=== PATIENT | female | born 1985 | race Caucasian/White ===

== ENCOUNTER → 2019-07-27 18:14 | Outpatient (BNVA) | payer SELFPAY | PROVIDERS: Family Provider Family Medicine; Visit Provider Nurse Practitioner | DX: R50.9 Fever, unspecified (principal) | CPT/HCPCS: 87400 ==

== ENCOUNTER → 2020-03-19 11:19 | Outpatient (BNVA) | payer OTHER, SELFPAY | PROVIDERS: Family Provider Family Medicine; Visit Provider Nurse Practitioner Family | DX: Z11.59 Encounter for screening for other viral diseases (principal) | CPT/HCPCS: 87635 ==

== ENCOUNTER 2021-03-12 16:02 | Emergency (ER) | payer OTHER, SELFPAY ==
[2021-03-12 17:24] VITALS: BP 147/86; PULSE 90; RESP 18; TEMP 36.7; O2SAT 98; BMI 43.0
--- NOTE | 2021-03-12 20:39 | W.ED.ABDPA2 ---
Documented by User: DONALD Travis 03/13/21 02:46 HPI - Abdominal Pain General: Chief Complaint: Abdominal Pain Stated Complaint: Diarrhea, ABD Pain, Ear Drainage Time Seen by Provider: 03/12/21 20:31 History of Present Illness: HPI narrative: Patient is a 35-year-old female comes to the ED with abdominal pain and diarrhea. Symptoms started approximately 2 days ago. She describes the pain as an aching constant pain that she rates an 8 out of 10. The pain is located in the periumbilical region. She is also had multiple episodes of diarrhea for the past couple days. Denies any nausea or vomiting. She is also complaining of having some bilateral ear pain and says her ears feel itchy as well. Denies any fever, chills, chest pain, shortness of breath, bladder symptoms. Associated Symptoms: Reports diarrhea; Denies chills, constipation, dysuria, fever(s), hematochezia, hematuria, nausea and vomiting Review of Systems Const: Denies: fever(s), chills or fatigue Eyes: Denies: change in vision or eye discomfort ENMT: Reports: ear or mastoid pain (Bilateral); Denies: throat pain, odynophagia, nasal discharge or nasal congestion Card: Denies: chest pain, palpitations, edema, swelling of feet/ankles, dyspnea on exertion or orthopnea Resp: Denies: dyspnea, productive cough or non-productive cough GI: Reports: abdominal pain and diarrhea; Denies: nausea, vomiting, constipation or hematochezia : Denies: flank pain, dysuria or hematuria Musc: Denies: neck pain, back pain or extremity swelling Skin/Breast: Denies: rash or new lesions Neuro: Denies: headache(s), numbness in extremities or weakness in extremities PFS ED PFSH: Social History Smoking and tobacco status: never smoked Physical Exam Const: COMMON NORMALS: no acute distress, patient oriented x3 and alert GENERAL APPEARANCE: cooperative and comfortable HENMT: COMMON NORMALS: normocephalic and EAC's normal HEAD & SCALP: normocephalic EXTERNAL AUDITORY CANAL: EAC's normal TYMPANIC MEMBRANE: TM abnormal TM laterality: left Details: erythematous MOUTH: Normal oral and palatal mucosa present THROAT: posterior oropharynx normal and uvula midline Eye: COMMON NORMALS: Equal, round and reactive pupils present PUPIL: Yes Equal, round and reactive pupils present Neck/C-Spine: COMMON NORMALS: supple GENERAL: Yes normal visual inspection Resp: COMMON NORMALS: normal respiratory effort, No retractions, No use of accessory muscles and clear to auscultation bilaterally AUSCULTATION: clear to auscultation bilaterally Cardio: COMMON NORMALS: regular rate, regular rhythm, S1 normal heart sound present, S2 normal heart sound present, No gallops present (Cardio), No clicks present (Cardio), No murmurs present (Cardio) and Peripheral pulses 2+ throughout RATE: regular rate RHYTHM: regular rhythm HEART SOUNDS: S1 normal heart sound present and S2 normal heart sound present PERIPHERAL PULSES: Peripheral pulses 2+ throughout GI: COMMON NORMALS: Normal to inspection, nondistended, normoactive bowel sounds present, Soft to palpation and no masses INSPECTION: Yes central obesity PALPATION: Yes Soft to palpation and Yes Tenderness to palpation present (GI) (Periumbilical tenderness) : COMMON NORMALS: Yes no CVA tenderness BLADDER/KIDNEY EXAM: Yes no CVA tenderness Back/Pelvis: COMMON NORMALS: no CVA tenderness Extremity: COMMON NORMALS: normal to inspection Neuro: COMMON NORMALS: patient oriented x3 SENSORIUM/ORIENTATION: Yes alert GAIT: Yes Normal gait present Skin: GENERAL SKIN EXAM: dry skin Course Vital Signs: Vital signs: Vital Signs Temperature 98.1 F 03/12/21 17:24 Pulse Rate 68 03/12/21 23:21 Respiratory Rate 17 03/12/21 23:21 Blood Pressure 130/84 03/12/21 23:21 Pulse Oximetry 100 03/12/21 23:21 MDM - Abdominal Pain MDM Narrative: Medical decision making narrative: Patient is a 35-year-old female comes to the ED with abdominal pain and diarrhea. Denies any fever, chills, nausea/vomiting. Patient appears nontoxic and in no acute distress or pain. She has periumbilical tenderness, but the rest of exam is benign. CBC, CMP, UA, lipase were all unremarkable. hCG negative. CT of abdomen pelvis showed no acute findings. Patient was given IV fluids, Zofran and morphine and her symptoms improved. Patient was diagnosed with colitis and discharged home with a prescription for Zofran, dicyclomine, Flagyl and Cipro. She was told to follow-up with her PCP in 7 to 10 days reevaluation. Return to ED precautions given. Patient understood and agree with plan. Lab Data: Attestation: I reviewed the patient's lab results. Labs: Lab Results 03/12/21 03/12/21 03/12/21 20:56 21:10 21:10 WBC 6.6 10^3/uL 10^3/ uL (4.0-10.0) RBC 4.23 10^6/uL 10^6 /uL (4.1-5.3) Hgb 11.6 g/dL g/dL (11.5-15.3) Hct 36.0 % L % (37.0-47.0) MCV 85.1 fl fl (81-99) MCH 27.4 pg L pg (28.0-34.0) MCHC 32.2 g/dL g/dL (30.0-36.0) RDW 13.2 % % (12.1-15.1) Plt Count 229 10^3/cmm 10^3 /cmm (130-400) MPV 10.4 fL fL (7.4-10.4) Neut % (Auto) 46.2 % % Lymph % (Auto) 43.3 % % Menard % (Auto) 7.5 % % Eos % (Auto) 2.6 % % Baso % (Auto) 0.2 % % Neut # (Auto) 3.04 10^3/uL 10^3 /uL (1.8-7.7) Lymph # (Auto) 2.8 10^3/uL 10^3/ uL (0.8-4.8) Menard # (Auto) 0.5 10^3/uL 10^3/ uL (0.2-0.9) Eos # (Auto) 0.2 10^3/uL 10^3/ uL (0.0-0.8) Baso # (Auto) 0.0 10^3/uL 10^3/ uL (0.0-0.1) Nucleated RBC % (a uto) 0 % % Nucleated RBCs # 0.0 /100WBC /100W BC Sodium 138 mmol/L mmol/L (136-145) Potassium 4.0 mmol/L mmol/L (3.5-5.1) Chloride 104 mmol/L mmol/L (98-107) Carbon Dioxide 25 mmol/L mmol/L (22-29) Anion Gap 13.0 (5-19) BUN 15 mg/dL mg/dL (6-20) Creatinine 0.6 mg/dL mg/dL (0.5-0.9) GFR Calculation 112.5 mL/min mL/m in (90-130) Glucose 102 mg/dL mg/dL (65-115) Calculated Osmolal ity 287 mOsm/kg mOsm/ kg (285-295) Calcium 9.1 mg/dL mg/dL (8.5-10.5) Total Bilirubin 0.2 mg/dL mg/dL (0.15-1.2) AST 15 U/L U/L (0-32) ALT 17 U/L U/L (0-33) Alkaline Phosphata se 102 IU/L IU/L (35-105) Total Protein 7.6 g/dL g/dL (6.6-8.7) Albumin 4.2 g/dL g/dL (3.5-5.2) Globulin 3.4 g/dL g/dL (1.3-4.6) Lipase 40 U/L U/L (13-60) HCG, Qual Urine Color Yellow (Yellow) Urine Appearance Clear (CLEAR) Urine pH 6 (5-7) Ur Specific Gravit y 1.020 (1.005-1.030) Urine Protein Neg (Negative) Urine Glucose (UA) Norm (Normal) Urine Ketones Negative (Negative) Urine Blood Neg (Negative) Urine Nitrate Negative (Negative) Urine Bilirubin Neg (Negative) Urine Urobilinogen Norm mg/dL mg/dL (Negative) Ur Leukocyte Bernarda ase Negative (Negative) 03/12/21 21:10 WBC RBC Hgb Hct MCV MCH MCHC RDW Plt Count MPV Neut % (Auto) Lymph % (Auto) Menard % (Auto) Eos % (Auto) Baso % (Auto) Neut # (Auto) Lymph # (Auto) Menard # (Auto) Eos # (Auto) Baso # (Auto) Nucleated RBC % (a uto) Nucleated RBCs # Sodium Potassium Chloride Carbon Dioxide Anion Gap BUN Creatinine GFR Calculation Glucose Calculated Osmolal ity Calcium Total Bilirubin AST ALT Alkaline Phosphata se Total Protein Albumin Globulin Lipase HCG, Qual Negative (Negative) Urine Color Urine Appearance Urine pH Ur Specific Gravit y Urine Protein Urine Glucose (UA) Urine Ketones Urine Blood Urine Nitrate Urine Bilirubin Urine Urobilinogen Ur Leukocyte Bernarda ase Imaging Data ^: CT Abd/Pel: Attestation: I personally reviewed and interpreted this imaging study as follows: [facility]iologist's impression: [facility] [address] [place] [address] CT Scan Report Signed Patient: Dank Regan Unit #: [id number] : [id number] Age/Sex: 35 / F ADM Date: 03/12/21 Loc: ER Room/Bed: Attending Dr: Ordering Provider/Ordering MD: Sandeep Leiva Date of Service: 03/12/21 Procedure(s): CT abdomen pelvis w con* [id number] Accession Number(s): [id number] Report Number: [id number] PROCEDURE INFORMATION: Exam: CT Abdomen And Pelvis With Contrast Exam date and time: 03/12/2021 8:39 PM Age: 35 years old Clinical indication: Abdominal pain; Prior surgery; Surgery type: Femur; Patient HX: Periumbilical pain with diarrhea. ; Additional info: Periumbilical abdominal pain and diarrhea TECHNIQUE: Imaging protocol: Computed tomography of the abdomen and pelvis with contrast. Radiation optimization: All CT scans at this facility use at least one of these dose optimization techniques: automated exposure control; mA and/or kV adjustment per patient size (includes targeted exams where dose is matched to clinical indication); or iterative reconstruction. Contrast material: OMNI 300; Contrast volume: 95 ml; Contrast route: INTRAVENOUS (IV); COMPARISON: CT abdomen pelvis w con* [id number] 01/01/2019 5:30 PM RADIATION DOSE METRICS: Total DLP (mGy-cm): 1751.33 FINDINGS: Lungs: The lung bases are clear. Liver: Unremarkable. Gallbladder and bile ducts: No definite gallbladder abnormality by CT. No biliary tree dilation. Pancreas: Unremarkable. Spleen: Unremarkable. Adrenal glands: Unremarkable. Kidneys and ureters: Unremarkable. Stomach and bowel: No significant bowel distention. There are no CT findings to strongly suggest diverticulitis or colitis. Negative CT does not entirely exclude colitis, so follow-up may be helpful, as clinically directed. Appendix: The appendix is visualized and appears normal. Intraperitoneal space: No free intraperitoneal air, or ascites. Vasculature: No evidence for abdominal aortic aneurysm. Lymph nodes: No retroperitoneal adenopathy. Urinary bladder: Unremarkable as visualized. Reproductive: The left ovary contains a 13 mm dominant follicle versus very small cyst. Significance unlikely due to small size. No cul-de-sac fluid. Bones/joints: Postsurgical changes again seen in the proximal right femur. Soft tissues: Very small umbilical hernia, containing only fat, not significantly changed. CT/CT abdomen pelvis w con* [id number] IMPRESSION: 1. Normal appendix. 2. No CT findings to strongly suggest diverticulitis or colitis. 3. No free air or bowel distention. 4. Other findings discussed above. Radiation Dose CTDIVOL = (mGy): DLP = 1751.33 (mGy-cm) Dictated By: Josh Bearden MD Signed By: Josh Bearden MD Signed Date/Time: 03/12/212229 DD/ 38 Discharge Plan Discharge Patient Disposition: Home Clinical Impression: Colitis Condition: Stable Prescriptions: New ondansetron HCl 4 mg tablet 4 mg PO Q8H PRN (Reason: nausea and vomiting) Qty: 12 RF: 0 dicyclomine 20 mg tablet 20 mg PO QID PRN (Reason: abdominal pain and cramping) Qty: 20 RF: 0 No Action metformin 500 mg tablet 500 mg PO BID RF: 0 hydrochlorothiazide 25 mg tablet 25 mg PO DAILY RF: 0 levothyroxine 125 mcg capsule 125 mcg PO DAILY RF: 0 ibuprofen 800 mg tablet 800 mg PO Q6H RF: 0 albuterol sulfate [ProAir HFA] 90 mcg/actuation HFA aerosol inhaler 2 puff INHALATION Q6H PRNRF: 0 Discharge Orders: Discharge ED (Routine); Ordered 03/12/21 Ordered By: Sandeep Leiva Discharge Diet: Regular Discharge Activity: Increase activity as tolerated Patient Instructions: Colitis (ED) Activity Restrictions/Additional Instructions: Follow-up with medical provider as directed in 7 to 10 days for reevaluation. Take medications as prescribed. Drink plenty of fluids and stay hydrated. Return to the ER or your medical provider if condition worsens. Please read and understand discharge instructions. Thank you for choosing [facility] for your healthcare needs today. Please realize this is an emergency room and that we are providing you with a medical screening exam and this may not be complete and all inclusive of all the testing and or work up that you may need to determine your ailment or severity of your illness. It is very important that you follow up as instructed or that you return to the Emergency Department should you have concerns or if your condition changes or worsens in any way. 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 Documented by User: Sharad Koroma MD 03/21/21 13:29 HPI - Abdominal Pain General: Chief Complaint: Abdominal Pain Stated Complaint: Diarrhea, ABD Pain, Ear Drainage Time Seen by Provider: 03/12/21 20:31 PFS ED PFSH: Social History Smoking and tobacco status: never smoked Course Vital Signs: Vital signs: Vital Signs Temperature 98.1 F 03/12/21 17:24 Pulse Rate 68 03/12/21 23:21 Respiratory Rate 17 03/12/21 23:21 Blood Pressure 130/84 03/12/21 23:21 Pulse Oximetry 100 03/12/21 23:21 MDM - Abdominal Pain Lab Data: Labs: Lab Results 03/12/21 03/12/21 03/12/21 20:56 21:10 21:10 WBC 6.6 10^3/uL 10^3/ uL (4.0-10.0) RBC 4.23 10^6/uL 10^6 /uL (4.1-5.3) Hgb 11.6 g/dL g/dL (11.5-15.3) Hct 36.0 % L % (37.0-47.0) MCV 85.1 fl fl (81-99) MCH 27.4 pg L pg (28.0-34.0) MCHC 32.2 g/dL g/dL (30.0-36.0) RDW 13.2 % % (12.1-15.1) Plt Count 229 10^3/cmm 10^3 /cmm (130-400) MPV 10.4 fL fL (7.4-10.4) Neut % (Auto) 46.2 % % Lymph % (Auto) 43.3 % % Menard % (Auto) 7.5 % % Eos % (Auto) 2.6 % % Baso % (Auto) 0.2 % % Neut # (Auto) 3.04 10^3/uL 10^3 /uL (1.8-7.7) Lymph # (Auto) 2.8 10^3/uL 10^3/ uL (0.8-4.8) Menard # (Auto) 0.5 10^3/uL 10^3/ uL (0.2-0.9) Eos # (Auto) 0.2 10^3/uL 10^3/ uL (0.0-0.8) Baso # (Auto) 0.0 10^3/uL 10^3/ uL (0.0-0.1) Nucleated RBC % (a uto) 0 % % Nucleated RBCs # 0.0 /100WBC /100W BC Sodium 138 mmol/L mmol/L (136-145) Potassium 4.0 mmol/L mmol/L (3.5-5.1) Chloride 104 mmol/L mmol/L (98-107) Carbon Dioxide 25 mmol/L mmol/L (22-29) Anion Gap 13.0 (5-19) BUN 15 mg/dL mg/dL (6-20) Creatinine 0.6 mg/dL mg/dL (0.5-0.9) GFR Calculation 112.5 mL/min mL/m in (90-130) Glucose 102 mg/dL mg/dL (65-115) Calculated Osmolal ity 287 mOsm/kg mOsm/ kg (285-295) Calcium 9.1 mg/dL mg/dL (8.5-10.5) Total Bilirubin 0.2 mg/dL mg/dL (0.15-1.2) AST 15 U/L U/L (0-32) ALT 17 U/L U/L (0-33) Alkaline Phosphata se 102 IU/L IU/L (35-105) Total Protein 7.6 g/dL g/dL (6.6-8.7) Albumin 4.2 g/dL g/dL (3.5-5.2) Globulin 3.4 g/dL g/dL (1.3-4.6) Lipase 40 U/L U/L (13-60) HCG, Qual Urine Color Yellow (Yellow) Urine Appearance Clear (CLEAR) Urine pH 6 (5-7) Ur Specific Gravit y 1.020 (1.005-1.030) Urine Protein Neg (Negative) Urine Glucose (UA) Norm (Normal) Urine Ketones Negative (Negative) Urine Blood Neg (Negative) Urine Nitrate Negative (Negative) Urine Bilirubin Neg (Negative) Urine Urobilinogen Norm mg/dL mg/dL (Negative) Ur Leukocyte Bernarda ase Negative (Negative) 03/12/21 21:10 WBC RBC Hgb Hct MCV MCH MCHC RDW Plt Count MPV Neut % (Auto) Lymph % (Auto) Menard % (Auto) Eos % (Auto) Baso % (Auto) Neut # (Auto) Lymph # (Auto) Menard # (Auto) Eos # (Auto) Baso # (Auto) Nucleated RBC % (a uto) Nucleated RBCs # Sodium Potassium Chloride Carbon Dioxide Anion Gap BUN Creatinine GFR Calculation Glucose Calculated Osmolal ity Calcium Total Bilirubin AST ALT Alkaline Phosphata se Total Protein Albumin Globulin Lipase HCG, Qual Negative (Negative) Urine Color Urine Appearance Urine pH Ur Specific Gravit y Urine Protein Urine Glucose (UA) Urine Ketones Urine Blood Urine Nitrate Urine Bilirubin Urine Urobilinogen Ur Leukocyte Bernarda ase Discharge Plan Discharge Patient Disposition: Home Clinical Impression: Colitis Condition: Stable Prescriptions: New ondansetron HCl 4 mg tablet 4 mg PO Q8H PRN (Reason: nausea and vomiting) Qty: 12 RF: 0 dicyclomine 20 mg tablet 20 mg PO QID PRN (Reason: abdominal pain and cramping) Qty: 20 RF: 0 No Action metformin 500 mg tablet 500 mg PO BID RF: 0 hydrochlorothiazide 25 mg tablet 25 mg PO DAILY RF: 0 levothyroxine 125 mcg capsule 125 mcg PO DAILY RF: 0 ibuprofen 800 mg tablet 800 mg PO Q6H RF: 0 albuterol sulfate [ProAir HFA] 90 mcg/actuation HFA aerosol inhaler 2 puff INHALATION Q6H PRNRF: 0 Discharge Orders: Discharge ED (Routine); Ordered 03/12/21 Ordered By: Sandeep Leiva Discharge Diet: Regular Discharge Activity: Increase activity as tolerated Patient Instructions: Colitis (ED) Activity Restrictions/Additional Instructions: Follow-up with medical provider as directed in 7 to 10 days for reevaluation. Take medications as prescribed. Drink plenty of fluids and stay hydrated. Return to the ER or your medical provider if condition worsens. Please read and understand discharge instructions. Thank you for choosing [facility] for your healthcare needs today. Please realize this is an emergency room and that we are providing you with a medical screening exam and this may not be complete and all inclusive of all the testing and or work up that you may need to determine your ailment or severity of your illness. It is very important that you follow up as instructed or that you return to the Emergency Department should you have concerns or if your condition changes or worsens in any way. 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
[2021-03-12 21:18] LABS: Basophils % 0.2 %; Eosinophils # 0.2 10^3/uL (0.0-0.8); Eosinophils % 2.6 %; Hemoglobin 11.6 g/dL (11.5-15.3); Lymphocytes # 2.8 10^3/uL (0.8-4.8); Lymphocytes % 43.3 %; Mean Corpuscular HGB Conc 32.2 g/dL (30.0-36.0); Mean Corpuscular Hemoglobin 27.4 pg (28.0-34.0); Mean Corpuscular Volume 85.1 fl (81-99); Mean Platelet Volume 10.4 fL (7.4-10.4); Monocytes # 0.5 10^3/uL (0.2-0.9); Monocytes % 7.5 %; Neutrophils # 3.04 10^3/uL (1.8-7.7); Neutrophils % 46.2 %; Nucleated Red Blood Cells % 0 %; Platelet Count 229 10^3/cmm (130-400); Red Blood Count 4.23 10^6/uL (4.1-5.3); Red Cell Distribution Width 13.2 % (12.1-15.1); White Blood Count 6.6 10^3/uL (4.0-10.0)
[2021-03-12 21:25] LABS: Add Urine Microscopic? NO; Charge for UA Resulting for Rev
[2021-03-12] MEDS: morphine 4 mg/mL SDV 1 mL IVP (21:29)
[2021-03-12 21:30] LABS: Bilirubin Urine Neg (Negative); Blood Urine Neg (Negative); Glucose Urine UA Norm (Normal); Ketones Urine Negative (Negative); Leukocyte Esterase Urine Negative (Negative); Nitrate Urine Negative (Negative); Protein Urine Neg (Negative); Urine Appearance Clear (CLEAR); Urine Color Yellow (Yellow); Urobilinogen Urine Norm (Negative); pH Urine 6 (5-7)
[2021-03-12] MEDS: sodium chloride 0.9% 1,000 ML 999 ML IV (21:31)
[2021-03-12] MEDS: ondansetron 2 mg/ML SDV 2 mL 4 MG IVP (21:31)
[2021-03-12 21:33] LABS: HCG, Serum Qual Negative (Negative)
[2021-03-12] MEDS: iohexol 300 mg/mL 100 mL Btl IV (21:37)
[2021-03-12 21:40] LABS: Alanine Aminotransferase 17 U/L (0-33); Albumin Level 4.2 g/dL (3.5-5.2); Alkaline Phosphatase 102 IU/L (35-105); Aspartate Amino Transferase 15 U/L (0-32); Blood Urea Nitrogen 15 mg/dL (6-20); Calcium 9.1 mg/dL (8.5-10.5); Carbon Dioxide 25 mmol/L (22-29); Chloride 104 mmol/L (98-107); Globulin 3.4 g/dL (1.3-4.6); Glomerular Filtration Rate 112.5 mL/min (90-130); Glucose 102 mg/dL (65-115); Lipase 40 U/L (13-60); Osmolality Calculated 287 mOsm/kg (285-295); Sodium 138 mmol/L (136-145); Total Bilirubin 0.2 mg/dL (0.15-1.2); Total Protein 7.6 g/dL (6.6-8.7)
[2021-03-12 22:28] VITALS: BP 119/60; PULSE 83; RESP 18; O2SAT 98
[2021-03-12] MEDS: metroNIDAZOLE 500 MG Tablet PO (23:13)
[2021-03-12] MEDS: ciprofloxacin 500 mg Tablet PO (23:13)
[2021-03-12 23:21] VITALS: BP 130/84; PULSE 68; RESP 17; O2SAT 100
== END 2021-03-12 23:23 | disposition home or self-care (01) ==
PROVIDERS: Physician Assistant; Emergency Provider Physician Assistant
DX: K52.9 Noninfective gastroenteritis and colitis, unspecified (principal); Z79.84 Long term (current) use of oral hypoglycemic drugs
CPT/HCPCS: 74177; 80053; 81003; 83690; 84703; 85025; 96361; 96374; 96375; 99283; J2270; J2405; J7030; Q9967

== ENCOUNTER 2021-07-28 13:42 | Emergency (ER) | payer SELFPAY ==
--- NOTE | 2021-07-28 13:51 | XR_ITS ---
WS: [id number] XR chest 1V portable [id number] REASON FOR EXAM: chest pain FINDINGS: Suboptimal inspiratory effort. Heart and mediastinum are within normal limits. No active pulmonary parenchymal or pleural disease. Bony thorax is intact without significant focal abnormality. XR/XR chest 1V portable [id number] IMPRESSION: No acute chest abnormality.
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
--- NOTE | 2021-07-28 13:51 | ECG_ITS ---
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 Measurements Intervals [place] Rate: 74 P: 28 [place]: 157 QRS: 34 QRSD: 89 T: 11 QT: 368 QTc: 409 Interpretive Statements SINUS RHYTHM No previous ECG available for comparison Electronically Signed On 07-28-2021 22:23:58 CDT by Michael Salmeron M.D. [id number]
[2021-07-28 13:52] VITALS: BMI 46.0
--- NOTE | 2021-07-28 14:03 | PC.NURSE ---
with Delphine Rea RN
[2021-07-28 14:25] LABS: Basophils % 0.3 %; Eosinophils # 0.1 10^3/uL (0.0-0.8); Eosinophils % 3.5 %; Hematocrit 35.8 % (37.0-47.0); Hemoglobin 11.3 g/dL (11.5-15.3); Lymphocytes # 1.6 10^3/uL (0.8-4.8); Mean Corpuscular HGB Conc 31.6 g/dL (30.0-36.0); Mean Corpuscular Hemoglobin 26.2 pg (28.0-34.0); Mean Corpuscular Volume 82.9 fl (81-99); Mean Platelet Volume 10.8 fL (7.4-10.4); Monocytes # 0.3 10^3/uL (0.2-0.9); Monocytes % 8.9 %; Neutrophils # 1.39 10^3/uL (1.8-7.7); Nucleated Red Blood Cells % 0 %; Platelet Count 228 10^3/cmm (130-400); Red Blood Count 4.32 10^6/uL (4.1-5.3); Red Cell Distribution Width 13.7 % (12.1-15.1); White Blood Count 3.5 10^3/uL (4.0-10.0)
[2021-07-28 14:44] LABS: Alanine Aminotransferase 13 U/L (0-33); Albumin Level 4.1 g/dL (3.5-5.2); Alkaline Phosphatase 96 IU/L (35-105); Anion Gap 15.6 (5-19); Aspartate Amino Transferase 13 U/L (0-32); Blood Urea Nitrogen 11 mg/dL (6-20); Calcium 8.2 mg/dL (8.5-10.5); Carbon Dioxide 21 mmol/L (22-29); Chloride 103 mmol/L (98-107); Globulin 2.8 g/dL (1.3-4.6); Glomerular Filtration Rate 94.2 mL/min (90-130); Glucose 170 mg/dL (65-115); HCG, Serum Qual Negative (Negative); Osmolality Calculated 285 mOsm/kg (285-295); Potassium 3.6 mmol/L (3.5-5.1); Sodium 136 mmol/L (136-145); Total Bilirubin 0.2 mg/dL (0.15-1.2); Total Protein 6.9 g/dL (6.6-8.7)
[2021-07-28 14:45] LABS: Troponin(5th) Baseline 6 ng/L (0-10)
--- NOTE | 2021-07-28 14:45 | PC.PHAR ---
pt states she use to take alot of rx medications-pt states not taken them for over a year pt states she cant afford her medications-pt states she is unsure of the names of the medications she was taking
[2021-07-28 15:05] VITALS: BP 143/65; PULSE 71; RESP 16; TEMP 36.9; O2SAT 98
== END 2021-07-28 15:56 | disposition home or self-care (01) ==
PROVIDERS: Emergency Provider Physician Assistant; PCP Family Medicine
DX: R07.89 Other chest pain (principal)
CPT/HCPCS: 71045; 80053; 84484; 84703; 85025; 93005; 99282

== ENCOUNTER 2021-07-29 18:19 | Emergency (ER) | payer SELFPAY ==
[2021-07-29 18:34] VITALS: PULSE 83; RESP 18; TEMP 36.9; O2SAT 98; BMI 46.9
--- NOTE | 2021-07-29 18:39 | ED_ITS ---
HPI - Chest Pain General: Chief Complaint: Chest Pain Stated Complaint: Chest Pains Time Seen by Provider: 07/29/21 18:39 History of Present Illness: Ms. Regan is a 35-year-old lady with past medical history of psychiatric illness who presents emergency department due to chest pain. She initially presented yesterday for similar concerns. She endorses that symptoms started at rest and she had pressure in her chest. There was mild radiation or tingling down the arm however ED evaluation at that point was negative for acute cause. She expresses frustration that her pain was not controlled discharge. She does report continued symptoms and called her PCPs office for follow-up today however they referred her back to the emergency department for worsening arm symptoms. She denies frequent similar episodes in the past. Denies other signs systemic illness. No other specific changes in health, exacerbating, relieving factors identified. Onset (ago): day(s) Timing of current episode: constant Prior episodes: No Onset: during rest Pain location: substernal and left chest Pain radiation: left arm Severity: severe Quality: crushing Review of Systems General: Reports: 10 or more systems reviewed and unremarkable except in HPI and below PFSH ED PFSH: Medical History No significant past medical history Social History Smoking and tobacco status: never smoked Physical Exam Const: COMMON NORMALS: alert GENERAL APPEARANCE: cooperative and well developed HENMT: COMMON NORMALS: normocephalic and atraumatic HEAD & SCALP: normocephalic and atraumatic Eye: COMMON NORMALS: conjunctivae normal CONJUNCTIVA: Yes conjunctivae normal SCLERA: sclerae normal Neck/C-Spine: COMMON NORMALS: supple GENERAL: Yes trachea midline Resp: COMMON NORMALS: normal respiratory effort and clear to auscultation bilaterally EFFORT & INSPECTION: Yes able to speak in complete sentences AUSCULTATION: clear to auscultation bilaterally Cardio: COMMON NORMALS: regular rate and regular rhythm RATE: regular rate RHYTHM: regular rhythm GI: COMMON NORMALS: Soft to palpation PALPATION: Yes Soft to palpation and No Tenderness to palpation present (GI) PERCUSSION: normal to percussion Extremity: GENERAL: Yes normal exam except as noted and No edema Neuro: COMMON NORMALS: moves all extremities SENSORIUM/ORIENTATION: Yes alert and No Orientation impaired Psych: COMMON NORMALS: mental status grossly normal and Normal thought process present THOUGHT PROCESS: Normal thought process present Course ED course: - Patient was seen and evaluated by me at bedside - Patient placed on cardiac monitors, IV access obtained - Initial evaluation notable for exam as above - Labs and xrays personally interpreted by me - Analgesia ordered. - Labs notable for no acute hematologic or metabolic abnormality to explain symptoms. Troponin negative with greater than 6 hours of symptoms. D-dimer negative. - Imaging notable for no lobar consolidation or pneumothorax on chest x-ray - The patient did have facial and tongue itching with fentanyl and therefore treatment for allergic action was ordered. No evidence of progression of symptoms or anaphylaxis. - Upon serial reexamination after treatment the patient was improved with resolution of pain - Based on patient history, evaluation, and testing as interpreted the most likely cause of the patient's condition is chest pain of unclear etiology. Patient is low risk by heart score - The results of ED evaluation were discussed with the patient including pr escriptions and/or symptomatic cares (if applicable) including appropriate and responsible use, followup plan, and return precautions. The patient verbalized understanding and felt safe for discharge. - Patient discharged in satisfactory condition. Note: Click bubbles or prepopulated deal in note writing are used for assistance with data collection and billing and are inherently more limited than narrative and other text portions of this note. Please use narrative for additional clinical history and defer to narrative/free test for any case of contradictory information. If information appears in only free text or click bubble it should be considered present or absent as reported. Please contact note business writer for clarifications of clinical information or contradictory information. MDM is a brief summary, contradictory or erroneous seeming information should be clarified and full note should be reviewed. Vital Signs: Vital signs: Vital Signs Temperature 97.5 F L 07/30/21 00:08 Pulse Rate 87 07/30/21 00:08 Respiratory Rate 17 07/30/21 00:08 Blood Pressure 145/78 07/30/21 00:08 Pulse Oximetry 97 07/30/21 00:08 MDM - Chest Pain Medical Decision Making 35-year-old lady presenting for chest pain. Negative ED evaluation for obvious cause. Improved with treatment however patient did have a mild allergic reaction to treatment. Satisfactory for outpatient treatment and management. Medical Records I reviewed the patient's medical records. Lab Data I reviewed the patient's lab results. : 07/29/21 20:12 07/29/21 20:12 Radiology Impressions Chest X-Ray 07/29/21 18:47 IMPRESSION: No acute findings. Laboratory Results WBC 5.8 10^3/uL (4.0-10.0) 07/29/21 20:12 RBC 4.47 10^6/uL (4.1-5.3) 07/29/21 20:12 Hgb 11.7 g/dL (11.5-15.3) 07/29/21 20:12 Hct 36.5 % (37.0-47.0) L 07/29/21 20:12 MCV 81.7 fl (81-99) 07/29/21 20:12 MCH 26.2 pg (28.0-34.0) L 07/29/21 20:12 MCHC 32.1 g/dL (30.0-36.0) 07/29/21 20:12 RDW 13.7 % (12.1-15.1) 07/29/21 20:12 Plt Count 231 10^3/cmm (130-400) 07/29/21 20:12 MPV 10.3 fL (7.4-10.4) 07/29/21 20:12 Neut % (Auto) 57.8 % 07/29/21 20:12 Lymph % (Auto) 32.9 % 07/29/21 20:12 [place] % (Auto) 6.7 % 07/29/21 20:12 Eos % (Auto) 2.2 % 07/29/21 20:12 Baso % (Auto) 0.2 % 07/29/21 20:12 Neut # (Auto) 3.37 10^3/uL (1.8-7.7) 07/29/21 20:12 Lymph # (Auto) 1.9 10^3/uL (0.8-4.8) 07/29/21 20:12 [place] # (Auto) 0.4 10^3/uL (0.2-0.9) 07/29/21 20:12 Eos # (Auto) 0.1 10^3/uL (0.0-0.8) 07/29/21 20:12 Baso # (Auto) 0.0 10^3/uL (0.0-0.1) 07/29/21 20:12 Nucleated RBC % (auto) 0 % 07/29/21 20:12 Nucleated RBCs # 0.0 /100WBC 07/29/21 20:12 D-Dimer 0.48 ug/mIFEU (0-0.59) 07/29/21 20:37 Sodium 134 mmol/L (136-145) L 07/29/21 20:12 Potassium 3.7 mmol/L (3.5-5.1) 07/29/21 20:12 Chloride 101 mmol/L (98-107) 07/29/21 20:12 Carbon Dioxide 23 mmol/L (22-29) 07/29/21 20:12 Anion Gap 13.7 (5-19) 07/29/21 20:12 BUN 9 mg/dL (6-20) 07/29/21 20:12 Creatinine 0.6 mg/dL (0.5-0.9) 07/29/21 20:12 GFR Calculation 112.5 mL/min (90-130) 07/29/21 20:12 Glucose 128 mg/dL (65-115) H 07/29/21 20:12 Calculated Osmolality 278 mOsm/kg (285-295) L 07/29/21 20:12 Calcium 9.3 mg/dL (8.5-10.5) 07/29/21 20:12 Total Bilirubin 0.2 mg/dL (0.15-1.2) 07/29/21 20:12 AST 14 U/L (0-32) 07/29/21 20:12 ALT 12 U/L (0-33) 07/29/21 20:12 Alkaline Phosphatase 102 IU/L (35-105) 07/29/21 20:12 Troponin T Baseline 6 ng/L (0-10) 07/29/21 20:12 Troponin T 120 Minute 6.00 ng/L (0-10) 07/29/21 21:59 Delta Troponin T 0 ABS# (0-10) 07/29/21 21:59 Total Protein 7.5 g/dL (6.6-8.7) 07/29/21 20:12 Albumin 4.2 g/dL (3.5-5.2) 07/29/21 20:12 Globulin 3.3 g/dL (1.3-4.6) 07/29/21 20:12 Lipase 31 U/L (13-60) 07/29/21 20:12 EKG Data EKG 1: I personally reviewed and interpreted this EKG as follows: EKG interpretation date: 07/29/21 EKG interpretation time: 17:52 Interpretation: Twelve-lead EKG shows a regular rhythm at a rate of 81. [place] interval 147, QRS duration 88, QTc 392. Normal axis. Interpretation: Sinus rhythm with nonspecific ST segment abnormalities. EKG 2: I personally reviewed and interpreted this EKG as follows: EKG interpretation date: 07/29/21 EKG interpretation time: 21:21 Interpretation: EKG shows a regular rhythm at a rate of 84. [place] interval 151, QRS duration 90, QTc 402. Normal axis. Interpretation: Sinus rhythm with nonspecific ST segment abnormalities. Discharge Plan Discharge Patient Disposition: Home Clinical Impression: Chest pain, Paresthesia of arm, Allergic reaction Condition: Stable Prescriptions: New prednisone 50 mg tablet 50 mg PO DAILY 5 Days Qty: 5 0RF Pepcid 40 mg tablet 40 mg PO BID 5 Days Qty: 10 0RF No Action albuterol sulfate [ProAir HFA] 90 mcg/actuation HFA aerosol inhaler 2 puff INHALATION Q6H PRN (Reason: Shortness Of Breath) 0RF Midol Complete 500-60-15 mg Tablet 2 tab PO DAILY PRN (Reason: Menstrual Cramps) 0RF acetaminophen [Tylenol Ex Str Rapid Release] 500 mg Tablet 1,000 mg PO Q6H PRN (Reason: Pain) 0RF Discharge Orders: Discharge ED (Routine); Ordered 07/29/21 Ordered By: Sami Stahl Referrals: Roel Marshall MD [Primary Care Provider] - Discharge Diet: Usual diet Discharge Activity: Resume usual activity Patient Instructions: Chest Pain (ED), Paresthesia (ED), General Allergic Reaction (ED), Opioid Safety Activity Restrictions/Additional Instructions: Thank you for visiting the emergency department. You were seen and evaluated for chest pain. The exact cause of your chest pain is unclear however does not appear to be related to damage to your heart or blood clot. No evidence of infection was identified on chest x-ray. You may use [id number] medications for the symptoms however please do not exceed the daily recommended dosage. For your allergic reaction to the fentanyl I will give you steroids and Pepcid, if you continue to have symptoms despite this I recommend Benadryl as needed and following the packaging instructions. Please follow-up with your primary care provider. Please return the emergency department for worsening symptoms or anything else that you are concerned about and feel needs emergency department evaluation. Stand Alone Forms: Work/School Release Coding Level of Care Code ED Construction Helper for Jeremiasg 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
--- NOTE | 2021-07-29 18:47 | XRR_ITS ---
PROCEDURE INFORMATION: Exam: XR Chest Exam date and time: 07/29/2021 6:47 PM Age: 35 years old Clinical indication: Angina; Left-sided; Patient HX: Cp since yesterday; PT was seen yesterday for this symptom; Lt arm pain; Additional info: Chest pain TECHNIQUE: Imaging protocol: XR of the chest. Views: 1 view. COMPARISON: CR XR chest 1V portable [id number] 07/28/2021 1:14 PM FINDINGS: Lungs: Unremarkable. No consolidation. Pleural spaces: Unremarkable. No pleural effusion. No pneumothorax. Heart/Mediastinum: Unremarkable. No cardiomegaly. Bones/joints: Unremarkable. XR/XR chest 1V portable [id number] IMPRESSION: No acute findings.
--- NOTE | 2021-07-29 18:47 | ECG_ITS ---
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 Measurements Intervals [place] Rate: 81 P: 41 [place]: 147 QRS: 32 QRSD: 88 T: 33 QT: 355 QTc: 414 Interpretive Statements SINUS RHYTHM WITH SINUS ARRHYTHMIA Compared to ECG 07/28/2021 13:56:39 No significant changes Electronically Signed On 07-29-2021 23:04:58 CDT by Michael Salmeron M.D. [email or web address] [email or web address] memorial hospitalDynamaxx [facility].[employer]/store/NU/[id number] f
[2021-07-29 18:51] VITALS: BP 142/68; PULSE 90; RESP 19; O2SAT 97
[2021-07-29] MEDS: lidocaine 2% viscous 15 ML, aluminum-mag hydrox-simethicon 30 ML, sucralfate oral liq 1 GM PO (19:53)
[2021-07-29 20:18] LABS: Basophils % 0.2 %; Eosinophils # 0.1 10^3/uL (0.0-0.8); Eosinophils % 2.2 %; Hematocrit 36.5 % (37.0-47.0); Hemoglobin 11.7 g/dL (11.5-15.3); Lymphocytes # 1.9 10^3/uL (0.8-4.8); Lymphocytes % 32.9 %; Mean Corpuscular HGB Conc 32.1 g/dL (30.0-36.0); Mean Corpuscular Hemoglobin 26.2 pg (28.0-34.0); Mean Corpuscular Volume 81.7 fl (81-99); Mean Platelet Volume 10.3 fL (7.4-10.4); Monocytes # 0.4 10^3/uL (0.2-0.9); Monocytes % 6.7 %; Neutrophils # 3.37 10^3/uL (1.8-7.7); Neutrophils % 57.8 %; Nucleated Red Blood Cells % 0 %; Platelet Count 231 10^3/cmm (130-400); Red Blood Count 4.47 10^6/uL (4.1-5.3); Red Cell Distribution Width 13.7 % (12.1-15.1); White Blood Count 5.8 10^3/uL (4.0-10.0)
[2021-07-29 20:32] VITALS: RESP 18
[2021-07-29] MEDS: fentaNYL 50 mcg/mL INJ 2mL IVP (20:32)
[2021-07-29 20:40] LABS: Troponin(5th) Baseline 6 ng/L (0-10)
[2021-07-29 20:41] LABS: Alanine Aminotransferase 12 U/L (0-33); Albumin Level 4.2 g/dL (3.5-5.2); Alkaline Phosphatase 102 IU/L (35-105); Anion Gap 13.7 (5-19); Aspartate Amino Transferase 14 U/L (0-32); Blood Urea Nitrogen 9 mg/dL (6-20); Calcium 9.3 mg/dL (8.5-10.5); Carbon Dioxide 23 mmol/L (22-29); Chloride 101 mmol/L (98-107); Globulin 3.3 g/dL (1.3-4.6); Glomerular Filtration Rate 112.5 mL/min (90-130); Glucose 128 mg/dL (65-115); Lipase 31 U/L (13-60); Osmolality Calculated 278 mOsm/kg (285-295); Potassium 3.7 mmol/L (3.5-5.1); Sodium 134 mmol/L (136-145); Total Bilirubin 0.2 mg/dL (0.15-1.2); Total Protein 7.5 g/dL (6.6-8.7)
--- NOTE | 2021-07-29 20:47 | ECG_ITS ---
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 Measurements Intervals [place] Rate: 84 P: 46 MD: 151 QRS: 27 QRSD: 90 T: 7 QT: 361 QTc: 428 Interpretive Statements SINUS RHYTHM Compared to ECG 07/29/2021 17:46:23 Sinus arrhythmia no longer present Electronically Signed On 07-29-2021 23:05:34 CDT by Michael Salmeron M.D. [email or web address] [facility] infantsRoutezillacleveland clinic foundationBizak/store/OM/[id number]
[2021-07-29 21:06] LABS: D Dimer 0.48 ug/mIFEU (0-0.59)
[2021-07-29] MEDS: diphenhydrAMINE 50 mg/mL SDV 1mL 25 MG IVP (21:06)
[2021-07-29] MEDS: famotidine 20 mg/2 mL INJ 40 MG IVP (21:06)
--- NOTE | 2021-07-29 21:06 | PC.NURSE ---
reported feeling tingling in mouth and tongue, medicated per mar and patient state feeling relief at this time. no oral edema noted. speech remains clear.
[2021-07-29 22:37] LABS: Troponin 5 2HR Delta 0 ABS# (0-10)
[2021-07-30 00:08] VITALS: BP 145/78; PULSE 87; RESP 17; TEMP 36.4; O2SAT 97
== END 2021-07-30 00:09 | disposition home or self-care (01) ==
PROVIDERS: Emergency Provider Emergency Medicine; PCP Family Medicine
DX: R07.9 Chest pain, unspecified (principal); R20.2 Paresthesia of skin; T78.40XA Allergy, unspecified, initial encounter
CPT/HCPCS: 36415; 71045; 80053; 83690; 84484; 85025; 85378; 93005; 96374; 96375; 99284; J1200; J2930; J3010; J3490

== ENCOUNTER 2021-11-28 13:05 | Emergency (ER) | payer OTHER, SELFPAY ==
[2021-11-28 13:11] VITALS: BP 131/93; PULSE 78; RESP 16; TEMP 36.7; O2SAT 97
--- NOTE | 2021-11-28 17:19 | W.ED.NAVMDI ---
HPI - Nausea/Vomiting/Diarrhea General: Chief complaint: Nausea/Vomiting/Diarrhea Stated complaint: Vomiting Time Seen by Provider: 11/28/21 17:06 History of Present Illness: Patient is a 36-year-old female comes to the ED with nausea and vomiting. Symptoms started last night. She states that she had an empty stomach when symptoms started last night. Denies any possible food poisoning or any symptoms developing right after eating. Since start of symptoms she has not been able to keep any food or fluids down. She is only able to keep down ice. Denies any recent sick contacts. denies any fevers, chills, abdominal pain, vaginal discharge, vaginal bleeding, bladder or bowel symptoms. Associated nausea: Yes Associated symtoms: Reports nausea; Denies change in vision, chest pain, dysuria, fatigue, headache(s) or palpitations Review of Systems Const: Denies: fever(s), chills or fatigue Eyes: Denies: change in vision or eye discomfort ENMT: Denies: throat pain, odynophagia, nasal discharge or nasal congestion Card: Denies: chest pain, palpitations, edema, swelling of feet/ankles, dyspnea on exertion or orthopnea Resp: Denies: dyspnea, productive cough or non-productive cough GI: Reports: nausea and vomiting; Denies: abdominal pain, diarrhea, constipation or hematochezia : Denies: flank pain, dysuria or hematuria Musc: Denies: neck pain, back pain or extremity swelling Skin/Breast: Denies: rash or new lesions Neuro: Denies: headache(s), numbness in extremities or weakness in extremities [facility] ED PFSH: Medical History No pertinent family history No significant past medical history Social History Smoking and tobacco status: never smoked Physical Exam Const: COMMON NORMALS: patient oriented x3 and alert GENERAL APPEARANCE: cooperative and comfortable HENMT: COMMON NORMALS: normocephalic HEAD & SCALP: normocephalic MOUTH: Normal oral and palatal mucosa present THROAT: posterior oropharynx normal and uvula midline Neck/C-Spine: COMMON NORMALS: supple GENERAL: Yes normal visual inspection Resp: COMMON NORMALS: normal respiratory effort, No retractions, No use of accessory muscles and clear to auscultation bilaterally AUSCULTATION: clear to auscultation bilaterally Cardio: COMMON NORMALS: regular rate, regular rhythm, S1 normal heart sound present, S2 normal heart sound present, No gallops present (Cardio), No clicks present (Cardio), No murmurs present (Cardio) and Peripheral pulses 2+ throughout RATE: regular rate RHYTHM: regular rhythm HEART SOUNDS: S1 normal heart sound present and S2 normal heart sound present PERIPHERAL PULSES: Peripheral pulses 2+ throughout GI: COMMON NORMALS: Normal to inspection, nondistended, normoactive bowel sounds present, Soft to palpation, non-tender and no masses PALPATION: Yes Soft to palpation : COMMON NORMALS: Yes no CVA tenderness BLADDER/KIDNEY EXAM: Yes no CVA tenderness Back/Pelvis: COMMON NORMALS: no CVA tenderness Extremity: COMMON NORMALS: normal to inspection Neuro: COMMON NORMALS: patient oriented x3 and moves all extremities SENSORIUM/ORIENTATION: Yes alert Skin: GENERAL SKIN EXAM: dry skin Course ED course: After patient received 1 L of IV fluids and nausea meds her symptoms improved. She was able to complete p.o. fluid challenge and drank juice and was able to keep it down. Vital Signs: Vital signs: Vital Signs Temperature 98.1 F 11/28/21 13:11 Pulse Rate 79 11/28/21 19:46 Respiratory Rate 16 11/28/21 19:46 Blood Pressure 152/95 11/28/21 19:46 Pulse Oximetry 98 11/28/21 19:46 MDM - Nausea/Vomiting/Diarrhea Medical Decision Making Patient is a 36-year-old female comes to the ED with nausea and vomiting. Symptoms started last night. She states that she had an empty stomach when symptoms started last night. Denies any possible food poisoning or any symptoms developing right after eating. Since start of symptoms she has not been able to keep any food or fluids down. Denies any fevers, abdominal pain. After patient received 1 L of IV fluids and nausea meds her symptoms improved. Vitals are stable patient is afebrile. Exam of patient is benign and she appears nontoxic and in no acute distress or pain. Hemoglobin 10.9 but the rest of CBC and CMP was unremarkable. UA was suggestive of a UTI. Patient given 1 L of IV fluids and nausea meds and symptoms improved. She was able to complete p.o. fluid challenge and drank juice and was able to keep it down. Patient was diagnosed with a UTI, anemia, nausea and vomiting and discharged home with a prescription for cefdinir and Reglan. Told to follow-up with PCP in the next week for reevaluation. Return ED precautions given. Patient understood and agreed with plan. Lab Data I reviewed the patient's lab results. : 11/28/21 17:44 11/28/21 17:44 Laboratory Results WBC 5.4 10^3/uL (4.0-10.0) 11/28/21 17:44 RBC 4.21 10^6/uL (4.1-5.3) 11/28/21 17:44 Hgb 10.9 g/dL (11.5-15.3) L 11/28/21 17:44 Hct 33.6 % (37.0-47.0) L 11/28/21 17:44 MCV 79.8 fl (81-99) L 11/28/21 17:44 MCH 25.9 pg (28.0-34.0) L 11/28/21 17:44 MCHC 32.4 g/dL (30.0-36.0) 11/28/21 17:44 RDW 13.8 % (12.1-15.1) 11/28/21 17:44 Plt Count 226 10^3/cmm (130-400) 11/28/21 17:44 MPV 10.6 fL (7.4-10.4) H 11/28/21 17:44 Neut % (Auto) 57.0 % 11/28/21 17:44 Lymph % (Auto) 34.4 % 11/28/21 17:44 [place] % (Auto) 6.7 % 11/28/21 17:44 Eos % (Auto) 1.3 % 11/28/21 17:44 Baso % (Auto) 0.2 % 11/28/21 17:44 Neut # (Auto) 3.09 10^3/uL (1.8-7.7) 11/28/21 17:44 Lymph # (Auto) 1.9 10^3/uL (0.8-4.8) 11/28/21 17:44 [place] # (Auto) 0.4 10^3/uL (0.2-0.9) 11/28/21 17:44 Eos # (Auto) 0.1 10^3/uL (0.0-0.8) 11/28/21 17:44 Baso # (Auto) 0.0 10^3/uL (0.0-0.1) 11/28/21 17:44 Nucleated RBC % (auto) 0 % 11/28/21 17:44 Nucleated RBCs # 0.0 /100WBC 11/28/21 17:44 Sodium 142 mmol/L (136-145) 11/28/21 17:44 Potassium 3.9 mmol/L (3.5-5.1) 11/28/21 17:44 Chloride 105 mmol/L (98-107) 11/28/21 17:44 Carbon Dioxide 27 mmol/L (22-29) 11/28/21 17:44 Anion Gap 13.9 (5-19) 11/28/21 17:44 BUN 10 mg/dL (6-20) 11/28/21 17:44 Creatinine 0.7 mg/dL (0.5-0.9) 11/28/21 17:44 GFR Calculation 93.6 mL/min (90-130) 11/28/21 17:44 Glucose 97 mg/dL (65-115) 11/28/21 17:44 Calculated Osmolality 293 mOsm/kg (285-295) 11/28/21 17:44 Calcium 9.0 mg/dL (8.5-10.5) 11/28/21 17:44 Total Bilirubin 0.4 mg/dL (0.15-1.2) 11/28/21 17:44 AST 15 U/L (0-32) 11/28/21 17:44 ALT 12 U/L (0-33) 11/28/21 17:44 Alkaline Phosphatase 103 IU/L (35-105) 11/28/21 17:44 Total Protein 7.1 g/dL (6.6-8.7) 11/28/21 17:44 Albumin 4.2 g/dL (3.5-5.2) 11/28/21 17:44 Globulin 2.9 g/dL (1.3-4.6) 11/28/21 17:44 Lipase 25 U/L (13-60) 11/28/21 17:44 HCG, Qual Negative (Negative) 11/28/21 17:00 Urine Color Yellow (Yellow) 11/28/21 17:00 Urine Appearance Hazy (CLEAR) A 11/28/21 17:00 Urine pH 6 (5-7) 11/28/21 17:00 Ur Specific Taylor 1.025 (1.005-1.030) 11/28/21 17:00 Urine Protein Trace (Negative) 11/28/21 17:00 Urine Glucose (UA) Norm (Normal) 11/28/21 17:00 Urine Ketones Negative (Negative) 11/28/21 17:00 Urine Blood 2+ (Negative) H 11/28/21 17:00 Urine Nitrate Negative (Negative) 11/28/21 17:00 Urine Bilirubin Neg (Negative) 11/28/21 17:00 Urine Urobilinogen Norm mg/dL (Negative) 11/28/21 17:00 Ur Leukocyte Esterase 2+ (Negative) H 11/28/21 17:00 Urine RBC 15-25 /hpf (0-2) H 11/28/21 17:00 Urine WBC 80-100 /hpf (0-5) H 11/28/21 17:00 Ur Squamous Epith Cells 0-4 /hpf (0-5) H 11/28/21 17:00 Amorphous Sediment Not Reportable 11/28/21 17:00 Urine Bacteria 3+ /hpf (NONE) H 11/28/21 17:00 Discharge Plan Discharge Patient Disposition: Home Clinical Impression: UTI (urinary tract infection) Qualifiers: Urinary tract infection type: acute cystitis Hematuria presence: with hematuria Qualified Code(s): N30.01 - Acute cystitis with hematuria Nausea & vomiting Qualifiers: Vomiting type: unspecified Qualified Code(s): R11.2 - Nausea with vomiting, unspecified Anemia Qualifiers: Anemia type: unspecified type Qualified Code(s): D64.9 - Anemia, unspecified Condition: Stable Prescriptions: New metoclopramide HCl 10 mg tablet 10 mg PO Q6H PRN (Reason: nausea and vomiting) Qty: 15 0RF cefdinir 300 mg capsule 300 mg PO BID 10 Days Qty: 20 0RF No Action albuterol sulfate [ProAir HFA] 90 mcg/actuation HFA aerosol inhaler 2 puff INHALATION Q6H PRN (Reason: Shortness Of Breath) 0RF Midol Complete 500-60-15 mg Tablet 2 tab PO DAILY PRN (Reason: Menstrual Cramps) 0RF acetaminophen [Tylenol Ex Str Rapid Release] 500 mg Tablet 1,000 mg PO Q6H PRN (Reason: Pain) 0RF Discharge Orders: Discharge ED (Routine); Ordered 11/28/21 Ordered By: Sandeep Leiva Referrals: Roel Marshall MD [Primary Care Provider] - Discharge Diet: Advance as tolerated and Clear Liquid Discharge Activity: Increase activity as tolerated Patient Instructions: Urinary Tract Infection in Women (DC), Acute Nausea and Vomiting (DC) Activity Restrictions/Additional Instructions: Follow-up with medical provider as directed 5-7 days for reevaluation. Have your PCP recheck your hemoglobin levels at next appointment. Take medications as prescribed. Drink plenty of fluids and stay hydrated. Return to the ER or your medical provider if condition worsens. Please read and understand discharge instructions. Thank you for choosing [facility] for your healthcare needs today. Please realize this is an emergency room and that we are providing you with a medical screening exam and this may not be complete and all inclusive of all the testing and or work up that you may need to determine your ailment or severity of your illness. It is very important that you follow up as instructed or that you return to the Emergency Department should you have concerns or if your condition changes or worsens in any way. Stand Alone Forms: Work/School Release Coding Level of Care Code ED Professor Of Sport Management for Doron Fwmeera Exam Comprehensive
[2021-11-28 17:41] LABS: HCG Qualitative Urine. Negative (Negative)
[2021-11-28] MEDS: sodium chloride 0.9% 1,000 ML 999 ML IV (17:41)
[2021-11-28] MEDS: ondansetron 2 mg/ML SDV 2 mL 4 MG IVP (17:41)
[2021-11-28 17:51] LABS: Add Urine Microscopic? YES; Bilirubin Urine Neg (Negative); Blood Urine 2+ (Negative); Glucose Urine UA Norm (Normal); Ketones Urine Negative (Negative); Leukocyte Esterase Urine 2+ (Negative); Nitrate Urine Negative (Negative); Protein Urine Trace (Negative); Specific Gravity, Urine 1.025 (1.005-1.030); Urine Appearance Hazy (CLEAR); Urine Color Yellow (Yellow); Urobilinogen Urine Norm (Negative); pH Urine 6 (5-7)
[2021-11-28 17:56] LABS: RBC Urine 15-25 /hpf (0-2); Squamous Epithelial Cell Urine 0-4 /hpf (0-5); WBC Urine 80-100 /hpf (0-5)
[2021-11-28 17:57] LABS: Add Urine Culture? Yes; Bacteria Urine 3+ /hpf
[2021-11-28 17:58] LABS: Basophils % 0.2 %; Eosinophils # 0.1 10^3/uL (0.0-0.8); Eosinophils % 1.3 %; Hematocrit 33.6 % (37.0-47.0); Hemoglobin 10.9 g/dL (11.5-15.3); Lymphocytes # 1.9 10^3/uL (0.8-4.8); Lymphocytes % 34.4 %; Mean Corpuscular HGB Conc 32.4 g/dL (30.0-36.0); Mean Corpuscular Hemoglobin 25.9 pg (28.0-34.0); Mean Corpuscular Volume 79.8 fl (81-99); Mean Platelet Volume 10.6 fL (7.4-10.4); Monocytes # 0.4 10^3/uL (0.2-0.9); Monocytes % 6.7 %; Neutrophils # 3.09 10^3/uL (1.8-7.7); Nucleated Red Blood Cells % 0 %; Platelet Count 226 10^3/cmm (130-400); Red Blood Count 4.21 10^6/uL (4.1-5.3); Red Cell Distribution Width 13.8 % (12.1-15.1); White Blood Count 5.4 10^3/uL (4.0-10.0)
--- NOTE | 2021-11-28 18:02 | PC.NURSE ---
PT PROVIDED WITH ICE PER PT REQUEST.
[2021-11-28 18:46] LABS: Alanine Aminotransferase 12 U/L (0-33); Albumin Level 4.2 g/dL (3.5-5.2); Alkaline Phosphatase 103 IU/L (35-105); Anion Gap 13.9 (5-19); Aspartate Amino Transferase 15 U/L (0-32); Blood Urea Nitrogen 10 mg/dL (6-20); Carbon Dioxide 27 mmol/L (22-29); Chloride 105 mmol/L (98-107); Globulin 2.9 g/dL (1.3-4.6); Glomerular Filtration Rate 93.6 mL/min (90-130); Glucose 97 mg/dL (65-115); Lipase 25 U/L (13-60); Osmolality Calculated 293 mOsm/kg (285-295); Potassium 3.9 mmol/L (3.5-5.1); Sodium 142 mmol/L (136-145); Total Bilirubin 0.4 mg/dL (0.15-1.2); Total Protein 7.1 g/dL (6.6-8.7)
[2021-11-28] MEDS: metoclopramide 5 mg/mL SDV 2 mL 10 MG IVP (18:51)
--- NOTE | 2021-11-28 19:00 | PC.NURSE ---
REPORT GIVEN TO [facility].
[2021-11-28 19:46] VITALS: BP 152/95; PULSE 79; RESP 16; O2SAT 98
== END 2021-11-28 19:47 | disposition home or self-care (01) ==
PROVIDERS: Emergency Medicine; Emergency Provider Physician Assistant; PCP Family Medicine
DX: N30.01 Acute cystitis with hematuria (principal); R11.2 Nausea with vomiting, unspecified; D64.9 Anemia, unspecified
CPT/HCPCS: 80053; 81001; 81025; 83690; 85025; 87077; 87086; 87186; 96374; 96375; 99285; J2405; J2765; J7030

== ENCOUNTER 2022-02-09 20:28 | Emergency (ER) | payer OTHER, SELFPAY ==
[2022-02-09 20:30] VITALS: BP 144/83; PULSE 97; RESP 16; TEMP 36.8; O2SAT 98; BMI 41.8
--- NOTE | 2022-02-09 20:30 | XRR_ITS ---
PROCEDURE INFORMATION: Exam: XR Chest Exam date and time: 02/09/2022 9:34 PM Age: 36 years old Clinical indication: Pain; Chest pressure; Additional info: Cp TECHNIQUE: Imaging protocol: Radiologic exam of the chest. Views: 1 view. COMPARISON: CR XR chest 1V portable [id number] 07/29/2021 5:51 PM FINDINGS: Lungs: Lungs are clear bilaterally. Pleural spaces: No pleural effusion. No pneumothorax. Heart/Mediastinum: Stable mild enlargement of the cardiac silhouette. Mediastinal contours are unremarkable. Bones/joints: Unremarkable for age. XR/XR chest 1V portable [id number] IMPRESSION: 1. No acute cardiopulmonary process. 2. Incidental/nonacute findings are listed in the report.
--- NOTE | 2022-02-09 20:57 | ECG_ITS ---
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 Measurements Intervals [place] Rate: 87 P: 31 DC: 158 QRS: 33 QRSD: 92 T: 12 QT: 355 QTc: 428 Interpretive Statements SINUS RHYTHM Compared to ECG 07/29/2021 21:15:40 No significant changes Electronically Signed On 02-10-2022 6:08:21 CDT by Gail Oshea M.D. [id number]
--- NOTE | 2022-02-09 21:40 | ED_ITS ---
HPI - General Adult General: Chief complaint: Chest Pain Stated complaint: Chest Pains Time Seen by Provider: 02/09/22 21:26 History of Present Illness: CC: Chest Pain HPI: This is a 36 yo patient w/ no PMH presenting to the ED complaining of acute sudden onset intermittent sharp chest pain x 2 weeks with radiation to the back. No associated with shortness of breath, chest pain or dyspnea on exertion. Patient reports the pain occasionally shoots towards the back between the shou lder blades in addition, patient has shortness of breath with some inspiration. Pain not associated with vomiting or PO intake. Denies any recent sympathomimetic drug use. Patient denies any cough. Denies palpitations, dysphagia, diaphoresis, radiation of pain to bilateral arms, jaw. Denies F/N/V/ D. Patient denies any recent immobility, surgery, unilateral leg swelling, or prior PE. Patient denies any orthopnea. Onset: 2 weeks ago Duration: ongoing for the last 14 days Location: home Severity: mild/moderate Associated symptoms: Reports chest pain; Deny dyspnea, nausea, rash, palpitations or vomiting Review of Systems Const: Denies: fever(s) or chills Eyes: Denies: change in vision ENMT: Denies: mouth pain Card: Reports: chest pain; Denies: palpitations Resp: Denies: dyspnea or non-productive cough GI: Denies: abdominal pain, nausea, vomiting or diarrhea : Denies: dysuria Musc: Denies: extremity pain Skin/Breast: Denies: rash or new lesions Neuro: Denies: weakness in extremities Psych: Reports: other (Normal mood) Shalom/Lymph: Denies: easy bruising [facility] ED PFSH: Medical History No pertinent family history No significant past medical history Social History (Updated 02/09/22 @ 21:50 by Sharad Koroma MD) Smoking and tobacco status: never smoked Alcohol intake: never Substance/Drug Use: never Physical Exam Const: COMMON NORMALS: alert HENMT: COMMON NORMALS: atraumatic HEAD & SCALP: atraumatic MOUTH: moist mucous membranes not abnormal Eye: COMMON NORMALS: EOMs intact bilaterally and conjunctivae normal CONJUNCTIVA: Yes conjunctivae normal Neck/C-Spine: COMMON NORMALS: full ROM and supple Resp: COMMON NORMALS: normal respiratory effort and clear to auscultation bilaterally AUSCULTATION: clear to auscultation bilaterally Cardio: COMMON NORMALS: regular rate RATE: regular rate OTHER: 2+ radial pulses b/l GI: COMMON NORMALS: Soft to palpation and non-tender PALPATION: Yes Soft to palpation OTHER: No focal TTP. NO guarding rebound, guarding, rigidity. No CVA tenderness to percussion. Neg Frazier/Neg McBurney's point tenderness, no suprabupic tenderness to palpation. Extremity: COMMON NORMALS: full ROM OTHER: +no vini sign Neuro: SENSORIUM/ORIENTATION: Yes alert MOTOR EXAM: No Abnormal motor strength present and Other motor observations present (no focal motor deficits) Psych: COMMON NORMALS: speech normal SPEECH: Yes normal speech MOOD & AFFECT: Yes euthymic mood Course Vital Signs: Vital signs: Vital Signs Temperature 98.2 F 02/09/22 20:30 Pulse Rate 88 02/09/22 21:53 Respiratory Rate 15 02/09/22 22:04 Blood Pressure 162/83 02/09/22 21:53 Pulse Oximetry 96 02/09/22 22:04 Oxygen Delivery Me thod 02/09/22 21:53 MDM - General Adult Medical Decision Making [36]yo patient w/ no PMH presenting to the ED with evaluation of new onset sharp chest pain with radiation to the back. HDS, pulse 2+ radially bilaterally, no signs of fluid overload, AAOx3, neuro exam intact. Given History and Exam today I have no suspicion for ACS, Pneumothorax, Pneumonia, Pulmonary Embolus, Tamponade, Aortic Dissection or other emergent problems as a cause for this presentation. Workup: ECG, CXR, CBC, BMP, Trop, dimeronin Interventions: morphine, IVF, tylenol, toradol Findings: ECG: No overt evidence of STEMI, hyperacute T waves, localizable STD or T wave inversions. No evidence of Brugada?s sign, delta wave, epsilon wave, significantly prolonged QTc, or malignant arrhythmia. No Q waves. Other Labs unremarkable for emergent problems. CXR: Without PTX, PNA, or widened mediastinum Last Stress Test: never Last Heart Catheterization: never HEART Score: 0 Dimer wnl [10:30pm] On reassessment, the patient is HDS, no complaints of persistent chest pain in the ED after evaluation. ECG is non-ischemic. Workup today is unremarkable. Doubt ACS/PE or other emergent causes of chest pain. Doubt ACS/PE or other emergent causes of chest pain. No suspicion for aortic dissection given no widened mediastinum, 2+ upper extremity pulses, or tearing pain. No suspicion for PE given no pleuritic chest pain, recent immobilization or surgery hemoptysis, or other VTE risk factors. EKG is non-ischemic. XR normal. Rx: Tylenol PRN pain, diclofenac topical and lidocaine patch PRN pain Disposition: Discharge. Strict return precautions discussed with the patient with full understanding. Advised patient to follow up promptly with a primary care provider in 24-48 hrs if the patient has persistent symptoms. Given return instructions for any crushing/tearing chest pain, focal weakness, syncope or any new or concerning issues. Lab Data : 02/09/22 21:47 02/09/22 21:47 Radiology Impressions Chest X-Ray 02/09/22 20:30 IMPRESSION: 1. No acute cardiopulmonary process. 2. Incidental/nonacute findings are listed in the report. Laboratory Results WBC 8.4 10^3/uL (4.0-10.0) 02/09/22 21:47 RBC 4.34 10^6/uL (4.1-5.3) 02/09/22 21:47 Hgb 11.3 g/dL (11.5-15.3) L 02/09/22 21:47 Hct 35.3 % (37.0-47.0) L 02/09/22 21:47 MCV 81.3 fl (81-99) 02/09/22 21:47 MCH 26.0 pg (28.0-34.0) L 02/09/22 21:47 MCHC 32.0 g/dL (30.0-36.0) 02/09/22 21:47 RDW 13.9 % (12.1-15.1) 02/09/22 21:47 Plt Count 234 10^3/cmm (130-400) 02/09/22 21:47 MPV 10.4 fL (7.4-10.4) 02/09/22 21:47 Neut % (Auto) 58.3 % 02/09/22 21:47 Lymph % (Auto) 32.7 % 02/09/22 21:47 [place] % (Auto) 6.8 % 02/09/22 21:47 Eos % (Auto) 1.9 % 02/09/22 21:47 Baso % (Auto) 0.1 % 02/09/22 21:47 Neut # (Auto) 4.91 10^3/uL (1.8-7.7) 02/09/22 21:47 Lymph # (Auto) 2.8 10^3/uL (0.8-4.8) 02/09/22 21:47 [place] # (Auto) 0.6 10^3/uL (0.2-0.9) 02/09/22 21:47 Eos # (Auto) 0.2 10^3/uL (0.0-0.8) 02/09/22 21:47 Baso # (Auto) 0.0 10^3/uL (0.0-0.1) 02/09/22 21:47 Nucleated RBC % (auto) 0 % 02/09/22 21:47 Nucleated RBCs # 0.0 /100WBC 02/09/22 21:47 D-Dimer 0.50 ug/mIFEU (0-0.59) 02/09/22 21:47 Sodium 137 mmol/L (136-145) 02/09/22 21:47 Potassium 4.1 mmol/L (3.5-5.1) 02/09/22 21:47 Chloride 101 mmol/L (98-107) 02/09/22 21:47 Carbon Dioxide 27 mmol/L (22-29) 02/09/22 21:47 Anion Gap 13.1 (5-19) 02/09/22 21:47 BUN 15 mg/dL (6-20) 02/09/22 21:47 Creatinine 0.8 mg/dL (0.5-0.9) 02/09/22 21:47 GFR Calculation 80.3 mL/min (90-130) L 02/09/22 21:47 Glucose 121 mg/dL (65-115) H 02/09/22 21:47 Calculated Osmolality 286 mOsm/kg (285-295) 02/09/22 21:47 Calcium 9.3 mg/dL (8.5-10.5) 02/09/22 21:47 Total Bilirubin 0.2 mg/dL (0.15-1.2) 02/09/22 21:47 AST 15 U/L (0-32) 02/09/22 21:47 ALT 16 U/L (0-33) 02/09/22 21:47 Alkaline Phosphatase 112 U/L (35-105) H 02/09/22 21:47 Troponin T Baseline 6 ng/L (0-10) 02/09/22 21:47 Total Protein 7.3 g/dL (6.6-8.7) 02/09/22 21:47 Albumin 4.1 g/dL (3.5-5.2) 02/09/22 21:47 Globulin 3.2 g/dL (1.3-4.6) 02/09/22 21:47 Lipase 37 U/L (13-60) 02/09/22 21:47 HCG, Qual Negative (Negative) 02/09/22 21:47 Imaging Data Other Imaging: Radiologist's impression: [place] [address] XRay Report Signed Patient: Dank Regan Unit #: [id number] : 1985 Age/Sex: 36 / F ADM Date: 02/09/22 Loc: ER Room/Bed: Attending Dr: Ordering Provider/Ordering MD: Austin Jimenez MD Date of Service: 02/09/22 Procedure(s): XR chest 1V portable [id number] Accession Number(s): [id number] Report Number: [id number] PROCEDURE INFORMATION: Exam: XR Chest Exam date and time: 02/09/2022 9:34 PM Age: 36 years old Clinical indication: Pain; Chest pressure; Additional info: Cp TECHNIQUE: Imaging protocol: Radiologic exam of the chest. Views: 1 view. COMPARISON: CR XR chest 1V portable [id number] 07/29/2021 5:51 PM FINDINGS: Lungs: Lungs are clear bilaterally. Pleural spaces: No pleural effusion. No pneumothorax. Heart/Mediastinum: Stable mild enlargement of the cardiac silhouette. Mediastinal contours are unremarkable. Bones/joints: Unremarkable for age. XR/XR chest 1V portable [id number] IMPRESSION: 1. No acute cardiopulmonary process. 2. Incidental/nonacute findings are listed in the report. ? Dictated By: Radha Farley MD Signed By: Radha Farley MD Signed Date/Time: 02/09/222153 DD/ 33 Discharge Plan Discharge Patient Disposition: Home Clinical Impression: Chest pain Condition: Stable Prescriptions: New acetaminophen 500 mg tablet 500 mg PO Q6H PRN (Reason: pain) 5 Days Qty: 20 0RF lidocaine 5 % adhesive patch,medicated 1 patch topical DAILY 10 Days Qty: 10 0RF Rx Instructions: leave on most painful area for up to 12 hrs Arthritis Pain (diclofenac) 1 % gel 2 g topical BID 5 Days Qty: 100 0RF Rx Instructions: apply to single elbow, wrist or hand; for hand includes palm/fingers/back of hand No Action albuterol sulfate [ProAir HFA] 90 mcg/actuation HFA aerosol inhaler 2 puff INHALATION Q6H PRN (Reason: Shortness Of Breath) Midol Complete 500-60-15 mg Tablet 2 tab PO DAILY PRN (Reason: Menstrual Cramps) acetaminophen [Tylenol Ex Str Rapid Release] 500 mg Tablet 1,000 mg PO Q6H PRN (Reason: Pain) metoclopramide HCl 10 mg tablet 10 mg PO Q6H PRN (Reason: nausea and vomiting) Qty: 15 0RF Discharge Orders: Discharge ED (Routine); Ordered 02/09/22 Ordered By: Sharad Koroma Referrals: Roel Marshall MD [Primary Care Provider] - Discharge Diet: Advance as tolerated Discharge Activity: Increase activity as tolerated Patient Instructions: Chest Pain (ED) Activity Restrictions/Additional Instructions: Come back to the emergency room if your chest pain worsens, have any fever or chills, worsening shortness of breath, worsening exertional lightheadedness, or any new or concerning complaints. Coding Level of Care Code ED Meteorology Faculty Member for Jeremiasg 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
[2022-02-09 21:52] LABS: Basophils % 0.1 %; Eosinophils # 0.2 10^3/uL (0.0-0.8); Eosinophils % 1.9 %; Hematocrit 35.3 % (37.0-47.0); Hemoglobin 11.3 g/dL (11.5-15.3); Lymphocytes # 2.8 10^3/uL (0.8-4.8); Lymphocytes % 32.7 %; Mean Corpuscular Volume 81.3 fl (81-99); Mean Platelet Volume 10.4 fL (7.4-10.4); Monocytes # 0.6 10^3/uL (0.2-0.9); Monocytes % 6.8 %; Neutrophils # 4.91 10^3/uL (1.8-7.7); Neutrophils % 58.3 %; Nucleated Red Blood Cells % 0 %; Platelet Count 234 10^3/cmm (130-400); Red Blood Count 4.34 10^6/uL (4.1-5.3); Red Cell Distribution Width 13.9 % (12.1-15.1); White Blood Count 8.4 10^3/uL (4.0-10.0)
[2022-02-09 21:53] VITALS: BP 162/83; PULSE 88; RESP 16; O2SAT 96
[2022-02-09 22:04] VITALS: RESP 15; O2SAT 96
[2022-02-09] MEDS: acetaminophen 500 mg Tablet PO (22:04)
[2022-02-09] MEDS: morphine 4 mg/mL SDV 1 mL IVP (22:04)
[2022-02-09] MEDS: sodium chloride 0.9% 1,000 ML 999 ML IV (22:04)
[2022-02-09 22:10] LABS: HCG Qualitative Urine. Negative (Negative)
[2022-02-09 22:13] LABS: Alanine Aminotransferase 16 U/L (0-33); Albumin Level 4.1 g/dL (3.5-5.2); Alkaline Phosphatase 112 U/L (35-105); Anion Gap 13.1 (5-19); Aspartate Amino Transferase 15 U/L (0-32); Blood Urea Nitrogen 15 mg/dL (6-20); Calcium 9.3 mg/dL (8.5-10.5); Carbon Dioxide 27 mmol/L (22-29); Chloride 101 mmol/L (98-107); Globulin 3.2 g/dL (1.3-4.6); Glomerular Filtration Rate 80.3 mL/min (90-130); Glucose 121 mg/dL (65-115); Lipase 37 U/L (13-60); Osmolality Calculated 286 mOsm/kg (285-295); Potassium 4.1 mmol/L (3.5-5.1); Sodium 137 mmol/L (136-145); Total Bilirubin 0.2 mg/dL (0.15-1.2); Total Protein 7.3 g/dL (6.6-8.7); Troponin(5th) Baseline 6 ng/L (0-10)
[2022-02-09] MEDS: ketorolac 30 mg/mL INJ IVP (22:28)
[2022-02-09] MEDS: diphenhydrAMINE 50 mg/mL SDV 1mL IVP (23:09)
[2022-02-09 23:28] VITALS: BP 130/86; PULSE 75; RESP 16; O2SAT 100
== END 2022-02-09 23:37 | disposition home or self-care (01) ==
PROVIDERS: Emergency Medicine; Emergency Provider Emergency Medicine; PCP Family Medicine
DX: R07.9 Chest pain, unspecified (principal)
CPT/HCPCS: 71045; 80053; 81025; 83690; 84484; 85025; 85378; 93005; 96361; 96374; 96375; 99285; J1200; J1885; J2270; J7030

== ENCOUNTER 2022-03-05 00:01 | Emergency (ER) | payer OTHER, SELFPAY ==
[2022-03-05 00:35] VITALS: BP 134/91; PULSE 88; RESP 18; TEMP 36.7; O2SAT 97; BMI 41.9
--- NOTE | 2022-03-05 01:42 | ED_ITS ---
HPI - Nausea/Vomiting/Diarrhea General: Chief complaint: Nausea/Vomiting/Diarrhea Stated complaint: fever, N/V/D Time Seen by Provider: 03/05/22 00:56 Source: patient Mode of arrival: ambulatory Limitations: no limitations History of Present Illness: 36-year-old female who states that she has been having vomiting diarrhea along with fever over the last 3 days she had a fever yesterday she states she feels much improved today. She states that her vomiting is improved slightly as well. She denies any sore throat denies any known sick contacts denies any worsening improving factors. Associated nausea: Yes Associated symtoms: Reports nausea; Denies chest pain, dysuria or headache(s) Review of Systems Const: Reports: fever(s); Denies: chills, body aches or change in appetite Eyes: Denies: blurry vision or eye discomfort ENMT: Denies: throat pain or dental pain Card: Denies: chest pain Resp: Denies: dyspnea GI: Reports: nausea, vomiting and diarrhea; Denies: abdominal pain : Denies: dysuria Musc: Denies: neck pain or back pain Skin/Breast: Denies: rash Neuro: Denies: headache(s) Psych: Denies: depression [place]/Lymph: Denies: easy bruising All/Imm: Denies: urticaria PFSH ED PFSH: Medical History No pertinent family history No significant past medical history Social History (Updated 02/09/22 @ 21:50 by Sharad Koroma MD) Smoking and tobacco status: never smoked Alcohol intake: never Physical Exam Const: COMMON NORMALS: no acute distress, patient oriented x3 and healthy appearing HENMT: COMMON NORMALS: normocephalic and atraumatic HEAD & SCALP: normocephalic and atraumatic Eye: COMMON NORMALS: Equal, round and reactive pupils present and EOMs intact bilaterally PUPIL: Yes Equal, round and reactive pupils present Neck/C-Spine: COMMON NORMALS: full ROM and supple Chest: COMMONS NORMALS: normal inspection of the chest and normal palpation of entire chest wall Resp: COMMON NORMALS: normal respiratory effort, No retractions, No use of accessory muscles and clear to auscultation bilaterally AUSCULTATION: clear to auscultation bilaterally Cardio: COMMON NORMALS: regular rate, regular rhythm and No murmurs present (Cardio) RATE: regular rate RHYTHM: regular rhythm GI: COMMON NORMALS: Normal to inspection, nondistended, normoactive bowel sounds present, Soft to palpation, non-tender and no masses PALPATION: Yes Soft to palpation Extremity: COMMON NORMALS: normal to inspection and full ROM Neuro: COMMON NORMALS: patient oriented x3, moves all extremities and no focal motor deficits Psych: COMMON NORMALS: mental status grossly normal, Normal thought process present and cooperative THOUGHT PROCESS: Normal thought process present Skin: COMMON NORMALS: no rashes or lesions noted and no wounds GENERAL SKIN EXAM: no rashes or lesions noted Course Vital Signs: Vital signs: Vital Signs Temperature 98.1 F 03/05/22 00:35 Pulse Rate 88 03/05/22 00:35 Respiratory Rate 18 03/05/22 00:35 Blood Pressure 134/91 03/05/22 00:35 Pulse Oximetry 97 03/05/22 00:35 Oxygen Delivery Me thod 03/05/22 00:35 MDM - Nausea/Vomiting/Diarrhea Medical Decision Making Patient presents here with vomiting diarrhea that is likely viral in origin she is well-appearing here blood work is normal she feels improved after fluids and Zofran we will prescribe her Zofran for home she is to follow-up with PCP and return if worsening. Lab Data : 03/05/22 01:45 03/05/22 01:45 Laboratory Results WBC 6.4 10^3/uL (4.0-10.0) 03/05/22 01:45 RBC 4.60 10^6/uL (4.1-5.3) 03/05/22 01:45 Hgb 12.4 g/dL (11.5-15.3) 03/05/22 01:45 Hct 38.2 % (37.0-47.0) 03/05/22 01:45 MCV 83.0 fl (81-99) 03/05/22 01:45 MCH 27.0 pg (28.0-34.0) L 03/05/22 01:45 MCHC 32.5 g/dL (30.0-36.0) 03/05/22 01:45 RDW 14.1 % (12.1-15.1) 03/05/22 01:45 Plt Count 279 10^3/cmm (130-400) 03/05/22 01:45 MPV 10.0 fL (7.4-10.4) 03/05/22 01:45 Neut % (Auto) 53.0 % 03/05/22 01:45 Lymph % (Auto) 37.3 % 03/05/22 01:45 [place] % (Auto) 7.6 % 03/05/22 01:45 Eos % (Auto) 1.7 % 03/05/22 01:45 Baso % (Auto) 0.2 % 03/05/22 01:45 Neut # (Auto) 3.42 10^3/uL (1.8-7.7) 03/05/22 01:45 Lymph # (Auto) 2.4 10^3/uL (0.8-4.8) 03/05/22 01:45 [place] # (Auto) 0.5 10^3/uL (0.2-0.9) 03/05/22 01:45 Eos # (Auto) 0.1 10^3/uL (0.0-0.8) 03/05/22 01:45 Baso # (Auto) 0.0 10^3/uL (0.0-0.1) 03/05/22 01:45 Nucleated RBC % (auto) 0 % 03/05/22 01:45 Nucleated RBCs # 0.0 /100WBC 03/05/22 01:45 Sodium 137 mmol/L (136-145) 03/05/22 01:45 Potassium 4.5 mmol/L (3.5-5.1) 03/05/22 01:45 Chloride 99 mmol/L (98-107) 03/05/22 01:45 Carbon Dioxide 27 mmol/L (22-29) 03/05/22 01:45 Anion Gap 15.5 (5-19) 03/05/22 01:45 BUN 11 mg/dL (6-20) 03/05/22 01:45 Creatinine 0.7 mg/dL (0.5-0.9) 03/05/22 01:45 GFR Calculation 93.6 mL/min (90-130) 03/05/22 01:45 Glucose 121 mg/dL (65-115) H 03/05/22 01:45 Calculated Osmolality 285 mOsm/kg (285-295) 03/05/22 01:45 Calcium 9.6 mg/dL (8.5-10.5) 03/05/22 01:45 Total Bilirubin 0.3 mg/dL (0.15-1.2) 03/05/22 01:45 AST 18 U/L (0-32) 03/05/22 01:45 ALT 19 U/L (0-33) 03/05/22 01:45 Alkaline Phosphatase 125 U/L (35-105) H 03/05/22 01:45 Total Protein 8.0 g/dL (6.6-8.7) 03/05/22 01:45 Albumin 4.4 g/dL (3.5-5.2) 03/05/22 01:45 Globulin 3.6 g/dL (1.3-4.6) 03/05/22 01:45 Lipase 32 U/L (13-60) 03/05/22 01:45 HCG, Qual Negative (Negative) 03/05/22 01:45 Urine Color Colorless (Yellow) 03/05/22 01:45 Urine Appearance Clear (CLEAR) 03/05/22 01:45 Urine pH 6 (5-7) 03/05/22 01:45 Ur Specific [place] 1.015 (1.005-1.030) 03/05/22 01:45 Urine Protein Neg (Negative) 03/05/22 01:45 Urine Glucose (UA) Norm (Normal) 03/05/22 01:45 Urine Ketones Negative (Negative) 03/05/22 01:45 Urine Blood Neg (Negative) 03/05/22 01:45 Urine Nitrate Negative (Negative) 03/05/22 01:45 Urine Bilirubin Neg (Negative) 03/05/22 01:45 Urine Urobilinogen Norm mg/dL (Negative) 03/05/22 01:45 Ur Leukocyte Esterase 1+ (Negative) H 03/05/22 01:45 Urine RBC None /hpf (0-2) 03/05/22 01:45 Urine WBC 0-4 /hpf (0-5) H 03/05/22 01:45 Ur Squamous Epith Cells 0-4 /hpf (0-5) H 03/05/22 01:45 Amorphous Sediment Not Reportable 03/05/22 01:45 Urine Bacteria Trace /hpf (NONE) 03/05/22 01:45 Influenza Type A Ag negative (Negative) 03/05/22 01:45 Influenza Type B Ag negative (Negative) 03/05/22 01:45 SARS-CoV-2 Ag (Rapid) negative (Negative) 03/05/22 01:45 Discharge Plan Discharge Patient Disposition: Home Clinical Impression: Vomiting, Diarrhea Condition: Stable Prescriptions: New ondansetron 4 mg tablet,disintegrating 4 mg PO Q6H PRN (Reason: nausea and vomiting) Qty: 14 0RF No Action albuterol sulfate [ProAir HFA] 90 mcg/actuation HFA aerosol inhaler 2 puff INHALATION Q6H PRN (Reason: Shortness Of Breath) Midol Complete 500-60-15 mg Tablet 2 tab PO DAILY PRN (Reason: Menstrual Cramps) acetaminophen [Tylenol Ex Str Rapid Release] 500 mg Tablet 1,000 mg PO Q6H PRN (Reason: Pain) metoclopramide HCl 10 mg tablet 10 mg PO Q6H PRN (Reason: nausea and vomiting) Qty: 15 0RF Discharge Orders: Discharge ED (Routine); Ordered 03/05/22 Ordered By: Austin Jimenez Referrals: Roel Marshall MD [Primary Care Provider] - 1-3 days Discharge Diet: Advance as tolerated Discharge Activity: Resume usual activity Patient Instructions: Acute Nausea and Vomiting (ED) Stand Alone Forms: Work/School Release 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
[2022-03-05] MEDS: sodium chloride 0.9% 1,000 ML 999 ML IV (01:47)
[2022-03-05] MEDS: ondansetron 2 mg/ML SDV 2 mL 4 MG IVP (01:47)
[2022-03-05 02:00] LABS: Basophils % 0.2 %; Eosinophils # 0.1 10^3/uL (0.0-0.8); Eosinophils % 1.7 %; Hematocrit 38.2 % (37.0-47.0); Hemoglobin 12.4 g/dL (11.5-15.3); Lymphocytes # 2.4 10^3/uL (0.8-4.8); Lymphocytes % 37.3 %; Mean Corpuscular HGB Conc 32.5 g/dL (30.0-36.0); Monocytes # 0.5 10^3/uL (0.2-0.9); Monocytes % 7.6 %; Neutrophils # 3.42 10^3/uL (1.8-7.7); Nucleated Red Blood Cells % 0 %; Platelet Count 279 10^3/cmm (130-400); Red Cell Distribution Width 14.1 % (12.1-15.1); White Blood Count 6.4 10^3/uL (4.0-10.0)
[2022-03-05 02:17] LABS: Alanine Aminotransferase 19 U/L (0-33); Albumin Level 4.4 g/dL (3.5-5.2); Alkaline Phosphatase 125 U/L (35-105); Anion Gap 15.5 (5-19); Aspartate Amino Transferase 18 U/L (0-32); Blood Urea Nitrogen 11 mg/dL (6-20); Calcium 9.6 mg/dL (8.5-10.5); Carbon Dioxide 27 mmol/L (22-29); Chloride 99 mmol/L (98-107); Globulin 3.6 g/dL (1.3-4.6); Glomerular Filtration Rate 93.6 mL/min (90-130); Glucose 121 mg/dL (65-115); Influenza A by IFA negative (Negative); Influenza B by IFA negative (Negative); Lipase 32 U/L (13-60); Osmolality Calculated 285 mOsm/kg (285-295); Potassium 4.5 mmol/L (3.5-5.1); SARS Covid-2 Antigen negative (Negative); Sodium 137 mmol/L (136-145); Total Bilirubin 0.3 mg/dL (0.15-1.2)
[2022-03-05 02:18] LABS: HCG, Serum Qual Negative (Negative)
[2022-03-05 02:21] LABS: Add Urine Microscopic? YES; Bilirubin Urine Neg (Negative); Blood Urine Neg (Negative); Glucose Urine UA Norm (Normal); Ketones Urine Negative (Negative); Leukocyte Esterase Urine 1+ (Negative); Nitrate Urine Negative (Negative); Protein Urine Neg (Negative); Specific Gravity, Urine 1.015 (1.005-1.030); Urine Appearance Clear (CLEAR); Urine Color Colorless (Yellow); Urobilinogen Urine Norm (Negative); pH Urine 6 (5-7)
[2022-03-05 02:22] LABS: Add Urine Culture? No; Bacteria Urine TRACE /hpf; Squamous Epithelial Cell Urine 0-4 /hpf (0-5); WBC Urine 0-4 /hpf (0-5)
[2022-03-05 02:47] VITALS: BP 130/92; PULSE 80; RESP 16; O2SAT 97
== END 2022-03-05 02:42 | disposition home or self-care (01) ==
PROVIDERS: Emergency Provider Emergency Medicine; PCP Family Medicine
DX: A08.4 Viral intestinal infection, unspecified (principal)
CPT/HCPCS: 80053; 81001; 83690; 84703; 85025; 87426; 87804; 96361; 96374; 99284; J2405; J7030

== ENCOUNTER 2022-03-26 16:33 | Emergency (ER) | payer OTHER, SELFPAY ==
[2022-03-26 16:37] VITALS: BP 132/83; PULSE 71; RESP 16; TEMP 36.4; O2SAT 100; BMI 43.0
[2022-03-26 18:10] LABS: Basophils % 0.2 %; Eosinophils # 0.2 10^3/uL (0.0-0.8); Eosinophils % 3.1 %; Hematocrit 37.7 % (37.0-47.0); Hemoglobin 11.8 g/dL (11.5-15.3); Lymphocytes % 31.4 %; Mean Corpuscular HGB Conc 31.3 g/dL (30.0-36.0); Mean Corpuscular Hemoglobin 26.4 pg (28.0-34.0); Mean Corpuscular Volume 84.3 fl (81-99); Mean Platelet Volume 10.3 fL (7.4-10.4); Monocytes # 0.4 10^3/uL (0.2-0.9); Monocytes % 6.6 %; Neutrophils # 3.63 10^3/uL (1.8-7.7); Neutrophils % 58.4 %; Nucleated Red Blood Cells % 0 %; Platelet Count 260 10^3/cmm (130-400); Red Blood Count 4.47 10^6/uL (4.1-5.3); White Blood Count 6.2 10^3/uL (4.0-10.0)
[2022-03-26 18:46] LABS: Alanine Aminotransferase 14 U/L (0-33); Alkaline Phosphatase 120 U/L (35-105); Anion Gap 14.2 (5-19); Aspartate Amino Transferase 13 U/L (0-32); Blood Urea Nitrogen 10 mg/dL (6-20); Calcium 9.2 mg/dL (8.5-10.5); Carbon Dioxide 26 mmol/L (22-29); Chloride 100 mmol/L (98-107); Creatinine Clr Calc Pharmacy 151.5099; Globulin 3.6 g/dL (1.3-4.6); Glomerular Filtration Rate 111.9 mL/min (90-130); Glucose 114 mg/dL (65-115); Osmolality Calculated 282 mOsm/kg (285-295); Potassium 4.2 mmol/L (3.5-5.1); Sodium 136 mmol/L (136-145); Thyroid Stimulating Hormone 2.27 uIU/mL (0.27-4.20); Total Bilirubin 0.3 mg/dL (0.15-1.2); Total Protein 7.6 g/dL (6.6-8.7)
[2022-03-26 18:48] LABS: Alcohol Level < 10 mg/dL (0-10)
[2022-03-26 19:55] LABS: HCG Qualitative Urine. Negative (Negative)
[2022-03-26 20:25] LABS: Add Urine Microscopic? NO; Charge for UA Resulting for Rev
[2022-03-26 20:28] LABS: Bilirubin Urine Neg (Negative); Blood Urine Neg (Negative); Glucose Urine UA Norm (Normal); Ketones Urine Negative (Negative); Leukocyte Esterase Urine Negative (Negative); Nitrate Urine Negative (Negative); Protein Urine Neg (Negative); Specific Gravity, Urine 1.015 (1.005-1.030); Urine Appearance Clear (CLEAR); Urine Color Yellow (Yellow); Urobilinogen Urine Norm (Negative); pH Urine 7 (5-7)
[2022-03-26 20:37] LABS: Amphetamines Screen Urine Negative (Negative); Barbiturates Screen Urine Negative (Negative); Benzodiazepines Screen Urine Negative (Negative); Cocaine Screen Urine Negative (Negative); Opiate Screen Urine Negative (Negative); PCP Screen Urine Negative (Negative); THC Screen Urine Negative (Negative)
--- NOTE | 2022-03-26 21:37 | CTR_ITS ---
PROCEDURE INFORMATION: Exam: CT Head Without Contrast Exam date and time: 03/26/2022 9:41 PM Age: 36 years old Clinical indication: Dizziness and visual disturbance; Additional info: Left vision change, dizziness TECHNIQUE: Imaging protocol: Computed tomography of the head without contrast. Radiation optimization: All CT scans at this facility use at least one of these dose optimization techniques: automated exposure control; mA and/or kV adjustment per patient size (includes targeted exams where dose is matched to clinical indication); or iterative reconstruction. COMPARISON: CT head wo con* [id number] 09/23/2016 9:23 PM RADIATION DOSE METRICS: Total DLP (mGy-cm): 1037.4 FINDINGS: Brain: Normal. No hemorrhage. Unremarkable white matter. No mass effect. Cerebral ventricles: No ventriculomegaly. Paranasal sinuses: Visualized sinuses are unremarkable. No fluid levels. Mastoid air cells: Visualized mastoid air cells are well aerated. Bones/joints: Unremarkable. No acute fracture. Soft tissues: Unremarkable. CT/CT head wo con* [id number] IMPRESSION: No acute intracranial abnormality.
[2022-03-26 22:18] VITALS: BP 144/87; PULSE 83; RESP 16; O2SAT 97
[2022-03-26] MEDS: SUMAtriptan 6 mg/0.5 mL SDV SUBCUT (22:22)
--- NOTE | 2022-03-27 02:14 | W.ED.DIZZY ---
HPI - Dizziness General: Chief Complaint: Dizziness Stated Complaint: vision problems Time Seen by Provider: 03/26/22 21:14 Source: patient History of Present Illness: HPI Narrative: 36-year-old female complaining of dizziness and vision problems. She notes that she sees a prism in her left eye. She has had the symptoms before, but they typically go away in 30 minutes she says. This episode has lasted several hours, in fact she had symptoms yesterday. She denies significant headache. She notes that she has been dizzy, vertiginous type dizziness, today as well. She is mildly nauseated. No fever. No vision changes to her right eye. No weakness or language problems. She can still see out of her left eye despite the visual disturbance. MD elicited complaint: dizziness and other Pertinent past history: other Onset (ago): hour(s) Timing: gradual onset Severity: moderate Description: sense of movement, room spinning and other Context: other History of similar symptoms: Yes Exacerbating factors: other Relieving factors: remaining still Associated symptoms: Reports nausea; Denies change in hearing, chest pain, chills, ear discharge, ear pressure, fevers/chills, headache(s), nasal congestion, short of breath, tinnitus, vomiting or weakness Associated neuro symptoms: Reports visual changes; Deny confusion, difficulty speaking, dysphagia, diplopia, extremity weakness, facial numbness, facial weakness, gait changes or numbness in extremities Review of Systems Const: Denies: chills Eyes: Reports: change in vision ENMT: Denies: ear discharge, change in hearing, tinnitus or nasal congestion Card: Denies: chest pain Resp: Denies: dyspnea GI: Reports: nausea; Denies: vomiting or dysphagia Musc: Denies: neck pain Neuro: Denies: headache(s), numbness in extremities or confusion PFSH ED PFSH: Medical History No pertinent family history No significant past medical history Social History Smoking and tobacco status: never smoked Alcohol intake: never Physical Exam Const: COMMON NORMALS: no acute distress GENERAL APPEARANCE: cooperative and comfortable; not ill appearing and not frail appearing HENMT: COMMON NORMALS: normocephalic, atraumatic and Normal external nose present HEAD & SCALP: normocephalic and atraumatic FACE & SINUS: normal facial exam and face symmetric NOSE: Normal external nose present Eye: COMMON NORMALS: Equal, round and reactive pupils present, EOMs intact bilaterally, conjunctivae normal and no papilledema GENERAL EYE: normal light reflex ALIGNMENT: Yes alignment normal PERIORBITAL: periorbital findings normal EYELID: eyelids normal CONJUNCTIVA: Yes conjunctivae normal PUPIL: Yes Equal, round and reactive pupils present and Yes Pupil accommodation reflex normal DIRECT OPHTHALMOSCOPY: Yes normal light reflex, Yes no papilledema, Yes anterior chamber normal, No retinal abnormality and No vascular abnormality Neck/C-Spine: GENERAL: Yes trachea midline Chest: CHEST: Yes Symmetrical chest wall rise Resp: COMMON NORMALS: normal respiratory effort, No retractions, No use of accessory muscles and clear to auscultation bilaterally AUSCULTATION: clear to auscultation bilaterally Cardio: COMMON NORMALS: regular rate and regular rhythm RATE: regular rate RHYTHM: regular rhythm GI: COMMON NORMALS: Normal to inspection, nondistended, normoactive bowel sounds present Extremity: COMMON NORMALS: no pedal edema Neuro: MURALI COMA SCALE: document GCS findings Murali coma scale eye opening: Spontaneous [place] coma scale verbal response: Orientated Murali coma scale motor response: Obey commands Murali coma scale total score: 15 SENSORY EXAM: Yes extremities (intact) Psych: COMMON NORMALS: speech normal SPEECH: Yes normal speech Skin: COMMON NORMALS: no rashes or lesions noted GENERAL SKIN EXAM: no rashes or lesions noted Course Vital Signs: Vital signs: Vital Signs Temperature 97.5 F L 03/26/22 16:37 Pulse Rate 83 03/26/22 22:18 Respiratory Rate 16 03/26/22 22:18 Blood Pressure 144/87 03/26/22 22:18 Pulse Oximetry 97 03/26/22 22:18 Oxygen Delivery Me thod 03/26/22 22:18 MDM - Dizziness Medical Decision Making In the differential diagnosis would be heartening signs of retinal tear, vascular issue, or ocular migraine. She does have a history of migraine headaches. She is given an injection of sumatriptan to see if this will help over the next several hours. On exam, her retina does not appear abnormal by funduscopic exam. Her vision changes painless. She will be allowed home. She will be placed on lifting and pushing restrictions, and will be off work. Ophthalmology follow-up Tuesday or Tuesday. To return if worsening. Lab Data : 03/26/22 17:37 03/26/22 17:[address] 03/26/22 21:37 IMPRESSION: No acute intracranial abnormality. Laboratory Results WBC 6.2 10^3/uL (4.0-10.0) 03/26/22 17:37 RBC 4.47 10^6/uL (4.1-5.3) 03/26/22 17:37 Hgb 11.8 g/dL (11.5-15.3) 03/26/22 17:37 Hct 37.7 % (37.0-47.0) 03/26/22 17:37 MCV 84.3 fl (81-99) 03/26/22 17:37 MCH 26.4 pg (28.0-34.0) L 03/26/22 17:37 MCHC 31.3 g/dL (30.0-36.0) 03/26/22 17:37 RDW 14.0 % (12.1-15.1) 03/26/22 17:37 Plt Count 260 10^3/cmm (130-400) 03/26/22 17:37 MPV 10.3 fL (7.4-10.4) 03/26/22 17:37 Neut % (Auto) 58.4 % 03/26/22 17:37 Lymph % (Auto) 31.4 % 03/26/22 17:37 [place] % (Auto) 6.6 % 03/26/22 17:37 Eos % (Auto) 3.1 % 03/26/22 17:37 Baso % (Auto) 0.2 % 03/26/22 17:37 Neut # (Auto) 3.63 10^3/uL (1.8-7.7) 03/26/22 17:37 Lymph # (Auto) 2.0 10^3/uL (0.8-4.8) 03/26/22 17:37 [place] # (Auto) 0.4 10^3/uL (0.2-0.9) 03/26/22 17:37 Eos # (Auto) 0.2 10^3/uL (0.0-0.8) 03/26/22 17:37 Baso # (Auto) 0.0 10^3/uL (0.0-0.1) 03/26/22 17:37 Nucleated RBC % (auto) 0 % 03/26/22 17:37 Nucleated RBCs # 0.0 /100WBC 03/26/22 17:37 Sodium 136 mmol/L (136-145) 03/26/22 17:37 Potassium 4.2 mmol/L (3.5-5.1) 03/26/22 17:37 Chloride 100 mmol/L (98-107) 03/26/22 17:37 Carbon Dioxide 26 mmol/L (22-29) 03/26/22 17:37 Anion Gap 14.2 (5-19) 03/26/22 17:37 BUN 10 mg/dL (6-20) 03/26/22 17:37 Creatinine 0.6 mg/dL (0.5-0.9) 03/26/22 17:37 GFR Calculation 111.9 mL/min (90-130) 03/26/22 17:37 Glucose 114 mg/dL (65-115) 03/26/22 17:37 Calculated Osmolality 282 mOsm/kg (285-295) L 03/26/22 17:37 Calcium 9.2 mg/dL (8.5-10.5) 03/26/22 17:37 Total Bilirubin 0.3 mg/dL (0.15-1.2) 03/26/22 17:37 AST 13 U/L (0-32) 03/26/22 17:37 ALT 14 U/L (0-33) 03/26/22 17:37 Alkaline Phosphatase 120 U/L (35-105) H 03/26/22 17:37 Total Protein 7.6 g/dL (6.6-8.7) 03/26/22 17:37 Albumin 4.0 g/dL (3.5-5.2) 03/26/22 17:37 Globulin 3.6 g/dL (1.3-4.6) 03/26/22 17:37 TSH 2.27 uIU/mL (0.27-4.20) 03/26/22 17:37 HCG, Qual Negative (Negative) 03/26/22 19:47 Urine Color Yellow (Yellow) 03/26/22 19:47 Urine Appearance Clear (CLEAR) 03/26/22 19:47 Urine pH 7 (5-7) 03/26/22 19:47 Ur Specific [place] 1.015 (1.005-1.030) 03/26/22 19:47 Urine Protein Neg (Negative) 03/26/22 19:47 Urine Glucose (UA) Norm (Normal) 03/26/22 19:47 Urine Ketones Negative (Negative) 03/26/22 19:47 Urine Blood Neg (Negative) 03/26/22 19:47 Urine Nitrate Negative (Negative) 03/26/22 19:47 Urine Bilirubin Neg (Negative) 03/26/22 19:47 Urine Urobilinogen Norm mg/dL (Negative) 03/26/22 19:47 Ur Leukocyte Esterase Negative (Negative) 03/26/22 19:47 Urine Opiates Screen Negative ng/mL (Negative) 03/26/22 19:47 Ur Barbiturates Screen Negative ng/mL (Negative) 03/26/22 19:47 Ur Phencyclidine Scrn Negative ng/mL (Negative) 03/26/22 19:47 Ur Amphetamines Screen Negative ng/mL (Negative) 03/26/22 19:47 U Benzodiazepines Scrn Negative ng/mL (Negative) 03/26/22 19:47 Urine Cocaine Screen Negative ng/mL (Negative) 03/26/22 19:47 U Marijuana (THC) Screen Negative ng/mL (Negative) 03/26/22 19:47 Ethyl Alcohol < 10 mg/dL (0-10) 03/26/22 17:37 Discharge Plan Discharge Patient Disposition: Home Clinical Impression: Floaters in visual field Condition: Stable Prescriptions: No Action albuterol sulfate [ProAir HFA] 90 mcg/actuation HFA aerosol inhaler 2 puff INHALATION Q6H PRN (Reason: Shortness Of Breath) Midol Complete 500-60-15 mg Tablet 2 tab PO DAILY PRN (Reason: Menstrual Cramps) acetaminophen [Tylenol Ex Str Rapid Release] 500 mg Tablet 1,000 mg PO Q6H PRN (Reason: Pain) metoclopramide HCl 10 mg tablet 10 mg PO Q6H PRN (Reason: nausea and vomiting) Qty: 15 0RF ondansetron 4 mg tablet,disintegrating 4 mg PO Q6H PRN (Reason: nausea and vomiting) Qty: 14 0RF Discharge Orders: Discharge ED (Routine); Ordered 03/26/22 Ordered By: Francisco Rendon Referrals: Roel Marshall MD [Primary Care Provider] - Patient Instructions: Vision Problems Activity Restrictions/Additional Instructions: Do not lift anything greater than 10 pounds. Avoid rubbing the eye or any trauma. Call the ophthalmology clinic Tuesday. They will likely want to see you on Tuesday or Tuesday and follow-up for repeat examination. Return for pain to the eye, worsening headache, worsening vision despite the above, any other concerning symptoms. 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
== END 2022-03-26 22:32 | disposition home or self-care (01) ==
PROVIDERS: Emergency Medicine; Emergency Provider Emergency Medicine; PCP Family Medicine
DX: H43.392 Other vitreous opacities, left eye (principal)
CPT/HCPCS: 36415; 70450; 80053; 80306; 80307; 81003; 81025; 84443; 85025; 96372; 99285; J3030

== ENCOUNTER 2022-04-04 20:56 | Emergency (ER) | payer OTHER, SELFPAY ==
[2022-04-04 21:16] VITALS: BP 141/74; PULSE 106; RESP 16; TEMP 37.6; O2SAT 99; BMI 41.8
--- NOTE | 2022-04-04 21:29 | XRR_ITS ---
PROCEDURE INFORMATION: Exam: XR Chest Exam date and time: 04/04/2022 10:37 PM Age: 36 years old Clinical indication: Cough and fever; Additional info: Fever and cough TECHNIQUE: Imaging protocol: Radiologic exam of the chest. Views: 1 view. COMPARISON: CR XR chest 1V portable [id number] 02/09/2022 9:34 PM FINDINGS: Lungs: No consolidation. Pleural spaces: No pleural effusion. No pneumothorax. Heart/Mediastinum: No cardiomegaly. Bones/joints: Unremarkable. XR/XR chest 1V portable [id number] IMPRESSION: 1. No acute abnormality demonstrated. 2. There is no interval change from the prior examination.
--- NOTE | 2022-04-04 21:46 | W.ED.FEVER ---
HPI - Fever General: Chief Complaint: Fever Stated Complaint: coughing Time Seen by Provider: 04/04/22 21:24 History of Present Illness: Patient is a 36-year-old female comes to the ED with upper respiratory symptoms. Symptoms started yesterday. She states that all her family has been sick with same symptoms the week prior. She endorses having a headache, body aches, sore throat, nasal congestion and drainage, fevers and cough. Denies any nausea or vomiting. She is able to tolerate p.o. fluids well. Associated symptoms: Reports headache(s) and nasal congestion; Deny abdominal pain, flank pain, chills, chest pain, diarrhea, dysuria, nausea or vomiting Review of Systems Const: Reports: fever(s) and body aches; Denies: chills or fatigue Eyes: Denies: change in vision or eye discomfort ENMT: Reports: throat pain, nasal discharge and nasal congestion; Denies: odynophagia Card: Denies: chest pain, palpitations, edema, swelling of feet/ankles, dyspnea on exertion or orthopnea Resp: Reports: non-productive cough; Denies: dyspnea or productive cough GI: Denies: abdominal pain, nausea, vomiting, diarrhea, constipation or hematochezia : Denies: flank pain, dysuria or hematuria Musc: Denies: neck pain, back pain or extremity swelling Skin/Breast: Denies: rash or new lesions Neuro: Reports: headache(s); Denies: numbness in extremities or weakness in extremities PFS ED PFSH: Medical History No pertinent family history No significant past medical history Social History Smoking and tobacco status: never smoked Alcohol intake: never Female Reproductive History: Date of last menstrual period: 04/04/22 Physical Exam Const: COMMON NORMALS: no acute distress, patient oriented x3 and alert GENERAL APPEARANCE: cooperative and comfortable HENMT: COMMON NORMALS: normocephalic HEAD & SCALP: normocephalic MOUTH: Normal oral and palatal mucosa present THROAT: posterior oropharynx normal and uvula midline Neck/C-Spine: COMMON NORMALS: supple GENERAL: Yes normal visual inspection Resp: COMMON NORMALS: normal respiratory effort, No retractions, No use of accessory muscles and clear to auscultation bilaterally EFFORT & INSPECTION: Yes Actively coughing dry AUSCULTATION: clear to auscultation bilaterally Cardio: COMMON NORMALS: regular rate, regular rhythm, S1 normal heart sound present, S2 normal heart sound present, No gallops present (Cardio), No clicks present (Cardio), No murmurs present (Cardio) and Peripheral pulses 2+ throughout RATE: regular rate RHYTHM: regular rhythm HEART SOUNDS: S1 normal heart sound present and S2 normal heart sound present PERIPHERAL PULSES: Peripheral pulses 2+ throughout GI: COMMON NORMALS: Normal to inspection, nondistended, normoactive bowel sounds present, Soft to palpation, non-tender and no masses PALPATION: Yes Soft to palpation : COMMON NORMALS: Yes no CVA tenderness BLADDER/KIDNEY EXAM: Yes no CVA tenderness Back/Pelvis: COMMON NORMALS: no CVA tenderness Extremity: COMMON NORMALS: normal to inspection Neuro: COMMON NORMALS: patient oriented x3 SENSORIUM/ORIENTATION: Yes alert GAIT: Yes Normal gait present Skin: GENERAL SKIN EXAM: dry skin Course Vital Signs: Vital signs: Vital Signs Temperature 99.7 F H 04/04/22 21:16 Pulse Rate 106 H 04/04/22 21:16 Respiratory Rate 16 04/04/22 21:16 Blood Pressure 141/74 04/04/22 21:16 Pulse Oximetry 99 04/04/22 21:16 Oxygen Delivery Me thod 04/04/22 21:16 MDM - Fever Medical Decision Making Patient is a 36-year-old female comes to the ED with upper respiratory symptoms. Symptoms started yesterday. She states that all her family has been sick with same symptoms the week prior. She endorses having a headache, body aches, sore throat, nasal congestion and drainage, fevers and cough. Denies any nausea or vomiting. She is able to tolerate p.o. fluids well. Vitals are stable. Exam of patient is benign. Chest x-ray shows no acute findings. Influenza and COVID test were negative. Strep is negative. Patient was diagnosed with upper respiratory viral infection and discharged home. Told to follow-up with PCP within the next week for reevaluation. Return ED precautions given. Patient understood and agreed with plan. Lab Data I reviewed the patient's lab results. Radiology Impressions Chest X-Ray 04/04/22 21:29 IMPRESSION: 1. No acute abnormality demonstrated. 2. There is no interval change from the prior examination. Laboratory Results Influenza Type A Ag negative (Negative) 04/04/22 21:47 Influenza Type B Ag negative (Negative) 04/04/22 21:47 SARS-CoV-2 Ag (Rapid) negative (Negative) 04/04/22 21:47 Group A Strep Rapid Negative (Negative) 04/04/22 21:47 Discharge Plan Discharge Patient Disposition: Home Clinical Impression: Viral URI Condition: Stable Prescriptions: New Medrol (Sorin) 4 mg tablets,dose pack See Rx Instructions .ROUTE .COMPLEX Qty: 21 0RF Rx Instructions: orally per package directions No Action albuterol sulfate [ProAir HFA] 90 mcg/actuation HFA aerosol inhaler 2 puff INHALATION Q6H PRN (Reason: Shortness Of Breath) Midol Complete 500-60-15 mg Tablet 2 tab PO DAILY PRN (Reason: Menstrual Cramps) acetaminophen [Tylenol Ex Str Rapid Release] 500 mg Tablet 1,000 mg PO Q6H PRN (Reason: Pain) metoclopramide HCl 10 mg tablet 10 mg PO Q6H PRN (Reason: nausea and vomiting) Qty: 15 0RF ondansetron 4 mg tablet,disintegrating 4 mg PO Q6H PRN (Reason: nausea and vomiting) Qty: 14 0RF Discharge Orders: Discharge ED (Routine); Ordered 04/04/22 Ordered By: Sandeep Leiva Referrals: Roel Marshall MD [Primary Care Provider] - Discharge Diet: Regular Discharge Activity: Increase activity as tolerated Patient Instructions: Upper Respiratory Infection (DC) Activity Restrictions/Additional Instructions: Follow-up with medical provider as directed. Take medications as prescribed. Return to the ER or your medical provider if condition worsens. Please read and understand discharge instructions. Thank you for choosing [facility] for your healthcare needs today. Please realize this is an emergency room and that we are providing you with a medical screening exam and this may not be complete and all inclusive of all the testing and or work up that you may need to determine your ailment or severity of your illness. It is very important that you follow up as instructed or that you return to the Emergency Department should you have concerns or if your condition changes or worsens in any way. 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
[2022-04-04] MEDS: acetaminophen 500 mg Tablet 1000 MG PO (21:50)
[2022-04-04 22:25] LABS: Rapid Strep A Test Negative (Negative)
[2022-04-04 22:26] LABS: SARS Covid-2 Antigen negative (Negative)
[2022-04-04 22:27] LABS: Influenza A by IFA negative (Negative); Influenza B by IFA negative (Negative)
== END 2022-04-04 23:03 | disposition home or self-care (01) ==
PROVIDERS: Emergency Provider Physician Assistant; PCP Family Medicine
DX: J06.9 Acute upper respiratory infection, unspecified (principal); Z20.822 Contact with and (suspected) exposure to COVID-19
CPT/HCPCS: 71045; 87081; 87426; 87804; 87880; 99284

== ENCOUNTER 2022-04-06 02:19 | Emergency (ER) | payer OTHER, MEDICAID, SELFPAY ==
--- NOTE | 2022-04-06 02:21 | XRR_ITS ---
PROCEDURE INFORMATION: Exam: XR Chest Exam date and time: 04/06/2022 3:30 AM Age: 36 years old Clinical indication: Cough and fever; Patient HX: Cough with fever TECHNIQUE: Imaging protocol: Radiologic exam of the chest. Views: 1 view. COMPARISON: CR (CHEST, ) 04/04/2022 10:37 PM FINDINGS: Lungs: Unremarkable. No consolidation. Pleural spaces: Unremarkable. No pleural effusion. No pneumothorax. Heart/Mediastinum: Unremarkable. No cardiomegaly. Bones/joints: Unremarkable. XR/XR chest 1V portable [id number] IMPRESSION: No acute findings.
[2022-04-06 02:22] VITALS: BP 125/72; PULSE 122; RESP 18; TEMP 39.3; O2SAT 96; BMI 43.2
--- NOTE | 2022-04-06 02:29 | W.ED.FEVER ---
HPI - Fever General: Chief Complaint: Fever Stated Complaint: fever,cough Time Seen by Provider: 04/06/22 02:21 Source: patient Mode of arrival: ambulatory Limitations: no limitations History of Present Illness: 36-year-old female states she had cough congestion and body aches over the last 3 days. She was seen here on Tuesday diagnosed with upper respiratory infection states today she has had worsening cough and has been febrile she does have a fever 102 denies any vomiting denies any diarrhea denies any worsening improving factors. Associated symptoms: Reports chills; Deny abdominal pain, chest pain, diarrhea, dysuria, headache(s), nausea or vomiting Review of Systems Const: Reports: fever(s), chills and body aches Eyes: Denies: blurry vision or eye discomfort ENMT: Denies: throat pain or dental pain Card: Denies: chest pain Resp: Reports: non-productive cough GI: Denies: abdominal pain, nausea, vomiting or diarrhea : Denies: dysuria Musc: Denies: neck pain or back pain Skin/Breast: Denies: rash Neuro: Denies: headache(s) Psych: Denies: depression [place]/Lymph: Denies: easy bruising All/Imm: Denies: urticaria PFSH ED PFSH: Medical History No pertinent family history No significant past medical history Social History Smoking and tobacco status: never smoked Alcohol intake: never Female Reproductive History: Date of last menstrual period: 04/04/22 Physical Exam Const: COMMON NORMALS: no acute distress, patient oriented x3 and healthy appearing HENMT: COMMON NORMALS: normocephalic and atraumatic HEAD & SCALP: normocephalic and atraumatic Eye: COMMON NORMALS: Equal, round and reactive pupils present and EOMs intact bilaterally PUPIL: Yes Equal, round and reactive pupils present Neck/C-Spine: COMMON NORMALS: full ROM and supple Chest: COMMONS NORMALS: normal inspection of the chest and normal palpation of entire chest wall Resp: COMMON NORMALS: normal respiratory effort, No retractions, No use of accessory muscles and clear to auscultation bilaterally AUSCULTATION: clear to auscultation bilaterally Cardio: COMMON NORMALS: regular rhythm and No murmurs present (Cardio) RATE: tachycardic RHYTHM: regular rhythm GI: COMMON NORMALS: Normal to inspection, nondistended, normoactive bowel sounds present, Soft to palpation, non-tender and no masses PALPATION: Yes Soft to palpation Extremity: COMMON NORMALS: normal to inspection and full ROM Neuro: COMMON NORMALS: patient oriented x3, moves all extremities and no focal motor deficits Psych: COMMON NORMALS: mental status grossly normal, Normal thought process present and cooperative THOUGHT PROCESS: Normal thought process present Skin: COMMON NORMALS: no rashes or lesions noted and no wounds GENERAL SKIN EXAM: no rashes or lesions noted Course Vital Signs: Vital signs: Vital Signs Temperature 101.0 F H 04/06/22 03:38 Pulse Rate 114 H 04/06/22 03:38 Respiratory Rate 19 H 04/06/22 03:38 Blood Pressure 121/69 04/06/22 03:38 Pulse Oximetry 93 04/06/22 03:38 Oxygen Delivery Me thod 04/06/22 03:38 MDM - Fever Medical Decision Making Patient presents with cough fever likely viral upper respiratory infection x-ray shows no signs pneumonia blood work normal she is stable for discharge she is to follow-up with her PCP and return if worsening. Lab Data 04/06/22 02:39 04/06/22 02:39 Radiology Impressions Chest X-Ray 04/06/22 02:21 IMPRESSION: No acute findings. Laboratory Results WBC 4.7 10^3/uL (4.0-10.0) 04/06/22 02:39 RBC 4.01 10^6/uL (4.1-5.3) L 04/06/22 02:39 Hgb 10.6 g/dL (11.5-15.3) L 04/06/22 02:39 Hct 33.5 % (37.0-47.0) L 04/06/22 02:39 MCV 83.5 fl (81-99) 04/06/22 02:39 MCH 26.4 pg (28.0-34.0) L 04/06/22 02:39 MCHC 31.6 g/dL (30.0-36.0) 04/06/22 02:39 RDW 13.6 % (12.1-15.1) 04/06/22 02:39 Plt Count 214 10^3/cmm (130-400) 04/06/22 02:39 MPV 10.0 fL (7.4-10.4) 04/06/22 02:39 Neut % (Auto) 60.4 % 04/06/22 02:39 Lymph % (Auto) 25.6 % 04/06/22 02:39 [place] % (Auto) 12.9 % 04/06/22 02:39 Eos % (Auto) 0.0 % 04/06/22 02:39 Baso % (Auto) 0.2 % 04/06/22 02:39 Neut # (Auto) 2.81 10^3/uL (1.8-7.7) 04/06/22 02:39 Lymph # (Auto) 1.2 10^3/uL (0.8-4.8) 04/06/22 02:39 [place] # (Auto) 0.6 10^3/uL (0.2-0.9) 04/06/22 02:39 Eos # (Auto) 0.0 10^3/uL (0.0-0.8) 04/06/22 02:39 Baso # (Auto) 0.0 10^3/uL (0.0-0.1) 04/06/22 02:39 Nucleated RBC % (auto) 0 % 04/06/22 02:39 Nucleated RBCs # 0.0 /100WBC 04/06/22 02:39 Sodium 135 mmol/L (136-145) L 04/06/22 02:39 Potassium 3.4 mmol/L (3.5-5.1) L 04/06/22 02:39 Chloride 100 mmol/L (98-107) 04/06/22 02:39 Carbon Dioxide 25 mmol/L (22-29) 04/06/22 02:39 Anion Gap 13.4 (5-19) 04/06/22 02:39 BUN 13 mg/dL (6-20) 04/06/22 02:39 Creatinine 0.9 mg/dL (0.5-0.9) 04/06/22 02:39 GFR Calculation 70.1 mL/min (90-130) L 04/06/22 02:39 Glucose 132 mg/dL (65-115) H 04/06/22 02:39 Calculated Osmolality 282 mOsm/kg (285-295) L 04/06/22 02:39 Calcium 8.8 mg/dL (8.5-10.5) 04/06/22 02:39 Total Bilirubin 0.2 mg/dL (0.15-1.2) 04/06/22 02:39 AST 15 U/L (0-32) 04/06/22 02:39 ALT 14 U/L (0-33) 04/06/22 02:39 Alkaline Phosphatase 106 U/L (35-105) H 04/06/22 02:39 Total Protein 7.1 g/dL (6.6-8.7) 04/06/22 02:39 Albumin 3.9 g/dL (3.5-5.2) 04/06/22 02:39 Globulin 3.2 g/dL (1.3-4.6) 04/06/22 02:39 Influenza Type A Ag negative (Negative) 04/06/22 02:39 Influenza Type B Ag negative (Negative) 04/06/22 02:39 SARS-CoV-2 Ag (Rapid) negative (Negative) 04/06/22 02:39 Discharge Plan Discharge Patient Disposition: Home Clinical Impression: Viral URI Condition: Stable Prescriptions: No Action albuterol sulfate [ProAir HFA] 90 mcg/actuation HFA aerosol inhaler 2 puff INHALATION Q6H PRN (Reason: Shortness Of Breath) Midol Complete 500-60-15 mg Tablet 2 tab PO DAILY PRN (Reason: Menstrual Cramps) acetaminophen [Tylenol Ex Str Rapid Release] 500 mg Tablet 1,000 mg PO Q6H PRN (Reason: Pain) metoclopramide HCl 10 mg tablet 10 mg PO Q6H PRN (Reason: nausea and vomiting) Qty: 15 0RF ondansetron 4 mg tablet,disintegrating 4 mg PO Q6H PRN (Reason: nausea and vomiting) Qty: 14 0RF Medrol (Sorin) 4 mg tablets,dose pack See Rx Instructions .ROUTE .COMPLEX Qty: 21 0RF Rx Instructions: orally per package directions Discharge Orders: Discharge ED (Routine); Ordered 04/06/22 Ordered By: Austin Jimenez Referrals: Roel Marshall MD [Primary Care Provider] - 1-3 days Discharge Diet: Advance as tolerated Discharge Activity: Resume usual activity Patient Instructions: Upper Respiratory Infection (ED) Stand Alone Forms: Work/School Release Coding Level of Care Code ED 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
[2022-04-06] MEDS: acetaminophen 500 mg Tablet 1000 MG PO (02:40)
[2022-04-06] MEDS: sodium chloride 0.9% 1,000 ML 999 ML IV (02:40)
[2022-04-06 02:50] LABS: Basophils % 0.2 %; Hematocrit 33.5 % (37.0-47.0); Hemoglobin 10.6 g/dL (11.5-15.3); Lymphocytes # 1.2 10^3/uL (0.8-4.8); Lymphocytes % 25.6 %; Mean Corpuscular HGB Conc 31.6 g/dL (30.0-36.0); Mean Corpuscular Hemoglobin 26.4 pg (28.0-34.0); Mean Corpuscular Volume 83.5 fl (81-99); Monocytes # 0.6 10^3/uL (0.2-0.9); Monocytes % 12.9 %; Neutrophils # 2.81 10^3/uL (1.8-7.7); Neutrophils % 60.4 %; Nucleated Red Blood Cells % 0 %; Platelet Count 214 10^3/cmm (130-400); Red Blood Count 4.01 10^6/uL (4.1-5.3); Red Cell Distribution Width 13.6 % (12.1-15.1); White Blood Count 4.7 10^3/uL (4.0-10.0)
[2022-04-06 03:07] LABS: Influenza A by IFA negative (Negative); Influenza B by IFA negative (Negative); SARS Covid-2 Antigen negative (Negative)
[2022-04-06 03:18] LABS: Alanine Aminotransferase 14 U/L (0-33); Albumin Level 3.9 g/dL (3.5-5.2); Alkaline Phosphatase 106 U/L (35-105); Anion Gap 13.4 (5-19); Aspartate Amino Transferase 15 U/L (0-32); Blood Urea Nitrogen 13 mg/dL (6-20); Calcium 8.8 mg/dL (8.5-10.5); Carbon Dioxide 25 mmol/L (22-29); Chloride 100 mmol/L (98-107); Globulin 3.2 g/dL (1.3-4.6); Glomerular Filtration Rate 70.1 mL/min (90-130); Glucose 132 mg/dL (65-115); Osmolality Calculated 282 mOsm/kg (285-295); Potassium 3.4 mmol/L (3.5-5.1); Sodium 135 mmol/L (136-145); Total Bilirubin 0.2 mg/dL (0.15-1.2); Total Protein 7.1 g/dL (6.6-8.7)
[2022-04-06 03:38] VITALS: BP 121/69; PULSE 114; RESP 19; TEMP 38.3; O2SAT 93
[2022-04-06] MEDS: ibuprofen 600 mg Tablet PO (04:00)
== END 2022-04-06 04:17 | disposition home or self-care (01) ==
PROVIDERS: Emergency Provider Emergency Medicine; PCP Family Medicine
DX: J06.9 Acute upper respiratory infection, unspecified (principal); Z20.822 Contact with and (suspected) exposure to COVID-19
CPT/HCPCS: 71045; 80053; 85025; 87426; 87804; 96360; 96361; 99284; J7030

== ENCOUNTER 2022-04-21 18:56 | Emergency (ER) | payer OTHER, SELFPAY ==
[2022-04-21 19:30] VITALS: BMI 41.8
[2022-04-21 19:33] VITALS: BP 122/77; PULSE 101; RESP 16; TEMP 36.9; O2SAT 97
--- NOTE | 2022-04-21 19:41 | ED_ITS ---
HPI - General Adult General: Chief complaint: General Medical Stated complaint: migraine? Time Seen by Provider: 04/21/22 19:41 History of Present Illness: 36-year-old female comes in today for complaints of cough, sinus congestion, and ear pain, and along with headache. Patient appe ars in mild pain. Patient appears nontoxic. Patient reports no history of migraine. Associated symptoms: Reports headache(s) and nausea Review of Systems Const: Denies: fever(s) Resp: Reports: non-productive cough GI: Reports: nausea Neuro: Reports: headache(s) PFSH ED PFSH: Medical History No pertinent family history No significant past medical history Social History Smoking and tobacco status: never smoked Alcohol intake: never Female Reproductive History: Date of last menstrual period: 03/24/22 Physical Exam Const: COMMON NORMALS: alert HENMT: COMMON NORMALS: normocephalic HEAD & SCALP: normocephalic NOSE: Nasal discharge present THROAT: posterior oropharynx abnormal erythema Neck/C-Spine: COMMON NORMALS: no lymphadenopathy and no meningeal signs Resp: COMMON NORMALS: normal respiratory effort and clear to auscultation bilaterally AUSCULTATION: clear to auscultation bilaterally Cardio: COMMON NORMALS: regular rate and regular rhythm RATE: regular rate RHYTHM: regular rhythm GI: COMMON NORMALS: Soft to palpation PALPATION: Yes Soft to palpation Extremity: COMMON NORMALS: normal to inspection Neuro: SENSORIUM/ORIENTATION: Yes alert MENINGEAL SIGNS: Yes no meningeal signs Skin: COMMON NORMALS: turgor normal GENERAL SKIN EXAM: turgor normal Course Vital Signs: Vital signs: Vital Signs Temperature 98.4 F 04/21/22 19:42 Pulse Rate 101 H 04/21/22 19:42 Respiratory Rate 16 04/21/22 19:42 Blood Pressure 122/77 04/21/22 19:42 Pulse Oximetry 97 04/21/22 19:42 Oxygen Delivery Me thod 04/21/22 19:42 [facility] - General Adult Medical Decision Making 36-year-old female comes in today with complaints of headache and upper respiratory symptoms. On exam abdomen soft nontender. Lungs clear to auscultation. Posterior pharynx slightly erythematous. Bilateral TMs are normal. No focal neural deficits are noted. Vital signs are normal. Differential diagnosis includes upper respiratory infection, migraine headache, sinusitis. No signs of severe illness is noted. Patient was treated for headache and viral upper respiratory infection. Patient reported understanding of care plan need for follow-up or return to the ER. Discharge Plan Discharge Patient Disposition: Home Clinical Impression: Viral URI Headache Qualifiers: Headache type: unspecified Headache chronicity pattern: unspecified pattern Intractability: not intractable Qualified Code(s): R51.9 - Headache, unspecified Condition: Stable Prescriptions: Continued ondansetron 4 mg tablet,disintegrating 4 mg PO Q6H PRN (Reason: nausea and vomiting) Qty: 14 0RF No Action albuterol sulfate [ProAir HFA] 90 mcg/actuation HFA aerosol inhaler 2 puff INHALATION Q6H PRN (Reason: Shortness Of Breath) Midol Complete 500-60-15 mg Tablet 2 tab PO DAILY PRN (Reason: Menstrual Cramps) acetaminophen [Tylenol Ex Str Rapid Release] 500 mg Tablet 1,000 mg PO Q6H PRN (Reason: Pain) metoclopramide HCl 10 mg tablet 10 mg PO Q6H PRN (Reason: nausea and vomiting) Qty: 15 0RF Medrol (Sorin) 4 mg tablets,dose pack See Rx Instructions .ROUTE .COMPLEX Qty: 21 0RF Rx Instructions: orally per package directions Discharge Orders: Discharge ED (Routine); Ordered 04/21/22 Ordered By: Justin Diaz Referrals: Roel Marshall MD [Primary Care Provider] - Discharge Diet: Usual diet Discharge Activity: Increase activity as tolerated Patient Instructions: General Headache (ED) Activity Restrictions/Additional Instructions: Home and rest. Drink plenty of fluids. Use acetaminophen and ibuprofen as needed for pain and fever. Use ondansetron as needed for nausea. Follow-up with primary care in 2 to 3 days for recheck. Return to ED for worsening symptoms such as inability to hold fluids down, fever greater than 100.4, increasing shortness of breath. Coding Level of Care Code ED Substance Abuse Prevention Coordinator for Doron Soto
[2022-04-21 19:42] VITALS: BP 122/77; PULSE 101; RESP 16; TEMP 36.9; O2SAT 97
[2022-04-21] MEDS: metoclopramide 5 mg/mL SDV 2 mL 10 MG IM (20:01)
[2022-04-21] MEDS: dexamethasone 10 mg/mL INJ IM (20:01)
[2022-04-21] MEDS: ketorolac 30 mg/mL INJ IM (20:01)
[2022-04-21 20:12] VITALS: PULSE 95; RESP 16; O2SAT 99
== END 2022-04-21 20:13 | disposition home or self-care (01) ==
PROVIDERS: Emergency Provider Nurse Practitioner Family; PCP Family Medicine
DX: R51.9 Headache, unspecified (principal); J06.9 Acute upper respiratory infection, unspecified
CPT/HCPCS: 96372; 99284; J1100; J1885; J2765

== ENCOUNTER 2022-05-17 18:12 | Emergency (ER) | payer OTHER, SELFPAY ==
[2022-05-17 18:39] VITALS: BP 143/87; PULSE 114; RESP 16; TEMP 38.5; O2SAT 96
--- NOTE | 2022-05-17 18:48 | XRR_ITS ---
PROCEDURE INFORMATION: Exam: XR Chest Exam date and time: 05/17/2022 7:19 PM Age: 36 years old Clinical indication: Cough; Additional info: Cough and fever TECHNIQUE: Imaging protocol: Radiologic exam of the chest. Views: 1 view. COMPARISON: CR (CHEST, ) 04/06/2022 3:30 AM FINDINGS: Lungs: No consolidation. Pleural spaces: No pleural effusion. No pneumothorax. Heart/Mediastinum: No cardiomegaly. Bones/joints: Unremarkable. XR/XR chest 1V portable [id number] IMPRESSION: 1. No acute abnormality demonstrated. 2. There is no interval change from the prior examination.
[2022-05-17 19:43] VITALS: BP 128/84; PULSE 102; RESP 18; TEMP 37.9; O2SAT 96
--- NOTE | 2022-05-17 19:53 | ED_ITS ---
HPI - Fever General: Chief Complaint: Fever Stated Complaint: Fever\Congestions\Snotty Nose Time Seen by Provider: 05/17/22 18:37 History of Present Illness: Patient is a 36-year-old female who comes to the ED with fever. Patient says her symptoms started today. She is having a sore throat, fevers, dry cough, nasal congestion and drainage. Denies any nausea/vomiting. 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 Associated symptoms: Reports nasal congestion; Deny abdominal pain, flank pain, chills, chest pain, diarrhea, dysuria, headache(s), nausea or vomiting Review of Systems Const: Denies: fever(s), chills or fatigue Eyes: Denies: change in vision or eye discomfort ENMT: Reports: throat pain, nasal discharge and nasal congestion; Denies: odynophagia Card: Denies: chest pain, palpitations, edema, swelling of feet/ankles, dyspnea on exertion or orthopnea Resp: Reports: non-productive cough; Denies: dyspnea or productive cough GI: Denies: abdominal pain, nausea, vomiting, diarrhea, constipation or hematochezia : Denies: flank pain, dysuria or hematuria Musc: Denies: neck pain, back pain or extremity swelling Skin/Breast: Denies: rash or new lesions Neuro: Denies: headache(s), numbness in extremities or weakness in extremities PFS ED PFSH: Medical History No pertinent family history No significant past medical history Social History Smoking and tobacco status: never smoked Alcohol intake: never Female Reproductive History: Date of last menstrual period: 03/24/22 Physical Exam Const: COMMON NORMALS: no acute distress, patient oriented x3 and alert GENERAL APPEARANCE: cooperative and comfortable HENMT: COMMON NORMALS: normocephalic HEAD & SCALP: normocephalic MOUTH: Normal oral and palatal mucosa present THROAT: posterior oropharynx normal and uvula midline Neck/C-Spine: COMMON NORMALS: supple GENERAL: Yes normal visual inspection Resp: COMMON NORMALS: normal respiratory effort, No retractions, No use of accessory muscles and clear to auscultation bilaterally AUSCULTATION: clear to auscultation bilaterally Cardio: COMMON NORMALS: regular rate, regular rhythm, S1 normal heart sound present, S2 normal heart sound present, No gallops present (Cardio), No clicks present (Cardio), No murmurs present (Cardio) and Peripheral pulses 2+ throughout RATE: regular rate RHYTHM: regular rhythm HEART SOUNDS: S1 normal heart sound present and S2 normal heart sound present PERIPHERAL PULSES: Peripheral pulses 2+ throughout GI: COMMON NORMALS: Normal to inspection, nondistended, normoactive bowel sounds present, Soft to palpation, non-tender and no masses PALPATION: Yes Soft to palpation : COMMON NORMALS: Yes no CVA tenderness BLADDER/KIDNEY EXAM: Yes no CVA tenderness Back/Pelvis: COMMON NORMALS: no CVA tenderness Extremity: COMMON NORMALS: normal to inspection Neuro: COMMON NORMALS: patient oriented x3 SENSORIUM/ORIENTATION: Yes alert GAIT: Yes Normal gait present Skin: GENERAL SKIN EXAM: dry skin Course Vital Signs: Vital signs: Vital Signs Temperature 99.2 F 05/17/22 20:59 Pulse Rate 97 05/17/22 20:59 Respiratory Rate 18 05/17/22 20:59 Blood Pressure 136/98 05/17/22 20:59 Pulse Oximetry 96 05/17/22 20:59 Oxygen Delivery Me thod 05/17/22 19:43 MDM - Fever Medical Decision Making Patient is a 36-year-old female who comes to the ED with fever. Patient says her symptoms started today. She is having a sore throat, fevers, dry cough, nasal congestion and drainage. Denies any nausea/vomiting. 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 Patient has fever of 101.3 here in the ED but rest of vitals are stable. Exam is benign. Chest x-r ay showed no acute findings. Influenza and strep were negative. COVID test was positive. Patient was diagnosed with COVID-19 and was stable for discharge home. She was sent home with a prescription for Medrol Dosepak. Told to follow-up with PCP in the next week for reevaluation. Patient understood and agreed with plan. Lab Data I reviewed the patient's lab results. Radiology Impressions Chest X-Ray 05/17/22 18:48 IMPRESSION: 1. No acute abnormality demonstrated. 2. There is no interval change from the prior examination. Laboratory Results Influenza Type A Ag Negative (Negative) 05/17/22 19:43 Influenza Type B Ag Negative (Negative) 05/17/22 19:43 SARS-CoV-2 Ag (Rapid) Positive (Negative) H 05/17/22 19:43 Group A Strep Rapid Negative (Negative) 05/17/22 20:00 Discharge Plan Discharge Patient Disposition: Home Clinical Impression: COVID-19 Condition: Stable Prescriptions: New Medrol (Sorin) 4 mg tablets,dose pack See Rx Instructions .ROUTE .COMPLEX Qty: 21 0RF Rx Instructions: orally per package directions No Action albuterol sulfate [ProAir HFA] 90 mcg/actuation HFA aerosol inhaler 2 puff INHALATION Q6H PRN (Reason: Shortness Of Breath) Midol Complete 500-60-15 mg Tablet 2 tab PO DAILY PRN (Reason: Menstrual Cramps) acetaminophen [Tylenol Ex Str Rapid Release] 500 mg Tablet 1,000 mg PO Q6H PRN (Reason: Pain) metoclopramide HCl 10 mg tablet 10 mg PO Q6H PRN (Reason: nausea and vomiting) Qty: 15 0RF ondansetron 4 mg tablet,disintegrating 4 mg PO Q6H PRN (Reason: nausea and vomiting) Qty: 14 0RF Medrol (Sorin) 4 mg tablets,dose pack See Rx Instructions .ROUTE .COMPLEX Qty: 21 0RF Rx Instructions: orally per package directions Discharge Orders: Discharge ED (Routine); Ordered 05/17/22 Ordered By: Sandeep Leiva Referrals: Roel Marshall MD [Primary Care Provider] - Discharge Diet: Regular Discharge Activity: Increase activity as tolerated Patient Instructions: COVID-19 (Coronavirus Disease 2019) (ED) Activity Restrictions/Additional Instructions: Follow-up with medical provider as directed. Take medications as prescribed. Return to the ER or your medical provider if condition worsens. Please read and understand discharge instructions. Thank you for choosing [facility] for your healthcare needs today. Please realize this is an emergency room and that we are providing you with a medical screening exam and this may not be complete and all inclusive of all the testing and or work up that you may need to determine your ailment or severity of your illness. It is very important that you follow up as instructed or that you return to the Emergency Department should you have concerns or if your condition changes or worsens in any way. 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
[2022-05-17] MEDS: acetaminophen 500 mg Tablet 1000 MG PO (20:02)
[2022-05-17 20:17] LABS: Influenza A by IFA Negative (Negative); Influenza B by IFA Negative (Negative); SARS Covid-2 Antigen Positive (Negative)
[2022-05-17 20:18] LABS: Rapid Strep A Test Negative (Negative)
[2022-05-17 20:59] VITALS: BP 136/98; PULSE 97; RESP 18; TEMP 37.3; O2SAT 96
== END 2022-05-17 21:00 | disposition home or self-care (01) ==
PROVIDERS: Emergency Medicine; Emergency Provider Physician Assistant; PCP Family Medicine
DX: U07.1 COVID-19 (principal)
CPT/HCPCS: 71045; 87081; 87426; 87804; 87880; 99283

== ENCOUNTER → 2022-07-05 18:26 | Outpatient (BNVA) | payer OTHER, SELFPAY | PROVIDERS: PCP Family Medicine; Visit Provider Registered Nurse Neonatal Intensive Care | DX: R11.10 Vomiting, unspecified (principal); K29.70 Gastritis, unspecified, without bleeding | CPT/HCPCS: 81025 ==

== ENCOUNTER 2022-07-26 15:59 | Emergency (ER) | payer OTHER, SELFPAY ==
[2022-07-26 16:13] VITALS: BP 132/85; PULSE 88; RESP 19; TEMP 36.5; O2SAT 96; BMI 42.5
[2022-07-26 16:26] VITALS: BP 132/85; PULSE 87; RESP 12; O2SAT 97
[2022-07-26 16:30] VITALS: BP 132/85; PULSE 87; RESP 17; O2SAT 97
--- NOTE | 2022-07-26 16:32 | ECG_ITS ---
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 Measurements Intervals [place] Rate: 83 P: 37 CO: 153 QRS: 37 QRSD: 89 T: 28 QT: 363 QTc: 428 Interpretive Statements SINUS RHYTHM Compared to ECG 02/09/2022 20:57:47 No significant changes Electronically Signed On 07-27-2022 0:18:30 CDT by Jose Campa M.D. [id number] f
[2022-07-26 16:35] VITALS: BP 137/96; PULSE 86; RESP 21; O2SAT 96
[2022-07-26 16:40] VITALS: BP 137/96; PULSE 84; RESP 21; O2SAT 96
[2022-07-26 16:43] LABS: Eosinophils # 0.2 10^3/uL (0.0-0.8); Eosinophils % 2.9 %; Hemoglobin 11.9 g/dL (11.5-15.3); Lymphocytes # 1.7 10^3/uL (0.8-4.8); Lymphocytes % 29.7 %; Mean Corpuscular HGB Conc 31.3 g/dL (30.0-36.0); Mean Corpuscular Hemoglobin 25.8 pg (28.0-34.0); Mean Corpuscular Volume 82.3 fl (81-99); Mean Platelet Volume 10.5 fL (7.4-10.4); Monocytes # 0.4 10^3/uL (0.2-0.9); Monocytes % 6.5 %; Neutrophils # 3.37 10^3/uL (1.8-7.7); Neutrophils % 60.7 %; Nucleated Red Blood Cells % 0 %; Platelet Count 241 10^3/cmm (130-400); Red Blood Count 4.62 10^6/uL (4.1-5.3); Red Cell Distribution Width 13.2 % (12.1-15.1); White Blood Count 5.6 10^3/uL (4.0-10.0)
[2022-07-26 16:45] VITALS: BP 137/96; PULSE 84; RESP 18; O2SAT 97
[2022-07-26] MEDS: lidocaine 2% viscous 15 ML, aluminum-mag hydrox-simethicon 30 ML, sucralfate oral liq 1 GM PO (16:45)
[2022-07-26 17:07] LABS: Troponin(5th) Baseline 6 ng/L (0-10)
--- NOTE | 2022-07-26 17:08 | W.ED.CHESTPA ---
HPI - Chest Pain General: Chief Complaint: Chest Pain Stated Complaint: CHEST PAIN Time Seen by Provider: 07/26/22 16:31 Source: patient Mode of arrival: ambulatory History of Present Illness: 36-year-old female presents to the emergency room with complaints of chest pain that began when she bent over to tie her shoes. Radiates into her left arm and is reproducible with palpation across her upper chest and reproducible with movement. It is painful when she takes a deep breath she denies any fever sweats or chills. No known cardiac history. She had gestational diabetes and her physician kept her on metformin. No previous cardiac testing. MD complaint: chest pain Onset (ago): hour(s) Timing of current episode: episodic Pain location: left chest Pain radiation: left arm Severity: moderate Quality: sharp Relieving factors: rest Exacerbating factors: palpation and movement Associated symptoms: Deny abdominal pain, diaphoresis, dyspnea, fever(s), leg edema, nausea, palpitations, sense of impending doom, syncope or vomiting Review of Systems Const: Denies: fever(s), chills, fatigue, malaise or diaphoresis ENMT: Denies: throat pain, ear or mastoid pain, nasal discharge or nasal congestion Card: Reports: chest pain; Denies: palpitations, irregular heart rhythm, edema or syncope Resp: Denies: dyspnea GI: Denies: abdominal pain, nausea or vomiting : Denies: flank pain, difficulty voiding, dysuria, urinary frequency or urinary urgency Skin/Breast: Denies: rash or pruritus PFS ED PFSH: Medical History No pertinent family history No significant past medical history Social History Smoking and tobacco status: never smoked Alcohol intake: never Physical Exam Const: COMMON NORMALS: no acute distress GENERAL APPEARANCE: cooperative and comfortable ORIENTATION/CONSCIOUSNESS: Yes awake, Yes oriented to person, Yes oriented to place and Yes oriented to time HENMT: COMMON NORMALS: normocephalic, atraumatic and hearing grossly normal bilaterally HEAD & SCALP: normocephalic and atraumatic Chest: OTHER: Reproducible sharp chest pain with palpation on the left upper chest wall movement with deep inspiration Resp: COMMON NORMALS: normal respiratory effort, No retractions, No use of accessory muscles and clear to auscultation bilaterally AUSCULTATION: clear to auscultation bilaterally Cardio: COMMON NORMALS: regular rate, regular rhythm and No murmurs present (Cardio) RATE: regular rate RHYTHM: regular rhythm GI: COMMON NORMALS: Soft to palpation and No hepatosplenomegaly present AUSCULTATION: Yes normoactive bowel sounds PALPATION: Yes Soft to palpation, No Tenderness to palpation present (GI), No Guarding due to palpation present (GI) and Yes No hepatosplenomegaly present Extremity: COMMON NORMALS: normal to inspection, capillary refill normal, no clubbing, cyanosis or edema, no calf tenderness and no pedal edema Neuro: SENSORIUM/ORIENTATION: Yes oriented to person, Yes oriented to place and Yes oriented to time Skin: COMMON NORMALS: no rashes or lesions noted GENERAL SKIN EXAM: no rashes or lesions noted Course Vital Signs: Vital signs: Vital Signs Temperature 97.7 F 07/26/22 16:13 Pulse Rate 84 07/26/22 16:45 Respiratory Rate 18 07/26/22 16:45 Blood Pressure 137/96 07/26/22 16:45 Pulse Oximetry 97 07/26/22 16:45 Oxygen Delivery Me thod 07/26/22 16:40 MDM - Chest Pain Medical Decision Making EKG and labs reviewed. No acute changes on EKG. Cardiac enzymes normal pain very reproducible with palpation across left upper chest and with deep inspiration and motion. Discussed with patient discharged home. Return if has further problems use anti-inflammatories as needed. Medical Records I reviewed the patient's medical records. Lab Data I reviewed the patient's lab results. 07/26/22 16:35 07/26/22 16:35 Laboratory Results WBC 5.6 10^3/uL (4.0-10.0) 07/26/22 16:35 RBC 4.62 10^6/uL (4.1-5.3) 07/26/22 16:35 Hgb 11.9 g/dL (11.5-15.3) 07/26/22 16:35 Hct 38.0 % (37.0-47.0) 07/26/22 16:35 MCV 82.3 fl (81-99) 07/26/22 16:35 MCH 25.8 pg (28.0-34.0) L 07/26/22 16:35 MCHC 31.3 g/dL (30.0-36.0) 07/26/22 16:35 RDW 13.2 % (12.1-15.1) 07/26/22 16:35 Plt Count 241 10^3/cmm (130-400) 07/26/22 16:35 MPV 10.5 fL (7.4-10.4) H 07/26/22 16:35 Neut % (Auto) 60.7 % 07/26/22 16:35 Lymph % (Auto) 29.7 % 07/26/22 16:35 Gem % (Auto) 6.5 % 07/26/22 16:35 Eos % (Auto) 2.9 % 07/26/22 16:35 Baso % (Auto) 0.0 % 07/26/22 16:35 Neut # (Auto) 3.37 10^3/uL (1.8-7.7) 07/26/22 16:35 Lymph # (Auto) 1.7 10^3/uL (0.8-4.8) 07/26/22 16:35 Gem # (Auto) 0.4 10^3/uL (0.2-0.9) 07/26/22 16:35 Eos # (Auto) 0.2 10^3/uL (0.0-0.8) 07/26/22 16:35 Baso # (Auto) 0.0 10^3/uL (0.0-0.1) 07/26/22 16:35 Nucleated RBC % (auto) 0 % 07/26/22 16:35 Nucleated RBCs # 0.0 /100WBC 07/26/22 16:35 Sodium 143 mmol/L (136-145) 07/26/22 16:35 Potassium 4.3 mmol/L (3.5-5.1) 07/26/22 16:35 Chloride 107 mmol/L (98-107) 07/26/22 16:35 Carbon Dioxide 25 mmol/L (22-29) 07/26/22 16:35 Anion Gap 15.3 (5-19) 07/26/22 16:35 BUN 16 mg/dL (6-20) 07/26/22 16:35 Creatinine 0.6 mg/dL (0.5-0.9) 07/26/22 16:35 GFR Calculation 111.9 mL/min (90-130) 07/26/22 16:35 Glucose 123 mg/dL (65-115) H 07/26/22 16:35 Calculated Osmolality 299 mOsm/kg (285-295) H 07/26/22 16:35 Calcium 9.4 mg/dL (8.5-10.5) 07/26/22 16:35 Total Bilirubin 0.2 mg/dL (0.15-1.2) 07/26/22 16:35 AST 14 U/L (0-32) 07/26/22 16:35 ALT 15 U/L (0-33) 07/26/22 16:35 Alkaline Phosphatase 114 U/L (35-105) H 07/26/22 16:35 Troponin T Baseline 6 ng/L (0-10) 07/26/22 16:35 Total Protein 7.6 g/dL (6.6-8.7) 07/26/22 16:35 Albumin 4.4 g/dL (3.5-5.2) 07/26/22 16:35 Globulin 3.2 g/dL (1.3-4.6) 07/26/22 16:35 Discharge Plan Discharge Patient Disposition: Home Clinical Impression: Chest wall pain Condition: Stable Prescriptions: New diclofenac sodium 75 mg tablet,delayed release (DR/EC) 75 mg PO Q12H PRN (Reason: pain) Qty: 20 0RF Held Midol Complete 500-60-15 mg Tablet 2 tab PO DAILY PRN (Reason: Menstrual Cramps) Hold Instructions: Resume on 08/05/22. No Action albuterol sulfate [ProAir HFA] 90 mcg/actuation HFA aerosol inhaler 2 puff INHALATION Q6H PRN (Reason: Shortness Of Breath) acetaminophen [Tylenol Ex Str Rapid Release] 500 mg Tablet 1,000 mg PO Q6H PRN (Reason: Pain) metoclopramide HCl 10 mg tablet 10 mg PO Q6H PRN (Reason: nausea and vomiting) Qty: 15 0RF ondansetron 4 mg tablet,disintegrating 4 mg PO Q6H PRN (Reason: nausea and vomiting) Qty: 14 0RF Discharge Orders: Discharge ED (Routine); Ordered 07/26/22 Ordered By: James Wilks Referrals: Roel Marshall MD [Primary Care Provider] - Discharge Diet: Usual diet Discharge Activity: Resume usual activity Patient Instructions: Opioid Safety, Pain Management Activity Restrictions/Additional Instructions: You are seen today for sudden onset of chest discomfort. Your EKG and coronary enzymes were negative your chest pain was reproducible with palpation and movement. This usually represents a musculoskeletal chest pain follow-up with primary care doctor as needed. You can use the diclofenac as needed for discomfort. 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
[2022-07-26 17:09] LABS: Alanine Aminotransferase 15 U/L (0-33); Albumin Level 4.4 g/dL (3.5-5.2); Alkaline Phosphatase 114 U/L (35-105); Anion Gap 15.3 (5-19); Aspartate Amino Transferase 14 U/L (0-32); Blood Urea Nitrogen 16 mg/dL (6-20); Calcium 9.4 mg/dL (8.5-10.5); Carbon Dioxide 25 mmol/L (22-29); Chloride 107 mmol/L (98-107); Creatinine Clr Calc Pharmacy 150.4903; Globulin 3.2 g/dL (1.3-4.6); Glomerular Filtration Rate 111.9 mL/min (90-130); Glucose 123 mg/dL (65-115); Osmolality Calculated 299 mOsm/kg (285-295); Potassium 4.3 mmol/L (3.5-5.1); Sodium 143 mmol/L (136-145); Total Bilirubin 0.2 mg/dL (0.15-1.2); Total Protein 7.6 g/dL (6.6-8.7)
== END 2022-07-26 18:16 | disposition home or self-care (01) ==
PROVIDERS: Emergency Provider Family Medicine; PCP Family Medicine
DX: R07.89 Other chest pain (principal)
CPT/HCPCS: 80053; 84484; 85025; 93005; 99285

== ENCOUNTER 2022-07-28 11:50 | Emergency (ER) | payer OTHER, SELFPAY ==
[2022-07-28 11:56] VITALS: BP 121/68; PULSE 77; RESP 18; TEMP 37.1; O2SAT 98; BMI 42.5
--- NOTE | 2022-07-28 11:59 | XR_ITS ---
WS: [id number] XR chest 1V portable [id number] REASON FOR EXAM: chest pain FINDINGS: Chest is unchanged compared to 05/17/2022. Thoracic aorta and mediastinum are within normal limits. Normal heart size. Calcified granulomatous disease in both hemithoraces. No acute pulmonary parenchymal or pleural abnormality. Bony thorax is intact without significant abnormality. XR/XR chest 1V portable [id number] IMPRESSION: No acute chest abnormality.
--- NOTE | 2022-07-28 12:05 | ECG_ITS ---
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
--- NOTE | 2022-07-28 12:06 | ED_ITS ---
HPI - Chest Pain General: Chief Complaint: Chest Pain Stated Complaint: chest pain Time Seen by Provider: 07/28/22 11:57 Source: patient Mode of arrival: EMS Limitations: no limitations History of Present Illness: Patient is a 36-year-old female presents to the ED today again for evaluation of chest pain. Patient was seen at our facility 2 days ago and on that visit had reproducible anterior chest wall pain. She states she was discharged home with a prescription for diclofenac. She states she tried to take this medication but broke out in a rash so discontinued it. Patient states she now feels like she is short of breath. She had an appointment with her primary care provider today but states they told her to come back to the ED instead because of the shortness of breath. Patient denies dizziness, lightheadedness, palpitations. No radicular pain. She has no known cardiac disease. No risk factors for PE. Denies URI-like symptoms. No fevers. MD complaint: chest pain Onset (ago): day(s) Timing of current episode: constant Onset: during rest Pain location: substernal and parasternal Severity: moderate Quality: aching and dull Relieving factors: nothing Exacerbating factors: inspiration, palpation and movement Associated symptoms: Reports dyspnea; Deny abdominal pain, fever(s), nausea, palpitations, syncope or vomiting Treatment prior to arrival: none Risk Factors: Thoracic aortic dissection risk factors: none Related Data: On Oral Contraceptives: No Review of Systems Const: Denies: fever(s), chills, body aches, fatigue or malaise ENMT: Denies: throat pain, odynophagia, nasal discharge, nasal congestion, post nasal drip or sinus pain Card: Reports: chest pain; Denies: palpitations, irregular heart rhythm, edema, swelling of feet/ankles, lightheadedness, syncope, pre-syncope, orthopnea, leg pain with exertion or acrocyanosis Resp: Reports: dyspnea; Denies: productive cough, wheezing, hemoptysis or chest congestion GI: Denies: abdominal pain, nausea, vomiting or diarrhea : Denies: flank pain Musc: Denies: neck pain, back pain, extremity pain, extremity swelling, joint pain or joint swelling Neuro: Denies: headache(s), weakness in extremities or dizziness PFS ED PFSH: Medical History No pertinent family history No significant past medical history Social History Smoking and tobacco status: never smoked Alcohol intake: never Physical Exam Const: COMMON NORMALS: no acute distress, patient oriented x3, no limitations and alert GENERAL APPEARANCE: cooperative NUTRITIONAL APPEARANCE: obese ORIENTATION/CONSCIOUSNESS: Yes awake, Yes oriented to person, Yes oriented to place and Yes oriented to time Neck/C-Spine: COMMON NORMALS: full ROM, no lymphadenopathy, no meningeal signs, no JVD and No carotid bruits GENERAL: Yes normal visual inspection, No anterior neck swelling and No submandibular swelling Chest: COMMONS NORMALS: normal inspection of the chest OTHER: pt grimaces with palpation of her anterior chest but then states this does not cause discomfort and that it actually improves the pain Resp: COMMON NORMALS: normal respiratory effort and clear to auscultation bilaterally AUSCULTATION: clear to auscultation bilaterally Cardio: COMMON NORMALS: no JVD, regular rate and regular rhythm RATE: regular rate RHYTHM: regular rhythm GI: COMMON NORMALS: Normal to inspection, nondistended, normoactive bowel sounds present, Soft to palpation, non-tender and no masses PALPATION: Yes Soft to palpation : COMMON NORMALS: Yes no CVA tenderness BLADDER/KIDNEY EXAM: Yes no CVA tenderness Back/Pelvis: COMMON NORMALS: no CVA tenderness, thoracic and lumbar spine normal to inspection, no thoracic nor lumbar tenderness and thoraco-lumbar ROM normal Extremity: COMMON NORMALS: normal to inspection, full ROM, capillary refill normal, no joint enlargement, no clubbing, cyanosis or edema, no calf tenderness and no pedal edema GENERAL: Yes normal exam except as noted Neuro: MURALI COMA SCALE: document GCS findings [place] coma scale eye opening: Spontaneous Murali coma scale verbal response: Orientated [place] coma scale motor response: Obey commands Murali coma scale total score: 15 COMMON NORMALS: patient oriented x3, moves all extremities, no focal motor deficits and no sensory deficits noted SENSORIUM/ORIENTATION: Yes alert, Yes oriented to person, Yes oriented to place and Yes oriented to time MENINGEAL SIGNS: Yes no meningeal signs Skin: COMMON NORMALS: no rashes or lesions noted GENERAL SKIN EXAM: no rashes or lesions noted Course Vital Signs: Vital signs: Vital Signs Temperature 98.7 F 03/15/23 11:56 Pulse Rate 77 07/28/22 11:56 Respiratory Rate 18 07/28/22 11:56 Blood Pressure 121/68 07/28/22 11:56 Pulse Oximetry 98 07/28/22 11:56 Oxygen Delivery Me thod 07/28/22 11:56 MDM - Chest Pain Medical Decision Making Patient appears in no acute distress. Her vital signs are perfect. Blood work including troponin is unremarkable. EKG showing no ischemic changes. Her CXR is normal. Wells score is 0 for a PE. HEART score is 1 for risk factors. She will be allowed discharge with instructions for follow up wt PCP. Lab Data 07/28/22 12:23 07/28/22 12:23 Radiology Impressions Chest X-Ray 07/28/22 11:59 IMPRESSION: No acute chest abnormality. Laboratory Results WBC 4.7 10^3/uL (4.0-10.0) 07/28/22 12: RBC 4.42 10^6/uL (4.1-5.3) 07/28/22 12: Hgb 11.4 g/dL (11.5-15.3) L 07/28/22 12: Hct 36.7 % (37.0-47.0) L 07/28/22 12: MCV 83.0 fl (81-99) 07/28/22 12: MCH 25.8 pg (28.0-34.0) L 07/28/22 12: MCHC 31.1 g/dL (30.0-36.0) 07/28/22 12: RDW 13.2 % (12.1-15.1) 07/28/22 12: Plt Count 212 10^3/cmm (130-400) 07/28/22 12: MPV 10.6 fL (7.4-10.4) H 07/28/22 12: Neut % (Auto) 53.5 % 07/28/22 12: Lymph % (Auto) 36.2 % 07/28/22 12: [place] % (Auto) 6.3 % 07/28/22 12: Eos % (Auto) 3.6 % 07/28/22 12: Baso % (Auto) 0.2 % 07/28/22 12: Neut # (Auto) 2.53 10^3/uL (1.8-7.7) 07/28/22: Lymph # (Auto) 1.7 10^3/uL (0.8-4.8) 07/28/22 12: [place] # (Auto) 0.3 10^3/uL (0.2-0.9) 07/28/22: Eos # (Auto) 0.2 10^3/uL (0.0-0.8) 07/28/22 12: Baso # (Auto) 0.0 10^3/uL (0.0-0.1) 07/28/22: Nucleated RBC % (auto) 0 % 07/28/22: Nucleated RBCs # 0.0 /100WBC 07/28/22 12: Sodium 140 mmol/L (136-145) 07/28/22 12: Potassium 4.0 mmol/L (3.5-5.1) 07/28/22: Chloride 103 mmol/L (98-107) 07/28/22 12: Carbon Dioxide 24 mmol/L (22-29) 07/28/22 12: Anion Gap 17.0 (5-19) 07/28/22 12: BUN 12 mg/dL (6-20) 07/28/22 12: Creatinine 0.7 mg/dL (0.5-0.9) 07/28/22 12: GFR Calculation 93.6 mL/min (90-130) 07/28/22: Glucose 113 mg/dL (65-115) 07/28/22 12: Calculated Osmolality 291 mOsm/kg (285-295) 07/28/22: Calcium 9.0 mg/dL (8.5-10.5) 07/28/22: Total Bilirubin 0.4 mg/dL (0.15-1.2) 07/28/22 12: AST 16 U/L (0-32) 07/28/22: ALT 16 U/L (0-33) 07/28/22 12: Alkaline Phosphatase 96 U/L (35-105) 07/28/22 12: Troponin T Gen 5 ng/L 6 ng/L (0-10) 07/28/22 12:23 Total Protein 7.1 g/dL (6.6-8.7) 07/28/22 12:23 Albumin 4.0 g/dL (3.5-5.2) 07/28/22 12:23 Globulin 3.1 g/dL (1.3-4.6) 07/28/22 12:23 Discharge Plan Discharge Patient Disposition: Home Clinical Impression: Chest wall pain Condition: Stable Prescriptions: No Action albuterol sulfate [ProAir HFA] 90 mcg/actuation HFA aerosol inhaler 2 puff INHALATION Q6H PRN (Reason: Shortness Of Breath) Midol Complete 500-60-15 mg Tablet 2 tab PO DAILY PRN (Reason: Menstrual Cramps) Hold Instructions: Resume on 08/05/22. acetaminophen [Tylenol Ex Str Rapid Release] 500 mg Tablet 1,000 mg PO Q6H PRN (Reason: Pain) ondansetron 4 mg tablet,disintegrating 4 mg PO Q6H PRN (Reason: nausea and vomiting) Qty: 14 0RF ibuprofen 800 mg tablet 800 mg PO TID PRN (Reason: Pain) lithium carbonate 300 mg capsule 300 mg PO TID levothyroxine 50 mcg tablet 50 mcg PO QAM lisinopril 10 mg tablet 10 mg PO QAM omeprazole 20 mg capsule,delayed release(DR/EC) 20 mg PO BID hydrochlorothiazide 25 mg tablet 25 mg PO QAM metformin 500 mg Tablet Extended Release 24 Hr 500 mg PO BID Discharge Orders: Discharge ED (Routine); Ordered 07/28/22 Ordered By: Jada Tejada Referrals: Roel Marshall MD [Primary Care Provider] - Patient Instructions: Chest Pain - Chest Wall Stand Alone Forms: Work/School Release Coding Level 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
[2022-07-28 12:40] LABS: Basophils % 0.2 %; Eosinophils # 0.2 10^3/uL (0.0-0.8); Eosinophils % 3.6 %; Hematocrit 36.7 % (37.0-47.0); Hemoglobin 11.4 g/dL (11.5-15.3); Lymphocytes # 1.7 10^3/uL (0.8-4.8); Lymphocytes % 36.2 %; Mean Corpuscular HGB Conc 31.1 g/dL (30.0-36.0); Mean Corpuscular Hemoglobin 25.8 pg (28.0-34.0); Mean Platelet Volume 10.6 fL (7.4-10.4); Monocytes # 0.3 10^3/uL (0.2-0.9); Monocytes % 6.3 %; Neutrophils # 2.53 10^3/uL (1.8-7.7); Neutrophils % 53.5 %; Nucleated Red Blood Cells % 0 %; Platelet Count 212 10^3/cmm (130-400); Red Blood Count 4.42 10^6/uL (4.1-5.3); Red Cell Distribution Width 13.2 % (12.1-15.1); White Blood Count 4.7 10^3/uL (4.0-10.0)
[2022-07-28 12:59] LABS: Troponin T (5th) Once 6 ng/L (0-10)
[2022-07-28 13:01] LABS: Alanine Aminotransferase 16 U/L (0-33); Alkaline Phosphatase 96 U/L (35-105); Aspartate Amino Transferase 16 U/L (0-32); Blood Urea Nitrogen 12 mg/dL (6-20); Carbon Dioxide 24 mmol/L (22-29); Chloride 103 mmol/L (98-107); Globulin 3.1 g/dL (1.3-4.6); Glomerular Filtration Rate 93.6 mL/min (90-130); Glucose 113 mg/dL (65-115); Osmolality Calculated 291 mOsm/kg (285-295); Sodium 140 mmol/L (136-145); Total Bilirubin 0.4 mg/dL (0.15-1.2); Total Protein 7.1 g/dL (6.6-8.7)
[2022-07-28 13:23] VITALS: BP 137/88; PULSE 76; O2SAT 98
== END 2022-07-28 13:24 | disposition home or self-care (01) ==
PROVIDERS: Emergency Provider Physician Assistant; PCP Family Medicine
DX: R07.89 Other chest pain (principal); Z79.84 Long term (current) use of oral hypoglycemic drugs
CPT/HCPCS: 36415; 71045; 80053; 84484; 85025; 93005; 99285

== ENCOUNTER → 2022-08-15 14:04 | Outpatient (BNVA) | payer OTHER, SELFPAY | PROVIDERS: PCP Family Medicine; Visit Provider Registered Nurse Neonatal Intensive Care | DX: R39.9 Unspecified symptoms and signs involving the genitourinary system (principal); R11.0 Nausea; B34.9 Viral infection, unspecified | CPT/HCPCS: 81000; 81025 ==

== ENCOUNTER 2022-12-22 21:20 | Emergency (ER) | payer OTHER, SELFPAY ==
[2022-12-22 21:25] VITALS: BP 144/77; PULSE 74; RESP 16; TEMP 36.8; O2SAT 97; BMI 41.8
[2022-12-22 22:14] LABS: Basophils % 0.2 %; Eosinophils # 0.2 10^3/uL (0.0-0.8); Eosinophils % 2.9 %; Hematocrit 31.5 % (37.0-47.0); Hemoglobin 10.1 g/dL (11.5-15.3); Lymphocytes # 1.9 10^3/uL (0.8-4.8); Lymphocytes % 36.5 %; Mean Corpuscular HGB Conc 32.1 g/dL (30.0-36.0); Mean Corpuscular Hemoglobin 27.2 pg (28.0-34.0); Mean Corpuscular Volume 84.9 fl (81-99); Mean Platelet Volume 11.2 fL (7.4-10.4); Monocytes # 0.3 10^3/uL (0.2-0.9); Monocytes % 6.1 %; Neutrophils # 2.75 10^3/uL (1.8-7.7); Neutrophils % 54.1 %; Nucleated Red Blood Cells % 0 %; Platelet Count 229 10^3/cmm (130-400); Red Blood Count 3.71 10^6/uL (4.1-5.3); Red Cell Distribution Width 14.1 % (12.1-15.1); White Blood Count 5.1 10^3/uL (4.0-10.0)
--- NOTE | 2022-12-22 22:23 | USR_ITS ---
PROCEDURE INFORMATION: Exam: US Pelvis Complete, Transabdominal and US Pelvis, Transvaginal Exam date and time: 12/22/2022 11:19 PM Age: 37 years old Clinical indication: Menstruation abnormalities; Excessive menstruation; With regular cycle; Patient HX: Semi-quant = 1.0; Additional info: Vaginal bleeding LABS AND CLINICAL REPORTS: Serum Choriogonadotropin (HCG): 1 mIU/mL Last menstrual period start date: 12/08/2022 TECHNIQUE: Imaging protocol: Real-time complete transabdominal and transvaginal pelvic ultrasound with image documentation. Transvaginal imaging was used for better evaluation of the endometrium, adnexa, and/or cervix. COMPARISON: US pelvic complete* [id number] 03/22/2017 8:23 AM FINDINGS: Uterus: Uterus measures 8.7 cm x 7.3 cm x 5.0 cm. There are at least 3 heterogenous soft tissue densities within the uterus including an anterior submucosal density that measures 2.3 cm x 2.1 cm x 3.0 cm, as well as two intramural soft tissue densities that measure 2.6 cm x 1.9 cm x 1.7 cm and 3.6 cm x 2.1 cm x 2.7 cm. The endometrial thickness measures 6 mm. Right ovary/adnexa: Right ovary measures 6.4 cm x 6.9 cm x 5.5 cm and demonstrates internal color Doppler flow. The right ovary is diffusely hypoechoic with 2 thin internal septations. Left ovary/adnexa: The left ovary measures 1.3 cm x 2.2 cm x 2.2 cm and demonstrates internal color Doppler flow, the left ovary is however is incompletely and suboptimally evaluated on this exam. Intraperitoneal space: No intraperitoneal fluid. Urinary bladder: Dedicated images of the urinary bladder were not obtained. US/US pelvic complete* [id number] IMPRESSION: 1. There are at least 3 heterogenous soft tissue densities within the uterus as described above, findings are most compatible with leiomyomas. 2. The right ovary is enlarged and diffusely hypoechoic with 2 thin internal septations. Findings are somewhat nonspecific but likely represent benign complex cyst. Correlate and follow-up as clinically indicated.
--- NOTE | 2022-12-22 22:25 | ED_ITS ---
HPI - Female Genitourinary General: Chief complaint: Urogenital-Female Stated complaint: vaginal bleeding, dizziness Time Seen by Provider: 12/22/22 21:42 Source: patient Mode of arrival: ambulatory Limitations: no limitations History of Present Illness: 37-year-old female states she has had vaginal bleeding over the last 15 days. States it has been heavy and she has been passing clots. States she saw her PCP on Tuesday who did prescribe her a control pill to help with the bleeding states the pharmacy is not going to have them until tomorrow. States she had some lightheadedness wants to make sure she is not anemic she has no severe pain denies any vomiting or diarrhea Associated symptoms: Deny abdominal pain, headache(s) or nausea Review of Systems Const: Reports: fatigue; Denies: fever(s) or chills ENMT: Denies: throat pain or dental pain Card: Denies: chest pain Resp: Denies: dyspnea GI: Denies: abdominal pain, nausea, vomiting or diarrhea : Reports: vaginal bleeding; Denies: dysuria Musc: Denies: neck pain or back pain Skin/Breast: Denies: rash Neuro: Denies: headache(s) PFSH ED PFSH: Medical History No pertinent family history No significant past medical history Social History Smoking and tobacco status: never smoked Alcohol intake: never Substance/Drug Use: never Physical Exam Const: COMMON NORMALS: no acute distress, patient oriented x3 and healthy appearing HENMT: COMMON NORMALS: normocephalic and atraumatic HEAD & SCALP: normocephalic and atraumatic Neck/C-Spine: COMMON NORMALS: full ROM and supple Chest: COMMONS NORMALS: normal inspection of the chest Resp: COMMON NORMALS: normal respiratory effort Cardio: COMMON NORMALS: regular rate, regular rhythm and No murmurs present (Cardio) RATE: regular rate RHYTHM: regular rhythm GI: COMMON NORMALS: Normal to inspection, nondistended, normoactive bowel sounds present, Soft to palpation, non-tender and no masses PALPATION: Yes Soft to palpation Extremity: COMMON NORMALS: normal to inspection and full ROM Neuro: COMMON NORMALS: patient oriented x3, moves all extremities and no focal motor deficits Psych: COMMON NORMALS: mental status grossly normal, Normal thought process present and cooperative THOUGHT PROCESS: Normal thought process present Skin: COMMON NORMALS: no rashes or lesions noted and no wounds GENERAL SKIN EXAM: no rashes or lesions noted Course Vital Signs: Vital signs: Vital Signs Temperature 98.2 F 12/22/22 21:25 Pulse Rate 74 12/22/22 21:25 Respiratory Rate 16 12/22/22 21:25 Blood Pressure 144/77 12/22/22 21:25 Pulse Oximetry 97 12/22/22 21:25 MDM - Female Medical Decision Making Patient presents here with vaginal bleeding ultrasound did show uterine fibroids her hemoglobin here is normal we will get her follow-up with [employer] she is return if worsening she understands agrees to plan. Medical Records I reviewed the patient's medical records. Lab Data I reviewed the patient's lab results. 12/22/22 21:55 12/22/22 23:00 Radiology Impressions Pelvis Ultrasound 12/22/22 22:23 IMPRESSION: 1. There are at least 3 heterogenous soft tissue densities within the uterus as described above, findings are most compatible with leiomyomas. 2. The right ovary is enlarged and diffusely hypoechoic with 2 thin internal septations. Findings are somewhat nonspecific but likely represent benign complex cyst. Correlate and follow-up as clinically indicated. Laboratory Results WBC 5.1 10^3/uL (4.0-10.0) 12/22/22 21:55 RBC 3.71 10^6/uL (4.1-5.3) L 12/22/22 21:55 Hgb 10.1 g/dL (11.5-15.3) L 12/22/22 21:55 Hct 31.5 % (37.0-47.0) L 12/22/22 21:55 MCV 84.9 fl (81-99) 12/22/22 21:55 MCH 27.2 pg (28.0-34.0) L 12/22/22 21:55 MCHC 32.1 g/dL (30.0-36.0) 12/22/22 21:55 RDW 14.1 % (12.1-15.1) 12/22/22 21:55 Plt Count 229 10^3/cmm (130-400) 12/22/22 21:55 MPV 11.2 fL (7.4-10.4) H 12/22/22 21:55 Neut % (Auto) 54.1 % 12/22/22 21:55 Lymph % (Auto) 36.5 % 12/22/22 21:55 [place] % (Auto) 6.1 % 12/22/22 21:55 Eos % (Auto) 2.9 % 12/22/22 21:55 Baso % (Auto) 0.2 % 12/22/22 21:55 Neut # (Auto) 2.75 10^3/uL (1.8-7.7) 12/22/22 21:55 Lymph # (Auto) 1.9 10^3/uL (0.8-4.8) 12/22/22 21:55 [place] # (Auto) 0.3 10^3/uL (0.2-0.9) 12/22/22 21:55 Eos # (Auto) 0.2 10^3/uL (0.0-0.8) 12/22/22 21:55 Baso # (Auto) 0.0 10^3/uL (0.0-0.1) 12/22/22 21:55 Nucleated RBC % (auto) 0 % 12/22/22 21:55 Nucleated RBCs # 0.0 /100WBC 12/22/22 21:55 Sodium 141 mmol/L (136-145) 12/22/22 23:00 Potassium 4.0 mmol/L (3.5-5.1) 12/22/22 23:00 Chloride 106 mmol/L (98-107) 12/22/22 23:00 Carbon Dioxide 26 mmol/L (22-29) 12/22/22 23:00 Anion Gap 13.0 (5-19) 12/22/22 23:00 BUN 11 mg/dL (6-20) 12/22/22 23:00 Creatinine 0.8 mg/dL (0.5-0.9) 12/22/22 23:00 GFR Calculation 79.9 mL/min (90-130) L 12/22/22 23:00 Glucose 145 mg/dL (65-115) H 12/22/22 23:00 Calculated Osmolality 294 mOsm/kg (285-295) 12/22/22 23:00 Calcium 8.7 mg/dL (8.5-10.5) 12/22/22 23:00 Total Bilirubin 0.2 mg/dL (0.15-1.2) 12/22/22 23:00 AST 14 U/L (0-32) 12/22/22 23:00 ALT 14 U/L (0-33) 12/22/22 23:00 Alkaline Phosphatase 111 U/L (35-105) H 12/22/22 23:00 Total Protein 6.6 g/dL (6.6-8.7) 12/22/22 23:00 Albumin 3.8 g/dL (3.5-5.2) 12/22/22 23:00 Globulin 2.8 g/dL (1.3-4.6) 12/22/22 23:00 Ser , Semi-Qnt 1.00 mIU/mL 12/22/22 23:00 Urine Color Light yellow (Yellow) 12/22/22 22:54 Urine Appearance Hazy (CLEAR) A 12/22/22 22:54 Urine pH 7 (5-7) 12/22/22 22:54 Ur Specific [place] 1.015 (1.005-1.030) 12/22/22 22:54 Urine Protein Neg (Negative) 12/22/22 22:54 Urine Glucose (UA) Norm (Normal) 12/22/22 22:54 Urine Ketones Negative (Negative) 12/22/22 22:54 Urine Blood 3+ (Negative) H 12/22/22 22:54 Urine Nitrate Negative (Negative) 12/22/22 22:54 Urine Bilirubin Neg (Negative) 12/22/22 22:54 Urine Urobilinogen Neg mg/dL (Negative) 12/22/22 22:54 Ur Leukocyte Esterase Negative (Negative) 12/22/22 22:54 Urine RBC 40-50 /hpf (0-2) H 12/22/22 22:54 Urine WBC None /hpf (0-5) 12/22/22 22:54 Ur Squamous Epith Cells 0-4 /hpf (0-5) H 12/22/22 22:54 Amorphous Sediment Not Reportable 12/22/22 22:54 Urine Bacteria 1+ /hpf (NONE) H 12/22/22 22:54 Discharge Plan Discharge Patient Disposition: Home Clinical Impression: Abnormal vaginal bleeding, Leiomyoma of uterus Condition: Stable Prescriptions: No Action albuterol sulfate [ProAir HFA] 90 mcg/actuation HFA aerosol inhaler 2 puff INHALATION Q6H PRN (Reason: Shortness Of Breath) Midol Complete 500-60-15 mg Tablet 2 tab PO DAILY PRN (Reason: Menstrual Cramps) Hold Instructions: Resume on 08/05/22. acetaminophen [Tylenol Ex Str Rapid Release] 500 mg Tablet 1,000 mg PO Q6H PRN (Reason: Pain) ondansetron 4 mg tablet,disintegrating 4 mg PO Q6H PRN (Reason: nausea and vomiting) Qty: 14 0RF ibuprofen 800 mg tablet 800 mg PO TID PRN (Reason: Pain) lithium carbonate 300 mg capsule 300 mg PO TID levothyroxine 50 mcg tablet 50 mcg PO QAM lisinopril 10 mg tablet 10 mg PO QAM omeprazole 20 mg capsule,delayed release(DR/EC) 20 mg PO BID hydrochlorothiazide 25 mg tablet 25 mg PO QAM metformin 500 mg Tablet Extended Release 24 Hr 500 mg PO BID Discharge Orders: Discharge ED (Routine); Ordered 12/23/22 Ordered By: Austin Jimenez Referrals: Hernesto Calvin MD [Physician] - 1-3 days Roel Marshall MD [Primary Care Provider] - Discharge Diet: Advance as tolerated Discharge Activity: Resume usual activity Patient Instructions: Abnormal (Dysfunctional) Uterine Bleeding (ED), Uterine Fibroids (ED) Coding Level of Care Code ED Pouncing Lathe Operator for Doron Soto
[2022-12-22] MEDS: sodium chloride 0.9% 1,000 ML 999 ML IV (22:50)
[2022-12-22 22:57] LABS: Slide Review Slide Review Perform
[2022-12-22 23:20] LABS: Add Urine Culture? Yes; Add Urine Microscopic? YES; Bacteria Urine 1+ /hpf; Bilirubin Urine Neg (Negative); Blood Urine 3+ (Negative); Glucose Urine UA Norm (Normal); Ketones Urine Negative (Negative); Leukocyte Esterase Urine Negative (Negative); Nitrate Urine Negative (Negative); Protein Urine Neg (Negative); RBC Urine 40-50 /hpf (0-2); Specific Gravity, Urine 1.015 (1.005-1.030); Squamous Epithelial Cell Urine 0-4 /hpf (0-5); Urine Appearance Hazy (CLEAR); Urine Color Light yellow (Yellow); Urobilinogen Urine Neg (Negative); pH Urine 7 (5-7)
[2022-12-22 23:50] LABS: Alanine Aminotransferase 14 U/L (0-33); Albumin Level 3.8 g/dL (3.5-5.2); Alkaline Phosphatase 111 U/L (35-105); Aspartate Amino Transferase 14 U/L (0-32); Blood Urea Nitrogen 11 mg/dL (6-20); Calcium 8.7 mg/dL (8.5-10.5); Carbon Dioxide 26 mmol/L (22-29); Chloride 106 mmol/L (98-107); Globulin 2.8 g/dL (1.3-4.6); Glomerular Filtration Rate 79.9 mL/min (90-130); Glucose 145 mg/dL (65-115); Osmolality Calculated 294 mOsm/kg (285-295); Sodium 141 mmol/L (136-145); Total Bilirubin 0.2 mg/dL (0.15-1.2); Total Protein 6.6 g/dL (6.6-8.7)
[2022-12-23 01:36] VITALS: BP 154/85; PULSE 62; RESP 18; O2SAT 98
--- NOTE | 2022-12-23 07:54 | DCPLANNER ---
Addendum entered by Margoth Morales 01/10/23 15:45: Patient did attend appointment scheduled with [facility] Addendum entered by Margoth Morales 12/30/22 10:53: Patient has a follow up appointment scheduled for Tuesday, January 05, 2023 at 11:00 with Beatrice at [facility] Addendum entered by Margoth Morales 12/29/22 13:31: manager branch received the following message from the [facility] care clinic regarding follow up appointment: Attempted to call patient to schedule, had to leave a voicemail//JS Original Note: manager branch had message to schedule a follow up appointment for patient with [facility]. manager branch sent patients information to the front office staff at [facility]. Patients information will be printed and reviewed. Clinic will call patient with appointment information.
== END 2022-12-23 01:38 | disposition home or self-care (01) ==
PROVIDERS: Emergency Provider Emergency Medicine; PCP Family Medicine
DX: N93.9 Abnormal uterine and vaginal bleeding, unspecified (principal); D25.9 Leiomyoma of uterus, unspecified
CPT/HCPCS: 36415; 76856; 80053; 81001; 84702; 85025; 87086; 99284; J7030

== ENCOUNTER 2023-01-17 06:30 | Emergency (ER) | payer OTHER, SELFPAY ==
[2023-01-17 06:31] VITALS: BP 166/101; PULSE 70; RESP 16; TEMP 36.7; O2SAT 97; BMI 42.5
--- NOTE | 2023-01-17 06:43 | ED_ITS ---
HPI - Dizziness General: Chief Complaint: Dizziness Stated Complaint: Dizzy Time Seen by Provider: 01/17/23 06:32 Source: patient Mode of arrival: ambulatory History of Present Illness: HPI Narrative: 37-year-old female presents to the emergency room dizziness. She states yesterday she fell out of bed and hit her head no loss consciousness she has not had any vomiting she is dizzy to work this morning. Ultimately she left side the road and called the ambulance. She did not take any of her regular antihypertensives this morning. No chest pain no abdominal no headache. MD elicited complaint: dizziness Onset (ago): minute(s) Severity: mild Description: sense of movement and lightheadedness Exacerbating factors: nothing Relieving factors: nothing Associated symptoms: Denies abnormal vaginal bleeding, change in hearing, chest pain, chills, cough, diaphoresis, ear discharge, ear pressure, fevers/chills, headache(s), malaise, nausea, nasal congestion, palpitations, rash, short of breath, syncope, tinnitus, vomiting or weakness Associated neuro symptoms: Deny confusion, difficulty speaking, dysphagia, diplopia, extremity weakness, facial numbness, facial weakness, gait changes, numbness in extremities or visual changes Review of Systems Const: Denies: fever(s), chills, malaise or diaphoresis ENMT: Denies: ear discharge, change in hearing, tinnitus or nasal congestion Card: Denies: chest pain, palpitations or syncope Resp: Denies: dyspnea, productive cough or non-productive cough GI: Denies: abdominal pain, nausea, vomiting or dysphagia : Denies: flank pain, difficulty voiding, dysuria, urinary frequency or urinary urgency Skin/Breast: Denies: rash or pruritus Neuro: Denies: headache(s), numbness in extremities or confusion PFSH ED PFSH: Medical History No pertinent family history No significant past medical history Family History Family/Other Breast cancer Maternal and Paternal aunts Father Diabetes Denies family history of Cervical cancer Colon cancer Ovarian cancer Hypertension Uterine cancer Stroke Social History Smoking and tobacco status: never smoked Alcohol intake: never Substance/Drug Use: never Physical Exam Const: COMMON NORMALS: patient oriented x3 GENERAL APPEARANCE: cooperative and comfortable ORIENTATION/CONSCIOUSNESS: Yes awake, Yes oriented to person, Yes oriented to place and Yes oriented to time HENMT: COMMON NORMALS: normocephalic, atraumatic, hearing grossly normal bilaterally, external ears normal, EAC's normal, TM's normal bilaterally, Normal nasal mucous membranes and turbinates present, moist oral mucous membranes and oropharynx normal HEAD & SCALP: normocephalic and atraumatic NOSE: Normal nasal mucous membranes and turbinates present EXTERNAL EAR: Yes external ears normal EXTERNAL AUDITORY CANAL: EAC's normal TYMPANIC MEMBRANE: TM's normal bilaterally Eye: COMMON NORMALS: Equal, round and reactive pupils present, EOMs intact bilaterally, conjunctivae normal and no scleral icterus GENERAL EYE: normal light reflex CONJUNCTIVA: Yes conjunctivae normal PUPIL: Yes Equal, round and reactive pupils present and Yes Pupil accommodation reflex normal EOM: No Nystagmus present DIRECT OPHTHALMOSCOPY: Yes normal light reflex Neck/C-Spine: COMMON NORMALS: full ROM, no lymphadenopathy, supple and no JVD Lymph: LYMPHATIC: no lymphadenopathy noted and no lymphedema noted Resp: COMMON NORMALS: normal respiratory effort, No retractions, No use of accessory muscles and clear to auscultation bilaterally AUSCULTATION: clear to auscultation bilaterally Cardio: COMMON NORMALS: no JVD, regular rate, regular rhythm and No murmurs present (Cardio) RATE: regular rate RHYTHM: regular rhythm GI: COMMON NORMALS: Soft to palpation and No hepatosplenomegaly present AUSCULTATION: Yes normoactive bowel sounds PALPATION: Yes Soft to palpation, No Tenderness to palpation present (GI), No Guarding due to palpation present (GI) and Yes No hepatosplenomegaly present Extremity: COMMON NORMALS: normal to inspection, capillary refill normal, no clubbing, cyanosis or edema, no calf tenderness and no pedal edema Neuro: COMMON NORMALS: patient oriented x3, CN's II-XII intact bilaterally, no focal motor deficits, no sensory deficits noted and gait normal SENSORIUM/ORIENTATION: Yes oriented to person, Yes oriented to place and Yes oriented to time Skin: COMMON NORMALS: no rashes or lesions noted GENERAL SKIN EXAM: no rashes or lesions noted Course Vital Signs: Vital signs: Vital Signs Temperature 98.1 F 01/17/23 06:31 Pulse Rate 66 01/17/23 07:36 Respiratory Rate 16 01/17/23 07:36 Blood Pressure 132/79 01/17/23 07:41 Pulse Oximetry 96 01/17/23 07:36 Oxygen Delivery Me thod Room Air 01/17/23 07:36 MDM - Dizziness Medical Decision Making No focal neurologic deficits are noted no external head trauma lacerations or hematoma. Patient has mild dizziness improved after receiving her blood pressure medications and meclizine. Is any worsening or change symptoms return. Can use meclizine as needed Medical Records I reviewed the patient's medical records. Lab Data I reviewed the patient's lab results. 01/17/23 06:49 01/17/23 06:49 Laboratory Results WBC 3.53 10^3/uL (3.29-11.43) 01/17/23 06:49 RBC 4.04 10^6/uL (3.85-5.65) 01/17/23 06:49 Hgb 10.30 g/dL (11.27-16.99) L 01/17/23 06:49 Hct 33.5 % (36-47) L 01/17/23 06:49 MCV 82.9 fl (85-98) L 01/17/23 06:49 MCH 25.5 pg (27-33) L 01/17/23 06:49 MCHC 30.7 g/dL (30-55) 01/17/23 06:49 RDW 13.2 % (12.1-15.1) 01/17/23 06:49 Plt Count 203 10^3/cmm (157-399) 01/17/23 06:49 MPV 10.4 fL (7.4-10.4) 01/17/23 06:49 Neut % (Auto) 45.6 % 01/17/23 06:49 Lymph % (Auto) 40.5 % 01/17/23 06:49 [place] % (Auto) 10.5 % 01/17/23 06:49 Eos % (Auto) 2.8 % 01/17/23 06:49 Baso % (Auto) 0.3 % 01/17/23 06:49 Neut # (Auto) 1.61 10^3/uL (1.8-7.7) L 01/17/23 06:49 Lymph # (Auto) 1.4 10^3/uL (0.8-4.8) 01/17/23 06:49 [place] # (Auto) 0.4 10^3/uL (0.2-0.9) 01/17/23 06:49 Eos # (Auto) 0.1 10^3/uL (0.0-0.8) 01/17/23 06:49 Baso # (Auto) 0.0 10^3/uL (0.0-0.1) 01/17/23 06:49 Nucleated RBC % (auto) 0 % 01/17/23 06:49 Nucleated RBCs # 0.0 /100WBC 01/17/23 06:49 Sodium 137 mmol/L (136-145) 01/17/23 06:49 Potassium 4.2 mmol/L (3.5-5.1) 01/17/23 06:49 Chloride 102 mmol/L (98-107) 01/17/23 06:49 Carbon Dioxide 25 mmol/L (22-29) 01/17/23 06:49 Anion Gap 14.2 (5-19) 01/17/23 06:49 BUN 10 mg/dL (6-20) 01/17/23 06:49 Creatinine 0.7 mg/dL (0.5-0.9) 01/17/23 06:49 GFR Calculation 93.2 mL/min (90-130) 01/17/23 06:49 Glucose 149 mg/dL (65-115) H 01/17/23 06:49 Calculated Osmolality 286 mOsm/kg (285-295) 01/17/23 06:49 Calcium 8.8 mg/dL (8.5-10.5) 01/17/23 06:49 Total Bilirubin 0.2 mg/dL (0.15-1.2) 01/17/23 06:49 AST 12 U/L (0-32) 01/17/23 06:49 ALT 9 U/L (0-33) 01/17/23 06:49 Alkaline Phosphatase 104 U/L (35-105) 01/17/23 06:49 Total Protein 7.2 g/dL (6.6-8.7) 01/17/23 06:49 Albumin 3.8 g/dL (3.5-5.2) 01/17/23 06:49 Globulin 3.4 g/dL (1.3-4.6) 01/17/23 06:49 Discharge Plan Discharge Patient Disposition: Home Clinical Impression: HTN (hypertension), Dizziness Condition: Stable Prescriptions: New meclizine 25 mg tablet 25 mg PO QID PRN (Reason: dizziness) Qty: 14 0RF No Action albuterol sulfate [ProAir HFA] 90 mcg/actuation HFA aerosol inhaler 2 puff INHALATION Q6H PRN (Reason: Shortness Of Breath) dexamethasone 4 mg tablet 4 mg PO DAILY doxycycline hyclate 100 mg capsule 100 mg PO DAILY hydrochlorothiazide 25 mg tablet 25 mg PO DAILY prednisone 10 mg tablets,dose pack 10 mg PO DAILY ethynodiol diac-eth estradiol [[place] 1-50 (28)] 1-50 mg-mcg tablet 1 tab PO DAILY amoxicillin 875 mg tablet 875 mg PO BID Midol Complete 500-60-15 mg Tablet 2 tab PO DAILY PRN (Reason: Menstrual Cramps) Hold Instructions: Resume on 08/05/22. acetaminophen [Tylenol Ex Str Rapid Release] 500 mg Tablet 1,000 mg PO Q6H PRN (Reason: Pain) ondansetron 4 mg tablet,disintegrating 4 mg PO Q6H PRN (Reason: nausea and vomiting) Qty: 14 0RF ibuprofen 800 mg tablet 800 mg PO TID PRN (Reason: Pain) lithium carbonate 300 mg capsule 300 mg PO TID levothyroxine 50 mcg tablet 50 mcg PO QAM lisinopril 10 mg tablet 10 mg PO QAM omeprazole 20 mg capsule,delayed release(DR/EC) 20 mg PO BID hydrochlorothiazide 25 mg tablet 25 mg PO QAM metformin 500 mg Tablet Extended Release 24 Hr 500 mg PO BID Discharge Orders: Discharge ED (Routine); Ordered 01/17/23 Ordered By: James Wilks Referrals: Roel Marshall MD [Primary Care Provider] - Discharge Diet: Usual diet Discharge Activity: Increase activity as tolerated Patient Instructions: Opioid Safety, Pain Management Coding Level of Care Code ED Front Desk Team Member for Doron Soto
[2023-01-17] MEDS: hydroCHLOROthiazide 25 mg Tablet PO (06:54)
[2023-01-17] MEDS: lisinopril 10 mg Tablet PO (06:54)
[2023-01-17] MEDS: meclizine 25 mg tablet PO (06:54)
[2023-01-17 07:06] LABS: Basophils % 0.3 %; Eosinophils # 0.1 10^3/uL (0.0-0.8); Eosinophils % 2.8 %; Hematocrit 33.5 % (36-47); Lymphocytes # 1.4 10^3/uL (0.8-4.8); Lymphocytes % 40.5 %; Mean Corpuscular HGB Conc 30.7 g/dL (30-55); Mean Corpuscular Hemoglobin 25.5 pg (27-33); Mean Corpuscular Volume 82.9 fl (85-98); Mean Platelet Volume 10.4 fL (7.4-10.4); Monocytes # 0.4 10^3/uL (0.2-0.9); Monocytes % 10.5 %; Neutrophils # 1.61 10^3/uL (1.8-7.7); Neutrophils % 45.6 %; Nucleated Red Blood Cells % 0 %; Platelet Count 203 10^3/cmm (157-399); Red Blood Count 4.04 10^6/uL (3.85-5.65); Red Cell Distribution Width 13.2 % (12.1-15.1); White Blood Count 3.53 10^3/uL (3.29-11.43)
[2023-01-17 07:22] LABS: Alanine Aminotransferase 9 U/L (0-33); Albumin Level 3.8 g/dL (3.5-5.2); Alkaline Phosphatase 104 U/L (35-105); Anion Gap 14.2 (5-19); Aspartate Amino Transferase 12 U/L (0-32); Blood Urea Nitrogen 10 mg/dL (6-20); Calcium 8.8 mg/dL (8.5-10.5); Carbon Dioxide 25 mmol/L (22-29); Chloride 102 mmol/L (98-107); Globulin 3.4 g/dL (1.3-4.6); Glomerular Filtration Rate 93.2 mL/min (90-130); Glucose 149 mg/dL (65-115); Osmolality Calculated 286 mOsm/kg (285-295); Potassium 4.2 mmol/L (3.5-5.1); Sodium 137 mmol/L (136-145); Total Bilirubin 0.2 mg/dL (0.15-1.2); Total Protein 7.2 g/dL (6.6-8.7)
--- NOTE | 2023-01-17 07:35 | ECG_ITS ---
[facility] Test Date: 2023-01-17 Pat Name: Dank Regan Department: Room: Gender: Female Corporate Travel Coordinator: : 1985 Requested By: James Rodríguez Order Number: [id number] Jimmy MD: Michael Salmeron M.D. Measurements Intervals [place] Rate: 66 P: -1 VT: 145 QRS: 32 QRSD: 104 T: 13 QT: 400 QTc: 421 Interpretive Statements SINUS RHYTHM Compared to ECG 07/28/2022 12:05:48 Sinus arrhythmia no longer present Electronically Signed On 01-17-2023 22:30:31 CDT by Michael Salmeron M.D. [id number]
[2023-01-17 07:36] VITALS: BP 166/101; PULSE 66; RESP 16; O2SAT 96
[2023-01-17 07:41] VITALS: BP 132/79; BP 146/97; BP 149/95
[2023-01-17 08:58] VITALS: BP 146/97; PULSE 76; RESP 16; O2SAT 97
== END 2023-01-17 09:01 | disposition home or self-care (01) ==
PROVIDERS: Emergency Provider Family Medicine; PCP Family Medicine
DX: R42 Dizziness and giddiness (principal); I10 Essential (primary) hypertension; Z79.84 Long term (current) use of oral hypoglycemic drugs
CPT/HCPCS: 36415; 80053; 85025; 93005; 99284; J8597

== ENCOUNTER → 2023-04-11 08:29 | Outpatient (BNVA) | payer OTHER, SELFPAY | PROVIDERS: PCP Family Medicine; Referring Provider Obstetrics & Gynecology; Visit Provider Nurse Practitioner Women's Health | DX: N93.9 Abnormal uterine and vaginal bleeding, unspecified (principal); N83.201 Unspecified ovarian cyst, right side | CPT/HCPCS: 76830 ==

== ENCOUNTER → 2023-04-19 14:22 | Outpatient (BNVA) | payer OTHER, SELFPAY | PROVIDERS: PCP Family Medicine; Visit Provider Obstetrics & Gynecology | DX: Z12.4 Encounter for screening for malignant neoplasm of cervix (principal) | CPT/HCPCS: 87624 ==

== ENCOUNTER 2023-05-05 08:27 | Day surgery (SDC) | payer OTHER, SELFPAY ==
[2023-05-05] VITALS (12 sets, daily range): BP systolic 131–159; BP diastolic 66–107; PULSE 77–121; RESP 16–21; TEMP 36.1–36.7; O2SAT 94–98; BMI 42.5
--- NOTE | 2023-05-05 02:52 | W.PM.OPSFHP ---
Same Day Surgery H&P Indication for Procedure/HPI DATE OF PROCEDURE: May 05, 2023 CHIEF COMPLAINT/INDICATIONFOR SURGICAL PROCEDURE: Abnormal uterine bleeding, menorrhagia PREOP DIAGNOSIS: Abnormal uterine bleeding, menorrhagia PLANNED PROCEDURE: Operation Date: 05/05/23 10:20 Proposed Procedures p Hysteroscopy w/ Endometrial Sampling possible polypectomy 17487,N93.9(Not Applicable) - Hernesto Calvin MD 37 y.o. SA13 h/o x two on OCs periods usually heavy, lasting 7-14 days, x 10 years now scheduled for hysteroscopy, endometrial sampling, possible endometrial polypectomy PMHx: hypertension Asthma Thyroid PTSD Bipolar PSHx: lumpectomy Right femur Carpal tunnel T&A Meds: inhaler HCTZ [place] All: ASA Diclofenac Ethinyl estradiol Hydromorphone Latex Methylphenidate norgestimate Medications/Allergies* Home Medications Medication Instructions Recorded Confirmed Type albuterol sulfate 90 mcg/actuation 2 puff inhalation Q6H PRN 07/27/19 05/04/23 History aerosol inhaler (ProAir HFA) Shortness Of Breath acetaminophen 500 mg tablet 1,000 mg PO Q6H PRN Pain 07/28/21 05/04/23 History [id number] 2 tab PO DAILY PRN Menstrual Cramps 07/28/21 05/04/23 History 500 mg-60 mg-15 mg tablet (Midol Complete) ibuprofen 800 mg tablet 800 mg PO TID PRN Pain 07/28/22 05/04/23 History levothyroxine 50 mcg tablet 50 mcg PO QAM 07/28/22 05/04/23 History lisinopril 10 mg tablet 10 mg PO QAM 07/28/22 05/04/23 History lithium carbonate 300 mg capsule 300 mg PO TID 07/28/22 05/04/23 History metformin 500 mg tablet,extended 500 mg PO BID 07/28/22 05/04/23 History release 24 hr omeprazole 20 mg capsule,delayed 20 mg PO BID 07/28/22 05/04/23 History release ethynodiol diacetate-ethinyl 1 tab PO DAILY 01/05/23 05/04/23 History estradiol 1 mg-50 mcg tablet (K[place]) hydrochlorothiazide 25 mg tablet 25 mg PO DAILY 01/05/23 05/04/23 History Allergies/Adverse Reactions Allergy/AdvReac Type Severity Reaction Status Date / Time aspirin Allergy [id number] Verified 04/19/23 15:42 diclofenac Allergy ALGY-Hives Verified 04/19/23 15:42 ethinyl estradiol Allergy ALGY-Anaphy Verified 04/19/23 15:42 [From Mononessa (28)] laxis hydromorphone [From Dilaudid] Allergy unknown Verified 04/19/23 15:42 latex Allergy ALGY-Rash Verified 04/19/23 15:42 methylphenidate Allergy Unknown Verified 04/19/23 15:42 [From Ritalin] norgestimate Allergy ALGY-Anaphy Verified 04/19/23 15:42 [From Mononessa (28)] laxis Pertinent History/Comorbid Conditions* Medical History (Updated 04/14/23 @ 10:05 by Tiffanie Barron NP) No pertinent family history No significant past medical history Family History (Updated 01/05/23 @ 11:18 by Sarah Devi CMA) Diabetes Father Breast cancer Family/Other Maternal and Paternal aunts Denies family history of Cervical cancer Colon cancer Ovarian cancer Hypertension Uterine cancer Stroke Social History Smoking and tobacco/nicotine status: never used tobacco/nicotine Alcohol intake: never Substance/Drug Use: never Pertinent Exam Findings alert, oriented x 3, clear to auscultation bilaterally and regular rate & rhythm Pertinent Data Pelvic sono 04-11-23 uterus 9.4 x 6.6 x 6.9 cm 3.5 cm fundal fibroid Normal ovaries Pap 04-19-23 NILM; negative HPV Recommendations Surgery/Procedure today Coding Level of Care Code Acute Code for Chg Fwd Time Spent (min) 20
[2023-05-05 09:00] LABS: OR HCG Qualitative Urine Negative (Negative)
[2023-05-05 09:25] LABS: Glucose Point of Care 133 mg/dL (70-110)
[2023-05-05] MEDS: sodium chloride 0.9% 1,000 ML 30 ML IV (09:32)
--- NOTE | 2023-05-05 09:51 | W.PM.OPSUD ---
Surgery/Procedure H&P Update DATE OF PROCEDURE: May 05, 2023 DATE H&P PERFORMED: 04/19/23 H&P UPDATE INFORMATION: I have reviewed H&P completed within last 30 days, I have examined patient prior to procedure and No changes to prior documentation PREOP DIAGNOSIS: Abnormal uterine bleeding, menorrhagia PLANNED PROCEDURE: Operation Date: 05/05/23 10:20 Proposed Procedures p Hysteroscopy w/ Endometrial Sampling possible polypectomy 83649,N93.9(Not Applicable) - Hernesto Calvin MD
--- NOTE | 2023-05-05 10:45 | PM.OP ---
Operative Report Date of procedure: May 05, 2023 Pre-op diagnosis: abnormal uterine bleeding Post-op diagnosis: same Post-op findings: Stenotic cervix Tortuous cervical canal Difficult and incomplete hysteroscopy normal endometrial cavity No polyps / fibroids Minimal endometrial tissue Procedure done: hysteroscopy Curettage of uterus Implants: none Specimens removed/disposition: endometrial curettings Surgeon: Hernesto Calvin MD Anesthesia: General Estimated blood loss (mL): 5 Complications: none Condition: stable Disposition: PACU Brief History: 37 y.o. with history of menorrhagia Procedure: BRIEF OP NOTE Procedures: hysteroscopy Curettage of uterus Surgeon: Dr. Calvin Anesthesia: General EBL: 5 cc Complications: none Findings: Stenotic cervix Tortuous cervical canal Difficult and incomplete hysteroscopy limited view of endometrial cavity No polyps / fibroids Minimal endometrial tissue OP NOTE Informed consent signed. Patient was taken to the operating room. Anesthesia was induced. Patient was placed in dorsolithotomy position, prepped and draped for hysteroscopy. A bivalve speculum was placed in the vagina. The anterior lip of the cervix was grasped with a sharp-toothed tenaculum. The cervix was noted to be stenotic, serially dilated with Hegar dilators. The cervical canal was noted to be tortuous. It was difficult and incomplete hysteroscopy. Limited exam of the endometrial cavity showed there were no polyps or fibroids. There was a minimal amount of endometrial tissue. The hysteroscope was then removed. Endometrial curettage was done with a sharp curette. Endometrial tissue was sent to pathology. The sharp-toothed tenaculum was removed. There was no bleeding from the endometrial cavity or cervix. The patient was then placed supine and awakened and taken to the PACU. Postop condition: stable EBL: 5 Sponge and instruments counts were normal x 2 Complications: none
--- NOTE | 2023-05-05 10:52 | P.ANESASSM_ITS ---
Pre-Anesthetic Assessment Height/Weight: Height 1.6 m Weight 109 kg Temp Pulse Resp BP Pulse Ox O2 Del Method 97.9 F 82 16 142/107 98 Room Air 05/05/23 08:52 05/05/23 08:52 05/05/23 08:52 05/05/23 08:52 05/05/23 08:52 05/05/23 09:04 Preop Diagnosis: Abnormal uterine bleeding, menorrhagia Operation Date: 05/05/23 10:20 Proposed Procedures p Hysteroscopy w/ Endometrial Sampling possible polypectomy 67084,N93.9(Not Applicable) - Hernesto Calvin MD Familial anesthetic complications: none Was Beta Jesus taken within 24 hours: N/A Was Clonidine taken within 24 hours: N/A Last intake: Intake Last Liquid Date 05/04/23 Last Liquid Time 22:00 Last Solid Date 05/04/23 Last Solid Time 21:00 Social No alcohol and No tobacco Exam alert, oriented x 3, clear to auscultation bilaterally and regular rate & rhythm Airway Submandibular: within normal limits Cervical ROM: within normal limits Mallampati: Class II Dentition: chipped Pulmonary Chronic Obstructive Pulmonary Disease CV/HEM Hypertension GI Gastroesophageal Reflux Disease Metabolic Diabetes Mellitus, Hyperlipidemia, Morbid Obesity and Thyroid Disease Anesthetic Plan ASA status: 2 Anesthesia: General Medications/Allergies Home Medications Medication Instructions Recorded Confirmed Last Taken Type albuterol sulfate 90 mcg/actuation 2 puff inhalation Q6H PRN 07/27/19 05/04/23 05/03/23 History aerosol inhaler (ProAir HFA) Shortness Of Breath acetaminophen 500 mg tablet 1,000 mg PO Q6H PRN Pain 07/28/21 05/04/23 04/28/23 History yxtdcfrsekwbk-ootlhtns-xabgnwziku 2 tab PO DAILY PRN Menstrual Cramps 07/28/21 05/04/23 Unknown History 500 mg-60 mg-15 mg tablet (Midol Complete) ondansetron 4 mg disintegrating 4 mg PO Q6H PRN nausea and 04/21/22 05/04/23 Unknown Rx tablet vomiting #14 tabs ibuprofen 800 mg tablet 800 mg PO TID PRN Pain 07/28/22 05/04/23 07/27/22 History levothyroxine 50 mcg tablet 50 mcg PO QAM 07/28/22 05/04/23 05/04/23 History lisinopril 10 mg tablet 10 mg PO QAM 07/28/22 05/04/23 05/04/23 History lithium carbonate 300 mg capsule 300 mg PO TID 07/28/22 05/04/23 05/05/23 History metformin 500 mg tablet,extended 500 mg PO BID 07/28/22 05/04/23 05/04/23 08:00 History release 24 hr omeprazole 20 mg capsule,delayed 20 mg PO BID 07/28/22 05/04/23 04/27/23 History release ethynodiol diacetate-ethinyl 1 tab PO DAILY 01/05/23 05/04/23 05/04/23 History estradiol 1 mg-50 mcg tablet (Kelnor) hydrochlorothiazide 25 mg tablet 25 mg PO DAILY 01/05/23 05/04/23 05/05/23 History meclizine 25 mg tablet 25 mg PO QID PRN dizziness #14 tabs 01/17/23 05/04/23 U nknown Rx Allergies Allergy/AdvReac Type Severity Reaction Status Date / Time aspirin Allergy [id number] Verified 04/19/23 15:42 diclofenac Allergy ALGY-Hives Verified 04/19/23 15:42 ethinyl estradiol Allergy ALGY-Anaphy Verified 04/19/23 15:42 [From Mononessa (28)] laxis hydromorphone [From Dilaudid] Allergy unknown Verified 04/19/23 15:42 latex Allergy ALGY-Rash Verified 04/19/23 15:42 methylphenidate Allergy Unknown Verified 04/19/23 15:42 [From Ritalin] norgestimate Allergy ALGY-Anaphy Verified 04/19/23 15:42 [From Mononessa (28)] laxis Current Medications Generic Name Dose Route Start Last Admin Trade Name Freq PRN Reason Stop Dose Admin Sodium Chloride 1,000 mls @ 30 mls/hr 05/05/23 08:45 05/05/23 09:32 Sodium Chloride 0.9% IV 05/06/23 08:44 30 mls/hr .Q24H LINDA Administration PFSH Anesthesia Medical History No pertinent family history No significant past medical history Family History Family/Other Breast cancer Maternal and Paternal aunts Father Diabetes Denies family history of Cervical cancer Colon cancer Ovarian cancer Hypertension Uterine cancer Stroke Social History Smoking and tobacco/nicotine status: never used tobacco/nicotine Alcohol intake: never Substance/Drug Use: never Data Anesthesia Cardiac Studies: No Data to Display
[2023-05-05] MEDS: ondansetron 2 mg/ML SDV 2 mL 4 MG IVP ×2 (11:21→11:32)
[2023-05-05] MEDS: scopolamine 1.5 Patch 1 PATCH TRANSDERMA (11:56)
[2023-05-05] MEDS: ketorolac 30 mg/mL INJ IVP (12:18)
--- NOTE | 2023-05-05 12:25 | SUR.PHASEII ---
MEDICATED FOR CRAMPING PAIN AND NAUSEA.
--- NOTE | 2023-05-05 14:40 | ANE.PACU2 ---
Inpatient post-anesthesia follow up: Airway intact: Yes Vital signs: Temperature 97.9 F Pulse Rate 80 Respiratory Rate 16 Blood Pressure 131/66 Pulse Oximetry 97 Oxygen Delivery Me thod Room Air Oxygen Flow Rate Fraction of Inspir ed Oxygen Hydration adequate: Yes Nausea and vomiting: Yes Pain level: 3 Mental status: Baseline
== END 2023-05-05 13:05 | disposition home or self-care (01) ==
PROVIDERS: Anesthesiology; PCP Family Medicine; Visit Provider Obstetrics & Gynecology
PROC: 0UJD8ZZ Inspection of Uterus and Cervix, Via Natural or Artificial Opening Endoscopic (ICD-10-PCS; CPT 58555; principal; 2023-05-05 10:10)
DX: N93.9 Abnormal uterine and vaginal bleeding, unspecified (principal); N88.2 Stricture and stenosis of cervix uteri; Z79.84 Long term (current) use of oral hypoglycemic drugs; I10 Essential (primary) hypertension; J44.9 Chronic obstructive pulmonary disease, unspecified; E11.9 Type 2 diabetes mellitus without complications; E78.5 Hyperlipidemia, unspecified; E66.01 Morbid (severe) obesity due to excess calories; Z68.41 Body mass index [BMI] 40.0-44.9, adult
CPT/HCPCS: 58558; 36416; 81025; 82962; 84703; 88305; J0330; J1100; J1885; J2405; J2704; J3010; J3490; J7030

== ENCOUNTER 2023-06-12 16:59 | Emergency (ER) | payer OTHER, SELFPAY ==
[2023-06-12 17:25] VITALS: BP 146/86; PULSE 82; RESP 18; TEMP 36.7; O2SAT 97; BMI 43.9
--- NOTE | 2023-06-12 17:31 | W.ED.EAR ---
HPI - Ear Problem General: Chief complaint: Ear Stated complaint: Fever / Ear pain / Throat pain Time Seen by Provider: 06/12/23 17:31 History of Present Illness: 37-year-old female comes in today with respiratory infection starting last evening. On exam patient appears nontoxic. Patient reports sore throat, ear pain, and cough. Review of Systems General: Reports: 10 or more systems reviewed and unremarkable except in HPI and below PFSH ED PFSH: Medical History No pertinent family history No significant past medical history Family History Family/Other Breast cancer Maternal and Paternal aunts Father Diabetes Denies family history of Cervical cancer Colon cancer Ovarian cancer Hypertension Uterine cancer Stroke Social History Smoking and tobacco/nicotine status: never used tobacco/nicotine Alcohol intake: never Substance/Drug Use: never Physical Exam Const: COMMON NORMALS: alert HENMT: COMMON NORMALS: normocephalic and TM's normal bilaterally HEAD & SCALP: normocephalic NOSE: Nasal discharge present TYMPANIC MEMBRANE: TM's normal bilaterally Resp: COMMON NORMALS: normal respiratory effort and clear to auscultation bilaterally AUSCULTATION: clear to auscultation bilaterally Cardio: COMMON NORMALS: regular rate and regular rhythm RATE: regular rate RHYTHM: regular rhythm Extremity: COMMON NORMALS: full ROM Neuro: SENSORIUM/ORIENTATION: Yes alert Skin: COMMON NORMALS: turgor normal GENERAL SKIN EXAM: turgor normal Course Vital Signs: Vital signs: Vital Signs Temperature 98.0 F 06/12/23 17:25 Pulse Rate 82 06/12/23 17:25 Respiratory Rate 18 06/12/23 17:25 Blood Pressure 146/86 06/12/23 17:25 Pulse Oximetry 97 06/12/23 17:25 Oxygen Delivery Me thod Room Air 06/12/23 17:25 MDM - Ear Medical Decision Making 37-year-old female comes in today with complaints of sore throat, cough, ear pain starting last night. On exam patient appears nontoxic. Bilateral TMs are clear. Respirations are even lungs are clear to auscultation. Vital signs are normal. Differential diagnosis includes viral syndrome, otitis media, strep pharyngitis, COVID, influenza. COVID flu and strep test were all negative. Reviewed exam with patient with recommendations for treatment and follow-up. Patient was given a dose of dexamethasone for symptoms. Patient was recommended use acetaminophen and ibuprofen otherwise for discomfort. Recommend follow-up as needed or return to the ER for worsening symptoms. Lab Data Laboratory Results Influenza Type A Ag negative (Negative) 06/12/23 17:45 Influenza Type B Ag negative (Negative) 06/12/23 17:45 SARS-CoV-2 Ag (Rapid) negative (Negative) 06/12/23 17:45 Group A Strep Rapid Negative (Negative) 06/12/23 17:45 No radiology studies performed this visit Discharge Plan Discharge Patient Disposition: Home Clinical Impression: URI (upper respiratory infection) Qualifiers: URI type: unspecified URI Qualified Code(s): J06.9 - Acute upper respiratory infection, unspecified Condition: Stable Prescriptions: No Action albuterol sulfate [ProAir HFA] 90 mcg/actuation HFA aerosol inhaler 2 puff INHALATION Q6H PRN (Reason: Shortness Of Breath) hydrochlorothiazide 25 mg tablet 25 mg PO DAILY ethynodiol diac-eth estradiol [Kelnor 1-50 (28)] 1-50 mg-mcg tablet 1 tab PO DAILY Midol Complete 500-60-15 mg Tablet 2 tab PO DAILY PRN (Reason: Menstrual Cramps) Hold Instructions: Resume on 08/05/22. acetaminophen 500 mg Tablet 1,000 mg PO Q6H PRN (Reason: Pain) ondansetron 4 mg tablet,disintegrating 4 mg PO Q6H PRN (Reason: nausea and vomiting) Qty: 14 0RF meclizine 25 mg tablet 25 mg PO QID PRN (Reason: dizziness) Qty: 14 0RF ibuprofen 800 mg tablet 800 mg PO TID PRN (Reason: Pain) lithium carbonate 300 mg capsule 300 mg PO TID levothyroxine 50 mcg tablet 50 mcg PO QAM lisinopril 10 mg tablet 10 mg PO QAM omeprazole 20 mg capsule,delayed release(DR/EC) 20 mg PO BID metformin 500 mg Tablet Extended Release 24 Hr 500 mg PO BID Discharge Orders: Discharge ED (Routine); Ordered 06/12/23 Ordered By: Justin Diaz Referrals: Roel Marshall MD [Primary Care Provider] - Discharge Diet: Usual diet Discharge Activity: Increase activity as tolerated Patient Instructions: Upper Respiratory Infection (ED) Activity Restrictions/Additional Instructions: Drink plenty of fluids. Use acetaminophen and/or ibuprofen as needed for pain and discomfort. Follow-up with primary care for further instructions. Return to ED for new concerns. Coding Level of Care Code ED English As A Second Language Teacher for Doron Soto
[2023-06-12 18:07] LABS: Rapid Strep A Test Negative (Negative)
[2023-06-12 18:13] LABS: SARS Covid-2 Antigen negative (Negative)
[2023-06-12 18:14] LABS: Influenza A by IFA negative (Negative); Influenza B by IFA negative (Negative)
[2023-06-12] MEDS: dexamethasone 10 mg/mL INJ 8 MG PO (19:09)
[2023-06-12 19:11] VITALS: RESP 16; O2SAT 97
== END 2023-06-12 19:12 | disposition home or self-care (01) ==
PROVIDERS: Emergency Provider Nurse Practitioner Family; PCP Family Medicine
DX: J06.9 Acute upper respiratory infection, unspecified (principal); Z79.84 Long term (current) use of oral hypoglycemic drugs; Z11.52 Encounter for screening for COVID-19
CPT/HCPCS: 87081; 87426; 87804; 87880; 99283; J1100

== ENCOUNTER 2023-06-23 12:21 | Observation (INO) | payer OTHER, SELFPAY ==
[2023-06-23] VITALS (20 sets, daily range): BP systolic 113–166; BP diastolic 61–108; PULSE 67–92; RESP 15–16; TEMP 36.4–37.2; O2SAT 91–99
--- NOTE | 2023-06-23 00:14 | W.PM.OPSFHP ---
Same Day Surgery H&P Indication for Procedure/HPI DATE OF PROCEDURE: June 23, 2023 CHIEF COMPLAINT/INDICATIONFOR SURGICAL PROCEDURE: heavy menstrual bleeding PREOP DIAGNOSIS: heavy menstrual bleeding PLANNED PROCEDURE: Operation Date: 06/23/23 08:30 Proposed Procedures p Total abdominal hysterectomy, possible bilateral salpingectomy 69044 N93.9(Not Applicable) - Hernesto Calvin MD s POss Salpingectomy(Not Applicable) - Hernesto Calvin MD 37 y.o. SA13 periods usually heavy, lasting 7-14 days, x 10 years s/p hysteroscopy, endometrial sampling May 05, 2023 pathology : benign ecto- and endocervix no endometrium seen patient wants hysterectomy as definitive treatment of heavy periods Medications/Allergies* Home Medications Medication Instructions Recorded Confirmed Type albuterol sulfate 90 mcg/actuation 2 puff inhalation Q6H PRN 07/27/19 06/21/23 History aerosol inhaler (ProAir HFA) Shortness Of Breath acetaminophen 500 mg tablet 1,000 mg PO Q6H PRN Pain 07/28/21 06/21/23 History dbujyhothmopl-rnzxmxwk-rgoxcnphbq 2 tab PO DAILY PRN Menstrual Cramps 07/28/21 06/21/23 History 500 mg-60 mg-15 mg tablet (Midol Complete) ibuprofen 800 mg tablet 800 mg PO TID PRN Pain 07/28/22 06/21/23 History levothyroxine 50 mcg tablet 50 mcg PO QAM 07/28/22 06/21/23 History lisinopril 10 mg tablet 10 mg PO QAM 07/28/22 06/21/23 History lithium carbonate 300 mg capsule 300 mg PO TID 07/28/22 06/21/23 History metformin 500 mg tablet,extended 500 mg PO BID 07/28/22 06/21/23 History release 24 hr omeprazole 20 mg capsule,delayed 20 mg PO BID 07/28/22 06/21/23 History release ethynodiol diacetate-ethinyl 1 tab PO DAILY 01/05/23 06/21/23 History estradiol 1 mg-50 mcg tablet (Kelnor) hydrochlorothiazide 25 mg tablet 25 mg PO DAILY 01/05/23 06/21/23 History Allergies/Adverse Reactions Allergy/AdvReac Type Severity Reaction Status Date / Time aspirin Allergy [id number] Verified 06/21/23 15:56 diclofenac Allergy ALGY-Hives Verified 06/21/23 15:56 ethinyl estradiol Allergy ALGY-Anaphy Verified 06/21/23 15:56 [From Mononessa (28)] laxis hydromorphone [From Dilaudid] Allergy unknown Verified 06/21/23 15:56 latex Allergy ALGY-Rash Verified 06/21/23 15:56 methylphenidate Allergy Unknown Verified 06/21/23 15:56 [From Ritalin] norgestimate Allergy ALGY-Anaphy Verified 06/21/23 15:56 [From Mononessa (28)] laxis Pertinent History/Comorbid Conditions* Medical History (Updated 06/20/23 @ 00:00 by LAUREN Galvez) No pertinent family history No significant past medical history Family History (Updated 01/05/23 @ 11:18 by Sarah Devi [facility]) Diabetes Father Breast cancer Family/Other Maternal and Paternal aunts Denies family history of Cervical cancer Colon cancer Ovarian cancer Hypertension Uterine cancer Stroke Social History Smoking and tobacco/nicotine status: never used tobacco/nicotine Alcohol intake: never Substance/Drug Use: never Pertinent Exam Findings alert, oriented x 3, clear to auscultation bilaterally and regular rate & rhythm Recommendations Surgery/Procedure today Coding Level of Care Code Acute Code for Chg Fwd Time Spent (min) 20
--- NOTE | 2023-06-23 07:20 | ANES.PREANE2 ---
Pre-Anesthetic Assessment Height/Weight: Height 1.6 m Preop Diagnosis: heavy menstrual bleeding Operation Date: 06/23/23 08:30 Proposed Procedures p Total abdominal hysterectomy, possible bilateral salpingectomy 12737 N93.9(Not Applicable) - Hernesto Calvin MD s POss Salpingectomy(Not Applicable) - Hernesto Calvin MD Social No alcohol and No tobacco Exam alert, oriented x 3, clear to auscultation bilaterally and regular rate & rhythm Airway Submandibular: within normal limits Cervical ROM: within normal limits Mallampati: Class I Dentition: full Pulmonary Sleep Apnea GI None reported Metabolic Morbid Obesity and Thyroid Disease Anesthetic Plan ASA status: 3 Anesthesia: General Medications/Allergies Home Medications Medication Instructions Recorded Confirmed Last Taken Type albuterol sulfate 90 mcg/actuation 2 puff inhalation Q6H PRN 07/27/19 06/23/23 06/22/23 History aerosol inhaler (ProAir HFA) Shortness Of Breath acetaminophen 500 mg tablet 1,000 mg PO Q6H PRN Pain 07/28/21 06/23/23 06/22/23 History qraenouybvtaz-qsqtbbau-jixylpsbij 2 tab PO DAILY PRN Menstrual Cramps 07/28/21 06/23/23 Unknown History 500 mg-60 mg-15 mg tablet (Midol Complete) ondansetron 4 mg disintegrating 4 mg PO Q6H PRN nausea and 04/21/22 06/23/23 Unknown Rx tablet vomiting #14 tabs ibuprofen 800 mg tablet 800 mg PO TID PRN Pain 07/28/22 06/23/23 06/22/23 History levothyroxine 50 mcg tablet 50 mcg PO QAM 07/28/22 06/23/23 06/23/23 History lisinopril 10 mg tablet 10 mg PO QAM 07/28/22 06/23/23 06/22/23 History lithium carbonate 300 mg capsule 300 mg PO TID 07/28/22 06/23/23 06/22/23 History metformin 500 mg tablet,extended 500 mg PO BID 07/28/22 06/23/23 06/22/23 History release 24 hr omeprazole 20 mg capsule,delayed 20 mg PO BID 07/28/22 06/23/23 06/22/23 History release ethynodiol diacetate-ethinyl 1 tab PO DAILY 01/05/23 06/23/2306/22/24 History estradiol 1 mg-50 mcg tablet (Kelnor) hydrochlorothiazide 25 mg tablet 25 mg PO DAILY 01/05/23 06/23/23 06/22/23 History meclizine 25 mg tablet 25 mg PO QID PRN dizziness #14 tabs 01/17/23 06/23/23 Unknown Rx Allergies Allergy/AdvReac Type Severity Reaction Status Date / Time aspirin Allergy ohwy7an Verified 06/21/23 15:56 diclofenac Allergy ALGY-Hives Verified 06/21/23 15:56 ethinyl estradiol Allergy ALGY-Anaphy Verified 06/21/23 15:56 [From Mononessa (28)] laxis hydromorphone [From Dilaudid] Allergy unknown Verified 06/21/23 15:56 latex Allergy ALGY-Rash Verified 06/21/23 15:56 methylphenidate Allergy Unknown Verified 06/21/23 15:56 [From Ritalin] norgestimate Allergy ALGY-Anaphy Verified 06/21/23 15:56 [From Mononessa (28)] laxis [facility] Anesthesia Medical History No pertinent family history No significant past medical history Family History Family/Other Breast cancer Maternal and Paternal aunts Father Diabetes Denies family history of Cervical cancer Colon cancer Ovarian cancer Hypertension Uterine cancer Stroke Social History Smoking and tobacco/nicotine status: never used tobacco/nicotine Alcohol intake: never Substance/Drug Use: never Female Reproductive History Date of last menstrual period: 06/21/23 Data Anesthesia Cardiac Studies: No Data to Display
[2023-06-23] MEDS: sodium chloride 0.9% 1,000 ML 30 ML IV (07:43)
[2023-06-23 07:48] LABS: Glucose Point of Care 133 mg/dL (70-110)
[2023-06-23 07:53] LABS: Basophils % 0.2 %; Eosinophils # 0.1 10^3/uL (0.0-0.8); Eosinophils % 2.4 %; Hematocrit 34.9 % (36-47); Lymphocytes # 1.7 10^3/uL (0.8-4.8); Lymphocytes % 33.6 %; Mean Corpuscular HGB Conc 32.4 g/dL (30-55); Mean Corpuscular Hemoglobin 26.6 pg (27-33); Mean Corpuscular Volume 82.1 fl (85-98); Mean Platelet Volume 10.4 fL (7.4-10.4); Monocytes # 0.4 10^3/uL (0.2-0.9); Monocytes % 7.5 %; Neutrophils # 2.86 10^3/uL (1.8-7.7); Neutrophils % 56.1 %; Nucleated Red Blood Cells % 0 %; Platelet Count 242 10^3/cmm (157-399); Red Blood Count 4.25 10^6/uL (3.85-5.65); Red Cell Distribution Width 13.4 % (12.1-15.1); White Blood Count 5.09 10^3/uL (3.29-11.43)
--- NOTE | 2023-06-23 08:11 | W.PM.OPSUD ---
Surgery/Procedure H&P Update DATE OF PROCEDURE: June 23, 2023 DATE H&P PERFORMED: 06/23/23 H&P UPDATE INFORMATION: I have reviewed H&P completed within last 30 days, I have examined patient prior to procedure and No changes to prior documentation PREOP DIAGNOSIS: heavy menstrual bleeding PLANNED PROCEDURE: Operation Date: 06/23/23 08:30 Proposed Procedures p Total abdominal hysterectomy, possible bilateral salpingectomy 48816 N93.9(Not Applicable) - Hernesto Calvin MD s POss Salpingectomy(Not Applicable) - Hernesto Calvin MD
[2023-06-23 08:20] LABS: OR HCG Qualitative Urine Negative (Negative)
[2023-06-23] MEDS: ceFAZolin 3,000 MG in sodium chloride 0.9% (100 ml) 100 ML 200 MG IV (08:21)
[2023-06-23 08:25] LABS: Blood Urea Nitrogen 13 mg/dL (6-20); Calcium 8.7 mg/dL (8.5-10.5); Carbon Dioxide 23 mmol/L (22-29); Chloride 103 mmol/L (98-107); Glomerular Filtration Rate 93.2 mL/min (90-130); Glucose 143 mg/dL (65-115); Osmolality Calculated 291 mOsm/kg (285-295); Sodium 139 mmol/L (136-145)
[2023-06-23 08:36] LABS: Anion Gap 17.4 (5-19); Potassium 4.4 mmol/L (3.5-5.1)
--- NOTE | 2023-06-23 08:53 | SUR.OPER ---
called S.O. and notified him of surgical start.
[2023-06-23] MEDS: fentaNYL 50 mcg/mL INJ 2mL IVP (12:30)
[2023-06-23] MEDS: HYDROcodone-acetaminophen 5-325 mg Tablet PO ×2 (13:37→19:42)
[2023-06-23] MEDS: morphine 4 mg/mL SDV 1 mL IVP ×3 (13:37→22:11)
--- NOTE | 2023-06-23 14:10 | P.OP_ITS ---
Operative Report Date of procedure: June 23, 2023 Pre-op diagnosis: Heavy menstrual bleeding, menorrhagia Post-op diagnosis: same Procedure done: Total abdominal hysterectomy bilateral salpingectomy Implants: none Specimens removed/disposition: uterus fallopian tubes Surgeon: Hernesto Calvin MD Anesthesia: General Estimated blood loss (mL): 400 Complications: none Findings: uterus mildly enlarged with fibroids Normal fallopian tubes Normal ovaries Normal and intact bladder Brief History: 37 y.o. with h/o very heavy menstrual bleeding Procedure: Informed consent obtained. The patient was taken to the operating room and placed supine on the table. General endotracheal anesthesia was induced. The abdomen was prepped and draped in the usual sterile fashion. A grajeda catheter was placed which drained clear urine. A pfannenstiel incision was made over an old scar and carried down through skin and subcutaneous tissue and fascia. The fascia was sharply incised. The rectus muscles were and the abdomen was entered bluntly in the midline. The pelvic contents were visualized and examined. The bowels were packed out of the way. The Ligasure device was used throughout for vessel sealing and cutting. The hysterectomy was begun by dividing and ligating the round ligaments bilaterally. The infundibulopelvic ligaments were divided and skeletonized bilaterally. The ovaries were preserved by dividing the uterus from the uteroovarian ligaments. The vesicouterine peritoneal fold was incised in a transverse curvilinear fashion and sharply dissected downward mobilizing the bladder off the lower uterine segment. The uterine vessels were skeletonized and bilaterally divided and ligated. The procedure was carried down on both sides of the uterus until the cardinal uterosacral ligament was reached. The cervix was then incised. The vaginal cuff was identified and the mucosa was from the cervix. In this fashion, the uterus was removed leaving the vaginal cuff. The vaginal c uff was identified and the mucosa was sewn with O-Vicryl. The fallopian tubes were removed using the Ligasure device to clamp and cut across the mesosalpinx. No bleeding was seen. The pelvis was inspected and irrigated. There was no bleeding. The abdominal packs were removed as was the retractor. The fascia was then closed with a continuous stitch of O-Vicryl. The subcutaneous tissue was irrigated and inspected for hemostasis. The skin was then reapproximated using Insorb absorbable subcuticular skin doyle. The patient was then placed supine, extubated, and taken to the recovery room. Postoperative condition: stable EBL: 400 cc Complications: none Sponge, needle, instruments counts were correct x two.
[2023-06-23] MEDS: dextrose 5%-lactated ringers 1,000 ML 125 ML IV (14:27)
[2023-06-23] MEDS: simethicone 80 mg Chew PO (14:27)
--- NOTE | 2023-06-23 14:33 | ANE.PACU2 ---
Inpatient post-anesthesia follow up: Vital signs: Temperature 98.1 F Pulse Rate 74 Respiratory Rate 16 Blood Pressure 116/61 Pulse Oximetry 91 Oxygen Delivery Me thod Room Air Oxygen Flow Rate 6 Fraction of Inspir ed Oxygen Hydration adequate: Yes Nausea and vomiting: No Pain level: 1 Mental status: Baseline Additional Comments: no apparent anesthetic complications noted.
[2023-06-23] MEDS: ketorolac 30 mg/mL INJ IVP (17:53)
[2023-06-23] MEDS: docusate sodium 100 mg Capsule PO (17:53)
[2023-06-23 18:01] LABS: Glucose Point of Care 214 mg/dL (70-110)
[2023-06-23] MEDS: insulin lispro 100 unit/1 mL SUBCUT (19:39)
[2023-06-24] MEDS: ketorolac 30 mg/mL INJ IVP ×2 (00:13→06:35)
[2023-06-24 05:00] VITALS: BP 117/77; PULSE 68; RESP 16; TEMP 37.5; O2SAT 97
[2023-06-24 05:38] LABS: Hematocrit 31.7 % (36-47); Mean Corpuscular HGB Conc 32.2 g/dL (30-55); Mean Corpuscular Hemoglobin 27.1 pg (27-33); Mean Corpuscular Volume 84.3 fl (85-98); Mean Platelet Volume 10.4 fL (7.4-10.4); Platelet Count 234 10^3/cmm (157-399); Red Blood Count 3.76 10^6/uL (3.85-5.65); Red Cell Distribution Width 13.7 % (12.1-15.1); White Blood Count 9.23 10^3/uL (3.29-11.43)
[2023-06-24 07:58] LABS: Glucose Point of Care 166 mg/dL (70-110)
--- NOTE | 2023-06-24 07:59 | P.PN_ITS ---
[employer] INS[employer] Subjective 2 Subjective: Interval history: c/o moderate incisional pain, relieved with pain medications no bleeding tolerating PO Vitals/I&O/Wt Last Vital Signs Temp 99.5 F 06/24/23 05:00 Pulse 68 06/24/23 05:00 Resp 16 06/24/23 05:00 BP 117/77 06/24/23 05:00 Pulse Ox 97 06/24/23 05:00 O2 Del Method Room Air 06/24/23 05:00 O2 Flow Rate 6 06/23/23 12:31 06/23/23 06/24/23 06/24/23 22:59 06:59 14:59 Output Total 850 / 1750 400 / 2150 Balance -850 / -50 -400 / -450 Weight last 48 hrs Weight 243 lb Physical Exam 2 Narrative: Comfortable Awake, alert Lungs: clear Cor: RRR Abd: soft, nondistended Mild tenderness No rebound incision clean and dry Ext: nontender Urinary Catheter Management: Humphries: Cath Placed During This Visit: yes, but has since been removed by the nurse Reason for Continuing Indwelling Catheter: Decision to DC Catheter Urinary Catheter Date of Insertion: 06/23/23 Urinary Catheter Time of Insertion: 08:51 Date Urinary Catheter Removed: 06/24/23 Time Urinary Catheter Discontinued: 05:32 Data 06/24/23 05:26 06/23/23 07:42 A&P Assessment and plan (1) S/P hysterectomy: POD #1 total abdominal hysterectomy, bilateral salpingectomy Will discharge patient to home Instructions / precautions given Call / return immediately if fever, chills, nausea, vomiting, worsening pain, vaginal bleeding, chest pain, shortness of breath, leg pain or swelling Return to see me in one week Attestations 2 Medical Necessity Statement*: patient s/p hysterectomy, plan discharge home today Coding Level of Care Code Acute Code for Chg Fwd Diagnoses S/P hysterectomy Z90.710 Time Spent (min) 20
--- NOTE | 2023-06-24 08:01 | PM.OBGYDC ---
Discharge Providers DIRECTOR REGULATORY AFFAIRS Date of Admission: 06/23/23 12:21 Date of Discharge: 06/24/23 Attending Provider at Admission: Hernesto Calvin MD Attending Provider at Discharge: Hernesto Calvin MD Consults: none Primary DIRECTOR REGULATORY AFFAIRS: Herensto Calvin MD Primary Care Provider: Roel Marshall MD Diagnoses at Discharge Discharge Diagnosis (1) S/P hysterectomy: Details from hospital stay: patient underwent total abdominal hysterectomy, bilateral salpingectomy did well postop was discharged home on postoperative day #1 Status: Acute Reason for Visit Reason for Visit: N93.9 Brief History: 37 y.o. with chronic heavy menstrual bleeding scheduled for hysterectomy Hospital Course Hospital Course patient underwent total abdominal hysterectomy, bilateral salpingectomy did well postop was discharged home on postoperative day #1 Physical Exam Narrative: Comfortable Awake, alert afebrile, VS normal Lungs: clear Cor: RRR Abd: soft, nondistended Mild tenderness No rebound incision clean and dry Ext: nontender Urinary Catheter Management: Humphries: Cath Placed During This Visit: yes, but has since been removed by the nurse Reason for Continuing Indwelling Catheter: Decision to DC Catheter Urinary Catheter Date of Insertion: 06/23/23 Urinary Catheter Time of Insertion: 08:51 Date Urinary Catheter Removed: 06/24/23 Time Urinary Catheter Discontinued: 05:32 History History History 10 Term 2 0 Miscarriages/Ectopic 8 Living Children 2 Discharge Data Studies Completed and Pending Pending at discharge Category Date Time Status Pathology: Surgical [PTH] Routine Pth 06/23/23 12:12 Received Laboratory Results WBC 9.23 10^3/uL (3.29-11.43) 06/24/23 05:26 RBC 3.76 10^6/uL (3.85-5.65) L 06/24/23 05:26 Hgb 10.20 g/dL (11.27-16.99) L 06/24/23 05:26 Hct 31.7 % (36-47) L 06/24/23 05:26 MCV 84.3 fl (85-98) L 06/24/23 05:26 MCH 27.1 pg (27-33) 06/24/23 05:26 MCHC 32.2 g/dL (30-55) 06/24/23 05:26 RDW 13.7 % (12.1-15.1) 06/24/23 05:26 Plt Count 234 10^3/cmm (157-399) 06/24/23 05:26 MPV 10.4 fL (7.4-10.4) 06/24/23 05:26 Neut % (Auto) 56.1 % 06/23/23 07:42 Lymph % (Auto) 33.6 % 06/23/23 07:42 [place] % (Auto) 7.5 % 06/23/23 07:42 Eos % (Auto) 2.4 % 06/23/23 07:42 Baso % (Auto) 0.2 % 06/23/23 07:42 Neut # (Auto) 2.86 10^3/uL (1.8-7.7) 06/23/23 07:42 Lymph # (Auto) 1.7 10^3/uL (0.8-4.8) 06/23/23 07:42 [place] # (Auto) 0.4 10^3/uL (0.2-0.9) 06/23/23 07:42 Eos # (Auto) 0.1 10^3/uL (0.0-0.8) 06/23/23 07:42 Baso # (Auto) 0.0 10^3/uL (0.0-0.1) 06/23/23 07:42 Nucleated RBC % (auto) 0 % 06/23/23 07:42 Nucleated RBCs # 0.0 /100WBC 06/23/23 07:42 Sodium 139 mmol/L (136-145) 06/23/23 07:42 Potassium 4.4 mmol/L (3.5-5.1) 06/23/23 07:42 Chloride 103 mmol/L (98-107) 06/23/23 07:42 Carbon Dioxide 23 mmol/L (22-29) 06/23/23 07:42 Anion Gap 17.4 (5-19) 06/23/23 07:42 BUN 13 mg/dL (6-20) 06/23/23 07:42 Creatinine 0.7 mg/dL (0.5-0.9) 06/23/23 07:42 GFR Calculation 93.2 mL/min (90-130) 06/23/23 07:42 Glucose 143 mg/dL (65-115) H 06/23/23 07:42 POC Glucose 166 mg/dL (70-110) H 06/24/23 07:54 Calculated Osmolality 291 mOsm/kg (285-295) 06/23/23 07:42 Calcium 8.7 mg/dL (8.5-10.5) 06/23/23 07:42 Urine HCG, Qual Negative (Negative) 06/23/23 07:06 Blood Type A Negative 06/23/23 07:42 Rho(D) Type Negative 06/23/23 07:42 Antibody Screen Negative 06/23/23 07:42 Procedures Performed total abdominal hysterectomy and bilateral salpingectomy Vitals Last Vital Signs Temp 99.5 F 06/24/23 05:00 Pulse 68 06/24/23 05:00 Resp 16 06/24/23 05:00 BP 117/77 06/24/23 05:00 Pulse Ox 97 06/24/23 05:00 O2 Del Method Room Air 06/24/23 05:00 O2 Flow Rate 6 06/23/23 12:31 Results Labs OB ([facility]): Blood Type A Negative 06/23/23 Antibody Screen Negative 06/23/23 Hct 31.7 % (36-47) L 06/24/23 Hgb 10.20 g/dL (11.27-16.99) L 06/24/23 Rho(D) Type Negative 06/23/23 Plt Count 234 10^3/cmm (157-399) 06/24/23 TSH 2.27 uIU/mL (0.27-4.20) 03/26/22 Ser , Semi-Qnt 1.00 mIU/mL 12/22/22 HCG, Qual Negative (Negative) 08/15/22 Urine Opiates Screen Negative ng/mL (Negative) 03/26/22 Ur Barbiturates Screen Negative ng/mL (Negative) 03/26/22 Ur Phencyclidine Scrn Negative ng/mL (Negative) 03/26/22 Ur Amphetamines Screen Negative ng/mL (Negative) 03/26/22 U Benzodiazepines Scrn Negative ng/mL (Negative) 03/26/22 Urine Cocaine Screen Negative ng/mL (Negative) 03/26/22 U Marijuana (THC) Screen Negative ng/mL (Negative) 03/26/22 Micro Urine Specimen 12/22/22 Pap Smear Interpret See note 04/19/23 Discharge Plan Discharge Patient Disposition: Home Condition: Stable Prescriptions: New Percocet 10-325 mg tablet 1 tab PO Q8H PRN (Reason: pain) Qty: 30 0RF Continued albuterol sulfate [ProAir HFA] 90 mcg/actuation HFA aerosol inhaler 2 puff INHALATION Q6H PRN (Reason: Shortness Of Breath) hydrochlorothiazide 25 mg tablet 25 mg PO DAILY ethynodiol diac-eth estradiol [Kelnor 1-50 (28)] 1-50 mg-mcg tablet 1 tab PO DAILY Midol Complete 500-60-15 mg Tablet 2 tab PO DAILY PRN (Reason: Menstrual Cramps) Hold Instructions: Resume on 08/05/22. acetaminophen 500 mg Tablet 1,000 mg PO Q6H PRN (Reason: Pain) ondansetron 4 mg tablet,disintegrating 4 mg PO Q6H PRN (Reason: nausea and vomiting) Qty: 14 0RF meclizine 25 mg tablet 25 mg PO QID PRN (Reason: dizziness) Qty: 14 0RF ibuprofen 800 mg tablet 800 mg PO TID PRN (Reason: Pain) lithium carbonate 300 mg capsule 300 mg PO TID levothyroxine 50 mcg tablet 50 mcg PO QAM lisinopril 10 mg tablet 10 mg PO QAM omeprazole 20 mg capsule,delayed release(DR/EC) 20 mg PO BID metformin 500 mg Tablet Extended Release 24 Hr 500 mg PO BID Discharge Orders: Discharge Order (Routine); Ordered 06/24/23 Ordered By: Hernesto Calvin Referrals: Hernesto Calvin MD [Physician] - 06/29/23 12:45 pm (* Your post op appointment is on 06/29/2023 at 12:45) Discharge Diet: Usual diet Discharge Activity: Increase activity as tolerated Patient Instructions: Salpingectomy (DC), Hysterectomy (DC), OB Discharge Report, OB Food/Drug Interaction Guide, Opioid Safety Discharge Attestations DIRECTOR REGULATORY AFFAIRS Time Spent in Discharge Care*: less than 30 min Coding Level of Care Code Acute Code for Chg Fwd Diagnoses S/P hysterectomy Z90.710 Time Spent (min) 20
[2023-06-24] MEDS: HYDROcodone-acetaminophen 5-325 mg Tablet PO (08:36)
[2023-06-24] MEDS: insulin lispro 100 unit/1 mL SUBCUT (08:36)
[2023-06-24] MEDS: docusate sodium 100 mg Capsule PO (08:36)
[2023-06-24] MEDS: ibuprofen 800 mg tablet PO (12:44)
[2023-06-24 14:41] VITALS: BP 124/86; PULSE 78; RESP 16; TEMP 36.7; O2SAT 98
== END 2023-06-24 13:40 | disposition home or self-care (01) ==
LOC: OBGYN 12:22
PROVIDERS: Anesthesiology; Admitting Provider Obstetrics & Gynecology; PCP Family Medicine; Visit Provider Obstetrics & Gynecology
PROC: 0UT90ZZ Resection of Uterus, Open Approach (ICD-10-PCS; CPT 58150; principal; 2023-06-23 08:30)
PROC: (CPT 58700; 2023-06-23 08:30)
DX: N92.0 Excessive and frequent menstruation with regular cycle (principal); G47.30 Sleep apnea, unspecified; E66.01 Morbid (severe) obesity due to excess calories; Z68.41 Body mass index [BMI] 40.0-44.9, adult; Z79.84 Long term (current) use of oral hypoglycemic drugs
CPT/HCPCS: 58150; 36415; 36416; 51702; 80048; 81025; 82962; 84703; 85025; 85027; 86850; 86900; 88307; 96372; G0378; J0131; J0330; J0690; J1100; J1815; J1885; J2250; J2270; J2405; J2704; J2710; J3010; J3490; J7030; J7121

== ENCOUNTER 2023-06-27 18:50 | Inpatient (IN) | payer OTHER, SELFPAY ==
[2023-06-27] VITALS (11 sets, daily range): BP systolic 125–170; BP diastolic 84–111; PULSE 84–97; RESP 16–18; TEMP 36.7; O2SAT 94–97; BMI 43.0; BMI 42.5
--- NOTE | 2023-06-27 19:01 | ED_ITS ---
HPI - General Adult 2 General: Chief complaint: General Medical Stated complaint: blood stool, vomit nausea dizzy hystrec 4days ago Time Seen by Provider: 06/27/23 18:57 History of Present Illness: 37-year-old female presents emergency de partment stating that she had a hysterectomy by Dr. Calvin 4 days ago and today she started having some nausea and 2 episodes of vomiting. She states she feels dizzy when standing up and this is intermittent. She states she also noticed some blood in her stool earlier today. She states she does have a minor amount of lower abdominal pain where her surgery was completed she does have a well approximated lower abdominal surgical scar that does not appear to be infected with no active drainage or bleeding. Associated symptoms: Reports nausea and vomiting Review of Systems 2 General: Reports: 10 or more systems reviewed and unremarkable except in HPI and below GI: Reports: nausea, vomiting and hematochezia Neuro: Reports: dizziness PFS ED 2 PFSH: Medical History (Updated 06/29/23 @ 06:03 by Jeff Schneider MD) Collar bone fracture Femur fracture, right No pertinent family history No significant past medical history Surgical History (Updated 06/28/23 @ 01:03 by Hernesto Calvin MD) S/P hysterectomy History of breast lump removal Hx of tonsillectomy Family History Family/Other Breast cancer Maternal and Paternal aunts Father Diabetes Denies family history of Cervical cancer Colon cancer Ovarian cancer Hypertension Uterine cancer Stroke Social History Smoking and tobacco/nicotine status: never used tobacco/nicotine Alcohol intake: never Substance/Drug Use: never Physical Exam 2 Const: COMMON NORMALS: no acute distress, patient oriented x3 and alert HENMT: COMMON NORMALS: normocephalic, atraumatic and external ears normal H EAD & SCALP: normocephalic and atraumatic EXTERNAL EAR: Yes external ears normal Eye: COMMON NORMALS: Equal, round and reactive pupils present and EOMs intact bilaterally PUPIL: Yes Equal, round and reactive pupils present Neck/C-Spine: COMMON NORMALS: full ROM and supple Resp: COMMON NORMALS: normal respiratory effort, No use of accessory muscles and clear to auscultation bilaterally AUSCULTATION: clear to auscultation bilaterally Cardio: COMMON NORMALS: regular rate, regular rhythm, S1 normal heart sound present and S2 normal heart sound present RATE: regular rate RHYTHM: r egular rhythm HEART SOUNDS: S1 normal heart sound present and S2 normal heart sound present GI: COMMON NORMALS: Soft to palpation AUSCULTATION: Yes normoactive bowel sounds PALPATION: Yes Soft to palpation and Yes Tenderness to palpation present (GI) (Postoperative surgical scar noted edges are well-approximated no obvious dr) Details: LLQ and RLQ Extremity: COMMON NORMALS: normal to inspection, full ROM and capillary refill normal Neuro: COMMON NORMALS: patient oriented x3 SENSORIUM/ORIENTATION: Yes alert Psych: COMMON NORMALS: mental status grossly normal, Normal thought process present and cooperative THOUGHT PROCESS: Normal thought process present Skin: NARRATIVE SKIN EXAM: Lower abdominal area with postoperative surgical scar well-approximated no obvious signs of infection or drainage. Course 2 Vital Signs: Vital signs: Vital Signs Temperature 98.4 F 06/29/23 04:00 Pulse Rate 85 06/29/23 04:00 Respiratory Rate 18 06/29/23 04:00 Blood Pressure 132/76 06/29/23 04:00 Pulse Oximetry 93 06/29/23 04:00 Oxygen Delivery Me thod Room Air 06/28/23 20:00 [facility] - General Adult Medical Decision Making Physical exam completed and documented, I will obtain a CBC, CMP, PT, PTT, INR and provide IV access obtain a urinalysis. Differential Diagnosis Colitis, enteritis, postoperative complication, peritonitis, Medical Records I reviewed the patient's medical records. Lab Data I reviewed the patient's lab results. 06/29/23 05:23 06/28/23 05:29 Radiology Impressions Abdomen/Pelvis CT 06/27/23 20:16 IMPRESSION: 1. Nonspecific changes involving the mesenteric fat planes just deep to the abdominal wall within the upper pelvis raising concern for developing peritonitis for which clinical correlation and follow-up recommended. 2. Subtle colonic wall thickening involving short segment of large bowel at the rectosigmoid junction that may be secondary to mild segmental colitis. Laboratory Results WBC 4.80 10^3/uL (3.29-11.43) 06/27/23 19:18 RBC 3.81 10^6/uL (3.85-5.65) L 06/27/23 19:18 Hgb 10.20 g/dL (11.27-16.99) L 06/27/23 19:18 Hct 31.1 % (36-47) L 06/27/23 19:18 MCV 81.6 fl (85-98) L 06/27/23 19:18 MCH 26.8 pg (27-33) L 06/27/23 19:18 MCHC 32.8 g/dL (30-55) 06/27/23 19:18 RDW 13.2 % (12.1-15.1) 06/27/23 19:18 Plt Count 227 10^3/cmm (157-399) 06/27/23 19:18 MPV 10.2 fL (7.4-10.4) 06/27/23 19:18 Neut % (Auto) 55.5 % 06/27/23 19:18 Lymph % (Auto) 35.2 % 06/27/23 19:18 [place] % (Auto) 6.0 % 06/27/23 19:18 Eos % (Auto) 2.9 % 06/27/23 19:18 Baso % (Auto) 0.2 % 06/27/23 19:18 Neut # (Auto) 2.66 10^3/uL (1.8-7.7) 06/27/23 19:18 Lymph # (Auto) 1.7 10^3/uL (0.8-4.8) 06/27/23 19:18 [place] # (Auto) 0.3 10^3/uL (0.2-0.9) 06/27/23 19:18 Eos # (Auto) 0.1 10^3/uL (0.0-0.8) 06/27/23 19:18 Baso # (Auto) 0.0 10^3/uL (0.0-0.1) 06/27/23 19:18 Nucleated RBC % (auto) 0 % 06/27/23 19:18 Nucleated RBCs # 0.0 /100WBC 06/27/23 19:18 PT 12.70 SECONDS (12.1-14.9) 06/27/23 19:18 INR 0.92 (0.8-1.2) 06/27/23 19:18 APTT 23.2 SECONDS (23.9-36.7) L 06/27/23 19:18 Sodium 137 mmol/L (136-145) 06/27/23 19:18 Potassium 3.5 mmol/L (3.5-5.1) 06/27/23 19:18 Chloride 98 mmol/L (98-107) 06/27/23 19:18 Carbon Dioxide 30 mmol/L (22-29) H 06/27/23 19:18 Anion Gap 12.5 (5-19) 06/27/23 19:18 BUN 10 mg/dL (6-20) 06/27/23 19:18 Creatinine 0.6 mg/dL (0.5-0.9) 06/27/23 19:18 GFR Calculation 111.3 mL/min (90-130) 06/27/23 19:18 Glucose 132 mg/dL (65-115) H 06/27/23 19:18 Calculated Osmolality 285 mOsm/kg (285-295) 06/27/23 19:18 Calcium 8.8 mg/dL (8.5-10.5) 06/27/23 19:18 Total Bilirubin 0.2 mg/dL (0.15-1.2) 06/27/23 19:18 AST 27 U/L (0-32) 06/27/23 19:18 ALT 23 U/L (0-33) 06/27/23 19:18 Alkaline Phosphatase 96 U/L (35-105) 06/27/23 19:18 Total Protein 6.7 g/dL (6.6-8.7) 06/27/23 19:18 Albumin 3.6 g/dL (3.5-5.2) 06/27/23 19:18 Globulin 3.1 g/dL (1.3-4.6) 06/27/23 19:18 All radiology interpretation(s) finalized by discharge Discharge Plan Discharge Patient Disposition: Admitted As Inpatient Admit Provider: Hima Morales Clinical Impression: Peritonitis, Colitis Condition: Stable Coding Level of Care Code ED Colored Leather Setter for Doron Soto
[2023-06-27 19:37] LABS: Basophils % 0.2 %; Eosinophils # 0.1 10^3/uL (0.0-0.8); Eosinophils % 2.9 %; Hematocrit 31.1 % (36-47); Lymphocytes # 1.7 10^3/uL (0.8-4.8); Lymphocytes % 35.2 %; Mean Corpuscular HGB Conc 32.8 g/dL (30-55); Mean Corpuscular Hemoglobin 26.8 pg (27-33); Mean Corpuscular Volume 81.6 fl (85-98); Mean Platelet Volume 10.2 fL (7.4-10.4); Monocytes # 0.3 10^3/uL (0.2-0.9); Neutrophils # 2.66 10^3/uL (1.8-7.7); Neutrophils % 55.5 %; Nucleated Red Blood Cells % 0 %; Platelet Count 227 10^3/cmm (157-399); Red Blood Count 3.81 10^6/uL (3.85-5.65); Red Cell Distribution Width 13.2 % (12.1-15.1)
[2023-06-27 19:57] LABS: Alanine Aminotransferase 23 U/L (0-33); Albumin Level 3.6 g/dL (3.5-5.2); Alkaline Phosphatase 96 U/L (35-105); Anion Gap 12.5 (5-19); Aspartate Amino Transferase 27 U/L (0-32); Blood Urea Nitrogen 10 mg/dL (6-20); Calcium 8.8 mg/dL (8.5-10.5); Carbon Dioxide 30 mmol/L (22-29); Chloride 98 mmol/L (98-107); Creatinine Clr Calc Pharmacy 150.0968; Globulin 3.1 g/dL (1.3-4.6); Glomerular Filtration Rate 111.3 mL/min (90-130); Glucose 132 mg/dL (65-115); Osmolality Calculated 285 mOsm/kg (285-295); Potassium 3.5 mmol/L (3.5-5.1); Sodium 137 mmol/L (136-145); Total Bilirubin 0.2 mg/dL (0.15-1.2); Total Protein 6.7 g/dL (6.6-8.7)
[2023-06-27 19:58] LABS: INR 0.92 (0.8-1.2)
[2023-06-27 19:59] LABS: Partial Thromboplastin Time 23.2 SECONDS (23.9-36.7)
--- NOTE | 2023-06-27 20:16 | CTR_ITS ---
PROCEDURE INFORMATION: Exam: CT Abdomen And Pelvis With Contrast Exam date and time: 06/27/2023 8:35 PM Age: 37 years old Clinical indication: Abdominal pain; Localized; Lower; Prior surgery; Surgery date: 3-7 days post-operative; Patient HX: C/O severe pelvic pain with bloody stool post hysterectomy four days ago. ; Additional info: Abd pain and gi/ bleeding TECHNIQUE: Imaging protocol: Computed tomography of the abdomen and pelvis with contrast. Radiation optimization: All CT scans at this facility use at least one of these dose optimization techniques: automated exposure control; mA and/or kV adjustment per patient size (includes targeted exams where dose is matched to clinical indication); or iterative reconstruction. Contrast material: OMNI 350; Contrast volume: 100 ml; Contrast route: INTRAVENOUS (IV); COMPARISON: CT abdomen pelvis w con* [id number] 03/12/2021 9:38 PM RADIATION DOSE METRICS: Total DLP (mGy-cm): 1067.03 FINDINGS: Lungs: Lung bases are clear. Liver: Normal. No mass. Gallbladder and bile ducts: Normal. No calcified stones. No ductal dilation. Pancreas: Unremarkable. Main pancreatic duct is not significantly dilated. Spleen: Spleen is borderline enlarged, stable. Adrenal glands: Normal. No mass. Kidneys and ureters: Normal. No hydronephrosis. Stomach and bowel: There are few scattered diverticuli within mid sigmoid colon without evidence of acute diverticulitis.. There is mild colonic wall thickening involving short segment of large bowel at the rectosigmoid junction best seen in the sagittal plane (series 6 image 41 and 43 the) inconclusive for mild segmental colitis. Appendix: No evidence of appendicitis. Intraperitoneal space: There is a mild indistinct mesenteric fat stranding just deep to the lower abdominal wall with some scattered adherent mesenteric fluid within the anterior abdominal cavity of the upper pelvis not extending into the more depended recesses of the pelvis which is not typical for free flowing ascites and raising concern for developing peritonitis. Vasculature: Unremarkable. No abdominal aortic aneurysm. Lymph nodes: Unremarkable. No enlarged lymph nodes. Urinary bladder: Unremarkable as visualized. Reproductive: Uterus has been resected. Visualized cervical cuff is unremarkable. Bones/joints: There is a ghost shadow from prior placement of dynamic hip screw within the right hip joint. No acute bony abnormalities. Soft tissues: Mild postsurgical changes present within the lower abdominal wall. Other findings: A CT/CT abdomen pelvis w con* [id number] IMPRESSION: 1. Nonspecific changes involving the mesenteric fat planes just deep to the abdominal wall within the upper pelvis raising concern for developing peritonitis for which clinical correlation and follow-up recommended. 2. Subtle colonic wall thickening involving short segment of large bowel at the rectosigmoid junction that may be secondary to mild segmental colitis.
[2023-06-27] MEDS: iohexol 350 mg/mL 500 mL Btl (per mL) IV (20:40)
[2023-06-27] MEDS: morphine 4 mg/mL SDV 1 mL IVP ×2 (20:49→23:35)
[2023-06-27] MEDS: ondansetron 2 mg/ML SDV 2 mL 4 MG IVP (20:50)
--- NOTE | 2023-06-27 22:26 | P.HP_ITS ---
Providers/Chief Complaint 2 Admitting Physician: Hima Morales Primary Care Provider: Roel Marshall MD Chief Complaint: blood stool, vomit nausea dizzy hystrec 4days ago History of Present Illness Pleasant 37-year lady status post JOSE/BSO on 06/23 due to menorrhagia discharged 06/24 returns to the hospital due to lower abdominal pain, has been having nausea, several episodes of vomiting, although not tonight, also has been feeling somewhat lightheaded with getting up, and noticed blood in the stool. Denies blood in the pad. Has been having bowel movements. At home temperatures have been 99 to sometimes up to 99.9. In ER without leukocytosis. Afebrile. Due to abdominal pain CT abdomen pelvis obtained with nonspecific changes involving mesenteric fat planes just deep to abdominal wall within upper pelvis raising concern for developing peritonitis. Subtle colonic wall thickening involving short segment of large bowel at the rectosigmoid junction may be secondary to mild segmental colitis. Gynecology was contacted, requesting admission with hospitalist and will continue on consult. She received a dose of Zosyn. Review of Systems 2 Const: Denies: fever(s), chills, body aches or malaise ENMT: Denies: throat pain Card: Reports: edema (mild chronic BL); Denies: chest pain, pre-syncope or dyspnea on exertion Resp: Denies: dyspnea, productive cough, change in phlegm color or hemoptysis GI: Reports: abdominal pain, nausea, vomiting and hematochezia; Denies: diarrhea, constipation or melena : Denies: flank pain, difficulty voiding, dysuria, urinary frequency, urinary urgency, hematuria or vaginal bleeding Musc: Denies: back pain, joint swelling or joint redness Skin/Breast: Denies: rash or new lesions Neuro: Denies: headache(s), numbness in extremities, weakness in extremities, dizziness, confusion or seizure-like activity Medications/Allergies Home Medications Medication Instructions Recorded Confirmed Last Taken Type albuterol sulfate 90 mcg/actuation 2 puff inhalation Q6H PRN 07/27/19 06/23/23 06/22/23 History aerosol inhaler (ProAir HFA) Shortness Of Breath acetaminophen 500 mg tablet 1,000 mg PO Q6H PRN Pain 07/28/21 06/23/23 06/22/23 History halsfqgosasuk-oxxvqbbn-wiccujcxdr 2 tab PO DAILY PRN Menstrual Cramps 07/28/21 06/23/23 Unknown History 500 mg-60 mg-15 mg tablet (Midol Complete) ondansetron 4 mg disintegrating 4 mg PO Q6H PRN nausea and 04/21/22 06/23/23 Unknown Rx tablet vomiting #14 tabs ibuprofen 800 mg tablet 800 mg PO TID PRN Pain 07/28/22 06/23/23 06/22/23 History levothyroxine 50 mcg tablet 50 mcg PO QAM 07/28/22 06/23/23 06/23/23 History lisinopril 10 mg tablet 10 mg PO QAM 07/28/22 06/23/23 06/22/23 History lithium carbonate 300 mg capsule 300 mg PO TID 07/28/22 06/23/23 06/22/23 History metformin 500 mg tablet,extended 500 mg PO BID 07/28/22 06/23/23 06/22/23 History release 24 hr omeprazole 20 mg capsule,delayed 20 mg PO BID 07/28/22 06/23/23 06/22/23 History release ethynodiol diacetate-ethinyl 1 tab PO DAILY 01/05/23 06/23/23 06/22/23 History estradiol 1 mg-50 mcg tablet (Kelnor) hydrochlorothiazide 25 mg tablet 25 mg PO DAILY 01/05/23 06/23/23 06/22/23 History meclizine 25 mg tablet 25 mg PO QID PRN dizziness #14 tabs 01/17/23 06/23/23 Unknown Rx oxycodone-acetaminophen 10 mg-325 1 tab PO Q8H PRN pain #30 tabs 06/24/23 Unknown Rx mg tablet (Percocet) Allergies Allergy/AdvReac Type Severity Reaction Status Date / Time acetaminophen [From Percocet] Allergy Unknown Verified 06/27/23 19:07 aspirin Allergy [id number] Verified 06/27/23 19:07 diclofenac Allergy ALGY-Hives Verified 06/27/23 19:07 ethinyl estradiol Allergy ALGY-Anaphy Verified 06/27/23 19:07 [From Mononessa (28)] laxis hydromorphone [From Dilaudid] Allergy unknown Verified 06/27/23 19:07 latex Allergy ALGY-Rash Verified 06/27/23 19:07 methylphenidate Allergy Unknown Verified 06/27/23 19:07 [From Ritalin] norgestimate Allergy ALGY-Anaphy Verified 06/27/23 19:07 [From Mononessa (28)] laxis oxycodone [From Percocet] Allergy Unknown Verified 06/27/23 19:07 Sausage (due to spices) AdvReac Intermediate ADR-Nausea Uncoded 06/27/23 22:25 PFSH Acute 2 PFSH: Medical History (Updated 06/27/23 @ 22:52 by Hima Morales MD) Collar bone fracture Femur fracture, right No pertinent family history No significant past medical history Surgical History (Updated 06/27/23 @ 22:52 by Hima Morales MD) History of breast lump removal Hx of tonsillectomy S/P hysterectomy Family History Family/Other Breast cancer Maternal and Paternal aunts Father Diabetes Denies family history of Cervical cancer Colon cancer Ovarian cancer Hypertension Uterine cancer Stroke Social History Smoking and tobacco/nicotine status: never used tobacco/nicotine Alcohol intake: never Substance/Drug Use: never Vitals/I&O/Wt Last Vital Signs Temp 98.0 F 06/27/23 19:01 Pulse 85 06/27/23 21:16 Resp 16 06/27/23 21:16 BP 144/92 06/27/23 21:37 Pulse Ox 94 06/27/23 21:37 O2 Del Method Room Air 06/27/23 21:37 Weight last 48 hrs Weight 110.223 kg Physical Exam 2 Narrative: Accompanied by her life partner Const: COMMON NORMALS: patient oriented x3 and alert GENERAL APPEARANCE: c ooperative ORIENTATION/CONSCIOUSNESS: Yes awake HENMT: COMMON NORMALS: oropharynx normal Neck/C-Spine: COMMON NORMALS: no JVD Resp: COMMON NORMALS: normal respiratory effort and clear to auscultation bilaterally AUSCULTATION: clear to auscultation bilaterally Cardio: COMMON NORMALS: no JVD, regular rhythm, S1 normal heart sound present, S2 normal heart sound present and No murmurs present (Cardio) RHYTHM: regular rhythm HEART SOUNDS: S1 normal heart sound present and S2 normal heart sound present GI: COMMON NORMALS: Soft to palpation and non-tender PALPATION: Yes Soft to palpation and Yes Tenderness to palpation present (GI) Details: other (Lower) Extremity: COMMON NORMALS: no joint enlargement and no pedal edema Neuro: COMMON NORMALS: patient oriented x3 and moves all extremities S ENSORIUM/ORIENTATION: Yes alert Skin: COMMON NORMALS: no rashes or lesions noted GENERAL SKIN EXAM: no rashes or lesions noted Data 06/27/23 19:18 06/27/23 19:18 A&P Assessment and plan (1) Peritonitis: Abdominal pain, possible early peritonitis on review of CT abdomen pelvis, rectosigmoiditis. Status post JOSE/BSO on 06/23. Reviewed vitals, CBC, INR, PTT, CMP, CT abdomen pelvis, ER note, discussed with ER physician, discussed with gynecology. Blood cultures collected. Wound without signs of infection. Infection, sepsis. At risk of life-threatening Zosyn, vancomycin. Monitor for risk of kidney injury with antibiotic combination. Await this time. MRSA PCR requested. C. difficile requested. LR. Clear liquids for now although nausea, vomiting slightly better. Not hypotensive but reporting orthostasis, requested bedrest for now. (2) Rectosigmoiditis: Unclear cause of rectosigmoiditis, possibly local inflammation, possible infection. Requesting C. difficile. Noted hematochezia/blood on stool. Follow-up CBC in the morning. Zosyn. Clear liquids. Bedrest for now as reporting orthostasis. LR (3) Hematochezia: Reported blood on stool. Hemoglobin reviewed, platelets reviewed. Reassess. Noted rectosigmoiditis. Zosyn as above. Will need follow-up sigmoidoscopy. No history of recurrent colitis. (4) Orthostasis: Subjective orthostasis. Bedrest for now. Fall precautions. LR. Follow-up blood pressures. Consider orthostatic vitals prior to mobilization. Plan Nausea and vomiting: Zofran as needed, IV PPI for now. History ofgastritis: PPI, switch to IV for now Attestations 2 Medical Necessity Statement*: Admission of over 2 midnights anticipated for assessment of management of peritonitis, rectosigmoiditis, hematochezia, nausea, vomiting, orthostasis in a young lady status post JOSE/BSO 4 days ago. Diagnoses Peritonitis K65.9 Rectosigmoiditis K63.89 Hematochezia K92.1 Orthostasis I95.1
[2023-06-27] MEDS: piperacillin-tazobactam 3.375 GM in sodium chloride 0.9% (plus) 50 ML IV (22:36)
--- NOTE | 2023-06-27 22:50 | P.CONIM_ITS ---
Providers/Reason for Consult 2 Consulting Physican/Specialty*: OB-Food Stand Manager Reason for Consult*: POD #4 supracervical hysterectomy and bilateral salpingectomy abdominal pain Attending Physician: Hima Morales Primary PLUG CUTTING MACHINE OPERATOR: Hernesto Calvin MD Primary Care Provider: Roel Marshall MD PLUG CUTTING MACHINE OPERATOR Consult HPI History of Present Illness 37 y.o. s/p supracervical abdominal hysterectomy, bilateral salpingectomy June 23, 2023 was discharged home on POD #1 reports having some nausea on POD #2 and 3 no vomiting was eating well + normal BMs No fever, chills Presented today to ER c/o lower abdominal pains with blood on stools No fever, chills, vomiting No vaginal bleeding + nausea Voiding, ambulating well States no incisional pain Medications/Allergies Home Medications Medication Instructions Recorded Confirmed Last Taken Type albuterol sulfate 90 mcg/actuation 2 puff inhalation Q6H PRN 07/27/19 06/23/23 06/22/23 History aerosol inhaler (ProAir HFA) Shortness Of Breath acetaminophen 500 mg tablet 1,000 mg PO Q6H PRN Pain 07/28/21 06/23/23 06/22/23 History kiifmldnylwqi-fvrbcqnf-yjfuhavesc 2 tab PO DAILY PRN Menstrual Cramps 07/28/21 06/23/23 Unknown History 500 mg-60 mg-15 mg tablet (Midol Complete) ondansetron 4 mg disintegrating 4 mg PO Q6H PRN nausea and 04/21/22 06/23/23 Unknown Rx tablet vomiting #14 tabs ibuprofen 800 mg tablet 800 mg PO TID PRN Pain 07/28/22 06/23/23 06/22/23 History levothyroxine 50 mcg tablet 50 mcg PO QAM 07/28/22 06/23/23 06/23/23 History lisinopril 10 mg tablet 10 mg PO QAM 07/28/22 06/23/23 06/22/23 History lithium carbonate 300 mg capsule 300 mg PO TID 07/28/22 06/23/23 06/22/23 History metformin 500 mg tablet,extended 500 mg PO BID 07/28/22 06/23/23 06/22/23 History release 24 hr omeprazole 20 mg capsule,delayed 20 mg PO BID 07/28/22 06/23/23 06/22/23 History release ethynodiol diacetate-ethinyl 1 tab PO DAILY 01/05/23 06/23/23 06/22/23 History estradiol 1 mg-50 mcg tablet (Kelnor) hydrochlorothiazide 25 mg tablet 25 mg PO DAILY 01/05/23 06/23/23 06/22/23 History meclizine 25 mg tablet 25 mg PO QID PRN dizziness #14 tabs 01/17/23 06/23/23 Unknown Rx oxycodone-acetaminophen 10 mg-325 1 tab PO Q8H PRN pain #30 tabs 06/24/23 Unknown Rx mg tablet (Percocet) Allergies Allergy/AdvReac Type Severity Reaction Status Date / Time acetaminophen [From Percocet] Allergy Unknown Verified 06/27/23 19:07 aspirin Allergy [id number] Verified 06/27/23 19:07 diclofenac Allergy ALGY-Hives Verified 06/27/23 19:07 ethinyl estradiol Allergy ALGY-Anaphy Verified 06/27/23 19:07 [From Mononessa (28)] laxis hydromorphone [From Dilaudid] Allergy unknown Verified 06/27/23 19:07 latex Allergy ALGY-Rash Verified 06/27/23 19:07 methylphenidate Allergy Unknown Verified 06/27/23 19:07 [From Ritalin] norgestimate Allergy ALGY-Anaphy Verified 06/27/23 19:07 [From Mononessa (28)] laxis oxycodone [From Percocet] Allergy Unknown Verified 06/27/23 19:07 Sausage (due to spices) AdvReac Intermediate ADR-Nausea Uncoded 06/27/23 22:25 Current Medications Generic Name Dose Route Start Last Admin Trade Name Freq PRN Reason Stop Dose Admin Lactated Ringer's 1,000 mls @ 100 mls/hr 06/27/23 23:06 06/27/23 23:44 Lactated Ringers IV 100 mls/hr .Q10H LINDA Administration Vancomycin/PEG/NADA/Lysine/Water 1,250 mg in 250 mls @ 250 mls/hr 06/27/23 23:45 06/28/23 00:56 Vancocin IV Infused Q8H LINDA Infusion Morphine Sulfate 4 mg 06/27/23 23:06 02/12/24 23:35 Morphine 4 Mg/Ml Sdv 1 Ml IVP 4 mg Q4H PRN Administration SEVERE PAIN Pantoprazole Sodium 40 mg 06/27/23 23:06 06/27/23 23:35 Pantoprazole 40 Mg Sdv IVP 40 mg Q24H LINDA Administration PFSH PLUG CUTTING MACHINE OPERATOR 2 PFSH: Medical History (Updated 06/28/23 @ 01:03 by Hernesto Calvin MD) Collar bone fracture Femur fracture, right No pertinent family history No significant past medical history Surgical History (Updated 06/28/23 @ 01:03 by Hernesto Calvin MD) S/P hysterectomy History of breast lump removal Hx of tonsillectomy Family History Family/Other Breast cancer Maternal and Paternal aunts Father Diabetes Denies family history of Cervical cancer Colon cancer Ovarian cancer Hypertension Uterine cancer Stroke Social History Smoking and tobacco/nicotine status: never used tobacco/nicotine Alcohol intake: never Substance/Drug Use: never Vitals/I&O/Wt Last Vital Signs Temp 98.4 F 06/28/23 00:00 Pulse 95 06/28/23 00:00 Resp 17 06/28/23 00:00 BP 147/83 06/28/23 00:00 Pulse Ox 92 06/28/23 00:00 O2 Del Method Room Air 06/27/23 23:11 06/27/23 06/27/23 06/28/23 14:59 22:59 06:59 Intake Total 300 / 300 Balance 300 / 300 Weight last 48 hrs Weight 240 lb Weight 243 lb Physical Exam 2 Narrative: Weight 240 lbs; 5?3? Appears comfortable, awake, alert Afebrile VS normal Lungs: clear Cor: RRR Abd: soft, nondistended Mild tenderness lower quadrants Wound healing well; no erythema, swelling, exudate No rebound, guarding Ext: normal Data 06/27/23 19:18 06/27/23 19:18 Micro: Microbiology 06/27/23 22:31 Blood Culture - Preliminary Blood SPECIMEN COLLECTED 06/27/23 22:25 Blood Culture - Preliminary Blood SPECIMEN COLLECTED A&P Assessment and plan (1) S/P hysterectomy: POD #4 supracervical hysterectomy and bilateral salpingectomy (2) Abdominal pain: c/o lower abdominal pain and bloody stools possible colitis on CT scan patient afebrile normal WBC has been tolerating PO with BMs no evidence of bowel injury plan admit IV antibiotics Consult Attestations 2 Medical Necessity Statement: patient s/p hysterectomy, presented with abdominal pain and bloody stools Coding Level of Care Code Acute Code for Chg Fwd Diagnoses S/P hysterectomy Z90.710 Abdominal pain R10.9 Time Spent (min) 60
[2023-06-27 23:15] LABS: Lactic Sepsis W/Reflex 1.8 mmol/L (0.5-2.2)
[2023-06-27] MEDS: pantoprazole 40 mg SDV IVP (23:35)
[2023-06-27] MEDS: lactated ringers 1,000 ML 100 ML IV (23:44)
[2023-06-27] MEDS: vancomycin 1,250 MG/250 ML PIGGYBACK 250 MG IV (23:49)
[2023-06-28] VITALS (9 sets, daily range): BP systolic 127–160; BP diastolic 70–98; PULSE 70–102; RESP 16–18; TEMP 36.7–36.9; O2SAT 92–97
[2023-06-28] MEDS: acetaminophen 325 mg Tablet 650 MG PO (02:49)
[2023-06-28] MEDS: morphine 4 mg/mL SDV 1 mL IVP ×2 (03:37→07:55)
[2023-06-28] MEDS: piperacillin-tazobactam 3.375 GM in sodium chloride 0.9% (plus) 50 ML IV ×3 (05:12→21:06)
[2023-06-28 06:05] LABS: Basophils % 0.2 %; Eosinophils # 0.1 10^3/uL (0.0-0.8); Eosinophils % 2.6 %; Hematocrit 29.6 % (36-47); Lymphocytes # 1.7 10^3/uL (0.8-4.8); Lymphocytes % 35.7 %; Mean Corpuscular HGB Conc 31.8 g/dL (30-55); Mean Corpuscular Hemoglobin 26.3 pg (27-33); Mean Corpuscular Volume 82.7 fl (85-98); Mean Platelet Volume 10.1 fL (7.4-10.4); Monocytes # 0.3 10^3/uL (0.2-0.9); Monocytes % 6.6 %; Neutrophils # 2.57 10^3/uL (1.8-7.7); Neutrophils % 54.7 %; Nucleated Red Blood Cells % 0 %; Platelet Count 222 10^3/cmm (157-399); Red Blood Count 3.58 10^6/uL (3.85-5.65); Red Cell Distribution Width 13.4 % (12.1-15.1)
[2023-06-28 06:19] LABS: Alanine Aminotransferase 21 U/L (0-33); Albumin Level 3.4 g/dL (3.5-5.2); Alkaline Phosphatase 96 U/L (35-105); Anion Gap 15.7 (5-19); Aspartate Amino Transferase 26 U/L (0-32); Blood Urea Nitrogen 10 mg/dL (6-20); Calcium 8.3 mg/dL (8.5-10.5); Carbon Dioxide 27 mmol/L (22-29); Chloride 99 mmol/L (98-107); Globulin 2.9 g/dL (1.3-4.6); Glomerular Filtration Rate 93.2 mL/min (90-130); Glucose 133 mg/dL (65-115); Osmolality Calculated 287 mOsm/kg (285-295); Potassium 3.7 mmol/L (3.5-5.1); Sodium 138 mmol/L (136-145); Total Bilirubin 0.3 mg/dL (0.15-1.2); Total Protein 6.3 g/dL (6.6-8.7)
[2023-06-28] MEDS: vancomycin 1,250 MG/250 ML PIGGYBACK 250 MG IV ×2 (07:42→15:50)
[2023-06-28 08:49] LABS: C Reactive Protein 27.7 mg/L (0.0-4.9)
[2023-06-28 08:56] LABS: Procalcitonin 0.08 ng/mL (0-0.5)
[2023-06-28] MEDS: ondansetron 2 mg/ML SDV 2 mL 4 MG IVP (10:10)
[2023-06-28] MEDS: lactated ringers 1,000 ML 100 ML IV (10:11)
--- NOTE | 2023-06-28 11:05 | P.PN_ITS ---
OPTOMETRIC TECHNOLOGIST Subjective 2 Subjective: Interval history: 37 y.o. s/p supracervical abdominal hysterectomy, bilateral salpingectomy June 23, 2023 was discharged home on POD #1 admitted yesterday with c/o nausea, lower abdominal pain, and bloody stools CT scan of abdomen / pelvis showed possible nonspecific colitis This a.m., patient c/o still having lower abdominal pain Tolerating PO liquids States feels hungry No BMs since admission Voiding well reports having some nausea on POD #2 and 3 no vomiting was eating well + normal BMs No fever, chills No incisional pain, vaginal bleeding Vitals/I&O/Wt Last Vital Signs Temp 98.3 F 06/28/23 16:00 Pulse 102 H 06/28/23 16:00 Resp 16 06/28/23 20:03 BP 160/98 06/28/23 16:00 Pulse Ox 96 06/28/23 16:00 O2 Del Method Room Air 06/28/23 12:00 06/28/23 06/28/23 06/28/23 06:59 14:59 22:59 Intake Total 300 / 300 1350 / 1350 420 / 1770 Output Total 3400 / 3400 Balance 300 / 300 1350 / 1350 -2980 / -1630 Weight last 48 hrs Weight 251 lb 8 oz Weight 240 lb Weight 243 lb Physical Exam 2 Narrative: Weight 240 lbs; 5?3? Appears comfortable, awake, alert Afebrile VS normal Lungs: clear Cor: RRR Abd: soft, nondistended Nontender to palpation Wound healing well; no erythema, swelling, exudate No rebound, guarding Ext: normal Data 06/28/23 17:40 06/28/23 05:29 Micro: Microbiology 06/27/23 22:31 Blood Culture - Preliminary Blood SPECIMEN COLLECTED 06/27/23 22:25 Blood Culture - Preliminary Blood SPECIMEN COLLECTED A&P Assessment and plan (1) S/P hysterectomy: POD #5 supracervical hysterectomy and bilateral salpingectomy (2) Abdominal pain: Admitted with c/o lower abdominal pain and bloody stools possible colitis on CT scan patient afebrile normal WBC continues to be afebrile and with normal WBC clinical exam WNL doubt complaints are sequelae of hysterectomy continue management as per hospitalist service will continue to follow Attestations 2 Medical Necessity Statement*: patient s/p hysterectomy with c/o abdominal pain and bloody stools Coding Level of Care Code Acute Code for Chg Fwd Diagnoses S/P hysterectomy Z90.710 Abdominal pain R10.9 Time Spent (min) 30
[2023-06-28 11:57] LABS: Glucose Point of Care 136 mg/dL (70-110)
[2023-06-28 12:01] LABS: Ferritin 48 ng/mL (15-150); Iron 35 ug/dL (37-145); Percent Saturation 10.6 % (20-50); Total Iron Binding Capacity 328 mcg/dl; Unsaturated Iron Binding 293 ug/dL (112-347)
[2023-06-28] MEDS: sucralfate 1 gm/10 mL Oral Liq UDC PO ×3 (13:16→23:15)
[2023-06-28] MEDS: pantoprazole 40 mg SDV IVP ×2 (13:16→23:15)
--- NOTE | 2023-06-28 14:39 | P.CONIM_ITS ---
Providers/Reason For Consult 2 Consulting Physician/Specialty*: Dr. Eladio Herrera, DO/General surgery Reason for Consult*: Upper GI bleed Attending Physician: Stephen Hayes MD Primary Care Provider: Roel Marshall MD History of Present Illness History of Present Illness Dank Regan is a 37 year old female who recently underwent a hysterectomy, who presented to the hospital with abdominal pain, coffee-ground emesis and melena. She was taking up to 3200 mg of ibuprofen daily due to her abdominal pain prior to the symptoms. She reports that her abdominal pain has improved. She has mild left lower quadrant tenderness to palpation that does not radiate. She denies any diarrhea, constipation and/or hematochezia. She denies any heartburn. Review of Systems 2 General: Reports: 10 or more systems reviewed and unremarkable except in HPI and below Medications/Allergies Home Medications Medication Instructions Recorded Confirmed Last Taken Type albuterol sulfate 90 mcg/actuation 2 puff inhalation Q6H PRN 07/27/19 06/28/23 06/26/23 22:00 History aerosol inhaler (ProAir HFA) Shortness Of Breath acetaminophen 500 mg tablet 1,000 mg PO Q6H PRN Pain 07/28/21 06/28/23 06/27/23 08:00 History ondansetron 4 mg disintegrating 4 mg PO Q6H PRN nausea and 04/21/22 06/28/23 Unknown Rx tablet vomiting #14 tabs ibuprofen 800 mg tablet 800 mg PO TID PRN Pain 07/28/22 06/28/23 06/27/23 10:00 History levothyroxine 50 mcg tablet 50 mcg PO QAM 07/28/22 06/28/23 06/27/23 09:00 History lisinopril 10 mg tablet 10 mg PO QAM 07/28/22 06/28/23 06/27/23 10:00 History lithium carbonate 300 mg capsule 300 mg PO TID 07/28/22 06/28/23 06/27/23 10:00 History metformin 500 mg tablet,extended 500 mg PO BID 07/28/22 06/28/23 06/27/23 10:00 History release 24 hr omeprazole 20 mg capsule,delayed 20 mg PO BID 07/28/22 06/28/23 06/27/23 09:00 History release hydrochlorothiazide 25 mg tablet 25 mg PO DAILY 01/05/23 06/28/23 06/27/23 09:00 History meclizine 25 mg tablet 25 mg PO QID PRN dizziness #14 tabs 01/17/23 06/28/23 Unknown Rx Allergies Allergy/AdvReac Type Severity Reaction Status Date / Time acetaminophen [From Percocet] Allergy Unknown Verified 06/27/23 19:07 aspirin Allergy [id number] Verified 06/27/23 19:07 diclofenac Allergy ALGY-Hives Verified 06/27/23 19:07 ethinyl estradiol Allergy ALGY-Anaphy Verified 06/27/23 19:07 [From Mononessa (28)] laxis hydromorphone [From Dilaudid] Allergy unknown Verified 06/27/23 19:07 latex Allergy ALGY-Rash Verified 06/27/23 19:07 methylphenidate Allergy Unknown Verified 06/27/23 19:07 [From Ritalin] norgestimate Allergy ALGY-Anaphy Verified 06/27/23 19:07 [From Mononessa (28)] laxis oxycodone [From Percocet] Allergy Unknown Verified 06/27/23 19:07 Sausage (due to spices) AdvReac Intermediate ADR-Nausea Uncoded 06/27/23 22:25 Current Medications Generic Name Dose Route Start Last Admin Trade Name Freq PRN Reason Stop Dose Admin Acetaminophen 650 mg 06/27/23 23:06 06/28/23 02:49 Acetaminophen 325 Mg Tablet PO 650 mg Q6H PRN Administration Mild/Mod Pain Or Temp >/= 101 Fentanyl 50 mcg 06/29/23 13:19 06/29/23 13:44 Fentanyl 50 Mcg/Ml Inj 2ml IVP 50 mcg ONCE PRN Administration Preop or postop pain Lactated Ringer's 1,000 mls @ 100 mls/hr 06/27/23 23:06 06/29/23 02:02 Lactated Ringers IV 100 mls/hr .Q10H LINDA Administration Piperacillin Sod/Tazobactam 50 mls @ 12.5 mls/hr 06/28/23 06:00 06/29/23 09:39 Sod 3.375 gm/ Sodium Chloride IV Infused Q8H LINDA Infusion Protocol Vancomycin/PEG/NADA/Lysine/Water 1,250 mg in 250 mls @ 250 mls/hr 06/27/23 23:45 06/29/23 09:08 Vancocin IV Infused Q8H LINDA Infusion Sodium Chloride 1,000 mls @ 30 mls/hr 06/29/23 13:30 06/29/23 13:45 Sodium Chloride 0.9% IV 06/30/23 13:29 30 mls/hr .Q24H LINDA Administration Insulin Human Lispro 0 unit 06/28/23 12:00 06/29/23 12:05 Insulin Lispro 100 Unit/1 Ml SUBCUT Not Given TIDWM LINDA Protocol Morphine Sulfate 2 mg 06/28/23 11:02 06/29/23 11:07 Morphine 4 Mg/Ml Sdv 1 Ml IVP 2 mg Q4H PRN Administration SEVERE PAIN Ondansetron HCl 4 mg 06/27/23 23:06 06/28/23 10:10 Ondansetron 2 Mg/Ml Sdv 2 Ml IVP 4 mg Q8H PRN Administration vomiting, or N/V if npo Pantoprazole Sodium 40 mg 06/28/23 11:02 06/29/23 10:56 Pantoprazole 40 Mg Sdv IVP 40 mg Q12H LINDA Administration Sucralfate 1 gm 06/28/23 11:15 06/29/23 10:56 Sucralfate 1 Gm/10 Ml Oral Liq Udc PO Not Given Q6H LINDA PFSH Acute 2 PFSH: Medical History Collar bone fracture Femur fracture, right No pertinent family history No significant past medical history Surgical History S/P hysterectomy History of breast lump removal Hx of tonsillectomy Family History Family/Other Breast cancer Maternal and Paternal aunts Father Diabetes Denies family history of Cervical cancer Colon cancer Ovarian cancer Hypertension Uterine cancer Stroke Social History Smoking and tobacco/nicotine status: never used tobacco/nicotine Alcohol intake: never Substance/Drug Use: never Vitals/I&O/Wt Last Vital Signs Temp 97.0 F L 06/29/23 13:20 Pulse 81 06/29/23 13:20 Resp 16 06/29/23 13:20 BP 145/91 06/29/23 13:20 Pulse Ox 98 06/29/23 13:20 O2 Del Method Room Air 06/29/23 13:20 06/28/23 06/29/23 06/29/23 22:59 06:59 14:59 Intake Total 1420 / 2770 300 / 3070 300 / 300 Output Total 3400 / 3400 800 / 4200 700 / 700 Balance -1980 / -630 -500 / -1130 -400 / -400 Weight last 48 hrs Weight 247 lb Weight 251 lb 8 oz Weight 240 lb Weight 243 lb Physical Exam 2 Narrative: General : Patient is well developed , no acute distress, oriented x3 Head : Normal cephalic, a-traumatic. Ears : Pinnae and external canal are normal. Hearing is normal. Eyes : PERRLA, Sclera and injection are normal. No conjunctival discharge. Nose : Mucous membranes are without erythema. Throat : buccal mucosa is normal, gums are without significant recession or hypertrophy. Lungs : Equal chest rise bilaterally, no use of accessory muscles, trachea is midline. Cor : Rate and rhythm are normal. Abdomen : Soft, ND, mild left lower quadrant tenderness, no g/r/m Extremities : No edema, no cyanosis or clubbing, dorsalis pedis pulses are present bilaterally, non-tender to palpation of calves. Upper extremities are normal bilaterally. Back : non-tender to palpation, no CVA tenderness. Neuro : CN II - XII intact, Upper and lower extremities have equal and full strength Data 06/29/23 05:23 06/29/23 05:23 Micro: Microbiology 06/28/23 23:15 Gram Stain - Final Abdomen 06/27/23 22:31 Blood Culture - Preliminary Blood NEGATIVE TO DATE 06/27/23 22:25 Blood Culture - Preliminary Blood NEGATIVE TO DATE A&P Assessment and plan (1) Upper GI bleed: Plan N.p.o. after midnight tonight EGD The risks and benefits of the procedure, including bleeding, infection, intestinal perforation requiring surgery, missed lesion were explained to the patient. The patient is understanding of the risks and wishes to proceed. Coding Level of Care Code 14056 Diagnoses Upper GI bleed K92.2
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
[2023-06-28 17:03] LABS: Glucose Point of Care 146 mg/dL (70-110)
[2023-06-28 18:18] LABS: Hematocrit 31.8 % (36-47)
[2023-06-28] MEDS: insulin lispro 100 unit/1 mL SUBCUT (18:24)
[2023-06-28] MEDS: morphine 4 mg/mL SDV 1 mL 2 MG IVP (20:03)
[2023-06-28 22:40] LABS: Hematocrit 30.8 % (36-47)
[2023-06-28 23:15] LABS: Add Urine Microscopic? NO; Charge for UA Resulting for Rev
[2023-06-28 23:27] LABS: Bilirubin Urine Neg (Negative); Blood Urine Neg (Negative); Glucose Urine UA Norm (Normal); Ketones Urine Negative (Negative); Leukocyte Esterase Urine Negative (Negative); Nitrate Urine Negative (Negative); Protein Urine Neg (Negative); Specific Gravity, Urine 1.005 (1.005-1.030); Urine Appearance Clear (CLEAR); Urine Color Light yellow (Yellow); Urobilinogen Urine Neg (Negative); pH Urine 6.5 (5-7)
[2023-06-29] VITALS (17 sets, daily range): BP systolic 123–147; BP diastolic 76–91; PULSE 77–111; RESP 16–20; TEMP 36.1–37.5; O2SAT 93–98
[2023-06-29] MEDS: vancomycin 1,250 MG/250 ML PIGGYBACK 250 MG IV ×4 (00:02→22:34)
[2023-06-29] MEDS: morphine 4 mg/mL SDV 1 mL 2 MG IVP ×4 (00:06→23:19)
[2023-06-29 00:13] LABS: Vancomycin Trough 12.1 ug/mL (10-15)
[2023-06-29] MEDS: lactated ringers 1,000 ML 100 ML IV ×2 (02:02→16:49)
[2023-06-29] MEDS: sucralfate 1 gm/10 mL Oral Liq UDC PO ×3 (05:32→22:34)
[2023-06-29] MEDS: piperacillin-tazobactam 3.375 GM in sodium chloride 0.9% (plus) 50 ML IV ×2 (05:32→23:55)
[2023-06-29 05:58] LABS: Basophils % 0.4 %; Eosinophils # 0.1 10^3/uL (0.0-0.8); Eosinophils % 2.2 %; Hematocrit 29.9 % (36-47); Lymphocytes # 1.6 10^3/uL (0.8-4.8); Lymphocytes % 33.6 %; Mean Corpuscular HGB Conc 32.1 g/dL (30-55); Mean Corpuscular Hemoglobin 26.7 pg (27-33); Mean Corpuscular Volume 83.3 fl (85-98); Monocytes # 0.4 10^3/uL (0.2-0.9); Neutrophils # 2.56 10^3/uL (1.8-7.7); Neutrophils % 55.6 %; Nucleated Red Blood Cells % 0 %; Platelet Count 214 10^3/cmm (157-399); Red Blood Count 3.59 10^6/uL (3.85-5.65); Red Cell Distribution Width 13.2 % (12.1-15.1); White Blood Count 4.61 10^3/uL (3.29-11.43)
[2023-06-29 06:23] LABS: Alanine Aminotransferase 19 U/L (0-33); Albumin Level 3.4 g/dL (3.5-5.2); Alkaline Phosphatase 94 U/L (35-105); Anion Gap 13.7 (5-19); Aspartate Amino Transferase 25 U/L (0-32); Blood Urea Nitrogen 8 mg/dL (6-20); Calcium 8.3 mg/dL (8.5-10.5); Carbon Dioxide 27 mmol/L (22-29); Chloride 103 mmol/L (98-107); Globulin 2.8 g/dL (1.3-4.6); Glomerular Filtration Rate 93.2 mL/min (90-130); Glucose 127 mg/dL (65-115); Osmolality Calculated 290 mOsm/kg (285-295); Potassium 3.7 mmol/L (3.5-5.1); Sodium 140 mmol/L (136-145); Total Bilirubin 0.4 mg/dL (0.15-1.2); Total Protein 6.2 g/dL (6.6-8.7)
[2023-06-29 06:34] LABS: Glucose Point of Care 124 mg/dL (70-110)
[2023-06-29] MEDS: pantoprazole 40 mg SDV IVP ×2 (10:56→23:09)
[2023-06-29 12:04] LABS: Glucose Point of Care 155 mg/dL (70-110)
--- NOTE | 2023-06-29 13:24 | P.PN_ITS ---
Subjective 2 Subjective: Patient was seen this morning, he denies any fevers, no chills, no cough, she is awaiting her EGD, denies any blood or black stools her abdominal pain is significantly improved he has not had a bowel movement, she is a bit upset about being n.p.o. for the EGD Vitals/I&O/Wt Last Vital Signs Temp 97.0 F L 06/29/23 13:20 Pulse 81 06/29/23 13:20 Resp 16 06/29/23 13:20 BP 145/91 06/29/23 13:20 Pulse Ox 98 06/29/23 13:20 O2 Del Method Room Air 06/29/23 13:20 06/28/23 06/29/23 06/29/23 22:59 06:59 14:59 Intake Total 1420 / 2770 300 / 3070 300 / 300 Output Total 3400 / 3400 800 / 4200 700 / 700 Balance -1980 / -630 -500 / -1130 -400 / -400 Weight last 48 hrs Weight 112.037 kg Weight 114.078 kg Weight 108.862 kg Weight 110.223 kg Physical Exam 2 Const: COMMON NORMALS: no acute distress and patient oriented x3 Resp: COMMON NORMALS: normal respiratory effort, No retractions, No use of accessory muscles and clear to auscultation bilaterally AUSCULTATION: clear to auscultation bilaterally Cardio: COMMON NORMALS: regular rate, regular rhythm, S1 normal heart sound present and S2 normal heart sound present RATE: regular rate RHYTHM: r egular rhythm HEART SOUNDS: S1 normal heart sound present and S2 normal heart sound present GI: COMMON NORMALS: Normal to inspection, nondistended, normoactive bowel sounds present and non-tender OTHER: Surgical site looks clean and dry Extremity: COMMON NORMALS: no calf tenderness and no pedal edema Neuro: COMMON NORMALS: patient oriented x3 Psych: COMMON NORMALS: mental status grossly normal Data 06/29/23 05:23 06/29/23 05:23 Micro: Microbiology 06/28/23 23:15 Gram Stain - Final Abdomen 06/27/23 22:31 Blood Culture - Preliminary Blood NEGATIVE TO DATE 06/27/23 22:25 Blood Culture - Preliminary Blood NEGATIVE TO DATE A&P Assessment and plan (1) Peritonitis: CT/CT abdomen pelvis w con* [id number] IMPRESSION: 1. Nonspecific changes involving the mesenteric fat planes just deep to the abdominal wall within the upper pelvis raising concern for developing peritonitis for which clinical correlation and follow-up recommended. 2. Subtle colonic wall thickening involving short segment of large bowel at the rectosigmoid junction that may be secondary to mild segmental colitis. -Currently afebrile, Pro-Sadi 0.08, CRP 27.7 -Her pain is more at the surgical site and incision site with complaints of drainage around that site -For now continue IV antibiotics vancomycin, Zosyn -Monitor for fevers -Monitor blood cultures (2) Rectosigmoiditis: - Follow stool studies -IV antibiotics as above (3) Hematochezia: (4) Orthostasis: - Continue IV fluids (5) GI bleed due to NSAIDs: - Reports 3200 mg of ibuprofen use daily for postoperative pain -With complaints of black tarry stools, with also hematochezia -Has evidence of iron deficiency anemia -Her abdominal pain is more in the lower abdomen -Nonetheless consulted general surgery for EGD -Keep on clear liquids, n.p.o. currently for EGD -Protonix 40 mg IV twice daily, Carafate 1 g every 6 hours Plan Nausea and vomiting: Zofran as needed, IV PPI for now. History ofgastritis: PPI, switch to IV for now Plan for today EGD, continue Protonix, Carafate, continue IV antibiotics will transition to p.o. antibiotics later on this evening watch for 24 hours will consider discharge based on clinical progress Attestations 2 Medical Necessity Statement*: Patient requires hospitalization for gastritis, abdominal pain, peritonitis Diagnoses Peritonitis K65.9 Rectosigmoiditis K63.89 Hematochezia K92.1 Orthostasis I95.1 GI bleed due to NSAIDs K92.2; T39.395A
[2023-06-29] MEDS: fentaNYL 50 mcg/mL INJ 2mL IVP (13:44)
[2023-06-29] MEDS: sodium chloride 0.9% 1,000 ML 30 ML IV (13:45)
--- NOTE | 2023-06-29 14:40 | P.PN_ITS ---
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 Subjective: Interval history: c/o mild lower abdominal pain but states less than yesterday feels hungry has been tolerating PO no BMs voiding, ambulating well patient had UGI endoscopy done today Vitals/I&O/Wt Last Vital Signs Temp 98.3 F 06/29/23 20:00 Pulse 84 06/29/23 20:00 Resp 16 06/29/23 20:00 BP 134/81 06/29/23 20:00 Pulse Ox 95 06/29/23 20:00 O2 Del Method Room Air 06/29/23 20:00 06/29/23 06/29/23 06/29/23 06:59 14:59 22:59 Intake Total 300 / 3070 1300 / 1300 980 / 2280 Output Total 800 / 4200 700 / 700 600 / 1300 Balance -500 / -1130 600 / 600 380 / 980 Weight last 48 hrs Weight 247 lb Weight 251 lb 8 oz Weight 240 lb Physical Exam 2 Narrative: Comfortable, awake, alert Afebrile, VS normal Abd: soft, nontender Wound healing well Ext: normal Data 06/29/23 05:23 06/29/23 05:23 Micro: Microbiology 06/28/23 23:15 Gram Stain - Final Abdomen 06/27/23 22:31 Blood Culture - Preliminary Blood NEGATIVE TO DATE 06/27/23 22:25 Blood Culture - Preliminary Blood NEGATIVE TO DATE A&P Assessment and plan (1) S/P hysterectomy: POD #6 supracervical hysterectomy and bilateral salpingectomy Admitted with c/o lower abdominal pain and bloody stools possible colitis on CT scan patient afebrile normal WBC continues to be afebrile and with normal WBC clinical exam WNL doubt complaints are sequelae of hysterectomy continue management as per hospitalist service will continue to follow Attestations 2 Medical Necessity Statement*: patient s/p hysterectomy, admitted with possible colitis Coding Level of Care Code Acute Code for Chg Fwd Diagnoses S/P hysterectomy Z90.710 Time Spent (min) 20
--- NOTE | 2023-06-29 14:42 | P.PN_ITS ---
Vitals/I&O/Wt Last Vital Signs Temp 97.0 F L 06/29/23 13:20 Pulse 81 06/29/23 13:20 Resp 16 06/29/23 13:20 BP 145/91 06/29/23 13:20 Pulse Ox 98 06/29/23 13:20 O2 Del Method Room Air 06/29/23 13:20 06/28/23 06/29/23 06/29/23 22:59 06:59 14:59 Intake Total 1420 / 2770 300 / 3070 300 / 300 Output Total 3400 / 3400 800 / 4200 700 / 700 Balance -1980 / -630 -500 / -1130 -400 / -400 Weight last 48 hrs Weight 247 lb Weight 251 lb 8 oz Weight 240 lb Weight 243 lb Data 06/29/23 05:23 06/29/23 05:23 Micro: Microbiology 06/28/23 23:15 Gram Stain - Final Abdomen 06/27/23 22:31 Blood Culture - Preliminary Blood NEGATIVE TO DATE 06/27/23 22:25 Blood Culture - Preliminary Blood NEGATIVE TO DATE A&P Assessment and plan (1) Upper GI bleed: Plan EGD The risks and benefits of the procedure, including bleeding, infection, intestinal perforation requiring surgery, missed lesion were explained to the patient. The patient is understanding of the risks and wishes to proceed. Attestations 2 Medical Necessity Statement*: Per primary Coding Level of Care Code Acute Code for Chg Fwd Diagnoses Upper GI bleed K92.2
--- NOTE | 2023-06-29 14:49 | P.ANESASSM_ITS ---
Pre-Anesthetic Assessment Height/Weight: Height 1.6 m Weight 112.037 kg Temp Pulse Resp BP Pulse Ox O2 Del Method 97.0 F L 81 16 145/91 98 Room Air 06/29/23 13:20 06/29/23 13:20 06/29/23 13:20 06/29/23 13:20 06/29/23 13:20 06/29/23 13:20 Preop Diagnosis: gi bleed Operation Date: 06/29/23 14:15 Proposed Procedures p EGD(Not Applicable) - Eladio Herrera, DO Was Beta Jesus taken within 24 hours: N/A Was Clonidine taken within 24 hours: N/A Last intake: Intake Last Liquid Date 06/28/23 Last Liquid Time 22:00 Last Solid Date 06/27/23 Social No alcohol and No tobacco Exam alert, oriented x 3, clear to auscultation bilaterally and regular rate & rhythm Airway Submandibular: within normal limits Cervical ROM: within normal limits Mallampati: Class I History/ROS No significant history except as noted Pulmonary Sleep Apnea CV/HEM Hypertension and None reported None reported Hepatic None reported GI Gastroesophageal Reflux Disease Metabolic Morbid Obesity and Thyroid Disease [facility] [place] None reported Neuropsych Anxiety, Bipolar and Depression Anesthetic Plan ASA status: 3 Anesthesia: Anesthesia Evaluation and General Risk of > 500 ml blood loss (7ml/kg in children): Yes, adequate IV access and fluids planned Medications/Allergies Home Medications Medication Instructions Recorded Confirmed Last Taken Type albuterol sulfate 90 mcg/actuation 2 puff inhalation Q6H PRN 07/27/19 06/28/23 06/26/23 22:00 History aerosol inhaler (ProAir HFA) Shortness Of Breath acetaminophen 500 mg tablet 1,000 mg PO Q6H PRN Pain 07/28/21 06/28/23 06/27/23 08:00 History ondansetron 4 mg disintegrating 4 mg PO Q6H PRN nausea and 04/21/22 06/28/23 Unknown Rx tablet vomiting #14 tabs ibuprofen 800 mg tablet 800 mg PO TID PRN Pain 07/28/22 06/28/23 06/27/23 10:00 History levothyroxine 50 mcg tablet 50 mcg PO QAM 07/28/22 06/28/23 06/27/23 09:00 History lisinopril 10 mg tablet 10 mg PO QAM 07/28/22 06/28/23 06/27/23 10:00 History lithium carbonate 300 mg capsule 300 mg PO TID 07/28/22 06/28/23 06/27/23 10:00 History metformin 500 mg tablet,extended 500 mg PO BID 07/28/22 06/28/23 06/27/23 10:00 History release 24 hr omeprazole 20 mg capsule,delayed 20 mg PO BID 07/28/22 06/28/23 06/27/23 09:00 History release hydrochlorothiazide 25 mg tablet 25 mg PO DAILY 01/05/23 06/28/23 06/27/23 09:00 History meclizine 25 mg tablet 25 mg PO QID PRN dizziness #14 tabs 01/17/23 06/28/23 Unknown Rx Allergies Allergy/AdvReac Type Severity Reaction Status Date / Time acetaminophen [From Percocet] Allergy Unknown Verified 06/27/23 19:07 aspirin Allergy [id number] Verified 06/27/23 19:07 diclofenac Allergy ALGY-Hives Verified 06/27/23 19:07 ethinyl estradiol Allergy ALGY-Anaphy Verified 06/27/23 19:07 [From Mononessa (28)] laxis hydromorphone [From Dilaudid] Allergy unknown Verified 06/27/23 19:07 latex Allergy ALGY-Rash Verified 06/27/23 19:07 methylphenidate Allergy Unknown Verified 06/27/23 19:07 [From Ritalin] norgestimate Allergy ALGY-Anaphy Verified 06/27/23 19:07 [From Mononessa (28)] laxis oxycodone [From Percocet] Allergy Unknown Verified 06/27/23 19:07 Sausage (due to spices) AdvReac Intermediate ADR-Nausea Uncoded 06/27/23 22:25 Current Medications Generic Name Dose Route Start Last Admin Trade Name Freq PRN Reason Stop Dose Admin Acetaminophen 650 mg 06/27/23 23:06 06/28/23 02:49 Acetaminophen 325 Mg Tablet PO 650 mg Q6H PRN Administration Mild/Mod Pain Or Temp >/= 101 Fentanyl 50 mcg 06/29/23 13:19 06/29/23 13:44 Fentanyl 50 Mcg/Ml Inj 2ml IVP 50 mcg ONCE PRN Administration Preop or postop pain Lactated Ringer's 1,000 mls @ 100 mls/hr 06/27/23 23:06 06/29/23 02:02 Lactated Ringers IV 100 mls/hr .Q10H LINDA Administration Piperacillin Sod/Tazobactam 50 mls @ 12.5 mls/hr 06/28/23 06:00 06/29/23 09:39 Sod 3.375 gm/ Sodium Chloride IV Infused Q8H LINDA Infusion Protocol Vancomycin/PEG/NADA/Lysine/Water 1,250 mg in 250 mls @ 250 mls/hr 06/27/23 23:45 06/29/23 09:08 Vancocin IV Infused Q8H LINDA Infusion Sodium Chloride 1,000 mls @ 30 mls/hr 06/29/23 13:30 06/29/23 13:45 Sodium Chloride 0.9% IV 06/30/23 13:29 30 mls/hr .Q24H LINDA Administration Insulin Human Lispro 0 unit 06/28/23 12:00 06/29/23 12:05 Insulin Lispro 100 Unit/1 Ml SUBCUT Not Given [facility] Protocol Morphine Sulfate 2 mg 06/28/23 11:02 06/29/23 11:07 Morphine 4 Mg/Ml Sdv 1 Ml IVP 2 mg Q4H PRN Administration SEVERE PAIN Ondansetron HCl 4 mg 06/27/23 23:06 06/28/23 10:10 Ondansetron 2 Mg/Ml Sdv 2 Ml IVP 4 mg Q8H PRN Administration vomiting, or N/V if npo Pantoprazole Sodium 40 mg 06/28/23 11:02 06/29/23 10:56 Pantoprazole 40 Mg Sdv IVP 40 mg Q12H LINDA Administration Sucralfate 1 gm 06/28/23 11:15 06/29/23 10:56 Sucralfate 1 Gm/10 Ml Oral Liq Udc PO Not Given Q6H LINDA PFSH Anesthesia Medical History Collar bone fracture Femur fracture, right No pertinent family history No significant past medical history Surgical History S/P hysterectomy History of breast lump removal Hx of tonsillectomy Family History Family/Other Breast cancer Maternal and Paternal aunts Father Diabetes Denies family history of Cervical cancer Colon cancer Ovarian cancer Hypertension Uterine cancer Stroke Social History Smoking and tobacco/nicotine status: never used tobacco/nicotine Alcohol intake: never Substance/Drug Use: never Data Anesthesia 06/29/23 05:23 06/29/23 05:23 Short CBC 06/27/23 06/28/23 06/28/23 Range/Units 19:18 05:29 12:51 WBC 4.80 4.70 (3.29-11.43) 10^3/uL Hgb 10.20 L 9.40 L 10.30 L (11.27-16.99) g/dL Hct 31.1 L 29.6 L 32.0 L (36-47) % MCV 81.6 L 82.7 L (85-98) fl Plt Count 227 222 (157-399) 10^3/cmm Neut % (Auto) 55.5 54.7 % Neut # (Auto) 2.66 2.57 (1.8-7.7) 10^3/uL 06/28/23 06/28/23 06/29/23 Range/Units 17:40 22:18 05:23 WBC 4.61 (3.29-11.43) 10^3/uL Hgb 10.20 L 10.20 L 9.60 L (11.27-16.99) g/dL Hct 31.8 L 30.8 L 29.9 L (36-47) % MCV 83.3 L (85-98) fl Plt Count 214 (157-399) 10^3/cmm Neut % (Auto) 55.6 % Neut # (Auto) 2.56 (1.8-7.7) 10^3/uL BMP 06/27/23 06/28/23 06/29/23 19:18 05:29 05:23 Sodium 137 138 140 Potassium 3.5 3.7 3.7 Chloride 98 99 103 Carbon Dioxide 30 H 27 27 BUN 10 10 8 Creatinine 0.6 0.7 0.7 Glucose 132 H 133 H 127 H Calcium 8.8 8.3 L 8.3 L Liver Function 06/27/23 06/28/23 06/29/23 Range/Units 19:18 05:29 05:23 Total Bilirubin 0.2 0.3 0.4 (0.15-1.2) mg/dL AST 27 26 25 (0-32) U/L ALT 23 21 19 (0-33) U/L Alkaline Phosphatase 96 96 94 (35-105) U/L Albumin 3.6 3.4 L 3.4 L (3.5-5.2) g/dL Urine 06/28/23 Range/Units 22:06 Urine Color Light yellow (Yellow) Urine Appearance Clear (CLEAR) Urine pH 6.5 (5-7) Ur Specific [place] 1.005 (1.005-1.030) Urine Protein Neg (Negative) Urine Glucose (UA) Norm (Normal) Urine Ketones Negative (Negative) Urine Nitrate Negative (Negative) Urine Bilirubin Neg (Negative) Ur Leukocyte Esterase Negative (Negative) Coags 06/27/23 06/28/23 19:18 05:29 PT 12.70 INR 0.92 APTT 23.2 L C-Reactive Protein 27.7 H Microbiology 06/28/23 23:15 Gram Stain - Final Abdomen 06/27/23 22:31 Blood Culture - Preliminary Blood NEGATIVE TO DATE 06/27/23 22:25 Blood Culture - Preliminary Blood NEGATIVE TO DATE Cardiac Studies: 2 No Data to Display
--- NOTE | 2023-06-29 16:38 | ANE.PACU2 ---
Inpatient post-anesthesia follow up: Airway intact: Yes Vital signs: Temperature 97.9 F Pulse Rate 90 Respiratory Rate 16 Blood Pressure [Or thostatic 154/96 Standing Left Arm] Blood Pressure [Or thostatic 141/100 Sitting Left Arm] Blood Pressure [Or thostatic 170/90 Lying Left Arm] Blood Pressure 136/90 Pulse Oximetry 95 Oxygen Delivery Me thod Room Air Oxygen Flow Rate Fraction of Inspir ed Oxygen Hydration adequate: Yes Nausea and vomiting: No Pain level: 2 Mental status: Baseline
[2023-06-29 16:57] LABS: Glucose Point of Care 118 mg/dL (70-110)
[2023-06-29 16:59] LABS: Methicillin-Resist S.aureu PCR NOT DETECTED (NOT DETECTED)
[2023-06-29 21:07] LABS: Glucose Point of Care 126 mg/dL (70-110)
[2023-06-30 03:44] VITALS: BP 128/71; PULSE 86; RESP 16; TEMP 36.9; O2SAT 95
[2023-06-30] MEDS: lactated ringers 1,000 ML 100 ML IV (04:00)
[2023-06-30 05:36] LABS: Basophils % 0.2 %; Eosinophils # 0.1 10^3/uL (0.0-0.8); Eosinophils % 2.8 %; Hematocrit 28.3 % (36-47); Lymphocytes # 1.4 10^3/uL (0.8-4.8); Lymphocytes % 30.6 %; Mean Corpuscular HGB Conc 32.2 g/dL (30-55); Mean Corpuscular Hemoglobin 26.8 pg (27-33); Mean Corpuscular Volume 83.2 fl (85-98); Mean Platelet Volume 9.6 fL (7.4-10.4); Monocytes # 0.4 10^3/uL (0.2-0.9); Monocytes % 8.1 %; Neutrophils # 2.72 10^3/uL (1.8-7.7); Neutrophils % 58.1 %; Nucleated Red Blood Cells % 0 %; Platelet Count 183 10^3/cmm (157-399); Red Cell Distribution Width 13.2 % (12.1-15.1); White Blood Count 4.68 10^3/uL (3.29-11.43)
[2023-06-30 05:55] LABS: Alanine Aminotransferase 17 U/L (0-33); Albumin Level 3.3 g/dL (3.5-5.2); Alkaline Phosphatase 86 U/L (35-105); Anion Gap 11.4 (5-19); Aspartate Amino Transferase 16 U/L (0-32); Blood Urea Nitrogen 10 mg/dL (6-20); Calcium 8.1 mg/dL (8.5-10.5); Carbon Dioxide 27 mmol/L (22-29); Chloride 104 mmol/L (98-107); Globulin 2.5 g/dL (1.3-4.6); Glomerular Filtration Rate 93.2 mL/min (90-130); Glucose 126 mg/dL (65-115); Osmolality Calculated 289 mOsm/kg (285-295); Potassium 3.4 mmol/L (3.5-5.1); Sodium 139 mmol/L (136-145); Total Bilirubin 0.2 mg/dL (0.15-1.2); Total Protein 5.8 g/dL (6.6-8.7)
[2023-06-30] MEDS: sucralfate 1 gm/10 mL Oral Liq UDC PO ×2 (05:57→10:18)
[2023-06-30 06:00] VITALS: BMI 43.7
[2023-06-30 06:39] LABS: Glucose Point of Care 137 mg/dL (70-110)
[2023-06-30 07:57] VITALS: BP 160/96; PULSE 81; RESP 16; TEMP 36.9; O2SAT 98
[2023-06-30] MEDS: vancomycin 1,250 MG/250 ML PIGGYBACK 250 MG IV (07:57)
[2023-06-30 07:58] VITALS: RESP 16; O2SAT 98
[2023-06-30] MEDS: morphine 4 mg/mL SDV 1 mL 2 MG IVP (07:58)
[2023-06-30] MEDS: piperacillin-tazobactam 3.375 GM in sodium chloride 0.9% (plus) 50 ML IV (09:11)
[2023-06-30] MEDS: potassium chloride ER 20 mEq Tablet PO (09:11)
[2023-06-30 09:20] LABS: Estmated Average Glucose 131; Hemoglobin A1C 6.2 % (4.0-6.0)
[2023-06-30] MEDS: HYDROcodone-acetaminophen 5-325 mg Tablet 1 TAB PO (10:18)
[2023-06-30] MEDS: pantoprazole 40 mg SDV IVP (10:19)
[2023-06-30 11:09] LABS: Glucose Point of Care 152 mg/dL (70-110)
--- NOTE | 2023-06-30 11:40 | PM.DCS ---
Discharge Providers Date of Admission: 06/27/23 21:41 Date of Discharge: June 30, 2023 Attending Provider at Admission: Hima Morales Attending Provider at Discharge: Stephen Hayes MD Primary Care Provider: Roel Marshall MD Diagnoses at Discharge Discharge Diagnosis (1) S/P hysterectomy: Status: Acute Reason for Visit Reason for Visit: blood stool, vomit nausea dizzy hystrec 4days ago Hospital Course Hospital Course Pleasant 37-year lady status post JOSE/BSO on 06/23 due to menorrhagia discharged 06/24 returns to the hospital due to lower abdominal pain, has been having nausea, several episodes of vomiting, although not tonight, also has been feeling somewhat lightheaded with getting up, and noticed blood in the stool. Denies blood in the pad. Has been having bowel movements. At home temperatures have been 99 to sometimes up to 99.9. In ER without leukocytosis. Afebrile. Due to abdominal pain CT abdomen pelvis obtained with nonspecific changes involving mesenteric fat planes just deep to abdominal wall within upper pelvis raising concern for developing peritonitis. Subtle colonic wall thickening involving short segment of large bowel at the rectosigmoid junction may be secondary to mild segmental colitis. Gynecology was contacted, requesting admission with hospitalist and will continue on consult. She received a dose of Zosyn. Patient presented to [facility] for complaints of abdominal pain -On admission there was concerns for peritonitis, Rectosigmoiditis, status post hysterectomy and salpingectomy, she was clinically monitored on broad-spectrum antibiotic therapy, overall clinically improved, cultures so far unremarkable remains afebrile, consulted Dr. Calvin, recommended medical management, will be discharged on 5 remaining days of p.o. antibiotics, follow-up with primary care provider as outpatient Patient's abdominal pain was likely secondary to slow GI bleeding gastritis related to NSAID use she does report 3200 mg of ibuprofen use daily for postoperative pain, with complaints of black tarry stools and hematochezia with evidence of iron deficiency, she underwent EGD which did show patchy gastritis, with contact bleeding, will be discharged on Protonix, Carafate, instructions to avoid NSAID use, follow-up with primary care provider as outpatient for recheck hemoglobin For patient's postoperative pain I am going to discharge her in a short supply of hydrocodone to be used sparingly for pain, do not drive or operate machinery or drink while taking medication Physical Exam Const: COMMON NORMALS: no acute distress and patient oriented x3 Resp: COMMON NORMALS: normal respiratory effort, No retractions, No use of accessory muscles and clear to auscultation bilaterally AUSCULTATION: clear to auscultation bilaterally Cardio: COMMON NORMALS: regular rate, regular rhythm, S1 normal heart sound present and S2 normal heart sound present RATE: regular rate RHYTHM: regular rhythm HEART SOUNDS: S1 normal heart sound present and S2 normal heart sound present GI: COMMON NORMALS: Normal to inspection, nondistended, normoactive bowel sounds present and non-tender Extremity: COMMON NORMALS: no pedal edema Neuro: COMMON NORMALS: patient oriented x3 Psych: COMMON NORMALS: mental status grossly normal Discharge Data Studies Completed and Pending Completed Studies During Hospitalization Category Date Time Status CT abdomen pelvis w con* [id number] Stat Cat Scan 06/27/23 20:16 Completed Pending at discharge Category Date Time Status Blood Culture Stat Lab 06/27/23 22:31 Results Clostridium Difficile PCR Routine Lab 06/27/23 23:06 Uncollected Clostridium Difficile PCR Routine Lab 06/28/23 08:28 Ordered Immunochemical Fecal OCB Routine Lab 06/28/23 08:28 Ordered Lactoferrin Routine Lab 06/28/23 08:28 Ordered OVA and Parasites, Conc and PE Routine Lab 06/28/23 08:28 Ordered Salmonella / Shigella / Campy Routine Lab 06/28/23 08:28 Ordered Wound Culture and Gram Stain Stat Lab 06/28/23 23:15 Results Pathology: Surgical [PTH] Routine Pth 06/29/23 15:05 Received Radiology Impressions Abdomen/Pelvis CT 06/27/23 20:16 IMPRESSION: 1. Nonspecific changes involving the mesenteric fat planes just deep to the abdominal wall within the upper pelvis raising concern for developing peritonitis for which clinical correlation and follow-up recommended. 2. Subtle colonic wall thickening involving short segment of large bowel at the rectosigmoid junction that may be secondary to mild segmental colitis. Laboratory Results WBC 4.68 10^3/uL (3.29-11.43) 06/30/23 05:06 RBC 3.40 10^6/uL (3.85-5.65) L 06/30/23 05:06 Hgb 9.10 g/dL (11.27-16.99) L 06/30/23 05:06 Hct 28.3 % (36-47) L 06/30/23 05:06 MCV 83.2 fl (85-98) L 06/30/23 05:06 MCH 26.8 pg (27-33) L 06/30/23 05:06 MCHC 32.2 g/dL (30-55) 06/30/23 05:06 RDW 13.2 % (12.1-15.1) 06/30/23 05:06 Plt Count 183 10^3/cmm (157-399) 06/30/23 05:06 MPV 9.6 fL (7.4-10.4) 06/30/23 05:06 Neut % (Auto) 58.1 % 06/30/23 05:06 Lymph % (Auto) 30.6 % 06/30/23 05:06 [place] % (Auto) 8.1 % 06/30/23 05:06 Eos % (Auto) 2.8 % 06/30/23 05:06 Baso % (Auto) 0.2 % 06/30/23 05:06 Neut # (Auto) 2.72 10^3/uL (1.8-7.7) 06/30/23 05:06 Lymph # (Auto) 1.4 10^3/uL (0.8-4.8) 06/30/23 05:06 [place] # (Auto) 0.4 10^3/uL (0.2-0.9) 06/30/23 05:06 Eos # (Auto) 0.1 10^3/uL (0.0-0.8) 06/30/23 05:06 Baso # (Auto) 0.0 10^3/uL (0.0-0.1) 06/30/23 05:06 Nucleated RBC % (auto) 0 % 06/30/23 05:06 Nucleated RBCs # 0.0 /100WBC 06/30/23 05:06 PT 12.70 SECONDS (12.1-14.9) 06/27/23 19:18 INR 0.92 (0.8-1.2) 06/27/23 19:18 APTT 23.2 SECONDS (23.9-36.7) L 06/27/23 19:18 Sodium 139 mmol/L (136-145) 06/30/23 05:06 Potassium 3.4 mmol/L (3.5-5.1) L 06/30/23 05:06 Chloride 104 mmol/L (98-107) 06/30/23 05:06 Carbon Dioxide 27 mmol/L (22-29) 06/30/23 05:06 Anion Gap 11.4 (5-19) 06/30/23 05:06 BUN 10 mg/dL (6-20) 06/30/23 05:06 Creatinine 0.7 mg/dL (0.5-0.9) 06/30/23 05:06 GFR Calculation 93.2 mL/min (90-130) 06/30/23 05:06 Glucose 126 mg/dL (65-115) H 06/30/23 05:06 POC Glucose 152 mg/dL (70-110) H 06/30/23 11:00 Estimat Average Glucose 131 06/28/23 05:29 Hemoglobin A1c 6.2 % (4.0-6.0) H 06/28/23 05:29 Calculated Osmolality 289 mOsm/kg (285-295) 06/30/23 05:06 Lactic Acid 1.8 mmol/L (0.5-2.2) 06/27/23 22:25 Calcium 8.1 mg/dL (8.5-10.5) L 06/30/23 05:06 Iron 35 ug/dL (37-145) L 06/28/23 05:29 TIBC 328 mcg/dl 06/28/23 05:29 % Saturation 10.6 % (20-50) L 06/28/23 05:29 Unsat Iron Binding 293 ug/dL (112-347) 06/28/23 05:29 Ferritin 48 ng/mL (15-150) 06/28/23 05:29 Total Bilirubin 0.2 mg/dL (0.15-1.2) 06/30/23 05:06 AST 16 U/L (0-32) 06/30/23 05:06 ALT 17 U/L (0-33) 06/30/23 05:06 Alkaline Phosphatase 86 U/L (35-105) 06/30/23 05:06 C-Reactive Protein 27.7 mg/L (0.0-4.9) H 06/28/23 05:29 Total Protein 5.8 g/dL (6.6-8.7) L 06/30/23 05:06 Albumin 3.3 g/dL (3.5-5.2) L 06/30/23 05:06 Globulin 2.5 g/dL (1.3-4.6) 06/30/23 05:06 Procalcitonin 0.08 ng/mL (0-0.5) 06/28/23 05:29 Urine Color Light yellow (Yellow) 06/28/23 22:06 Urine Appearance Clear (CLEAR) 06/28/23 22:06 Urine pH 6.5 (5-7) 06/28/23 22:06 Ur Specific [place] 1.005 (1.005-1.030) 06/28/23 22:06 Urine Protein Neg (Negative) 06/28/23 22:06 Urine Glucose (UA) Norm (Normal) 06/28/23 22:06 Urine Ketones Negative (Negative) 06/28/23 22:06 Urine Blood Neg (Negative) 06/28/23 22:06 Urine Nitrate Negative (Negative) 06/28/23 22:06 Urine Bilirubin Neg (Negative) 06/28/23 22:06 Urine Urobilinogen Neg mg/dL (Negative) 06/28/23 22:06 Ur Leukocyte Esterase Negative (Negative) 06/28/23 22:06 Vancomycin Trough 12.1 ug/mL (10-15) 06/28/23 22:18 MRSA (PCR) Not detected (NOT DETECTED) 06/28/23 00:30 Vitals Last Vital Signs Temp 98.5 F 06/30/23 07:57 Pulse 81 06/30/23 07:57 Resp 16 06/30/23 07:58 BP 160/96 06/30/23 07:57 Pulse Ox 98 06/30/23 07:58 O2 Del Method Room Air 06/30/23 03:44 Discharge Plan Discharge Patient Disposition: Home Condition: Stable Prescriptions: New hydrocodone-acetaminophen 5-325 mg Tablet 1 tab PO Q4H PRN (Reason: Moderate Pain) 5 Days Qty: 30 0RF metronidazole 500 mg tablet 500 mg PO Q8H 5 Days Qty: 15 0RF pantoprazole [Protonix] 40 mg tablet,delayed release (DR/EC) 40 mg PO BID 14 Days Qty: 28 0RF sucralfate 100 mg/mL Suspension 1 g PO Q12H 14 Days Qty: 280 0RF ciprofloxacin HCl [Cipro] 500 mg tablet 500 mg PO BID 5 Days Qty: 10 0RF Continued albuterol sulfate [ProAir HFA] 90 mcg/actuation HFA aerosol inhaler 2 puff INHALATION Q6H PRN (Reason: Shortness Of Breath) hydrochlorothiazide 25 mg tablet 25 mg PO DAILY acetaminophen 500 mg Tablet 1,000 mg PO Q6H PRN (Reason: Pain) ondansetron 4 mg tablet,disintegrating 4 mg PO Q6H PRN (Reason: nausea and vomiting) Qty: 14 0RF meclizine 25 mg tablet 25 mg PO QID PRN (Reason: dizziness) Qty: 14 0RF lithium carbonate 300 mg capsule 300 mg PO TID levothyroxine 50 mcg tablet 50 mcg PO QAM lisinopril 10 mg tablet 10 mg PO QAM metformin 500 mg Tablet Extended Release 24 Hr 500 mg PO BID Discontinued ibuprofen 800 mg tablet 800 mg PO TID PRN (Reason: Pain) omeprazole 20 mg capsule,delayed release(DR/EC) 20 mg PO BID Discharge Orders: Discharge Order (Routine); Ordered 06/30/23 Ordered By: Stephen Hayes Referrals: Roel Marshall MD [Primary Care Provider] - Discharge Diet: As Directed Discharge Activity: Resume usual activity Patient Instructions: GI (Gastrointestinal) Soft Diet (DC), GI Discharge Instructions, Opioid Safety Activity Restrictions/Additional Instructions: - Discharged on a GI soft brat diet -Please avoid ibuprofen use -Please take Protonix and Carafate as prescribed -Please use hydrocodone sparingly for pain, do not drive operate machinery or drink while taking medication -Please take antibiotics as prescribed -See primary care provider in in 1 week Discharge Attestations Time Spent in Discharge Care*: greater than 30 min Quality Metrics Clinical Quality Measures [ No reported AMI, CVA or VTE this stay] Coding Level of Care Code 02783 Total time (in minutes) for Discharge: 45 Diagnoses S/P hysterectomy Z90.710
[2023-06-30 12:00] VITALS: BP 142/81; PULSE 91; RESP 15; TEMP 36.8; O2SAT 95
[2023-06-30] MEDS: hydroCHLOROthiazide 25 mg Tablet PO (12:19)
[2023-06-30] MEDS: insulin lispro 100 unit/1 mL SUBCUT (12:19)
--- NOTE | 2023-06-30 13:42 | PC.NURSE ---
Waiting for Zosyn to finish. Patient wanted a shower and called for a ride. Patient first stated it would be 6 pm before a ride could come. I explained to patient the discharge is in and on the board so surgery patients are coming up. She understood and made the call for a ride.
--- NOTE | 2023-06-30 15:34 | PC.NURSE ---
Discussed discharge with patient and partner. Discussed new medications, continued medications and stopped medications as well as follow up appointments. Discussed GI Soft, Brat Diet as well. Patient and partner verbalized understanding. Walked patient to Pharmacy on way out to [employer] medications.
[2023-06-30 15:37] VITALS: BP 142/81; PULSE 91; RESP 15; TEMP 36.8; O2SAT 95
== END 2023-06-30 15:02 | disposition home or self-care (01) | DRG 379 ==
LOC: ER 19:08 → MEDSURG 22:26
PROVIDERS: Surgery; Admitting Provider Internal Medicine; Emergency Provider Internal Medicine; PCP Family Medicine; Visit Provider Family Medicine
PROC: 0DJ08ZZ Inspection of Upper Intestinal Tract, Via Natural or Artificial Opening Endoscopic (ICD-10-PCS; CPT 43235; principal; 2023-06-29 14:15)
DX: K29.71 Gastritis, unspecified, with bleeding (principal); G89.29 Other chronic pain; M25.551 Pain in right hip; D50.9 Iron deficiency anemia, unspecified; G89.18 Other acute postprocedural pain; T39.315A Adverse effect of propionic acid derivatives, initial encounter; Z90.710 Acquired absence of both cervix and uterus
CPT/HCPCS: 36415; 36416; 43239; 74177; 80053; 80202; 81003; 82728; 82962; 83036; 83540; 83550; 83605; 84145; 85014; 85018; 85025; 85610; 85730; 86140; 87040; 87070; 87075; 87205; 87641; 88305; 88342; 96365; 96372; 96374; 96375; 99285; C9113; J1815; J2270; J2405; J2543; J3010; J3370; J7030; J7120; Q9967

== ENCOUNTER 2023-08-05 12:46 | Outpatient (CLI) | payer OTHER, SELFPAY ==
[2023-08-05 13:52] LABS: C.Diff PCR (Lab) NEGATIVE (Negative)
== END 2023-08-05 12:47 | disposition home or self-care (01) ==
LOC: LAB 12:47
PROVIDERS: PCP Family Medicine; Visit Provider Surgery
DX: R10.9 Unspecified abdominal pain (principal)
CPT/HCPCS: 87045; 87177; 87209; 87427; 87449; 87493

== ENCOUNTER 2023-08-12 06:10 | Outpatient (CLI) | payer OTHER, SELFPAY ==
--- NOTE | 2023-08-12 06:45 | US_ITS ---
WS: [id number] RIGHT UPPER QUADRANT ULTRASOUND HISTORY: colitis COMPARISON: 07/25/2017 Liver: 19.6 cm in length. Mildly enlarged heterogeneous liver. No mass or bile duct dilatation. Portal Vein: Normal hepatopetal flow with monophasic waveform. Gallbladder: Normally distended gallbladder with no stones or wall thickening. CBD: 0.2 cm Pancreas: Normal size and echogenicity. Right kidney: 11.3 cm in length. Normal size and echogenicity. No hydronephrosis or mass. Aorta and IVC: Unremarkable abdominal aorta and IVC. No ascites. IMPRESSION: 1. Normal gallbladder. 2. Mild hepatomegaly and hepatic steatosis. Liver is better visualized on today's exam than in 2018. Suspect no interval change.
== END 2023-08-12 06:11 | disposition home or self-care (01) ==
LOC: RAD 06:10
PROVIDERS: PCP Family Medicine; Visit Provider Surgery
DX: K52.9 Noninfective gastroenteritis and colitis, unspecified (principal); K76.0 Fatty (change of) liver, not elsewhere classified; R16.0 Hepatomegaly, not elsewhere classified
CPT/HCPCS: 76705

== ENCOUNTER 2023-09-19 07:28 | Outpatient (CLI) | payer OTHER, SELFPAY ==
--- NOTE | 2023-09-19 08:00 | NM_ITS ---
WS: [id number] NUCLEAR MEDICINE HIDA SCAN WITH GALLBLADDER EJECTION FRACTION HISTORY: epigastric pain COMPARISON: 10/05/2017, gallbladder ultrasound 08/12/2023 TECHNIQUE: The patient was intravenously injected with 7.5 mCi of TC99m Mebrofenin. Immediate imaging over the right upper quadrant was followed by 5 minute image and additional images for a total of 60 minutes. Normal uptake of radiotracer throughout the liver. Liver is enlarged. Homogeneous uptake. Activity identified in the gallbladder at 10 minutes and well distended by 60 minutes. Activity in the proximal small bowel was seen by 30 minutes. Good washout of the radiotracer from the liver by 60 minutes. The patient then drank 8 ounces of Ensure Plus. Ejection fraction at 60 minutes was 74%. Normal GB ej ection fraction is 35-75%. Post fatty meal symptoms: None. NM/NM hepatobiliary w phar* [id number] IMPRESSION: 1. Normal HIDA scan. 2. Normal gallbladder ejection fraction.
== END 2023-09-19 07:29 | disposition home or self-care (01) ==
PROVIDERS: PCP Family Medicine; Visit Provider Surgery
DX: R10.13 Epigastric pain (principal)
CPT/HCPCS: 78227; A9537

== ENCOUNTER 2023-10-05 07:42 | Day surgery (SDC) | payer OTHER, SELFPAY ==
[2023-10-05 08:13] LABS: Glucose Point of Care 143 mg/dL (70-110)
[2023-10-05] MEDS: sodium chloride 0.9% 1,000 ML 30 ML IV (08:14)
[2023-10-05 08:20] VITALS: BP 155/91; PULSE 89; RESP 18; TEMP 36.3; O2SAT 97
--- NOTE | 2023-10-05 09:01 | P.ANESASSM_ITS ---
Pre-Anesthetic Assessment Height/Weight: Height 1.6 m Weight 108.862 kg Temp Pulse Resp BP Pulse Ox O2 Del Method 97.4 F L 89 18 155/91 97 Room Air 10/05/23 08:20 10/05/23 08:20 10/05/23 08:20 10/05/23 08:20 10/05/23 08:20 10/05/23 08:20 Preop Diagnosis: adb. pain Operation Date: 10/05/23 09:00 Proposed Procedures p Colonoscopy 12120, G0105, K52.9, R10.9(Not Applicable) - Eladio Herrera DO Familial anesthetic complications: none Was Beta Jesus taken within 24 hours: N/A Was Clonidine taken within 24 hours: N/A Last intake: Intake Last Liquid Date 10/04/23 Last Liquid Time 22:00 Last Solid Date 10/03/23 Last Solid Time 21:00 Social No alcohol and No tobacco Exam alert and oriented x 3 Airway Submandibular: within normal limits Cervical ROM: within normal limits Mallampati: Class III Dentition: full Pulmonary Asthma CV/HEM Arrythmia and Hypertension None reported Hepatic None reported GI Gastroesophageal Reflux Disease Metabolic Diabetes Mellitus, Hyperlipidemia, Morbid Obesity and Thyroid Disease [facility] [place] None reported Neuropsych None reported Anesthetic Plan ASA status: 3 Anesthesia: Anesthesia Evaluation, General and MAC Medications/Allergies Home Medications Medication Instructions Recorded Confirmed Last Taken Type albuterol sulfate 90 mcg/actuation 2 puff inhalation Q6H PRN 07/27/19 10/03/23 10/04/23 History aerosol inhaler (ProAir HFA) Shortness Of Breath acetaminophen 500 mg tablet 1,000 mg PO Q6H PRN Pain 07/28/21 10/03/23 10/04/23 History ondansetron 4 mg disintegrating 4 mg PO Q6H PRN nausea and 04/21/22 10/03/23 10/04/23 Rx tablet vomiting #14 tabs levothyroxine 50 mcg tablet 50 mcg PO QAM 07/28/22 10/03/23 10/04/23 History lisinopril 10 mg tablet 10 mg PO QAM 07/28/22 10/03/23 10/04/23 History lithium carbonate 300 mg capsule 300 mg PO TID 07/28/22 10/03/23 10/04/23 History metformin 500 mg tablet,extended 500 mg PO BID 07/28/22 10/03/23 10/04/23 History release 24 hr hydrochlorothiazide 25 mg tablet 25 mg PO DAILY 01/05/23 10/03/23 10/04/23 History meclizine 25 mg tablet 25 mg PO QID PRN dizziness #14 tabs 01/17/23 10/03/23 10/04/23 Rx pantoprazole 40 mg tablet,delayed 40 mg PO BID 6 weeks #84 tabs 08/03/23 10/03/23 10/04/23 Rx release (Protonix) Allergies Allergy/AdvReac Type Severity Reaction Status Date / Time aspirin Allergy [id number] Verified 10/03/23 08:47 diclofenac Allergy ALGY-Hives Verified 10/03/23 08:47 ethinyl estradiol Allergy ALGY-Anaphy Verified 10/03/23 08:47 [From Mononessa (28)] laxis hydromorphone [From Dilaudid] Allergy unknown Verified 10/03/23 08:47 latex Allergy ALGY-Rash Verified 10/03/23 08:47 methylphenidate Allergy Unknown Verified 10/03/23 08:47 [From Ritalin] norgestimate Allergy ALGY-Anaphy Verified 10/03/23 08:47 [From Mononessa (28)] laxis nut - unspecified Allergy ALGY-Anaphy Verified 10/03/23 08:47 laxis oxycodone [From Percocet] Allergy Unknown Verified 10/03/23 08:47 Sausage (due to spices) AdvReac Intermediate ADR-Nausea Uncoded 10/03/23 08:47 Current Medications Generic Name Dose Route Start Last Admin Trade Name Freq PRN Reason Stop Dose Admin Sodium Chloride 1,000 mls @ 30 mls/hr 10/05/23 08:00 10/05/23 08:14 Sodium Chloride 0.9% IV 10/06/23 07:59 30 mls/hr .Q24H LINDA Administration PFSH Anesthesia Medical History (Updated 09/05/23 @ 16:44 by Eladio Herrera DO) Abdominal pain Collar bone fracture Femur fracture, right No pertinent family history No significant past medical history Surgical History S/P hysterectomy History of breast lump removal Hx of tonsillectomy Family History Family/Other Breast cancer Maternal and Paternal aunts Father Diabetes Denies family history of Cervical cancer Colon cancer Ovarian cancer Hypertension Uterine cancer Stroke Social History Smoking and tobacco/nicotine status: never used tobacco/nicotine Alcohol intake: never Substance/Drug Use: never Data Anesthesia Cardiac Studies: No Data to Display
--- NOTE | 2023-10-05 09:09 | W.PM.OPSUD ---
Surgery/Procedure H&P Update DATE OF PROCEDURE: October 05, 2023 DATE H&P PERFORMED: 09/05/23 H&P UPDATE INFORMATION: I have reviewed H&P completed within last 30 days, I have examined patient prior to procedure and No changes to prior documentation PREOP DIAGNOSIS: adb. pain PLANNED PROCEDURE: Operation Date: 10/05/23 09:00 Proposed Procedures p Colonoscopy 01287, G0105, K52.9, R10.9(Not Applicable) - Eladio Herrera DO
[2023-10-05 09:25] VITALS: BP 125/86; PULSE 76; RESP 18; TEMP 36.4; O2SAT 96
--- NOTE | 2023-10-05 09:27 | ANE.PACU2 ---
Inpatient post-anesthesia follow up: Airway intact: Yes Vital signs: Temperature 97.4 F Pulse Rate 89 Respiratory Rate 18 Blood Pressure 155/91 Pulse Oximetry 97 Oxygen Delivery Me thod Room Air Oxygen Flow Rate Fraction of Inspir ed Oxygen Hydration adequate: Yes Nausea and vomiting: No Pain level: 1 Mental status: Baseline
[2023-10-05 09:41] VITALS: BP 133/89; PULSE 79; RESP 18; O2SAT 96
[2023-10-05 10:17] LABS: C.Diff PCR (Lab) NEGATIVE (Negative)
== END 2023-10-05 10:00 | disposition home or self-care (01) ==
PROVIDERS: PCP Family Medicine; Visit Provider Surgery
PROC: 0DJD8ZZ Inspection of Lower Intestinal Tract, Via Natural or Artificial Opening Endoscopic (ICD-10-PCS; CPT 45378; principal; 2023-10-05 09:00)
DX: K52.9 Noninfective gastroenteritis and colitis, unspecified (principal); R10.9 Unspecified abdominal pain; J45.909 Unspecified asthma, uncomplicated; I10 Essential (primary) hypertension; K21.9 Gastro-esophageal reflux disease without esophagitis; E11.9 Type 2 diabetes mellitus without complications; E78.5 Hyperlipidemia, unspecified; E66.01 Morbid (severe) obesity due to excess calories; Z68.41 Body mass index [BMI] 40.0-44.9, adult; Z79.84 Long term (current) use of oral hypoglycemic drugs
CPT/HCPCS: 36416; 45380; 82274; 82962; 83630; 87045; 87177; 87209; 87427; 87449; 87493; 88305; J2704; J7030

== ENCOUNTER 2023-11-03 07:27 | Day surgery (SDC) | payer OTHER, SELFPAY ==
[2023-11-03] VITALS (10 sets, daily range): BP systolic 132–173; BP diastolic 79–103; PULSE 66–90; RESP 16–18; TEMP 36.2–37.1; O2SAT 97–100; BMI 43.4
--- NOTE | 2023-11-03 07:41 | W.PM.OPSUD ---
Surgery/Procedure H&P Update DATE OF PROCEDURE: November 03, 2023 DATE H&P PERFORMED: 10/24/23 H&P UPDATE INFORMATION: I have reviewed H&P completed within last 30 days, I have examined patient prior to procedure and No changes to prior documentation PLANNED PROCEDURE: Operation Date: 11/03/23 09:05 Proposed Procedures p Laparoscopic Cholecystectomy 87468, K80.50(Not Applicable) - Eladio Herrera, DO
[2023-11-03 07:59] LABS: Glucose Point of Care 149 mg/dL (70-110)
[2023-11-03] MEDS: sodium chloride 0.9% 1,000 ML 30 ML IV (08:03)
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
[2023-11-03] MEDS: ceFAZolin 2,000 MG in sodium chloride 0.9% (plus) 50 ML 100 MG IV (08:30)
[2023-11-03] MEDS: lidocaine-epi 2% PF 1:200,000 20 mL SDV XX (09:00)
--- NOTE | 2023-11-03 09:02 | P.OP_ITS ---
Operative Report Date of procedure: November 03, 2023 Surgeon: Eladio Herrera DO Brief History: This very pleasant 38-year-old female who presented my office with abdominal pain. She is diagnosed with biliary colic. Laparoscopic cholecystectomy was indicated. The risks and benefits of the procedure, especially the fact that cholecystectomy may not relieve all of her symptoms, were explained to the patient. She is understanding of the risks and wished to proceed. Procedure: Preoperative diagnosis: Biliary colic Postoperative diagnosis: Same Procedure performed: Laparoscopic cholecystectomy Surgeon: Dr. Eladio Herrera DO Estimated blood loss: 5 mL Specimens: Gallbladder to pathology Complications: None apparent Description of procedure: Patient was wheeled into the operative room and placed on the OR table in a supine position. Abdomen was inspected prepped and draped in usual sterile fashion. Time-out was performed and all present were in agreement. A 15 blade scalp was used to make a stab incision in the left upper quadrant and intra- abdominal insufflation was achieved using a Veress needle. After localizing the tissue incisions were made and a 5 millimeter trocar was placed into the umbilicus as well as 2 in the right upper quadrant. A 12 millimeter trocar was placed in the epigastrium. Gallbladder was grasped and elevated. The triangle of Calot was carefully dissected using blunt dissection and electrocautery until the triangle of Calot clearly identified. The cystic duct was clipped proximally and double clipped distally. The duct was then ligated proximally. The cystic artery was doubly clipped and ligated. The gallbladder was then removed from the liver bed using electrocautery. The gallbladder was removed from the abdomen using an Endo-Catch bag through the epigastric incision. The liver bed was inspected and no bleeding was seen. The abdomen was irrigated and suctioned. All ports removed. Skin was washed and dried. Incisions were closed with 4-0 Monocryl in a subcuticular interrupted fashion. Skin glue was applied. Patient tolerated the procedure well.
[2023-11-03] MEDS: fentaNYL 50 mcg/mL INJ 2mL IVP (09:25)
[2023-11-03] MEDS: HYDROcodone-acetaminophen 7.5-325 mg Tablet 1 TAB PO (10:17)
--- NOTE | 2023-11-03 11:05 | ANE.PACU2 ---
Inpatient post-anesthesia follow up: Airway intact: Yes Vital signs: Temperature 98.7 F Pulse Rate 87 Respiratory Rate 16 Blood Pressure 147/89 Pulse Oximetry 98 Oxygen Delivery Me thod Room Air Oxygen Flow Rate 6 Fraction of Inspir ed Oxygen Hydration adequate: Yes Nausea and vomiting: No Pain level: 1 Mental status: Baseline
== END 2023-11-03 11:04 | disposition home or self-care (01) ==
PROVIDERS: PCP Family Medicine; Visit Provider Surgery
PROC: 0FT44ZZ Resection of Gallbladder, Percutaneous Endoscopic Approach (ICD-10-PCS; CPT 47562; principal; 2023-11-03 09:05)
DX: K81.1 Chronic cholecystitis (principal); G47.30 Sleep apnea, unspecified; I10 Essential (primary) hypertension; K21.9 Gastro-esophageal reflux disease without esophagitis; E11.9 Type 2 diabetes mellitus without complications; E66.01 Morbid (severe) obesity due to excess calories; Z68.41 Body mass index [BMI] 40.0-44.9, adult
CPT/HCPCS: 47562; 36416; 82962; 88304; J0330; J0690; J1100; J1885; J2250; J2405; J2704; J3010; J3490; J7030

== ENCOUNTER 2023-11-07 15:40 | Emergency (ER) | payer OTHER, SELFPAY ==
[2023-11-07 15:41] VITALS: BP 130/87; PULSE 83; RESP 16; TEMP 36.8; O2SAT 97; BMI 40.7
[2023-11-07 16:04] LABS: Basophils % 0.1 %; Eosinophils # 0.2 10^3/uL (0.0-0.8); Eosinophils % 2.8 %; Hematocrit 37.9 % (36-47); Lymphocytes % 29.7 %; Mean Corpuscular HGB Conc 32.2 g/dL (30-55); Mean Corpuscular Hemoglobin 26.1 pg (27-33); Mean Corpuscular Volume 81.2 fl (85-98); Monocytes # 0.4 10^3/uL (0.2-0.9); Monocytes % 6.3 %; Neutrophils # 4.08 10^3/uL (1.8-7.7); Neutrophils % 60.8 %; Nucleated Red Blood Cells % 0 %; Platelet Count 244 10^3/cmm (157-399); Red Blood Count 4.67 10^6/uL (3.85-5.65); Red Cell Distribution Width 13.7 % (12.1-15.1); White Blood Count 6.71 10^3/uL (3.29-11.43)
[2023-11-07 16:18] LABS: HCG, Serum Qual Negative (Negative)
[2023-11-07 16:19] VITALS: BP 142/90; PULSE 88; RESP 15; O2SAT 97
[2023-11-07 16:22] LABS: Alanine Aminotransferase 23 U/L (0-33); Albumin Level 4.1 g/dL (3.5-5.2); Alkaline Phosphatase 123 U/L (35-105); Anion Gap 16.1 (5-19); Aspartate Amino Transferase 14 U/L (0-32); Blood Urea Nitrogen 16 mg/dL (6-20); Carbon Dioxide 26 mmol/L (22-29); Chloride 102 mmol/L (98-107); Creatinine Clr Calc Pharmacy 143.9695; Globulin 3.3 g/dL (1.3-4.6); Glomerular Filtration Rate 110.7 mL/min (90-130); Glucose 122 mg/dL (65-115); Lipase 27 U/L (13-60); Osmolality Calculated 292 mOsm/kg (285-295); Potassium 4.1 mmol/L (3.5-5.1); Sodium 140 mmol/L (136-145); Total Bilirubin 0.3 mg/dL (0.15-1.2); Total Protein 7.4 g/dL (6.6-8.7)
--- NOTE | 2023-11-07 16:27 | ED_ITS ---
Documented by User: DONALD Reilly 11/07/23 16:31 HPI - Abdominal Pain 2 General: Chief Complaint: Abdominal Pain Stated Complaint: surgery 11/02, bloated, feels like abd is on fire Time Seen by Provider: 11/07/23 16:17 Source: patient Mode of arrival: ambulatory Limitations: no limitations History of Present Illness: Patient is a 38-year-old female presents to ED today for evaluation of symptoms following a cholecystectomy by Dr. Herrera 4 days ago. She states her abdomen feels like it is burning, is bloated, and she has had multiple episodes of nausea and vomiting. She is reporting fevers with her last fever being 102 temporally yesterday evening. She complains that her incisions/trocar sites are itchy. States her pain medications are not controlling her pain. MD elicited complaint: abdominal pain Onset (ago): day(s) (yesterday) Pain Consistency: constant Location: Diffuse Severity: severe Pain scale (0-10): 7 Radiation: none Migration to: no migration Exacerbating factors: nothing Relieving factors: nothing Associated Symptoms: Reports fever(s), nausea and vomiting; Denies dysuria, hematochezia, hematemesis and melena Related Data: Patient : No Review of Systems 2 Const: Reports: fever(s); Denies: body aches, fatigue or malaise Card: Denies: chest pain Resp: Denies: dyspnea GI: Reports: abdominal pain, nausea and vomiting; Denies: hematemesis, hematochezia or melena : Denies: flank pain, difficulty voiding, dysuria, urinary frequency, urinary urgency or urinary hesitancy Musc: Denies: neck pain, back pain, extremity pain or joint pain Skin/Breast: Denies: rash Neuro: Denies: headache(s), numbness in extremities, weakness in extremities, sensory changes or dizziness PFSH ED 2 PFSH: Medical History Abdominal pain Collar bone fracture Femur fracture, right No pertinent family history No significant past medical history Surgical History S/P hysterectomy History of breast lump removal Hx of tonsillectomy Family History Family/Other Breast cancer Maternal and Paternal aunts Father Diabetes Denies family history of Cervical cancer Colon cancer Ovarian cancer Hypertension Uterine cancer Stroke Social History Smoking and tobacco/nicotine status: never used tobacco/nicotine Alcohol intake: never Substance/Drug Use: never Physical Exam 2 Const: COMMON NORMALS: no acute distress, patient oriented x3, no limitations and alert GENERAL APPEARANCE: cooperative NUTRITIONAL APPEARANCE: obese morbidly obese ORIENTATION/CONSCIOUSNESS: Yes awake, Yes oriented to person, Yes oriented to place and Yes oriented to time Eye: COMMON NORMALS: no scleral icterus Resp: COMMON NORMALS: normal respiratory effort and clear to auscultation bilaterally AUSCULTATION: clear to auscultation bilaterally Cardio: COMMON NORMALS: regular rate and regular rhythm RATE: regular rate RHYTHM: regular rhythm GI: COMMON NORMALS: Normal to inspection, nondistended, normoactive bowel sounds present, Soft to palpation and no masses INSPECTION: Yes normal to inspection and Yes other (incisions all appear clean and non-infected ) A USCULTATION: Yes normoactive bowel sounds PALPATION: Yes Soft to palpation, Yes Tenderness to palpation present (GI) (diffusely ) and Yes Guarding due to palpation present (GI) : COMMON NORMALS: Yes no CVA tenderness BLADDER/KIDNEY EXAM: Yes no CVA tenderness Back/Pelvis: COMMON NORMALS: no CVA tenderness and thoracic and lumbar spine normal to inspection Extremity: GENERAL: Yes normal exam except as noted Neuro: MURALI COMA SCALE: document GCS findings [place] coma scale eye opening: Spontaneous [place] coma scale verbal response: Orientated [place] coma scale motor response: Obey commands Murali coma scale total score: 15 COMMON NORMALS: patient oriented x3, moves all extremities, no focal motor deficits, no sensory deficits noted and gait normal SENSORIUM/ORIENTATION: Yes alert, Yes oriented to person, Yes oriented to place and Yes oriented to time Course 2 Vital Signs: Vital signs: Vital Signs Temperature 98.2 F 11/07/23 15:41 Pulse Rate 89 11/07/23 18:16 Respiratory Rate 16 11/07/23 18:16 Blood Pressure 150/83 11/07/23 18:16 Pulse Oximetry 96 11/07/23 18:16 Oxygen Delivery Me thod Room Air 11/07/23 18:16 MDM - Abdominal Pain Lab Data 11/07/23 15:55 11/07/23 15:55 Labs/Radiology: Radiology Impressions Abdomen/Pelvis CT 11/07/23 16:27 IMPRESSION: No acute or unexpected findings status post cholecystectomy. Laboratory Results WBC 6.71 10^3/uL (3.29-11.43) 11/07/23 15:55 RBC 4.67 10^6/uL (3.85-5.65) 11/07/23 15:55 Hgb 12.20 g/dL (11.27-16.99) 11/07/23 15:55 Hct 37.9 % (36-47) 11/07/23 15:55 MCV 81.2 fl (85-98) L 11/07/23 15:55 MCH 26.1 pg (27-33) L 11/07/23 15:55 MCHC 32.2 g/dL (30-55) 11/07/23 15:55 RDW 13.7 % (12.1-15.1) 11/07/23 15:55 Plt Count 244 10^3/cmm (157-399) 11/07/23 15:55 MPV 10.0 fL (7.4-10.4) 11/07/23 15:55 Neut % (Auto) 60.8 % 11/07/23 15:55 Lymph % (Auto) 29.7 % 11/07/23 15:55 [place] % (Auto) 6.3 % 11/07/23 15:55 Eos % (Auto) 2.8 % 11/07/23 15:55 Baso % (Auto) 0.1 % 11/07/23 15:55 Neut # (Auto) 4.08 10^3/uL (1.8-7.7) 11/07/23 15:55 Lymph # (Auto) 2.0 10^3/uL (0.8-4.8) 11/07/23 15:55 [place] # (Auto) 0.4 10^3/uL (0.2-0.9) 11/07/23 15:55 Eos # (Auto) 0.2 10^3/uL (0.0-0.8) 11/07/23 15:55 Baso # (Auto) 0.0 10^3/uL (0.0-0.1) 11/07/23 15:55 Nucleated RBC % (auto) 0 % 11/07/23 15:55 Nucleated RBCs # 0.0 /100WBC 11/07/23 15:55 Sodium 140 mmol/L (136-145) 11/07/23 15:55 Potassium 4.1 mmol/L (3.5-5.1) 11/07/23 15:55 Chloride 102 mmol/L (98-107) 11/07/23 15:55 Carbon Dioxide 26 mmol/L (22-29) 11/07/23 15:55 Anion Gap 16.1 (5-19) 11/07/23 15:55 BUN 16 mg/dL (6-20) 11/07/23 15:55 Creatinine 0.6 mg/dL (0.5-0.9) 11/07/23 15:55 GFR Calculation 110.7 mL/min (90-130) 11/07/23 15:55 Glucose 122 mg/dL (65-115) H 11/07/23 15:55 Calculated Osmolality 292 mOsm/kg (285-295) 11/07/23 15:55 Calcium 10.0 mg/dL (8.5-10.5) 11/07/23 15:55 Total Bilirubin 0.3 mg/dL (0.15-1.2) 11/07/23 15:55 AST 14 U/L (0-32) 11/07/23 15:55 ALT 23 U/L (0-33) 11/07/23 15:55 Alkaline Phosphatase 123 U/L (35-105) H 11/07/23 15:55 Total Protein 7.4 g/dL (6.6-8.7) 11/07/23 15:55 Albumin 4.1 g/dL (3.5-5.2) 11/07/23 15:55 Globulin 3.3 g/dL (1.3-4.6) 11/07/23 15:55 Lipase 27 U/L (13-60) 11/07/23 15:55 HCG, Qual Negative (Negative) 11/07/23 15:55 Urine Color Yellow (Yellow) 11/07/23 17:25 Urine Appearance Clear (CLEAR) 11/07/23 17:25 Urine pH 5 (5-7) 11/07/23 17:25 Ur Specific [place] 1.020 (1.005-1.030) 11/07/23 17:25 Urine Protein Neg (Negative) 11/07/23 17:25 Urine Glucose (UA) Norm (Normal) 11/07/23 17:25 Urine Ketones Negative (Negative) 11/07/23 17:25 Urine Blood Neg (Negative) 11/07/23 17:25 Urine Nitrate Negative (Negative) 11/07/23 17:25 Urine Bilirubin Neg (Negative) 11/07/23 17:25 Urine Urobilinogen Norm mg/dL (Negative) 11/07/23 17:25 Ur Leukocyte Esterase Trace (Negative) H 11/07/23 17:25 Urine RBC None /hpf (0-2) 11/07/23 17:25 Urine WBC 0-4 /hpf (0-5) H 11/07/23 17:25 Ur Squamous Epith Cells 0-4 /hpf (0-5) H 11/07/23 17:25 Amorphous Sediment Not Reportable 11/07/23 17:25 Urine Bacteria Trace /hpf (NONE) 11/07/23 17:25 Discharge Plan Discharge Patient Disposition: Home Clinical Impression: Abdominal pain Condition: Stable Prescriptions: No Action albuterol sulfate [ProAir HFA] 90 mcg/actuation HFA aerosol inhaler 2 puff INHALATION Q6H PRN (Reason: Shortness Of Breath) hydrochlorothiazide 25 mg tablet 25 mg PO DAILY pantoprazole [Protonix] 40 mg tablet,delayed release (DR/EC) 40 mg PO BID 42 Days Qty: 84 1RF acetaminophen 500 mg Tablet 1,000 mg PO Q6H PRN (Reason: Pain) Hold Instructions: Resume on 11/08/23. ondansetron 4 mg tablet,disintegrating 4 mg PO Q6H PRN (Reason: nausea and vomiting) Qty: 14 0RF meclizine 25 mg tablet 25 mg PO QID PRN (Reason: dizziness) Qty: 14 0RF lithium carbonate 300 mg capsule 300 mg PO TID levothyroxine 50 mcg tablet 50 mcg PO QAM lisinopril 10 mg tablet 10 mg PO QAM metformin 500 mg Tablet Extended Release 24 Hr 500 mg PO BID hydrocodone-acetaminophen 7.5-325 mg tablet 1 tab PO Q6H PRN (Reason: pain) Qty: 20 0RF Colace 100 mg capsule 100 mg PO BID Qty: 14 0RF Miralax 17 gram/dose powder 17 g PO DAILY 7 Days Qty: 119 0RF Discharge Orders: Discharge ED (Routine); Ordered 11/07/23 Ordered By: Austin Jimenez Referrals: Roel Marshall MD [Primary Care Provider] - 4-7 days Discharge Diet: Advance as tolerated Discharge Activity: Resume usual activity Patient Instructions: Abdominal Pain (ED) Coding Level of Care Code ED Hide Paster for Chg Fwd Documented by User: Austin Jimenez MD 11/07/23 19:16 HPI - Abdominal Pain 2 General: Chief Complaint: Abdominal Pain Stated Complaint: surgery 11/02, bloated, feels like abd is on fire Time Seen by Provider: 11/07/23 16:17 PFSH ED 2 PFSH: Medical History Abdominal pain Collar bone fracture Femur fracture, right No pertinent family history No significant past medical history Surgical History S/P hysterectomy History of breast lump removal Hx of tonsillectomy Family History Family/Other Breast cancer Maternal and Paternal aunts Father Diabetes Denies family history of Cervical cancer Colon cancer Ovarian cancer Hypertension Uterine cancer Stroke Social History Smoking and tobacco/nicotine status: never used tobacco/nicotine Alcohol intake: never Substance/Drug Use: never Physical Exam 2 Neuro: MURALI COMA SCALE: document GCS findings [place] coma scale total score: 15 Course 2 Vital Signs: Vital signs: Vital Signs Temperature 98.2 F 11/07/23 15:41 Pulse Rate 89 11/07/23 18:16 Respiratory Rate 16 11/07/23 18:16 Blood Pressure 150/83 11/07/23 18:16 Pulse Oximetry 96 11/07/23 18:16 Oxygen Delivery Me thod Room Air 11/07/23 18:16 MDM - Abdominal Pain Medical Decision Making Patient presents here with abdominal pain is postop pain her CT here is normal blood work is normal she is to follow-up with her surgeon return if worsening. Medical Records I reviewed the patient's medical records. Lab Data I reviewed the patient's lab results. 11/07/23 15:55 11/07/23 15:55 Labs/Radiology: Radiology Impressions Abdomen/Pelvis CT 11/07/23 16:27 IMPRESSION: No acute or unexpected findings status post cholecystectomy. Laboratory Results WBC 6.71 10^3/uL (3.29-11.43) 11/07/23 15:55 RBC 4.67 10^6/uL (3.85-5.65) 11/07/23 15:55 Hgb 12.20 g/dL (11.27-16.99) 11/07/23 15:55 Hct 37.9 % (36-47) 11/07/23 15:55 MCV 81.2 fl (85-98) L 11/07/23 15:55 MCH 26.1 pg (27-33) L 11/07/23 15:55 MCHC 32.2 g/dL (30-55) 11/07/23 15:55 RDW 13.7 % (12.1-15.1) 11/07/23 15:55 Plt Count 244 10^3/cmm (157-399) 11/07/23 15:55 MPV 10.0 fL (7.4-10.4) 11/07/23 15:55 Neut % (Auto) 60.8 % 11/07/23 15:55 Lymph % (Auto) 29.7 % 11/07/23 15:55 [place] % (Auto) 6.3 % 11/07/23 15:55 Eos % (Auto) 2.8 % 11/07/23 15:55 Baso % (Auto) 0.1 % 11/07/23 15:55 Neut # (Auto) 4.08 10^3/uL (1.8-7.7) 11/07/23 15:55 Lymph # (Auto) 2.0 10^3/uL (0.8-4.8) 11/07/23 15:55 [place] # (Auto) 0.4 10^3/uL (0.2-0.9) 11/07/23 15:55 Eos # (Auto) 0.2 10^3/uL (0.0-0.8) 11/07/23 15:55 Baso # (Auto) 0.0 10^3/uL (0.0-0.1) 11/07/23 15:55 Nucleated RBC % (auto) 0 % 11/07/23 15:55 Nucleated RBCs # 0.0 /100WBC 11/07/23 15:55 Sodium 140 mmol/L (136-145) 11/07/23 15:55 Potassium 4.1 mmol/L (3.5-5.1) 11/07/23 15:55 Chloride 102 mmol/L (98-107) 11/07/23 15:55 Carbon Dioxide 26 mmol/L (22-29) 11/07/23 15:55 Anion Gap 16.1 (5-19) 11/07/23 15:55 BUN 16 mg/dL (6-20) 11/07/23 15:55 Creatinine 0.6 mg/dL (0.5-0.9) 11/07/23 15:55 GFR Calculation 110.7 mL/min (90-130) 11/07/23 15:55 Glucose 122 mg/dL (65-115) H 11/07/23 15:55 Calculated Osmolality 292 mOsm/kg (285-295) 11/07/23 15:55 Calcium 10.0 mg/dL (8.5-10.5) 11/07/23 15:55 Total Bilirubin 0.3 mg/dL (0.15-1.2) 11/07/23 15:55 AST 14 U/L (0-32) 11/07/23 15:55 ALT 23 U/L (0-33) 11/07/23 15:55 Alkaline Phosphatase 123 U/L (35-105) H 11/07/23 15:55 Total Protein 7.4 g/dL (6.6-8.7) 11/07/23 15:55 Albumin 4.1 g/dL (3.5-5.2) 11/07/23 15:55 Globulin 3.3 g/dL (1.3-4.6) 11/07/23 15:55 Lipase 27 U/L (13-60) 11/07/23 15:55 HCG, Qual Negative (Negative) 11/07/23 15:55 Urine Color Yellow (Yellow) 11/07/23 17:25 Urine Appearance Clear (CLEAR) 11/07/23 17:25 Urine pH 5 (5-7) 11/07/23 17:25 Ur Specific [place] 1.020 (1.005-1.030) 11/07/23 17:25 Urine Protein Neg (Negative) 11/07/23 17:25 Urine Glucose (UA) Norm (Normal) 11/07/23 17:25 Urine Ketones Negative (Negative) 11/07/23 17:25 Urine Blood Neg (Negative) 11/07/23 17:25 Urine Nitrate Negative (Negative) 11/07/23 17:25 Urine Bilirubin Neg (Negative) 11/07/23 17:25 Urine Urobilinogen Norm mg/dL (Negative) 11/07/23 17:25 Ur Leukocyte Esterase Trace (Negative) H 11/07/23 17:25 Urine RBC None /hpf (0-2) 11/07/23 17:25 Urine WBC 0-4 /hpf (0-5) H 11/07/23 17:25 Ur Squamous Epith Cells 0-4 /hpf (0-5) H 11/07/23 17:25 Amorphous Sediment Not Reportable 11/07/23 17:25 Urine Bacteria Trace /hpf (NONE) 11/07/23 17:25 No radiology studies performed this visit Discharge Plan Discharge Patient Disposition: Home Clinical Impression: Abdominal pain Condition: Stable Prescriptions: No Action albuterol sulfate [ProAir HFA] 90 mcg/actuation HFA aerosol inhaler 2 puff INHALATION Q6H PRN (Reason: Shortness Of Breath) hydrochlorothiazide 25 mg tablet 25 mg PO DAILY pantoprazole [Protonix] 40 mg tablet,delayed release (DR/EC) 40 mg PO BID 42 Days Qty: 84 1RF acetaminophen 500 mg Tablet 1,000 mg PO Q6H PRN (Reason: Pain) Hold Instructions: Resume on 11/08/23. ondansetron 4 mg tablet,disintegrating 4 mg PO Q6H PRN (Reason: nausea and vomiting) Qty: 14 0RF meclizine 25 mg tablet 25 mg PO QID PRN (Reason: dizziness) Qty: 14 0RF lithium carbonate 300 mg capsule 300 mg PO TID levothyroxine 50 mcg tablet 50 mcg PO QAM lisinopril 10 mg tablet 10 mg PO QAM metformin 500 mg Tablet Extended Release 24 Hr 500 mg PO BID hydrocodone-acetaminophen 7.5-325 mg tablet 1 tab PO Q6H PRN (Reason: pain) Qty: 20 0RF Colace 100 mg capsule 100 mg PO BID Qty: 14 0RF Miralax 17 gram/dose powder 17 g PO DAILY 7 Days Qty: 119 0RF Discharge Orders: Discharge ED (Routine); Ordered 11/07/23 Ordered By: Austin Jimenez Referrals: Roel Marshall MD [Primary Care Provider] - 4-7 days Discharge Diet: Advance as tolerated Discharge Activity: Resume usual activity Patient Instructions: Abdominal Pain (ED) Coding Level of Care Code ED Hide Paster for Doron Soto
--- NOTE | 2023-11-07 16:27 | CTR_ITS ---
PROCEDURE INFORMATION: Exam: CT Abdomen And Pelvis With Contrast Exam date and time: 11/07/2023 4:56 PM Age: 38 years old Clinical indication: Abdominal pain; Prior surgery; Surgery date: 3-7 days post-operative; Surgery type: Gallbladder post op. Patient has also had hysterectomy, lump removed from breast and femur surgery; Additional info: Abdominal pain, fevers following paz 4 days ago TECHNIQUE: Imaging protocol: Computed tomography of the abdomen and pelvis with contrast. Radiation optimization: All CT scans at this facility use at least one of these dose optimization techniques: automated exposure control; mA and/or kV adjustment per patient size (includes targeted exams where dose is matched to clinical indication); or iterative reconstruction. Contrast material: OMNI 350; Contrast volume: 100 ml; Contrast route: INTRAVENOUS (IV); COMPARISON: CT abdomen pelvis w con* [id number] 06/27/2023 8:35 PM RADIATION DOSE METRICS: Total DLP (mGy-cm): 1058.8 FINDINGS: Liver: No acute findings Gallbladder and biliary ducts: Status post cholecystectomy. No adjacent fluid collections. Pancreas: No ductal dilation. Spleen: No splenomegaly. Adrenal glands: No mass. Kidneys and ureters: No stones or hydronephrosis. Stomach and bowel: No obstruction. Appendix: No evidence of appendicitis. Intraperitoneal space: No free air. No significant fluid collection. Vasculature: No abdominal aortic aneurysm. Lymph nodes: No enlarged lymph nodes. Urinary bladder: Acute findings. Reproductive: Hysterectomy. Bones/joints: No acute findings. Soft tissues: No acute findings. CT/CT abdomen pelvis w con* [id number] IMPRESSION: No acute or unexpected findings status post cholecystectomy.
[2023-11-07] MEDS: morphine 4 mg/mL SDV 1 mL IVP (16:42)
[2023-11-07] MEDS: ondansetron 2 mg/ML SDV 2 mL 4 MG IVP (16:42)
[2023-11-07] MEDS: iohexol 350 mg/mL 500 mL Btl (per mL) IV (16:59)
[2023-11-07 17:51] LABS: Add Urine Microscopic? YES; Bacteria Urine TRACE /hpf; Bilirubin Urine Neg (Negative); Blood Urine Neg (Negative); Glucose Urine UA Norm (Normal); Ketones Urine Negative (Negative); Leukocyte Esterase Urine Trace (Negative); Nitrate Urine Negative (Negative); Protein Urine Neg (Negative); Squamous Epithelial Cell Urine 0-4 /hpf (0-5); Urine Appearance Clear (CLEAR); Urine Color Yellow (Yellow); Urobilinogen Urine Norm (Negative); WBC Urine 0-4 /hpf (0-5); pH Urine 5 (5-7)
[2023-11-07 17:52] LABS: Add Urine Culture? No
[2023-11-07 18:16] VITALS: BP 150/83; PULSE 89; RESP 16; O2SAT 96
[2023-11-07 19:20] VITALS: BP 123/79; PULSE 88; RESP 15; TEMP 36.8; O2SAT 95
== END 2023-11-07 19:21 | disposition home or self-care (01) ==
PROVIDERS: Emergency Provider Emergency Medicine; PCP Family Medicine
DX: R10.9 Unspecified abdominal pain (principal); Z79.84 Long term (current) use of oral hypoglycemic drugs
CPT/HCPCS: 74177; 80053; 81001; 83690; 84703; 85025; 96374; 96375; 99285; J2270; J2405; Q9967

== ENCOUNTER 2024-01-23 14:00 | Emergency (ER) | payer OTHER, SELFPAY ==
--- NOTE | 2024-01-23 14:04 | XR_ITS ---
WS: [id number] XR hand RT min 3V* [id number] REASON FOR EXAM: injury FINDINGS: No fracture or focal bone lesion. No periarticular bone erosions or periosteal reaction. The joint spaces are intact and well preserved. Views of the wrist included on the hand examination are unremarkable. XR/XR hand RT min 3V* [id number] IMPRESSION: No significant abnormality.
[2024-01-23 14:13] VITALS: BP 125/85; PULSE 82; TEMP 36.7; O2SAT 99; BMI 44.2
--- NOTE | 2024-01-23 14:30 | ED_ITS ---
HPI - Extremity Problem 2 General: Chief complaint: Extremity Injury, Upper Stated complaint: Right hand injury Time Seen by Provider: 01/23/24 14:17 Source: patient Mode of arrival: ambulatory Limitations: no limitations History of Present Illness: Patient is a 38-year-old female presents to ED today with complaint of pain just proximal to her right wrist that she has had over the past 2 days or so. No known injury or trauma. 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 She feels like area slightly swollen. She has not noticed any color or temperature changes to the extremity. She is not having any pain with flexion or extension of her digits. MD Complaint: extremity pain and extremity swelling Onset (ago): day(s) Pain Consistency: constant Location: right and upper extremity Radiation: none Relieving factors: immobilization Exacerbating factors: range of motion Associated symptoms: Reports no associated symptoms; Deny chest pain or fever(s) Related Data Home Medications Medication Instructions Recorded Confirmed albuterol sulfate 90 mcg/actuation 2 puff inhalation Q6H PRN 07/27/19 12/26/23 aerosol inhaler (ProAir HFA) Shortness Of Breath acetaminophen 500 mg tablet 1,000 mg PO Q6H PRN Pain 07/28/21 12/26/23 levothyroxine 50 mcg tablet 50 mcg PO QAM 07/28/22 12/26/23 lisinopril 10 mg tablet 10 mg PO QAM 07/28/22 12/26/23 lithium carbonate 300 mg capsule 300 mg PO TID 07/28/22 12/26/23 metformin 500 mg tablet,extended 500 mg PO BID 07/28/22 12/26/23 release 24 hr hydrochlorothiazide 25 mg tablet 25 mg PO DAILY 01/05/23 12/26/23 Previous Rx's Medication Instructions Recorded ondansetron 4 mg disintegrating 4 mg PO Q6H PRN nausea and 04/21/22 tablet vomiting #14 tabs meclizine 25 mg tablet 25 mg PO QID PRN dizziness #14 tabs 01/17/23 pantoprazole 40 mg tablet,delayed 40 mg PO BID 6 weeks #84 tabs 08/03/23 release (Protonix) ibuprofen 800 mg tablet 800 mg PO Q8H PRN pain #20 tabs 01/23/24 methylprednisolone 4 mg tablets in See Rx Instructions PO .COMPLEX 01/23/24 a dose pack (Medrol (Sorin)) #21 ea Allergies Allergy/AdvReac Type Severity Reaction Status Date / Time aspirin Allergy [id number] Verified 01/23/24 14:16 diclofenac Allergy ALGY-Hives Verified 01/23/24 14:16 ethinyl estradiol Allergy ALGY-Anaphy Verified 01/23/24 14:16 [From Mononessa (28)] laxis hydromorphone [From Dilaudid] Allergy unknown Verified 01/23/24 14:16 latex Allergy ALGY-Rash Verified 01/23/24 14:16 methylphenidate Allergy Unknown Verified 01/23/24 14:16 [From Ritalin] norgestimate Allergy ALGY-Anaphy Verified 01/23/24 14:16 [From Mononessa (28)] laxis nut - unspecified Allergy ALGY-Anaphy Verified 01/23/24 14:16 laxis oxycodone [From Percocet] Allergy Unknown Verified 01/23/24 14:16 venom-honey bee Allergy ALGY-Hives Verified 01/23/24 14:16 Sausage (due to spices) AdvReac Intermediate ADR-Nausea Uncoded 01/23/24 14:16 Review of Systems 2 Const: Denies: fever(s), chills, body aches, fatigue or malaise Card: Denies: chest pain Resp: Denies: dyspnea Musc: Reports: joint pain (R wrist), joint swelling (R wrist) and limited range of motion; Denies: neck pain, back pain, joint redness or joint warmth Neuro: Denies: numbness in extremities or sensory changes PFSH ED 2 PFSH: Medical History Abdominal pain Collar bone fracture Femur fracture, right No pertinent family history No significant past medical history Surgical History Status post laparoscopic cholecystectomy S/P hysterectomy History of breast lump removal Hx of tonsillectomy Family History Family/Other Breast cancer Maternal and Paternal aunts Father Diabetes Denies family history of Cervical cancer Colon cancer Ovarian cancer Hypertension Uterine cancer Stroke Social History (Reviewed 01/23/24 @ 14:52 by ANDREA Reilly Smoking and tobacco/nicotine status: former use of tobacco/nicotine Alcohol intake: never Substance/Drug Use: never Physical Exam 2 Const: COMMON NORMALS: no acute distress, patient oriented x3, no limitations and alert GENERAL APPEARANCE: cooperative Extremity: COMMON NORMALS: capillary refill normal GENERAL: Yes normal exam except as noted OTHER: no pain with flexion/extension of fingers EXTREMITY IMAGE (FRONT): 1. pain just proximal to R wrist worse with ROM of wrist joint; no pain out of proportion to exam; NV intact; no overlying redness/warmth/streaking Neuro: COMMON NORMALS: patient oriented x3, moves all extremities, no focal motor deficits and no sensory deficits noted SENSORIUM/ORIENTATION: Yes alert Course 2 Vital Signs: Vital signs: Vital Signs Temperature 98.1 F 01/23/24 14:13 Pulse Rate 82 01/23/24 14:13 Blood Pressure 125/85 01/23/24 14:13 Pulse Oximetry 99 01/23/24 14:13 Oxygen Delivery Me thod Room Air 01/23/24 14:13 MDM - Extremity (Nontraumatic) Medical Decision Making DDx: strain/sprian, overuse injury, tendonitis. Will apply velcro wrist splint and have her ice and elevate the extremity as well as prescribe her NSAIDs and steroids recommend rest. Recommend follow-up with primary care later this week/early next week if symptoms do not begin to improve. Lab Data Radiology Impressions Hand X-Ray 01/23/24 14:04 IMPRESSION: No significant abnormality. All radiology interpretation(s) finalized by discharge Discharge Plan Discharge Patient Disposition: Home Clinical Impression: Acute pain of right wrist Condition: Stable Prescriptions: New ibuprofen 800 mg tablet 800 mg PO Q8H PRN (Reason: pain) Qty: 20 0RF Medrol (Sorin) 4 mg tablets,dose pack See Rx Instructions .ROUTE .COMPLEX Qty: 21 0RF Rx Instructions: orally per package directions No Action albuterol sulfate [ProAir HFA] 90 mcg/actuation HFA aerosol inhaler 2 puff INHALATION Q6H PRN (Reason: Shortness Of Breath) hydrochlorothiazide 25 mg tablet 25 mg PO DAILY pantoprazole [Protonix] 40 mg tablet,delayed release (DR/EC) 40 mg PO BID 42 Days Qty: 84 1RF acetaminophen 500 mg Tablet 1,000 mg PO Q6H PRN (Reason: Pain) Hold Instructions: Resume on 11/08/23. ondansetron 4 mg tablet,disintegrating 4 mg PO Q6H PRN (Reason: nausea and vomiting) Qty: 14 0RF meclizine 25 mg tablet 25 mg PO QID PRN (Reason: dizziness) Qty: 14 0RF lithium carbonate 300 mg capsule 300 mg PO TID levothyroxine 50 mcg tablet 50 mcg PO QAM lisinopril 10 mg tablet 10 mg PO QAM metformin 500 mg Tablet Extended Release 24 Hr 500 mg PO BID Discharge Orders: Discharge ED (Routine); Ordered 01/23/24 Ordered By: Jada Tejada Referrals: Roel Marshall MD [Primary Care Provider] - Activity Restrictions/Additional Instructions: The x-ray of your right hand/wrist here was unremarkable. As we discussed I like you to ice and elevate the extremity is much as possible as well as rest. I will place you on steroids and anti-inflammatories to help as well. You have been placed in a Velcro wrist splint at time of discharge. Please follow-up with primary care in a week or so for continued discomfort. Stand Alone Forms: Work/School Release Coding Level of Care Code ED Supervisory Air Intercept Controller for Doron Soto
[2024-01-23 15:24] VITALS: BP 122/86; PULSE 74; RESP 16; O2SAT 98
== END 2024-01-23 15:23 | disposition home or self-care (01) ==
PROVIDERS: Emergency Provider Physician Assistant; PCP Family Medicine
DX: M25.531 Pain in right wrist (principal); Z87.891 Personal history of nicotine dependence
CPT/HCPCS: 73130; 99283

== ENCOUNTER 2024-04-18 14:43 | Outpatient (CLI) | payer OTHER, SELFPAY | END 2024-04-18 14:44 | disposition home or self-care (01) | LOC: SLEEP 14:44 | PROVIDERS: PCP Family Medicine; Visit Provider Family Medicine | DX: G47.33 Obstructive sleep apnea (adult) (pediatric) (principal) | CPT/HCPCS: G0399 ==

== ENCOUNTER 2024-04-28 19:20 | Emergency (ER) | payer OTHER, SELFPAY ==
[2024-04-28 19:58] LABS: Eosinophils # 0.1 10^3/uL (0.0-0.8); Eosinophils % 1.7 %; Lymphocytes # 1.2 10^3/uL (0.8-4.8); Lymphocytes % 31.7 %; Mean Corpuscular HGB Conc 32.4 g/dL (30-55); Mean Corpuscular Hemoglobin 27.2 pg (27-33); Mean Corpuscular Volume 83.9 fl (85-98); Mean Platelet Volume 9.9 fL (7.4-10.4); Monocytes # 0.4 10^3/uL (0.2-0.9); Monocytes % 11.8 %; Neutrophils # 1.98 10^3/uL (1.8-7.7); Neutrophils % 54.5 %; Nucleated Red Blood Cells % 0 %; Platelet Count 205 10^3/cmm (157-399); Red Blood Count 4.53 10^6/uL (3.85-5.65); Red Cell Distribution Width 13.2 % (12.1-15.1); White Blood Count 3.63 10^3/uL (3.29-11.43)
[2024-04-28 20:02] VITALS: BP 135/85; PULSE 98; RESP 17; TEMP 36.9; O2SAT 97; BMI 42.5
[2024-04-28 20:15] LABS: Alanine Aminotransferase 15 U/L (0-33); Albumin Level 4.3 g/dL (3.5-5.2); Alkaline Phosphatase 122 U/L (35-105); Anion Gap 13.7 (5-19); Aspartate Amino Transferase 12 U/L (0-32); Blood Urea Nitrogen 10 mg/dL (6-20); Calcium 9.3 mg/dL (8.5-10.5); Carbon Dioxide 27 mmol/L (22-29); Chloride 97 mmol/L (98-107); Creatinine Clr Calc Pharmacy 126.4625; Glomerular Filtration Rate 92.7 mL/min (90-130); Glucose 156 mg/dL (65-115); Osmolality Calculated 280 mOsm/kg (285-295); Potassium 3.7 mmol/L (3.5-5.1); Sodium 134 mmol/L (136-145); Total Bilirubin 0.3 mg/dL (0.15-1.2); Total Protein 7.3 g/dL (6.6-8.7)
[2024-04-29] VITALS (10 sets, daily range): BP systolic 120–166; BP diastolic 78–107; PULSE 84–93; RESP 18; O2SAT 96–98
--- NOTE | 2024-04-29 00:37 | ED_ITS ---
HPI - Nausea/Vomiting/Diarrhea 2 General: Chief complaint: Nausea/Vomiting/Diarrhea Stated complaint: v/d freezing Time Seen by Provider: 04/29/24 00:25 History of Present Illness: Presents to the ER with complaints of nausea vomiting diarrhea since yesterday. She also states she has intermittent fever. She says she only gets like this once a year when she has the stomach flu. She is not been around anyone with similar complaints or ate any possibly bad food. Related Data Home Medications Medication Instructions Recorded Confirmed albuterol sulfate 90 mcg/actuation 2 puff inhalation Q6H PRN 07/27/19 12/26/23 aerosol inhaler (ProAir HFA) Shortness Of Breath acetaminophen 500 mg tablet 1,000 mg PO Q6H PRN Pain 07/28/21 12/26/23 levothyroxine 50 mcg tablet 50 mcg PO QAM 07/28/22 12/26/23 lisinopril 10 mg tablet 10 mg PO QAM 07/28/22 12/26/23 lithium carbonate 300 mg capsule 300 mg PO TID 07/28/22 12/26/23 metformin 500 mg tablet,extended 500 mg PO BID 07/28/22 12/26/23 release 24 hr hydrochlorothiazide 25 mg tablet 25 mg PO DAILY 01/05/23 12/26/23 Previous Rx's Medication Instructions Recorded ondansetron 4 mg disintegrating 4 mg PO Q6H PRN nausea and 04/21/22 tablet vomiting #14 tabs meclizine 25 mg tablet 25 mg PO QID PRN dizziness #14 tabs 01/17/23 pantoprazole 40 mg tablet,delayed 40 mg PO BID 6 weeks #84 tabs 08/03/23 release (Protonix) ibuprofen 800 mg tablet 800 mg PO Q8H PRN pain #20 tabs 01/23/24 methylprednisolone 4 mg tablets in See Rx Instructions PO .COMPLEX 01/23/24 a dose pack (Medrol (Sorin)) #21 ea ciprofloxacin HCl 500 mg tablet 500 mg PO Q12H #20 tabs 04/29/24 Allergies Allergy/AdvReac Type Severity Reaction Status Date / Time aspirin Allergy [id number] Verified 01/23/24 14:16 diclofenac Allergy ALGY-Hives Verified 01/23/24 14:16 ethinyl estradiol Allergy ALGY-Anaphy Verified 01/23/24 14:16 [From Mononessa (28)] laxis hydromorphone [From Dilaudid] Allergy unknown Verified 01/23/24 14:16 latex Allergy ALGY-Rash Verified 01/23/24 14:16 methylphenidate Allergy Unknown Verified 01/23/24 14:16 [From Ritalin] norgestimate Allergy ALGY-Anaphy Verified 01/23/24 14:16 [From Mononessa (28)] laxis nut - unspecified Allergy ALGY-Anaphy Verified 01/23/24 14:16 laxis oxycodone [From Percocet] Allergy Unknown Verified 01/23/24 14:16 venom-honey bee Allergy ALGY-Hives Verified 01/23/24 14:16 Sausage (due to spices) AdvReac Intermediate ADR-Nausea Uncoded 01/23/24 14:16 Review of Systems 2 General: Reports: 10 or more systems reviewed and unremarkable except in HPI and below PFSH ED 2 PFSH: Medical History Abdominal pain Collar bone fracture Femur fracture, right No pertinent family history No significant past medical history Surgical History Status post laparoscopic cholecystectomy S/P hysterectomy History of breast lump removal Hx of tonsillectomy Family History Family/Other Breast cancer Maternal and Paternal aunts Father Diabetes Denies family history of Cervical cancer Colon cancer Ovarian cancer Hypertension Uterine cancer Stroke Social History Smoking and tobacco/nicotine status: former use of tobacco/nicotine Alcohol intake: never Substance/Drug Use: never Physical Exam 2 Const: COMMON NORMALS: no acute distress, average body habitus, patient oriented x3, no limitations, healthy appearing, alert and well nourished HENMT: COMMON NORMALS: normocephalic, atraumatic, hearing grossly normal bilaterally, external ears normal, Normal external nose present and moist oral mucous membranes HEAD & SCALP: normocephalic and atraumatic NOSE: Normal external nose present EXTERNAL EAR: Yes external ears normal Neck/C-Spine: COMMON NORMALS: no JVD Chest: COMMONS NORMALS: normal inspection of the chest and normal palpation of entire chest wall Resp: COMMON NORMALS: normal respiratory effort, No retractions, No use of accessory muscles and clear to auscultation bilaterally AUSCULTATION: clear to auscultation bilaterally Cardio: COMMON NORMALS: no JVD, regular rate, regular rhythm, S1 normal heart sound present, S2 normal heart sound present, No gallops present (Cardio), No clicks present (Cardio), No murmurs present (Cardio) and No rub (Cardio) R ATE: regular rate RHYTHM: regular rhythm HEART SOUNDS: S1 normal heart sound present and S2 normal heart sound present GI: COMMON NORMALS: Normal to inspection, nondistended, normoactive bowel sounds present, Soft to palpation, non-tender, No hepatosplenomegaly present and no masses PALPATION: Yes Soft to palpation and Yes No hepatosplenomegaly present Neuro: COMMON NORMALS: patient oriented x3 SENSORIUM/ORIENTATION: Yes alert Course 2 Vital Signs: Vital signs: Vital Signs Temperature 98.4 F 04/28/24 20:02 Pulse Rate 90 04/29/24 01:15 Respiratory Rate 17 04/28/24 20:02 Blood Pressure 162/96 04/29/24 01:15 Pulse Oximetry 96 04/29/24 01:15 Oxygen Delivery Me thod Room Air 04/28/24 20:02 MDM - Nausea/Vomiting/Diarrhea Medical Decision Making Lab work was obtained which essentially unremarkable other than possible urinary tract infection. Patient be given 1 Cipro here and discharged with a prescription for Cipro. Patient to follow-up with her PCP within approximately 7 days. Medical Records I reviewed the patient's medical records. Lab Data I reviewed the patient's lab results. 04/28/24 19:48 04/28/24 19:48 Laboratory Results WBC 3.63 10^3/uL (3.29-11.43) 04/28/24 19:48 RBC 4.53 10^6/uL (3.85-5.65) 04/28/24 19:48 Hgb 12.30 g/dL (11.27-16.99) 04/28/24 19:48 Hct 38.0 % (36-47) 04/28/24 19:48 MCV 83.9 fl (85-98) L 04/28/24 19:48 MCH 27.2 pg (27-33) 04/28/24 19:48 MCHC 32.4 g/dL (30-55) 04/28/24 19:48 RDW 13.2 % (12.1-15.1) 04/28/24 19:48 Plt Count 205 10^3/cmm (157-399) 04/28/24 19:48 MPV 9.9 fL (7.4-10.4) 04/28/24 19:48 Neut % (Auto) 54.5 % 04/28/24 19:48 Lymph % (Auto) 31.7 % 04/28/24 19:48 [place] % (Auto) 11.8 % 04/28/24 19:48 Eos % (Auto) 1.7 % 04/28/24 19:48 Baso % (Auto) 0.0 % 04/28/24 19:48 Neut # (Auto) 1.98 10^3/uL (1.8-7.7) 04/28/24 19:48 Lymph # (Auto) 1.2 10^3/uL (0.8-4.8) 04/28/24 19:48 [place] # (Auto) 0.4 10^3/uL (0.2-0.9) 04/28/24 19:48 Eos # (Auto) 0.1 10^3/uL (0.0-0.8) 04/28/24 19:48 Baso # (Auto) 0.0 10^3/uL (0.0-0.1) 04/28/24 19:48 Nucleated RBC % (auto) 0 % 04/28/24 19:48 Nucleated RBCs # 0.0 /100WBC 04/28/24 19:48 Sodium 134 mmol/L (136-145) L 04/28/24 19:48 Potassium 3.7 mmol/L (3.5-5.1) 04/28/24 19:48 Chloride 97 mmol/L (98-107) L 04/28/24 19:48 Carbon Dioxide 27 mmol/L (22-29) 04/28/24 19:48 Anion Gap 13.7 (5-19) 04/28/24 19:48 BUN 10 mg/dL (6-20) 04/28/24 19:48 Creatinine 0.7 mg/dL (0.5-0.9) 04/28/24 19:48 GFR Calculation 92.7 mL/min (90-130) 04/28/24 19:48 Glucose 156 mg/dL (65-115) H 04/28/24 19:48 Calculated Osmolality 280 mOsm/kg (285-295) L 04/28/24 19:48 Calcium 9.3 mg/dL (8.5-10.5) 04/28/24 19:48 Magnesium 2.0 mg/dL (1.7-2.3) 04/28/24 19:48 Total Bilirubin 0.3 mg/dL (0.15-1.2) 04/28/24 19:48 AST 12 U/L (0-32) 04/28/24 19:48 ALT 15 U/L (0-33) 04/28/24 19:48 Alkaline Phosphatase 122 U/L (35-105) H 04/28/24 19:48 Total Protein 7.3 g/dL (6.6-8.7) 04/28/24 19:48 Albumin 4.3 g/dL (3.5-5.2) 04/28/24 19:48 Globulin 3.0 g/dL (1.3-4.6) 04/28/24 19:48 Urine Color Dark yellow (Yellow) A 04/29/24 01:09 Urine Appearance Cloudy (CLEAR) A 04/29/24 01:09 Urine pH 5.5 (5-7) 04/29/24 01:09 Ur Specific [place] 1.034 (1.005-1.030) H 04/29/24 01:09 Urine Protein 1+ (Negative) A 04/29/24 01:09 Urine Glucose (UA) Negative (Normal) 04/29/24 01:09 Urine Ketones Trace (Negative) 04/29/24 01:09 Urine Blood Negative (Negative) 04/29/24 01:09 Urine Nitrate Negative (Negative) 04/29/24 01:09 Urine Bilirubin 1+ (Negative) H 04/29/24 01:09 Urine Urobilinogen 1.0 mg/dL (Negative) 04/29/24 01:09 Ur Leukocyte Esterase 1+ (Negative) A 04/29/24 01:09 Urine RBC 0-2 /hpf (0-2) 04/29/24 01:09 Urine WBC 21-50 /hpf (0-5) H 04/29/24 01:09 Ur Squamous Epith Cells 21-50 /hpf (0-5) 04/29/24 01:09 Amorphous Sediment Not Reportable 04/29/24 01:09 Urine Bacteria 4+ /hpf (NONE) H 04/29/24 01:09 Hyaline Casts 13.63 /lpf 04/29/24 01:09 Coronavirus (PCR) Negative (Negative) 04/29/24 01:21 Influenza A (PCR) Negative (Negative) 04/29/24 01:21 Influenza Type B (PCR) Negative (Negative) 04/29/24 01:21 RSV (PCR) Negative (Negative) 04/29/24 01:21 All radiology interpretation(s) finalized by discharge Discharge Plan Discharge Patient Disposition: Home Clinical Impression: Gastroenteritis Urinary tract infection Qualifiers: Urinary tract infection type: acute cystitis Hematuria presence: with hematuria Qualified Code(s): N30.01 - Acute cystitis with hematuria Condition: Stable Prescriptions: New ciprofloxacin HCl 500 mg tablet 500 mg PO Q12H Qty: 20 0RF No Action albuterol sulfate [ProAir HFA] 90 mcg/actuation HFA aerosol inhaler 2 puff INHALATION Q6H PRN (Reason: Shortness Of Breath) hydrochlorothiazide 25 mg tablet 25 mg PO DAILY pantoprazole [Protonix] 40 mg tablet,delayed release (DR/EC) 40 mg PO BID 42 Days Qty: 84 1RF acetaminophen 500 mg Tablet 1,000 mg PO Q6H PRN (Reason: Pain) Hold Instructions: Resume on 11/08/23. ondansetron 4 mg tablet,disintegrating 4 mg PO Q6H PRN (Reason: nausea and vomiting) Qty: 14 0RF meclizine 25 mg tablet 25 mg PO QID PRN (Reason: dizziness) Qty: 14 0RF ibuprofen 800 mg tablet 800 mg PO Q8H PRN (Reason: pain) Qty: 20 0RF Medrol (Sorin) 4 mg tablets,dose pack See Rx Instructions .ROUTE .COMPLEX Qty: 21 0RF Rx Instructions: orally per package directions lithium carbonate 300 mg capsule 300 mg PO TID levothyroxine 50 mcg tablet 50 mcg PO QAM lisinopril 10 mg tablet 10 mg PO QAM metformin 500 mg Tablet Extended Release 24 Hr 500 mg PO BID Discharge Orders: Discharge ED (Routine); Ordered 04/29/24 Ordered By: Robert Andersen Referrals: Roel Marshall MD [Primary Care Provider] - 1 week Patient Instructions: Urinary Tract Infection - Women, Gastroenteritis (DC) Activity Restrictions/Additional Instructions: [facility]. Please realize that you were seen in the emergency department and that we are providing you with an emergency medical screening exam and this may not be a complete and all exclusive of all testing and/or medical workup we may need to determine your element or severity of your illness. It is very important that you follow-up as instructed with your primary care provider or specialist for the additional evaluation and to discuss your medical treatment plan. You may return to the emergency department should you have concerns or if your condition changes or worsens in any way. Coding Level of Care Code ED Paper Box Cutter for Doron Soto
[2024-04-29 01:20] LABS: Bilirubin Urine 1+ (Negative); Blood Urine Negative (Negative); Glucose Urine UA Negative (Normal); Ketones Urine Trace (Negative); Leukocyte Esterase Urine 1+ (Negative); Nitrate Urine Negative (Negative); Protein Urine 1+ (Negative); Urine Appearance Cloudy (CLEAR); Urine Color Dark Yellow (Yellow); pH Urine 5.5 (5-7)
[2024-04-29 01:25] LABS: Add Urine Microscopic? YES; Bacteria Urine 4+ /hpf; Hyaline Casts Urine 13.63 /lpf; RBC Urine 0-2 /hpf (0-2); Squamous Epithelial Cell Urine 21-50 /hpf (0-5); Universal Test for UA Present (0); WBC Urine 21-50 /hpf (0-5)
[2024-04-29 01:35] LABS: Add Urine Culture? No; Specific Gravity, Urine 1.034 (1.005-1.030)
[2024-04-29 02:08] LABS: Covid PCR NEGATIVE (Negative); Influenza A NEGATIVE (Negative); Influenza B NEGATIVE (Negative); Respiratory Syncytial Virus Ce NEGATIVE (Negative)
[2024-04-29] MEDS: ciprofloxacin 500 mg Tablet PO (02:38)
== END 2024-04-29 02:40 | disposition home or self-care (01) ==
PROVIDERS: Emergency Provider Emergency Medicine; PCP Family Medicine
DX: K52.9 Noninfective gastroenteritis and colitis, unspecified (principal); N30.01 Acute cystitis with hematuria; Z11.52 Encounter for screening for COVID-19; Z79.84 Long term (current) use of oral hypoglycemic drugs; Z87.891 Personal history of nicotine dependence
CPT/HCPCS: 0241U; 36415; 80053; 81001; 83735; 85025; 99283

== ENCOUNTER 2024-06-26 13:36 | Emergency (ER) | payer OTHER, SELFPAY ==
[2024-06-26 13:41] VITALS: BP 143/89; PULSE 83; TEMP 36.6; O2SAT 99; BMI 42.5
--- NOTE | 2024-06-26 13:41 | XR_ITS ---
WS: [id number] XR ankle LT min 3V* [id number] REASON FOR EXAM: injury FINDINGS: Small small corticated bone densities adjacent the apex of the medial and lateral malleolus compatible with old avulsion injury. There is a very small avulsion from the tip of the apex of the medial malleolus with apparent donor site, interposed between the medial malleolus and the talus which may be acute. The joint spaces of the ankle are intact and well preserved. XR/XR ankle LT min 3V* [id number] IMPRESSION: Possible acute medial malleolar avulsion fracture as above.
--- NOTE | 2024-06-26 13:57 | W.ED.EXTPRO ---
HPI - Extremity Problem General: Chief complaint: Extremity Injury, Lower Stated complaint: L ankle injury Time Seen by Provider: 06/26/24 13:51 Source: patient Mode of arrival: ambulatory Limitations: no limitations History of Present Illness: 38-year-old female who states she has been having left ankle pain for 2 weeks. She states she does not remember an injury but is been having increasing pain especially at ambulation. She rates the pain a 5 out of 10 left lateral ankle. Associated symptoms: Deny chest pain, fever(s) or rash Related Data Home Medications ?Medication ?Instructions ?Recorded ?Confirmed albuterol sulfate 90 mcg/actuation 2 puff inhalation Q6H PRN 07/27/19 12/26/23 aerosol inhaler (ProAir HFA) Shortness Of Breath acetaminophen 500 mg tablet 1,000 mg PO Q6H PRN Pain 07/28/21 12/26/23 Held on 11/03/23. Instructions: Resume on 11/08/23. levothyroxine 50 mcg tablet 50 mcg PO QAM 07/28/22 12/26/23 lisinopril 10 mg tablet 10 mg PO QAM 07/28/22 12/26/23 lithium carbonate 300 mg capsule 300 mg PO TID 07/28/22 12/26/23 metformin 500 mg tablet,extended 500 mg PO BID 07/28/22 12/26/23 release 24 hr hydrochlorothiazide 25 mg tablet 25 mg PO DAILY 01/05/23 12/26/23 Previous Rx's ?Medication ?Instructions ?Recorded ondansetron 4 mg disintegrating 4 mg PO Q6H PRN nausea and 04/21/22 tablet vomiting #14 tabs meclizine 25 mg tablet 25 mg PO QID PRN dizziness #14 tabs 01/17/23 pantoprazole 40 mg tablet,delayed 40 mg PO BID 6 weeks #84 tabs 08/03/23 release (Protonix) ibuprofen 800 mg tablet 800 mg PO Q8H PRN pain #20 tabs 01/23/24 methylprednisolone 4 mg tablets in See Rx Instructions PO .COMPLEX 01/23/24 a dose pack (Medrol (Sorin)) #21 ea ciprofloxacin HCl 500 mg tablet 500 mg PO Q12H #20 tabs 04/29/24 naproxen 500 mg tablet (Naprosyn) 500 mg PO BID PRN pain #20 tabs 06/26/24 Allergies Allergy/AdvReac Type Severity Reaction Status Date / Time aspirin Allergy [id number] Verified 06/26/24 13:46 diclofenac Allergy ALGY-Hives Verified 06/26/24 13:46 ethinyl estradiol (From Allergy ALGY-Anaphy Verified 06/26/24 13:46 Mononessa (28)) laxis hydromorphone (From Dilaudid) Allergy unknown Verified 06/26/24 13:46 latex Allergy ALGY-Rash Verified 06/26/24 13:46 methylphenidate (From Allergy Unknown Verified 06/26/24 13:46 Ritalin) norgestimate (From Mononessa Allergy ALGY-Anaphy Verified 06/26/24 13:46 (28)) laxis nut - unspecified Allergy ALGY-Anaphy Verified 06/26/24 13:46 laxis oxycodone (From Percocet) Allergy Unknown Verified 06/26/24 13:46 venom-honey bee Allergy ALGY-Hives Verified 06/26/24 13:46 Sausage (due to spices) AdvReac Intermediate ADR-Nausea Uncoded 06/26/24 13:46 Review of Systems Const: Denies: fever(s), chills, body aches or change in appetite ENMT: Denies: throat pain or dental pain Card: Denies: chest pain Resp: Denies: dyspnea GI: Denies: abdominal pain, nausea, vomiting or diarrhea Musc: Reports: extremity pain; Denies: neck pain or back pain Skin/Breast: Denies: rash Neuro: Denies: headache(s) PFSH ED PFSH: Medical History Abdominal pain Collar bone fracture Femur fracture, right No pertinent family history No significant past medical history Surgical History Status post laparoscopic cholecystectomy S/P hysterectomy History of breast lump removal Hx of tonsillectomy Family History Family/Other Breast cancer Maternal and Paternal aunts Father Diabetes Denies family history of Cervical cancer Colon cancer Ovarian cancer Hypertension Uterine cancer Stroke Social History Smoking and tobacco/nicotine status: former use of tobacco/nicotine Alcohol intake: never Substance/Drug Use: never Physical Exam Const: COMMON NORMALS: no acute distress, patient oriented x3 and healthy appearing HENMT: COMMON NORMALS: normocephalic and atraumatic HEAD & SCALP: normocephalic and atraumatic Eye: COMMON NORMALS: conjunctivae normal CONJUNCTIVA: Yes conjunctivae normal Neck/C-Spine: COMMON NORMALS: full ROM and supple Chest: COMMONS NORMALS: normal inspection of the chest Resp: COMMON NORMALS: normal respiratory effort Cardio: COMMON NORMALS: regular rate, regular rhythm and No murmurs present (Cardio) RATE: regular rate RHYTHM: regular rhythm Extremity: COMMON NORMALS: full ROM NARRATIVE EXTREMITY EXAM: Tenderness noted to left lateral ankle no obvious deformity Neuro: COMMON NORMALS: patient oriented x3, moves all extremities and no focal motor deficits Psych: COMMON NORMALS: mental status grossly normal, Normal thought process present and cooperative THOUGHT PROCESS: Normal thought process present Skin: COMMON NORMALS: no rashes or lesions noted and no wounds GENERAL SKIN EXAM: no rashes or lesions noted Course Vital Signs: Vital signs: Vital Signs Temperature 97.9 F 06/26/24 13:41 Pulse Rate 83 06/26/24 13:41 Blood Pressure 143/89 06/26/24 13:41 Pulse Oximetry 99 06/26/24 13:41 Oxygen Delivery Me thod Room Air 06/26/24 13:41 MDM - Extremity (Nontraumatic) Medical Decision Making Patient presents here with ankle sprain x-ray shows no acute fractures we will get her follow-up with podiatry she is return if worsening she understands agrees to plan. Medical Records I reviewed the patient's medical records. XR interpretation done by ED provider, pending radiology final review ED provider radiology interpretation(s): xr l ankle no acute fx Discharge Plan Discharge Patient Disposition: Home Clinical Impression: Ankle pain, left Condition: Stable Prescriptions: New naproxen [Naprosyn] 500 mg tablet 500 mg PO BID PRN (Reason: pain) Qty: 20 0RF No Action albuterol sulfate [ProAir HFA] 90 mcg/actuation HFA aerosol inhaler 2 puff INHALATION Q6H PRN (Reason: Shortness Of Breath) hydrochlorothiazide 25 mg tablet 25 mg PO DAILY pantoprazole [Protonix] 40 mg tablet,delayed release (DR/EC) 40 mg PO BID 42 Days Qty: 84 1RF acetaminophen 500 mg Tablet 1,000 mg PO Q6H PRN (Reason: Pain) ondansetron 4 mg tablet,disintegrating 4 mg PO Q6H PRN (Reason: nausea and vomiting) Qty: 14 0RF meclizine 25 mg tablet 25 mg PO QID PRN (Reason: dizziness) Qty: 14 0RF ibuprofen 800 mg tablet 800 mg PO Q8H PRN (Reason: pain) Qty: 20 0RF Medrol (Sorin) 4 mg tablets,dose pack See Rx Instructions .ROUTE .COMPLEX Qty: 21 0RF Rx Instructions: orally per package directions lithium carbonate 300 mg capsule 300 mg PO TID levothyroxine 50 mcg tablet 50 mcg PO QAM lisinopril 10 mg tablet 10 mg PO QAM metformin 500 mg Tablet Extended Release 24 Hr 500 mg PO BID ciprofloxacin HCl 500 mg tablet 500 mg PO Q12H Qty: 20 0RF Discharge Orders: Discharge ED (Routine); Ordered 06/26/24 Ordered By: Austin Jimenez Referrals: Neel Simon DPM [Physician] - 4-7 days Roel Marshall MD [Primary Care Provider] - Discharge Diet: Advance as tolerated Discharge Activity: Increase activity as tolerated Patient Instructions: Arthralgia (ED) Print Language: Omani Coding Level of Care Code ED Public Relations Representative for Doron Soto
[2024-06-26] MEDS: naproxen 500 mg Tablet PO (14:16)
[2024-06-26 14:24] VITALS: BP 141/90; PULSE 86; RESP 16; O2SAT 100
== END 2024-06-26 14:21 | disposition home or self-care (01) ==
PROVIDERS: Emergency Provider Emergency Medicine; PCP Family Medicine
DX: M25.572 Pain in left ankle and joints of left foot (principal); Z87.891 Personal history of nicotine dependence
CPT/HCPCS: 73610; 99283

== ENCOUNTER → 2024-07-16 11:09 | Outpatient (BNVA) | payer OTHER, SELFPAY | PROVIDERS: PCP Family Medicine; Visit Provider Podiatrist Foot & Ankle Surgery | DX: M25.572 Pain in left ankle and joints of left foot (principal); S82.52XD Displaced fracture of medial malleolus of left tibia, subsequent encounter for closed fracture with routine healing; S82.832D Other fracture of upper and lower end of left fibula, subsequent encounter for closed fracture with routine healing; X58.XXXD Exposure to other specified factors, subsequent encounter | CPT/HCPCS: 73610 ==

== ENCOUNTER 2024-08-22 22:34 | Emergency (ER) | payer OTHER, SELFPAY ==
[2024-08-22 22:36] VITALS: BP 172/92; PULSE 86; RESP 16; TEMP 37.2; O2SAT 95
[2024-08-22 22:48] LABS: Glucose Point of Care 138 mg/dL (70-110)
[2024-08-22 22:55] VITALS: BP 137/89; PULSE 83; RESP 17; O2SAT 95
--- NOTE | 2024-08-22 23:08 | XRR_ITS ---
PROCEDURE INFORMATION: Exam: XR Chest Exam date and time: 08/22/2024 11:17 PM Age: 38 years old Clinical indication: Fever and other: Dizzy, n/v; Additional info: N/v, dizzy TECHNIQUE: Imaging protocol: Radiologic exam of the chest. Views: 1 view. COMPARISON: CR XR chest 1V portable [id number] 07/28/2022 12:15 PM FINDINGS: Lungs: Poor inspiratory effort with some crowding of pulmonary markings and possible accentuation of the apparent heart size. Pleural spaces: Unremarkable. No pleural effusion. No pneumothorax. Heart/Mediastinum: See Lungs finding. Bones/joints: Moderate thoracic spondylosis. XR/XR chest 1V portable [id number] IMPRESSION: No acute findings.
[2024-08-22 23:12] VITALS: BP 138/85; PULSE 82; RESP 13; O2SAT 96
--- NOTE | 2024-08-22 23:16 | ECG_ITS ---
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 Measurements Intervals [place] Rate: 76 P: 55 OR: 165 QRS: 64 QRSD: 103 T: 31 QT: 378 QTc: 425 Interpretive Statements SINUS RHYTHM NONSPECIFIC T-WAVE ABNORMALITY INTERPRETATION BASED ON A DEFAULT AGE OF 38 YEARS Compared to ECG 01/17/2023 07:35:22 T-wave abnormality now present Electronically Signed On 08-25-2024 13:32:32 CDT by Jose Campa M.D. [id number]
--- NOTE | 2024-08-22 23:21 | ED_ITS ---
HPI - Nausea/Vomiting/Diarrhea 2 General: Chief complaint: Nausea/Vomiting/Diarrhea Stated complaint: HTN Time Seen by Provider: 08/22/24 22:51 Source: patient Mode of arrival: EMS Limitations: no limitations History of Present Illness: Patient is a 38-year-old female who presents the emergency department by ambulance stating she has not felt good for the past day. States yesterday she started feeling dizzy, did not think much of it but was also noticing that she felt out of it. Today she started developing nausea and vomiting, stating she has thrown up 8 times. She is diabetic, states that her blood sugars have been running in the 300s which is abnormal for her. Has been taking her medications as prescribed and denies starting any new recent medications. No blood in her vomit and no changes with bowel habits. No urinary symptoms or abdominal pain that is new. Further denying any chest pain or shortness of breath, but does state that she has a history of asthma. Also notes a history of PTSD and bipolar, states that she has been under more stress and has been more depressed recently. No other symptoms reported at this time, vitals within normal limits. MD elicited complaint: nausea and vomiting Onset (ago): day(s) Associated nausea: Yes Associated abdominal pain: No Associated symtoms: Reports anxiety, dizziness and nausea; Denies chest pain, diaphoresis, dysuria, headache(s) or palpitations Related Data Home Medications ?Medication ?Instructions ?Recorded ?Confirmed albuterol sulfate 90 mcg/actuation 2 puff inhalation Q 6H PRN 07/27/19 07/16/24 aerosol inhaler (ProAir HFA) Shortness Of Breath acetaminophen 500 mg tablet 1,000 mg PO Q6H PRN Pain 0 07/28/21 07/16/24 Held on 11/03/23. Instructions: Resume on 11/08/23. levothyroxine 50 mcg tablet 50 mcg PO QAM 07/28/2208/07 lisinopril 10 mg tablet 10 mg PO QAM 07/28/22 lithium carbonate 300 mg capsule 300 mg PO TID 3 07/16/24 metformin 500 mg tablet,extended 500 mg PO BID 3 07/16/24 release 24 hr hydrochlorothiazide 25 mg tablet 25 mg PO DAILY 07/16/24 simvastatin 20 mg tablet 20 mg PO DAILY 07/16/2408/07 trazodone 100 mg tablet 100 mg PO DAILY 07/16/2408/07 Previous Rx's ?Medication ?Instructions ?Recorded ondansetron 4 mg disintegrating 4 mg PO Q6H PRN nausea and 04/21/22 tablet vomiting #14 tabs meclizine 25 mg tablet 25 mg PO QID PRN dizziness # 14 tabs 01/17/23 ibuprofen 800 mg tablet 800 mg PO Q8H PRN pain #20 t abs 01/23/24 ciprofloxacin HCl 500 mg tablet 500 mg PO BID 10 days #20 tabs 08/23/24 (Cipro) ondansetron HCl 4 mg tablet 4 mg PO Q8H #30 tabs 08/23 Allergies Allergy/AdvReac Type Severity Reaction Status Date / Time aspirin Allergy [id number] Verified 08/22/24 22:43 diclofenac Allergy ALGY-Hives Verified 08/22/24 22:43 ethinyl estradiol (From Allergy ALGY-Anaphy Verified 08/22/24 22:43 Mononessa (28)) laxis hydromorphone (From Dilaudid) Allergy unknown Verified 08/22/24 22:43 latex Allergy ALGY-Rash Verified 08/22/24 22:43 methylphenidate (From Allergy Unknown Verified 08/22/24 22:43 Ritalin) norgestimate (From Mononessa Allergy ALGY-Anaphy Verified 08/22/24 22:43 (28)) laxis nut - unspecified Allergy ALGY-Anaphy Verified 08/22/24 22:43 laxis oxycodone (From Percocet) Allergy Unknown Verified 08/22/24 22:43 venom-honey bee Allergy ALGY-Hives Verified 08/22/24 22:43 Sausage (due to spices) AdvReac Intermediate ADR-Nausea Uncoded 08/22/24 22:43 Review of Systems 2 General: Reports: 10 or more systems reviewed and unremarkable except in HPI and below Const: Denies: fever(s), chills, change in appetite, change in weight or diaphoresis ENMT: Denies: throat pain or hoarseness Card: Denies: chest pain, palpitations or lightheadedness Resp: Denies: dyspnea, productive cough or wheezing GI: Reports: nausea and vomiting; Denies: abdominal pain or diarrhea : Denies: flank pain, difficulty voiding, dysuria, urinary frequency or urinary urgency Musc: Denies: neck pain or back pain Skin/Breast: Denies: rash or new lesions Neuro: Reports: dizziness; Denies: headache(s) Psych: Reports: anxiety and depression PFSH ED 2 PFSH: Medical History Abdominal pain Collar bone fracture Femur fracture, right No pertinent family history No significant past medical history Surgical History Status post laparoscopic cholecystectomy S/P hysterectomy History of breast lump removal Hx of tonsillectomy Family History Family/Other Breast cancer Maternal and Paternal aunts Father Diabetes Denies family history of Cervical cancer Colon cancer Ovarian cancer Hypertension Uterine cancer Stroke Social History Smoking and tobacco/nicotine status: former use of tobacco/nicotine Alcohol intake: never Substance/Drug Use: never Physical Exam 2 Const: COMMON NORMALS: no acute distress, patient oriented x3, no limitations, alert and well nourished GENERAL APPEARANCE: cooperative O RIENTATION/CONSCIOUSNESS: Yes awake HENMT: COMMON NORMALS: normocephalic, atraumatic, hearing grossly normal bilaterally, external ears normal, Normal external nose present, Normal nasal mucous membranes and turbinates present and moist oral mucous membranes HEAD & SCALP: normocephalic and atraumatic NOSE: Normal external nose present and Normal nasal mucous membranes and turbinates present EXTERNAL EAR: Yes external ears normal Eye: COMMON NORMALS: Equal, round and reactive pupils present, EOMs intact bilaterally, conjunctivae normal and normal visual deal by confrontation C ONJUNCTIVA: Yes conjunctivae normal PUPIL: Yes Equal, round and reactive pupils present Neck/C-Spine: COMMON NORMALS: full ROM, supple, no meningeal signs and no JVD Resp: COMMON NORMALS: normal respiratory effort, No retractions, No use of accessory muscles and clear to auscultation bilaterally AUSCULTATION: clear to auscultation bilaterally, no crackles, no rales, no rhonchi and no wheezes Cardio: COMMON NORMALS: no JVD, regular rate, regular rhythm, S1 normal heart sound present, S2 normal heart sound present, No gallops present (Cardio), No clicks present (Cardio), No murmurs present (Cardio), No rub (Cardio) and Peripheral pulses 2+ throughout RATE: regular rate RHYTHM: regular rhythm HEART SOUNDS: S1 normal heart sound present and S2 normal heart sound present PERIPHERAL PULSES: Peripheral pulses 2+ throughout GI: COMMON NORMALS: Normal to inspection, nondistended, normoactive bowel sounds present, Soft to palpation, non-tender, No hepatosplenomegaly present and no masses AUSCULTATION: Yes normoactive bowel sounds PALPATION: Yes Soft to palpation, No Guarding due to palpation present (GI), No Rigid due to palpation and Yes No hepatosplenomegaly present RECTAL EXAM: deferred : COMMON NORMALS: Yes no CVA tenderness BLADDER/KIDNEY EXAM: Yes no CVA tenderness Back/Pelvis: COMMON NORMALS: no CVA tenderness Extremity: COMMON NORMALS: normal to inspection and full ROM Neuro: COMMON NORMALS: patient oriented x3, moves all extremities, no focal motor deficits and no sensory deficits noted SENSORIUM/ORIENTATION: Yes alert MENINGEAL SIGNS: Yes no meningeal signs Psych: COMMON NORMALS: mental status grossly normal, cooperative and speech normal SPEECH: Yes normal speech Skin: COMMON NORMALS: no rashes or lesions noted GENERAL SKIN EXAM: no rashes or lesions noted Course 2 Vital Signs: Vital signs: Vital Signs Temperature 98.9 F 08/22/24 22:36 Pulse Rate 88 08/23/24 00:30 Respiratory Rate 12 08/23/24 00:30 Blood Pressure 141/67 08/23/24 00:30 Pulse Oximetry 95 08/23/24 00:30 Oxygen Delivery Me thod Room Air 08/22/24 22:36 MDM - Nausea/Vomiting/Diarrhea Medical Decision Making Patient presented by ambulance for nausea and vomiting, overall not feeling well. Overall the exam was unremarkable, mildly hypertensive initially but this has normalized throughout ED stay. Notably anxious on exam. Chest x-ray is normal, all of her lab work normal aside from urinalysis showing moderate urinary tract infection for which we will treat with Cipro. She had no fevers to report or CVA tenderness, not suspecting pyelonephritis however we will go ahead and treat for this and cannot fully rule it out. She will be prescribed Zofran for her nausea, given IV fluids and started on ceftriaxone here in the ED. Discharged with strict return precautions of which she verbalized understanding. Lab Data 08/22/24:08/22/24: Radiology Impressions Chest X-Ray 08/22/24: IMPRESSION: No acute findings. Laboratory Results WBC 5.07 10^3/uL (3.29-11.43) 08/22/24: RBC 4.52 10^6/uL (3.85-5.65) 08/22/24: Hgb 12.10 g/dL (11.27-16.99) 08/22/24: Hct 37.8 % (36-47) 08/22/24: MCV 83.6 fl (85-98) L 08/22/24: MCH 26.8 pg (27-33) L 08/22/24: MCHC 32.0 g/dL (30-55) 08/22/24: RDW 13.0 % (12.1-15.1) 08/22/24: Plt Count 246 10^3/cmm (157-399) 08/22/24: MPV 9.9 fL (7.4-10.4) 08/22/24: Neut % (Auto) 57.0 % 08/22/24: Lymph % (Auto) 34.9 % 08/22/24: [place] % (Auto) 6.9 % 08/22/24: Eos % (Auto) 0.8 % 08/22/24: Baso % (Auto) 0.2 % 08/22/24: Neut # (Auto) 2.89 10^3/uL (1.8-7.7) 08/22/24: Lymph # (Auto) 1.8 10^3/uL (0.8-4.8) 08/22/24: [place] # (Auto) 0.4 10^3/uL (0.2-0.9) 08/22/24: Eos # (Auto) 0.0 10^3/uL (0.0-0.8) 08/22/24 23:25 Baso # (Auto) 0.0 10^3/uL (0.0-0.1) 08/22/24 23:25 Nucleated RBC % (auto) 0 % 08/22/24 23: Nucleated RBCs # 0.0 /100WBC 08/22/24 23:25 Sodium 142 mmol/L (136-145) 08/22/24 23:25 Potassium 4.0 mmol/L (3.5-5.1) 08/22/24 23:25 Chloride 104 mmol/L (98-107) 08/22/24 23:25 Carbon Dioxide 24 mmol/L (22-29) 08/22/24 23: Anion Gap 18.0 (5-19) 08/22/24 23: BUN 11 mg/dL (6-20) 08/22/24 23:25 Creatinine 0.6 mg/dL (0.5-0.9) 08/22/24 23:25 GFR Calculation 110.7 mL/min (90-130) 08/22/24 23:25 Glucose 132 mg/dL (65-115) H 08/22/24 23:25 POC Glucose 138 mg/dL (70-110) H 08/22/24 22:46 Calculated Osmolality 295 mOsm/kg (285-295) 08/22/24 23: Calcium 9.3 mg/dL (8.5-10.5) 08/22/24: Magnesium 2.1 mg/dL (1.7-2.3) 08/22/24:25 Total Bilirubin 0.6 mg/dL (0.15-1.2) 08/22/24 23:25 AST 13 U/L (0-32) 08/22/24 23:25 ALT 14 U/L (0-33) 08/22/24 23:25 Alkaline Phosphatase 123 U/L (35-105) H 08/22/24 23:25 Total Protein 7.6 g/dL (6.6-8.7) 08/22/24 23:25 Albumin 4.3 g/dL (3.5-5.2) 08/22/24: Globulin 3.3 g/dL (1.3-4.6) 08/22/24 23:25 Lipase 17 U/L (13-60) 08/22/24 23:25 TSH 2.36 uIU/mL (0.27-4.20) 08/22/24 23:25 HCG, Qual Negative (Negative) 08/22/24 23:25 Urine Color Yellow (Yellow) 08/22/24 23:46 Urine Appearance Cloudy (CLEAR) A 08/22/24 23:46 Urine pH 5 (5-7) 08/22/24 23:46 Ur Specific [place] 1.030 (1.005-1.030) 08/22/24 23:46 Urine Protein 1+ (Negative) A 08/22/24 23:46 Urine Glucose (UA) Norm (Normal) 08/22/24 23:46 Urine Ketones 1+ (Negative) H 08/22/24 23:46 Urine Blood 3+ (Negative) A 08/22/24 23:46 Urine Nitrate Negative (Negative) 08/22/24 23:46 Urine Bilirubin 1+ (Negative) H 08/22/24 23:46 Urine Urobilinogen Neg mg/dL (Negative) 08/22/24 23:46 Ur Leukocyte Esterase 2+ (Negative) A 08/22/24 23:46 Urine RBC 11-20 /hpf (0-2) H 08/22/24 23:46 Urine WBC >100 /hpf (0-5) H 08/22/24 23:46 Ur Squamous Epith Cells 11-20 /hpf (0-5) H 08/22/24 23:46 Amorphous Sediment Not Reportable 08/22/24 23:46 Urine Bacteria 4+ /hpf (NONE) H 08/22/24 23:46 Hyaline Casts 7.85 /lpf 08/22/24 23:46 Influenza A (PCR) Negative (Negative) 08/22/24 22:07 Influenza Type B (PCR) Negative (Negative) 08/22/24 22:07 RSV (PCR) Negative (Negative) 08/22/24 22:07 SARS-CoV-2 (PCR) Negative (Negative) 08/22/24 22:07 All radiology interpretation(s) finalized by discharge Discharge Plan Discharge Patient Disposition: Home Clinical Impression: Urinary tract infection Qualifiers: Urinary tract infection type: acute cystitis Hematuria presence: without hematuria Qualified Code(s): N30.00 - Acute cystitis without hematuria Condition: Stable Prescriptions: New ciprofloxacin HCl [Cipro] 500 mg tablet 500 mg PO BID 10 Days Qty: 20 0RF ondansetron HCl 4 mg tablet 4 mg PO Q8H Qty: 30 0RF No Action albuterol sulfate [ProAir HFA] 90 mcg/actuation HFA aerosol inhaler 2 puff INHALATION Q6H PRN (Reason: Shortness Of Breath) simvastatin 20 mg tablet 20 mg PO DAILY trazodone 100 mg tablet 100 mg PO DAILY hydrochlorothiazide 25 mg tablet 25 mg PO DAILY acetaminophen 500 mg Tablet 1,000 mg PO Q6H PRN (Reason: Pain) ondansetron 4 mg tablet,disintegrating 4 mg PO Q6H PRN (Reason: nausea and vomiting) Qty: 14 0RF meclizine 25 mg tablet 25 mg PO QID PRN (Reason: dizziness) Qty: 14 0RF ibuprofen 800 mg tablet 800 mg PO Q8H PRN (Reason: pain) Qty: 20 0RF lithium carbonate 300 mg capsule 300 mg PO TID levothyroxine 50 mcg tablet 50 mcg PO QAM lisinopril 10 mg tablet 10 mg PO QAM metformin 500 mg Tablet Extended Release 24 Hr 500 mg PO BID Discharge Orders: Discharge ED (Routine); Ordered 08/23/24 Ordered By: Josh Thurston Referrals: Roel Marshall MD [Primary Care Provider] - Patient Instructions: Urinary Tract Infection in Women (ED) Activity Restrictions/Additional Instructions: Take antibiotics as prescribed. Zofran for nausea. Make sure that you are drinking plenty of fluids. Follow-up with your regular doctor as we discussed and return with any new or worsening. Print Language: Nepali Coding Level of Care Code ED Lockmaker for Doron Soto
[2024-08-22 23:34] LABS: Basophils % 0.2 %; Eosinophils % 0.8 %; Hematocrit 37.8 % (36-47); Lymphocytes # 1.8 10^3/uL (0.8-4.8); Lymphocytes % 34.9 %; Mean Corpuscular Hemoglobin 26.8 pg (27-33); Mean Corpuscular Volume 83.6 fl (85-98); Mean Platelet Volume 9.9 fL (7.4-10.4); Monocytes # 0.4 10^3/uL (0.2-0.9); Monocytes % 6.9 %; Neutrophils # 2.89 10^3/uL (1.8-7.7); Nucleated Red Blood Cells % 0 %; Platelet Count 246 10^3/cmm (157-399); Red Blood Count 4.52 10^6/uL (3.85-5.65); White Blood Count 5.07 10^3/uL (3.29-11.43)
[2024-08-22 23:49] LABS: HCG, Serum Qual Negative (Negative)
[2024-08-22 23:50] VITALS: BP 139/71; PULSE 84; RESP 15; O2SAT 96
[2024-08-23] VITALS: BP 137/72; PULSE 79; RESP 16; O2SAT 95
[2024-08-23 00:02] LABS: Bacteria Urine 4+ /hpf; Hyaline Casts Urine 7.85 /lpf; WBC Urine >100 /hpf (0-5)
[2024-08-23 00:03] LABS: Alanine Aminotransferase 14 U/L (0-33); Albumin Level 4.3 g/dL (3.5-5.2); Alkaline Phosphatase 123 U/L (35-105); Aspartate Amino Transferase 13 U/L (0-32); Blood Urea Nitrogen 11 mg/dL (6-20); Calcium 9.3 mg/dL (8.5-10.5); Carbon Dioxide 24 mmol/L (22-29); Chloride 104 mmol/L (98-107); Creatinine Clr Calc Pharmacy 147.5395; Globulin 3.3 g/dL (1.3-4.6); Glomerular Filtration Rate 110.7 mL/min (90-130); Glucose 132 mg/dL (65-115); Lipase 17 U/L (13-60); Magnesium 2.1 mg/dL (1.7-2.3); Osmolality Calculated 295 mOsm/kg (285-295); Sodium 142 mmol/L (136-145); Thyroid Stimulating Hormone 2.36 uIU/mL (0.27-4.20); Total Bilirubin 0.6 mg/dL (0.15-1.2); Total Protein 7.6 g/dL (6.6-8.7)
[2024-08-23 00:11] LABS: Influenza A NEGATIVE (Negative); Influenza B NEGATIVE (Negative); Respiratory Syncytial Virus Ce NEGATIVE (Negative); SARS-CoV-2 PCR NEGATIVE (Negative)
[2024-08-23 00:14] LABS: Add Urine Microscopic? YES; Bilirubin Urine 1+ (Negative); Blood Urine 3+ (Negative); Glucose Urine UA Norm (Normal); Ketones Urine 1+ (Negative); Leukocyte Esterase Urine 2+ (Negative); Nitrate Urine Negative (Negative); Protein Urine 1+ (Negative); UA Slide Review UA Slide Review Perf; Urine Appearance Cloudy (CLEAR); Urine Color Yellow (Yellow); Urobilinogen Urine Neg (Negative); pH Urine 5 (5-7)
[2024-08-23 00:15] LABS: Add Urine Culture? No
[2024-08-23 00:30] VITALS: BP 141/67; PULSE 88; RESP 12; O2SAT 95
[2024-08-23] MEDS: ondansetron 2 mg/ML SDV 2 mL 8 MG IVP (00:46)
[2024-08-23] MEDS: cefTRIAXone 1,000 mg SDV 1000 MG IVP (00:47)
[2024-08-23] MEDS: sodium chloride 0.9% 1,000 ML 999 ML IV (00:47)
[2024-08-23 01:00] VITALS: BP 142/82; PULSE 74; RESP 17; O2SAT 95
[2024-08-23 01:30] VITALS: BP 131/61; PULSE 75; RESP 16; O2SAT 96
[2024-08-23 01:52] VITALS: BP 131/61; PULSE 69; O2SAT 95
== END 2024-08-23 01:58 | disposition home or self-care (01) ==
PROVIDERS: Emergency Provider Physician Assistant; PCP Family Medicine
DX: N30.00 Acute cystitis without hematuria (principal); Z11.52 Encounter for screening for COVID-19; Z79.84 Long term (current) use of oral hypoglycemic drugs; Z87.891 Personal history of nicotine dependence
CPT/HCPCS: 36415; 36416; 71045; 80053; 81001; 82962; 83690; 83735; 84443; 84703; 85025; 87637; 93005; 96361; 96374; 96375; 99285; J0696; J2405; J7030

== ENCOUNTER 2024-08-24 22:01 | Emergency (ER) | payer OTHER, SELFPAY ==
[2024-08-24 22:02] VITALS: BP 145/88; PULSE 77; RESP 18; TEMP 36.6; O2SAT 96; BMI 40.7
--- NOTE | 2024-08-24 22:11 | ECG_ITS ---
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 Measurements Intervals [place] Rate: 82 P: 48 SC: 144 QRS: 65 QRSD: 114 T: -1 QT: 332 QTc: 389 Interpretive Statements SINUS RHYTHM MODERATE INTRAVENTRICULAR CONDUCTION DELAY [110+ ms QRS DURATION] NONSPECIFIC ST & T-WAVE ABNORMALITY Compared to ECG 08/22/2024 23:16:22 Intraventricular conduction delay now present T-wave abnormality still present Electronically Signed On 08-25-2024 13:00:19 CDT by Jose Campa M.D. [id number]
--- NOTE | 2024-08-24 22:14 | XRR_ITS ---
PROCEDURE INFORMATION: Exam: XR Chest Exam date and time: 08/24/2024 10:41 PM Age: 38 years old Clinical indication: Chest pressure; Prior surgery; Surgery date: 6+ months; Surgery type: Breast lumpectomy. Gb; C/O chest pain TECHNIQUE: Imaging protocol: Radiologic exam of the chest. Views: 1 view. COMPARISON: CR (CHEST, ) 08/22/2024 11:17 PM FINDINGS: Lungs: Unremarkable. No consolidation. Pleural spaces: Unremarkable. No pleural effusion. No pneumothorax. Heart/Mediastinum: Similar appearance of the cardiomediastinal silhouette Bones/joints: Unremarkable. XR/XR chest 1V portable [id number] IMPRESSION: As above.
--- NOTE | 2024-08-24 22:38 | W.ED.CHESTPA ---
HPI - Chest Pain General: Chief Complaint: Chest Pain Stated Complaint: CP dizzy fall chest constricting Time Seen by Provider: 08/24/24 22:18 Source: patient Mode of arrival: ambulatory Limitations: no limitations History of Present Illness: Patient is a 38-year-old female presents to ED today with a complaint of chest pain that is pretty much been present all day. Patient states she does have a longstanding history of chest pains. She states she has never had a heart attack or previous cardiac stenting. Does report a murmur that was diagnosed as a child. Patient is not having any shortness of breath or difficulty breathing. She states she has been having some episodes of dizziness over the past several days. Patient states she got dizzy today and fell backwards and struck the posterior aspect of her head. No LOC. She is not on anticoagulation. She does have a mild headache but her main complaints are chest pain. She has also noticed some elevated blood pressure readings on today's visit and a few days ago when she was seen here. She reports she does keep a log of her blood pressures at home and they have been running fairly normal (125ish systolic). She states on her last ED visit she was diagnosed with UTI and placed on antibiotics. Labs on that visit were reviewed. She did have 11-20 squamous cells on her UA thus culture was not performed. Patient is not having any UTI-like symptoms. No flank pain. No vomiting or fevers. MD complaint: chest pain Onset (ago): hour(s) Timing of current episode: episodic Prior episodes: Yes Pain location: substernal Pain radiation: none Severity: severe Pain scale (0-10): 8 Exacerbating factors: palpation Associated symptoms: Deny abdominal pain, dyspnea, fever(s), palpitations or syncope Treatment prior to arrival: none Risk Factors: Coronary artery disease risk factors: none Thoracic aortic dissection risk factors: none Related Data Home Medications ?Medication ?Instructions ?Recorded ?Confirmed albuterol sulfate 90 mcg/actuation 2 puff inhalation Q6H PRN 07/27/19 07/16/24 aerosol inhaler (ProAir HFA) Shortness Of Breath acetaminophen 500 mg tablet 1,000 mg PO Q6H PRN Pain 07/28/21 07/16/24 Held on 11/03/23. Instructions: Resume on 11/08/23. levothyroxine 50 mcg tablet 50 mcg PO QAM 07/28/22 07/16/24 lisinopril 10 mg tablet 10 mg PO QAM 07/28/22 07/16/24 lithium carbonate 300 mg capsule 300 mg PO TID 07/28/22 07/16/24 metformin 500 mg tablet,extended 500 mg PO BID 07/28/22 07/16/24 release 24 hr hydrochlorothiazide 25 mg tablet 25 mg PO DAILY 01/05/23 07/16/24 simvastatin 20 mg tablet 20 mg PO DAILY 07/16/24 07/16/24 trazodone 100 mg tablet 100 mg PO DAILY 07/16/24 07/16/24 Previous Rx's ?Medication ?Instructions ?Recorded ondansetron 4 mg disintegrating 4 mg PO Q6H PRN nausea and 04/21/22 tablet vomiting #14 tabs meclizine 25 mg tablet 25 mg PO QID PRN dizziness #14 tabs 01/17/23 ibuprofen 800 mg tablet 800 mg PO Q8H PRN pain #20 tabs 01/23/24 ciprofloxacin HCl 500 mg tablet 500 mg PO BID 10 days #20 tabs 08/23/24 (Cipro) ondansetron HCl 4 mg tablet 4 mg PO Q8H #30 tabs 08/23/24 Allergies Allergy/AdvReac Type Severity Reaction Status Date / Time aspirin Allergy [id number] Verified 08/22/24 22:43 diclofenac Allergy ALGY-Hives Verified 08/22/24 22:43 ethinyl estradiol (From Allergy ALGY-Anaphy Verified 08/22/24 22:43 Mononessa (28)) laxis hydromorphone (From Dilaudid) Allergy unknown Verified 08/22/24 22:43 latex Allergy ALGY-Rash Verified 08/22/24 22:43 methylphenidate (From Allergy Unknown Verified 08/22/24 22:43 Ritalin) norgestimate (From Mononessa Allergy ALGY-Anaphy Verified 08/22/24 22:43 (28)) laxis nut - unspecified Allergy ALGY-Anaphy Verified 08/22/24 22:43 laxis oxycodone (From Percocet) Allergy Unknown Verified 08/22/24 22:43 venom-honey bee Allergy ALGY-Hives Verified 08/22/24 22:43 Sausage (due to spices) AdvReac Intermediate ADR-Nausea Uncoded 08/22/24 22:43 Review of Systems Const: Denies: fever(s), chills, body aches, fatigue or malaise Eyes: Denies: change in vision, blurry vision, photophobia, floaters or seeing flashes Card: Reports: chest pain; Denies: palpitations, irregular heart rhythm, edema, swelling of feet/ankles, lightheadedness, syncope, pre-syncope, dyspnea on exertion, orthopnea, leg pain with exertion or acrocyanosis Resp: Denies: dyspnea or chest congestion GI: Denies: abdominal pain Musc: Denies: neck pain, back pain, extremity pain, extremity swelling, joint pain, joint swelling or joint redness Skin/Breast: Denies: rash Neuro: Reports: headache(s) and dizziness; Denies: numbness in extremities, weakness in extremities, sensory changes, difficulty walking or confusion PFSH ED PFSH: Medical History Abdominal pain Collar bone fracture Femur fracture, right No pertinent family history No significant past medical history Surgical History Status post laparoscopic cholecystectomy S/P hysterectomy History of breast lump removal Hx of tonsillectomy Family History Family/Other Breast cancer Maternal and Paternal aunts Father Diabetes Denies family history of Cervical cancer Colon cancer Ovarian cancer Hypertension Uterine cancer Stroke Social History Smoking and tobacco/nicotine status: former use of tobacco/nicotine Alcohol intake: never Substance/Drug Use: never Physical Exam Const: COMMON NORMALS: no acute distress, patient oriented x3, no limitations, alert and well nourished GENERAL APPEARANCE: cooperative NUTRITIONAL APPEARANCE: obese (BMI 40.7) ORIENTATION/CONSCIOUSNESS: Yes awake, Yes oriented to person, Yes oriented to place and Yes oriented to time HENMT: COMMON NORMALS: normocephalic and atraumatic HEAD & SCALP: normal to inspection, normocephalic and atraumatic FACE & SINUS: normal facial exam and face symmetric Eye: COMMON NORMALS: Equal, round and reactive pupils present and EOMs intact bilaterally GENERAL EYE: appearance normal, both eyes and all related structures and normal light reflex PUPIL: Yes Equal, round and reactive pupils present DIRECT OPHTHALMOSCOPY: Yes normal light reflex OTHER: no nystagmus Neck/C-Spine: COMMON NORMALS: full ROM, no lymphadenopathy, supple and no meningeal signs Chest: COMMONS NORMALS: normal inspection of the chest OTHER: patient has reproducible chest pain to anterior chest wall Resp: COMMON NORMALS: normal respiratory effort and clear to auscultation bilaterally AUSCULTATION: clear to auscultation bilaterally Cardio: COMMON NORMALS: regular rate and regular rhythm RATE: regular rate RHYTHM: regular rhythm GI: COMMON NORMALS: Normal to inspection, nondistended, normoactive bowel sounds present, Soft to palpation, non-tender, No hepatosplenomegaly present and no masses PALPATION: Yes Soft to palpation and Yes No hepatosplenomegaly present : COMMON NORMALS: Yes no CVA tenderness BLADDER/KIDNEY EXAM: Yes no CVA tenderness Back/Pelvis: COMMON NORMALS: no CVA tenderness and thoracic and lumbar spine normal to inspection Extremity: COMMON NORMALS: normal to inspection GENERAL: Yes normal exam except as noted Neuro: MURALI COMA SCALE: document GCS findings [place] coma scale eye opening: Spontaneous Murali coma scale verbal response: Orientated [place] coma scale motor response: Obey commands Murali coma scale total score: 15 COMMON NORMALS: patient oriented x3, CN's II-XII intact bilaterally, moves all extremities, no focal motor deficits and no sensory deficits noted SENSORIUM/ORIENTATION: Yes alert, Yes oriented to person, Yes oriented to place and Yes oriented to time MENINGEAL SIGNS: Yes no meningeal signs Skin: COMMON NORMALS: no rashes or lesions noted GENERAL SKIN EXAM: no rashes or lesions noted Course Vital Signs: Vital signs: Vital Signs Temperature 97.8 F 08/24/24 22:02 Pulse Rate 79 08/24/24 22:56 Respiratory Rate 16 08/24/24 22:56 Blood Pressure 154/95 08/24/24 22:56 Pulse Oximetry 96 08/24/24 22:56 Oxygen Delivery Me thod Room Air 08/24/24 22:56 MDM - Chest Pain Medical Decision Making Patient clinically appears in absolutely no acute distress. Her chest pain is easily reproducible. Chest pain starting early this morning. Her baseline troponin is unremarkable. Based on length of symptoms, repeat troponin is not necessary. Her EKG is nonischemic. Her CXR showing no acute findings. She does not require CT imaging for her minor head injury. She has no acute neurologic findings. She can follow-up with PCP for her intermittent dizziness. Recommendations for continued blood pressure log. Patient will be allowed discharge at this time. Return precautions discussed. Medical Records I reviewed the patient's medical records. Lab Data I reviewed the patient's lab results. 08/24/24 22:40 08/24/24 22:40 Radiology Impressions Chest X-Ray 08/24/24 22:14 IMPRESSION: As above. Laboratory Results WBC 5.47 10^3/uL (3.29-11.43) 08/24/24 22:40 RBC 4.34 10^6/uL (3.85-5.65) 08/24/24 22:40 Hgb 11.60 g/dL (11.27-16.99) 08/24/24 22:40 Hct 36.4 % (36-47) 08/24/24 22:40 MCV 83.9 fl (85-98) L 08/24/24 22:40 MCH 26.7 pg (27-33) L 08/24/24 22:40 MCHC 31.9 g/dL (30-55) 08/24/24 22:40 RDW 13.0 % (12.1-15.1) 08/24/24 22:40 Plt Count 235 10^3/cmm (157-399) 08/24/24 22:40 MPV 10.3 fL (7.4-10.4) 08/24/24 22:40 Neut % (Auto) 54.1 % 08/24/24 22:40 Lymph % (Auto) 37.5 % 08/24/24 22:40 [place] % (Auto) 7.3 % 08/24/24 22:40 Eos % (Auto) 0.7 % 08/24/24 22:40 Baso % (Auto) 0.2 % 08/24/24 22:40 Neut # (Auto) 2.96 10^3/uL (1.8-7.7) 08/24/24 22:40 Lymph # (Auto) 2.1 10^3/uL (0.8-4.8) 08/24/24 22:40 [place] # (Auto) 0.4 10^3/uL (0.2-0.9) 08/24/24 22:40 Eos # (Auto) 0.0 10^3/uL (0.0-0.8) 08/24/24 22:40 Baso # (Auto) 0.0 10^3/uL (0.0-0.1) 08/24/24 22:40 Nucleated RBC % (auto) 0 % 08/24/24 22:40 Nucleated RBCs # 0.0 /100WBC 08/24/24 22:40 Sodium 141 mmol/L (136-145) 08/24/24 22:40 Potassium 3.5 mmol/L (3.5-5.1) 08/24/24 22:40 Chloride 104 mmol/L (98-107) 08/24/24 22:40 Carbon Dioxide 24 mmol/L (22-29) 08/24/24 22:40 Anion Gap 16.5 (5-19) 08/24/24 22:40 BUN 13 mg/dL (6-20) 08/24/24 22:40 Creatinine 0.6 mg/dL (0.5-0.9) 08/24/24 22:40 GFR Calculation 110.7 mL/min (90-130) 08/24/24 22:40 Glucose 129 mg/dL (65-115) H 08/24/24 22:40 Calculated Osmolality 294 mOsm/kg (285-295) 08/24/24 22:40 Calcium 9.4 mg/dL (8.5-10.5) 08/24/24 22:40 Total Bilirubin 0.4 mg/dL (0.15-1.2) 08/24/24 22:40 AST 19 U/L (0-32) 08/24/24 22:40 ALT 17 U/L (0-33) 08/24/24 22:40 Alkaline Phosphatase 120 U/L (35-105) H 08/24/24 22:40 Troponin T Baseline < 6 ng/L (0-10) 08/24/24 22:40 Total Protein 7.5 g/dL (6.6-8.7) 08/24/24 22:40 Albumin 4.6 g/dL (3.5-5.2) 08/24/24 22:40 Globulin 2.9 g/dL (1.3-4.6) 08/24/24 22:40 All radiology interpretation(s) finalized by discharge Discharge Plan Discharge Patient Disposition: Home Clinical Impression: Pain, chest wall Condition: Stable Prescriptions: No Action albuterol sulfate [ProAir HFA] 90 mcg/actuation HFA aerosol inhaler 2 puff INHALATION Q6H PRN (Reason: Shortness Of Breath) simvastatin 20 mg tablet 20 mg PO DAILY trazodone 100 mg tablet 100 mg PO DAILY hydrochlorothiazide 25 mg tablet 25 mg PO DAILY acetaminophen 500 mg Tablet 1,000 mg PO Q6H PRN (Reason: Pain) ondansetron 4 mg tablet,disintegrating 4 mg PO Q6H PRN (Reason: nausea and vomiting) Qty: 14 0RF meclizine 25 mg tablet 25 mg PO QID PRN (Reason: dizziness) Qty: 14 0RF ibuprofen 800 mg tablet 800 mg PO Q8H PRN (Reason: pain) Qty: 20 0RF ciprofloxacin HCl [Cipro] 500 mg tablet 500 mg PO BID 10 Days Qty: 20 0RF ondansetron HCl 4 mg tablet 4 mg PO Q8H Qty: 30 0RF lithium carbonate 300 mg capsule 300 mg PO TID levothyroxine 50 mcg tablet 50 mcg PO QAM lisinopril 10 mg tablet 10 mg PO QAM metformin 500 mg Tablet Extended Release 24 Hr 500 mg PO BID Discharge Orders: Discharge ED (Routine); Ordered 08/24/24 Ordered By: Jada Tejada Referrals: Roel Marshall MD [Primary Care Provider] - Patient Instructions: Chest Pain - Chest Wall Print Language: Khmer Coding Level of Care Code ED [employer] Charles
[2024-08-24 22:45] LABS: Basophils % 0.2 %; Eosinophils % 0.7 %; Hematocrit 36.4 % (36-47); Lymphocytes # 2.1 10^3/uL (0.8-4.8); Lymphocytes % 37.5 %; Mean Corpuscular HGB Conc 31.9 g/dL (30-55); Mean Corpuscular Hemoglobin 26.7 pg (27-33); Mean Corpuscular Volume 83.9 fl (85-98); Mean Platelet Volume 10.3 fL (7.4-10.4); Monocytes # 0.4 10^3/uL (0.2-0.9); Monocytes % 7.3 %; Neutrophils # 2.96 10^3/uL (1.8-7.7); Neutrophils % 54.1 %; Nucleated Red Blood Cells % 0 %; Platelet Count 235 10^3/cmm (157-399); Red Blood Count 4.34 10^6/uL (3.85-5.65); White Blood Count 5.47 10^3/uL (3.29-11.43)
[2024-08-24 22:56] VITALS: BP 154/95; PULSE 79; RESP 16; O2SAT 96
[2024-08-24 23:04] LABS: Troponin(5th) Baseline < 6 ng/L (0-10)
[2024-08-24 23:07] LABS: Alanine Aminotransferase 17 U/L (0-33); Albumin Level 4.6 g/dL (3.5-5.2); Alkaline Phosphatase 120 U/L (35-105); Anion Gap 16.5 (5-19); Aspartate Amino Transferase 19 U/L (0-32); Blood Urea Nitrogen 13 mg/dL (6-20); Calcium 9.4 mg/dL (8.5-10.5); Carbon Dioxide 24 mmol/L (22-29); Chloride 104 mmol/L (98-107); Creatinine Clr Calc Pharmacy 143.9695; Globulin 2.9 g/dL (1.3-4.6); Glomerular Filtration Rate 110.7 mL/min (90-130); Glucose 129 mg/dL (65-115); Osmolality Calculated 294 mOsm/kg (285-295); Potassium 3.5 mmol/L (3.5-5.1); Sodium 141 mmol/L (136-145); Total Bilirubin 0.4 mg/dL (0.15-1.2); Total Protein 7.5 g/dL (6.6-8.7)
[2024-08-24] MEDS: ketorolac 60 mg/2 mL INJ IM (23:28)
== END 2024-08-24 23:47 | disposition home or self-care (01) ==
PROVIDERS: Emergency Medicine; Emergency Provider Physician Assistant; PCP Family Medicine
DX: R07.89 Other chest pain (principal); Z79.84 Long term (current) use of oral hypoglycemic drugs; Z87.891 Personal history of nicotine dependence
CPT/HCPCS: 36415; 71045; 80053; 84484; 85025; 93005; 96372; 99285; J1885

== ENCOUNTER 2024-08-30 15:36 | Outpatient (CLI) | payer OTHER, SELFPAY ==
--- NOTE | 2024-08-30 16:00 | MRR_ITS ---
PROCEDURE INFORMATION: Exam: MR Left Lower Extremity Other Than Joint Without Contrast; Foot Exam date and time: 08/30/2024 4:30 PM Age: 38 years old Clinical indication: Pain; Left; Per patient history of ankle fracture for 2 months; Additional info: To eval atfl and peroneal tendon and all of left ankle TECHNIQUE: Imaging protocol: Magnetic resonance imaging of the left lower extremity without contrast. Exam focused on the foot. COMPARISON: CR XR ankle LT min 3V* [id number] 07/16/2024 11:22 AM FINDINGS: Bones/joints: There is patchy edema scattered throughout middle portion of the calcaneus with no definite evidence of linear fracture. LIGAMENTS: Lisfranc ligament: Unremarkable. No evidence of tear. TENDONS: Flexor tendons of foot: Unremarkable. No evidence of tear. Tibialis posterior tendon: Unremarkable as visualized. Peroneal tendons: Unremarkable as visualized. Extensor tendons of foot: Unremarkable. No evidence of tear. Tibialis anterior tendon: Unremarkable as visualized. Tarsal canal (Sinus tarsi): Unremarkable. Tarsal tunnel: Unremarkable. Soft tissues: Mild subcutaneous edema involves the dorsum of the foot. Plantar fascia: Unremarkable as visualized. MR/MR foot LT wo con* [id number] IMPRESSION: 1. Bone bruise involving the calcaneus 2. Intact tendons and ligaments
== END 2024-08-30 15:37 | disposition home or self-care (01) ==
LOC: RAD 15:39
PROVIDERS: PCP Family Medicine; Visit Provider Podiatrist Foot & Ankle Surgery
DX: M25.572 Pain in left ankle and joints of left foot (principal); S82.52XA Displaced fracture of medial malleolus of left tibia, initial encounter for closed fracture; S82.832A Other fracture of upper and lower end of left fibula, initial encounter for closed fracture; R93.6 Abnormal findings on diagnostic imaging of limbs; X58.XXXA Exposure to other specified factors, initial encounter
CPT/HCPCS: 73718

== ENCOUNTER 2024-09-28 06:11 | Day surgery (SDC) | payer BC, MEDICAID, SELFPAY ==
[2024-09-28] VITALS (18 sets, daily range): BP systolic 108–136; BP diastolic 66–94; PULSE 56–98; RESP 12–19; TEMP 36.1–37.1; O2SAT 91–100; BMI 40.7
[2024-09-28] MEDS: sodium chloride 0.9% 1,000 ML 30 ML IV (06:38)
[2024-09-28 06:40] LABS: Glucose Point of Care 147 mg/dL (70-110)
--- NOTE | 2024-09-28 08:00 | SUR.OPER ---
Addendum entered by Marcie Puga RN 09/28/24 08:02: 50 ml of Ropavacaine used Original Note: Blocked completed by Dr. Kidd. Ropavacaine administered during Popliteal and abductor block.
--- NOTE | 2024-09-28 08:03 | ANES.PREANE2 ---
Pre-Anesthetic Assessment Height/Weight: Height 5 ft 3 in Weight 230 lb Temp Pulse Resp BP Pulse Ox O2 Del Method 97.6 F 80 18 136/89 97 Room Air 09/28/24 06:30 09/28/24 06:30 09/28/24 06:30 09/28/24 06:30 09/28/24 06:30 09/28/24 06:30 Preop Diagnosis: Left ankle instability Operation Date: 09/28/24 07:50 Proposed Procedures p Ankle Arthroscopy with debridement(Left) - Neel Simon DPM s [place] Procedure Modified Julia(Left) - Neel Simon DPM Was Beta Jesus taken within 24 hours: N/A Was Clonidine taken within 24 hours: N/A Last intake: Intake Last Liquid Date 09/27/24 Last Liquid Time 23:00 Last Solid Date 09/27/24 Last Solid Time 21:00 Social No alcohol and No tobacco Exam alert, oriented x 3, clear to auscultation bilaterally and regular rate & rhythm Airway Submandibular: within normal limits Cervical ROM: within normal limits Mallampati: Class III Dentition: full Comments: Comments: Poor dentition, denies any loose Anesthetic Plan ASA status: 3 Anesthesia: General and Regional (specify below) Other: No prior issues with anesthesia NPO since yesterday evening History of hypertension on hydrochlorothiazide and lisinopril Hypothyroidism on Synthroid Type 2 diabetes, states she is post be on insulin but cannot get it because of insurance. Preop BS 147 Bipolar disorder, on chronic lithium Labs reviewed acceptable for procedure Plan for general anesthesia with preop nerve block Medications/Allergies Home Medications ?Medication ?Instructions ?Recorded ?Confirmed ?Last Taken ?Type albuterol sulfate 90 mcg/actuation 2 puff inhalation Q6H PRN 07/27/19 09/28/24 11/01/23 History aerosol inhaler (ProAir HFA) Shortness Of Breath acetaminophen 500 mg tablet 1,000 mg PO Q6H PRN Pain 07/28/21 09/28/24 10/31/23 History Held on 11/03/23. Instructions: Resume on 11/08/23. ondansetron 4 mg disintegrating 4 mg PO Q6H PRN nausea and 04/21/22 09/28/24 10/04/23 Rx tablet vomiting #14 tabs levothyroxine 50 mcg tablet 50 mcg PO QAM 07/28/22 09/28/24 09/22/24 History lisinopril 10 mg tablet 10 mg PO QAM 07/28/22 09/28/24 09/22/24 History lithium carbonate 300 mg capsule 300 mg PO TID 07/28/22 09/28/24 09/22/24 History metformin 500 mg tablet,extended 500 mg PO BID 07/28/22 09/28/24 09/22/24 History release 24 hr hydrochlorothiazide 25 mg tablet 25 mg PO DAILY 01/05/23 09/28/24 09/22/24 History meclizine 25 mg tablet 25 mg PO QID PRN dizziness #14 tabs 01/17/23 09/28/24 10/04/23 Rx ibuprofen 800 mg tablet 800 mg PO Q8H PRN pain #20 tabs 01/23/24 09/28/24 Unknown Rx simvastatin 20 mg tablet 20 mg PO DAILY 07/16/24 09/28/24 09/22/24 History trazodone 100 mg tablet 100 mg PO DAILY 07/16/24 09/28/24 09/22/24 History ondansetron HCl 4 mg tablet 4 mg PO Q8H #30 tabs 08/23/24 09/28/24 Unknown Rx Allergies Allergy/AdvReac Type Severity Reaction Status Date / Time aspirin Allergy ALGY-Anaphy Verified 09/28/24 06:25 laxis diclofenac Allergy ALGY-Hives Verified 09/28/24 06:25 ethinyl estradiol (From Allergy ALGY-Anaphy Verified 09/28/24 06:25 Mononessa (28)) laxis hydromorphone (From Dilaudid) Allergy ALGY-Hives Verified 09/28/24 06:25 latex Allergy ALGY-Rash Verified 09/28/24 06:25 methylphenidate (From Allergy ADR/ALGY-Pa Verified 09/28/24 06:25 Ritalin) lpitations norgestimate (From Mononessa Allergy ALGY-Anaphy Verified 09/28/24 06:25 (28)) laxis nut - unspecified Allergy ALGY-Anaphy Verified 09/28/24 06:25 laxis oxycodone (From Percocet) Allergy ADR-Seizure Verified 09/28/24 06:25 venom-honey bee Allergy ALGY-Hives Verified 09/28/24 06:25 Sausage (due to spices) AdvReac Intermediate ADR-Nausea Uncoded 09/28/24 06:25 Current Medications Generic Name Dose Route Start Last Admin Trade Name Freq PRN Reason Stop Dose Admin Sodium Chloride 1,000 mls @ 30 mls/hr 09/28/24 06:15 09/28/24 06:38 Sodium Chloride 0.9% IV 09/29/24 06:14 30 mls/hr .Q24H LINDA Administration PFSH Anesthesia Medical History Abdominal pain Collar bone fracture Femur fracture, right No pertinent family history No significant past medical history Surgical History Status post laparoscopic cholecystectomy S/P hysterectomy History of breast lump removal Hx of tonsillectomy Family History Family/Other Breast cancer Maternal and Paternal aunts Father Diabetes Denies family history of Cervical cancer Colon cancer Ovarian cancer Hypertension Uterine cancer Stroke Social History Smoking and tobacco/nicotine status: former use of tobacco/nicotine Alcohol intake: never Substance/Drug Use: never
--- NOTE | 2024-09-28 08:05 | ANES.PROC ---
Anesthesia Procedures Procedure/Date: 09/28/24 Nerve Block ^: Nerve Block 1: Main Anesthesia: other (100 mcg fentanyl and 2 mg Versed) Time Out Performed: Yes Consent: requested by attending/covering physician Nerve block location: popliteal Anesthesia monitors applied: pulse oximetry, EKG, BP cuff and oxygen Nerve block position: supine Anesthetic Used: ropivicaine 0.5% Amount of anesthesia used (mL): 25 Ultrasound used to: recognize landmarks Nerve Stimulator Used?: Yes Interscalene/Femoral BLK: other needle (pjunk 4inch) Injection: neg aspiration of heme Patient Tolerated Procedure: well Complications: none Additional Comments: decadron 4mg added to block Nerve Block 2: Main Anesthesia: other Time Out Performed: Yes Consent: requested by attending/covering physician and from patient Nerve block location: adductor canal Anesthesia monitors applied: pulse oximetry, EKG, BP cuff and oxygen Nerve block position: supine Anesthetic Used: ropivicaine 0.5% Amount of anesthesia used (mL): 15 Ultrasound used to: recognize landmarks Nerve Stimulator Used?: No Interscalene/Femoral BLK: other needle (pjunk 4inch) Injection: neg aspiration of heme Patient Tolerated Procedure: well Complications: none
--- NOTE | 2024-09-28 08:06 | W.PM.OPSUD ---
Surgery/Procedure H&P Update DATE OF PROCEDURE: September 28, 2024 DATE H&P PERFORMED: 09/03/24 H&P UPDATE INFORMATION: I have reviewed H&P completed within last 30 days, I have examined patient prior to procedure, No changes to prior documentation and Risks and benefits of the procedure reviewed PREOP DIAGNOSIS: Left ankle instability PLANNED PROCEDURE: Operation Date: 09/28/24 07:50 Proposed Procedures p Ankle Arthroscopy with debridement(Left) - Neel Simon DPM s [place] Procedure Modified Julia(Left) - Neel Simon DPM
--- NOTE | 2024-09-28 08:12 | PM.OP ---
Operative Report Date of procedure: September 28, 2024 Pre-op diagnosis: Closed avulsion fracture of medial malleolus of left tibia with routine healing, subsequent encounter S82.52XD Closed avulsion fracture of distal end of left fibula with routine healing, subsequent encounter S82.832D Acute left ankle pain M25.572 Left ankle instability M25.372 Ligamentous laxity of left ankle M24.272 Post-op diagnosis: Same Post-op findings: Positive anterior drawer sign preoperatively and negative anterior drawer postoperatively left ankle. No osteochondral defect appreciated with ankle scope hemorrhagic synovitis appreciated with ankle scope which was debrided. Procedure done: 1) left ankle scope with debridement. CPT code 68228 2) left modified Brostr?m. CPT code 80692 Implants: 2-0 Vicryl, 4-0 Vicryl, 4-0 nylon Specimens removed/disposition: None Pathology: None Surgeon: Neel Simon DPM [employer]: [employer] Estimated blood loss: 2 42 IV fluids: See intraoperative documentation Urine output: None Complications: No complications Brief History: 38-year-old female with history of recurrent left ankle sprains presenting with ankle pain. MRI imaging incidentally shows a complete ligament tear. She has not responded to physical therapy and continues to experience instability. Surgical repair is indicated. 1. Torn Ligament Of Left Ankle Surgical repair is scheduled to address the complete ligament tear in the left ankle. Procedure includes reattaching the ligament and using an internal brace for stabilization. Post operative care involves weight-bearing in a splint or boot, transitioning to an ankle brace in two weeks, and a return to a regular shoe in six weeks. Pain will be managed with hydrocodone due to past adverse reactions to oxycodone. The patient requires home therapy as part of recovery and may use a walker as needed. - Wear the protective boot as recommended. - Undergo the scheduled surgery for ligament repair; attend appointments as discussed. - Follow weight-bearing instructions after surgery. - Use prescribed pain medications, hydrocodone, post-surgery. - Engage in prescribed physical therapy exercises at home post-surgery. - Seek medical attention if the pain worsens or swelling increases significantly. The patient presents with a torn ligament in the left ankle as incidentally discovered on MRI. Conservative treatment has failed, making surgical intervention necessary. The choice for surgery aims to restore functional stability and alleviate persistent discomfort. The procedure will involve ligament repair and an internal brace to prevent recurring injury. Expected outcomes involve progressive weight-bearing starting immediately post-surgery and transitioning back into normal footwear within six weeks. Analgesia is carefully chosen considering past adverse effects, emphasizing an individualized pain management plan with hydrocodone. The patient is counseled thoroughly on the procedure, pain control, and post-operative care, ensuring understanding of recovery dynamics and the importance of compliance with rehabilitation to optimize surgical outcomes. Procedure: The patient was brought to the operating room and placed in the supine position on the operating table. Following the administration of general anesthetic, the left lower extremity was prepped and draped in the usual sterile fashion. Well-padded pneumatic thigh calf ankle tourniquet was inflated after Esmarch bandage. A standard 2.5 cm curvilinear incision was made over the anterolateral aspect of the left ankle, centered over the anterior fibular malleolus. The subcutaneous tissues were dissected, and the superficial peroneal nerve and its branches were identified and carefully protected throughout the procedure. ? The extensor retinaculum was identified and a longitudinal incision was made to expose the underlying lateral ankle ligaments and joint capsule. The remnants of the anterior talofibular ligament (ATFL) and calcaneofibular ligament (CFL) were identified and debrided of any scar tissue. The ankle joint was entered, and the articular surfaces were inspected utilizing anterior medial and lateral portals with a Arthrex Angeline scope, extensive synovitis was encountered and debrided with a shaver with irrigation of saline solution, no osteochondral defect appreciated. After irrigation the anterior medial and lateral portals were closed with 4-0 nylon The modified Brostr?m procedure was then performed. The attenuated remnants of the ATFL and the anterior aspect of the joint capsule were imbricated and reefed using 2 non-absorbable sutures (FiberWire). The repair was performed with the ankle in dorsiflexion and eversion to achieve appropriate tension on the ligaments. Attention was then turned to the Arthrex 2.0 internal brace augmentation. Using the Arthrex internal brace system, pilot can router holes were drilled into the distal fibula and the talus according to the director process engineering's guidelines. A FiberTape was then passed through the bone tunnels. The tension on the FiberTape was adjusted to provide additional support and stability to the reconstructed ATFL. The ends of the FiberTape were secured using swivel lock anchors at the appropriate tension, ensuring anatomic reduction of the lateral ligament complex without over-constraint. The integrity and stability of the repair were assessed through gentle range of motion of the ankle. The anterior drawer and talar tilt tests were repeated and demonstrated significantly improved stability. The extensor retinaculum was repaired with 3 absorbable sutures (3-0 Vicryl). The subcutaneous tissues were closed in layers with 4-0 Vicryl, and the skin was closed with 4-0 nylon. A sterile dressing was applied, and the left ankle was placed in a cam boot for immobilization. The patient tolerated the procedure well and was transferred to the Post-Anesthesia Care Unit in stable condition. After period of postoperative monitoring to be discharged home with home care instructions and scheduled follow-up.
[2024-09-28] MEDS: ceFAZolin 2,000 mg SDV 2000 MG IVP (08:20)
[2024-09-28] MEDS: lidocaine-epi 1% 20 mL INJ INJECTION (09:12)
--- NOTE | 2024-09-28 09:24 | W.PM.BPON ---
Date of Procedure: 07/29/23 Surgeon: Neel Simon DPM [employer](s): Hiram Procedure(s) performed: Modified Brostr?m and ankle arthroscopy left lower extremity. Findings of the procedure(s): ATFL tear, left. Estimated blood loss: 2 Specimen(s) removed: No specimens were removed Post-operative diagnosis: Left ankle instability No intraoperative complications, patient had a popliteal block to the left lower extremity preoperatively, general anesthetic, 42-minute tourniquet time.
[2024-09-28] MEDS: fentaNYL 50 mcg/mL INJ 2mL IVP ×2 (09:51→10:01)
[2024-09-28] MEDS: diphenhydrAMINE 50 mg/mL SDV 1mL 12.5 MG IVP (10:11)
--- NOTE | 2024-09-28 10:12 | PC.NURSE ---
AFTER SECOND DOSE OF FENTANYL GIVEN, PATIENT CO FACIAL ITCHING AND TONGUE ITCHING. ANESTHESIA CALLED AND IV BENADRYL ORDERED AND GIVEN PER MD REQUEST.
--- NOTE | 2024-09-28 12:04 | ANE.PACU2 ---
Inpatient post-anesthesia follow up: Airway intact: Yes Vital signs: Temperature 97.0 F Pulse Rate 98 Respiratory Rate 17 Blood Pressure 124/73 Pulse Oximetry 95 Oxygen Delivery Me thod Room Air Oxygen Flow Rate 2 Fraction of Inspir ed Oxygen Hydration adequate: Yes Nausea and vomiting: No Pain level: 1 Mental status: Baseline
== END 2024-09-28 12:04 | disposition home or self-care (01) ==
PROVIDERS: PCP Family Medicine; Visit Provider Podiatrist Foot & Ankle Surgery
PROC: (CPT 27698; principal; 2024-09-28 07:50)
PROC: (CPT 27698; 2024-09-28 07:50)
DX: M24.272 Disorder of ligament, left ankle (principal); S82.52XD Displaced fracture of medial malleolus of left tibia, subsequent encounter for closed fracture with routine healing; S82.832D Other fracture of upper and lower end of left fibula, subsequent encounter for closed fracture with routine healing; E03.9 Hypothyroidism, unspecified; M65.972 Unspecified synovitis and tenosynovitis, left ankle and foot; I10 Essential (primary) hypertension; E11.9 Type 2 diabetes mellitus without complications; Z88.8 Allergy status to other drugs, medicaments and biological substances; Z91.040 Latex allergy status; Z88.5 Allergy status to narcotic agent; Z79.899 Other long term (current) drug therapy; Z79.890 Hormone replacement therapy; Z79.85 Long-term (current) use of injectable non-insulin antidiabetic drugs; Z87.891 Personal history of nicotine dependence
CPT/HCPCS: 27698; 29898; 36416; 82962; C1713; J0690; J1200; J2250; J2405; J2704; J3010; J7030; J9999